=== PATIENT | male | born 1960 | race Caucasian/White ===

== ENCOUNTER 2019-05-02 19:42 | Emergency (ER) | payer OTHER ==
[2019-05-02] MEDS ORDERED: Sodium Chloride 0.9% 10 ML Syringe FLUSH PRN (20:01)
[2019-05-02] MEDS ORDERED: Sodium Chloride 0.9% 2.5 ML Syringe FLUSH PRN (20:01)
[2019-05-02] MEDS ORDERED: Ondansetron 4 MG/2 ML SDV IVPUSH ONE (20:02)
[2019-05-02] MEDS ORDERED: Sodium Chloride 0.9% 1,000 ML IV ONE (20:02)
[2019-05-02] MEDS ORDERED: HYDROmorphone 1 MG/ML Syringe IVPUSH ONE (20:02)
--- NOTE | 2019-05-02 20:06 | EDM.PDOC ---
ED HPI GENERAL MEDICAL PROBLEM - General Chief Complaint: Abdominal Pain Stated Complaint: GALLBLADDER ISSUES Time Seen by Provider: 05/02/19 19:45 - History of Present Illness INITIAL COMMENTS - FREE TEXT/NARRATIVE: HISTORY AND PHYSICAL: History of present illness: The patient is a 58-year-old male with a history of hypertension and diabetes who follows in our clinic and presents with complaints of a 24-hour history of intractable vomiting and mid abdominal pain. He says that he had a similar episode back in August of this year and had a workup at another hospital including a HIDA scan and ultrasound as he had gallstones. He says that the scan that was done seemed equivocal and they were unsure as initially the gallbladder was not functioning and then it did seem to function and they opted not to take his gallbladder out. The patient says he's been doing very well until today. He's had no fever chills cough or shortness of breath no urinary issues and he says that the pain is deep and aching in his mid abdomen and then radiates to the right side completely. He has no flank pain. He has not been able to keep anything down by mouth and is vomiting bile. He has promethazine suppositories at home and he tried when it did not work. The patient has no groin plane and no testicular pain or swelling Review of systems: As per history of present illness and below otherwise all systems reviewed and negative. Past medical history: As per history of present illness and as reviewed below otherwise noncontributory. Surgical history: As per history of present illness and as reviewed below otherwise noncontributory. Social history: No reported history of drug or alcohol abuse. Family history: As per history of present illness and as reviewed below otherwise noncontributory. Physical exam: General: Well-developed well-nourished man who is nontoxic and vital signs are negative by me. He looks uncomfortable in the room HEENT: Atraumatic, normocephalic, pupils reactive, negative for conjunctival pallor or scleral icterus, mucous membranes tacky throat clear, neck supple, nontender, trachea midline. Lungs: Clear to auscultation, breath sounds equal bilaterally, chest nontender. Heart: S1S2, regular rhythm and slightly tachycardic rate on my evaluation no overt murmurs Abdomen: Soft, nondistended, bowel sounds are hypoactive and there is no tympany on percussion and there is tenderness in the mid abdomen as well as on the right mid abdomen but no specific right upper or right lower quadrant tenderness. There is no rebound or guarding. Negative for masses or hepatosplenomegaly. Negative for costovertebral tenderness. Pelvis: Stable nontender. Genitourinary: Deferred. Rectal: Deferred. Extremities: Atraumatic, negative for cords or calf pain. Neurovascular unremarkable. Neuro: Awake, alert, oriented. Cranial nerves II through XII unremarkable. Cerebellum unremarkable. Motor and sensory unremarkable throughout. Exam nonfocal. Diagnostics: CBC CMP amylase lipase UA with reflex CT scan of the abdomen and pelvis chest x- ray (as was ordered due to the patient's O2 sat although he is not complaining of shortness of breath or upper respiratory symptoms) Therapeutics: IV fluids Zofran Dilaudid He is aware of all testing results and is currently not having any nausea or pain and is feeling much better. I've advised him to connect with gastroenterology as this will be as next step to have upper and lower endoscopies and further testing to see if this is IBS or cyclic vomiting syndrome. I will also advise him to follow-up in our clinic in the interim. Patient is taking a by mouth challenge here in the ED Impression: Vomiting profound, improved diffuse abdominal pain improved Definitive disposition and diagnosis as appropriate pending reevaluation and review of above. Abdomen Pain Score (Numeric/FACES): 8 - Related Data Allergies Allergy/AdvReac Type Severity Reaction Status Date / Time No Known Allergies Allergy Verified 05/02/19 19:49 Home Meds: Home Meds Carvedilol 1 tab PO BID 05/02/19 [History] Furosemide [Lasix] 20 mg PO DAILY 05/02/19 [History] Promethazine HCl [Promethegan] 12.5 mg RC ASDIRECTED PRN 05/02/19 [History] Spironolactone [Aldactone] 25 mg PO DAILY 05/02/19 [History] glipiZIDE [Glipizide ER] 5 mg PO DAILY 05/02/19 [History] metFORMIN [Glucophage] 1,000 mg PO BIDMEALS 05/02/19 [History] Past Medical History HEENT History: Reports: None Cardiovascular History: Reports: Hypertension Respiratory History: Reports: None Gastrointestinal History: Reports: Other (See Below) Other Gastrointestinal History: Gallbladder Issues Genitourinary History: Reports: None Musculoskeletal History: Reports: None Neurological History: Reports: None Psychiatric History: Reports: None Endocrine/Metabolic History: Reports: Diabetes, Type II Insulin Pump Model 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 Hematologic History: Reports: None Immunologic History: Reports: None Oncologic (Cancer) History: Reports: None Dermatologic History: Reports: None - Infectious Disease History Infectious Disease History: Reports: None - Past Surgical History Head Surgeries/Procedures: Reports: None HEENT Surgical History: Reports: Other (See Below) Other HEENT Surgeries/Procedures: Thyroidectomy GI Surgical History: Reports: None Musculoskeletal Surgical History: Reports: None Social & Family History - Family History Family Medical History: Noncontributory - Tobacco Use Smoking Status *Q: Never Smoker - Caffeine Use Caffeine Use: Reports: Coffee - Recreational Drug Use Recreational Drug Use: No ED ROS GENERAL - Review of Systems Review Of Systems: ROS reveals no pertinent complaints other than HPI. ED EXAM, GENERAL - Physical Exam Exam: See Below (see Dictation) Course - Vital Signs Last Recorded V/S: Last Vital Signs Temp 36.1 C 05/02/19 19:45 Pulse 91 05/02/19 20:39 Resp 18 05/02/19 20:39 BP 119/73 05/02/19 20:39 Pulse Ox 96 05/02/19 20:39 - Orders/Labs/Meds Orders: Active Orders 24 hr Category Date Time Status Blood Glucose Check, Bedside [RC] ONETIME Care 05/02/19 20:01 Active UA RFX MADELYN AND CULT IF INDIC [URIN] Stat Lab 05/02/19 20:01 Ordered Sodium Chloride 0.9% [Saline Flush] Med 05/02/19 20:01 Active 10 ml FLUSH ASDIRECTED PRN Sodium Chloride 0.9% [Saline Flush] Med 05/02/19 20:01 Active 2.5 ml FLUSH ASDIRECTED PRN Saline Lock Insert [OM.PC] Stat Oth 05/02/19 20:01 Ordered Medication Orders Sodium Chloride (Saline Flush) 10 ml FLUSH ASDIRECTED PRN PRN Reason: Keep Vein Open Sodium Chloride (Saline Flush) 2.5 ml FLUSH ASDIRECTED PRN PRN Reason: Keep Vein Open Labs: Laboratory Tests 09/15/19 09/15/19 09/15/19 Range/Units 19:56 19:56 19:59 WBC 7.30 (4.0-11.0) K/uL RBC 4.98 (4.50-5.90) M/uL Hgb 15.7 (13.0-17.0) g/dL Hct 44.6 (38.0-50.0) % MCV 89.6 (80.0-98.0) fL MCH 31.5 (27.0-32.0) pg MCHC 35.2 (31.0-37.0) g/dL RDW Std Deviation 44.3 (28.0-62.0) fl RDW Coeff of Mukesh 14 (11.0-15.0) % Plt Count 129 L (150-400) K/uL MPV 12.50 H (7.40-12.00) fL Neut % (Auto) 67.1 (48.0-80.0) % Lymph % (Auto) 24.4 (16.0-40.0) % Cocke % (Auto) 7.7 (0.0-15.0) % Eos % (Auto) 0.5 (0.0-7.0) % Baso % (Auto) 0.3 (0.0-1.5) % Neut # (Auto) 4.9 (1.4-5.7) K/uL Lymph # (Auto) 1.8 (0.6-2.4) K/uL Cocke # (Auto) 0.6 (0.0-0.8) K/uL Eos # (Auto) 0.0 (0.0-0.7) K/uL Baso # (Auto) 0.0 (0.0-0.1) K/uL Nucleated RBC % 0.0 /100WBC Nucleated RBCs # 0 K/uL Sodium 138 (136-148) mmol/L Potassium 3.9 (3.5-5.1) mmol/L Chloride 101 (98-107) mmol/L Carbon Dioxide 24.1 (21.0-32.0) mmol/L BUN 14 (7.0-18.0) mg/dL Creatinine 1.1 (0.8-1.3) mg/dL Est Cr Clr Drug Dosing 89.62 mL/min Estimated GFR (MDRD) > 60.0 ml/min Glucose 284 H (74-106) mg/dL POC Glucose 237 H (60-110) mg/dL Calcium 10.1 (8.5-10.1) mg/dL Total Bilirubin 1.3 H (0.2-1.0) mg/dL AST 38 H (15-37) IU/L ALT 34 (14-63) IU/L Alkaline Phosphatase 106 (46-116) U/L Total Protein 7.9 (6.4-8.2) g/dL Albumin 3.9 (3.4-5.0) g/dL Globulin 4.0 (2.6-4.0) g/dL Albumin/Globulin Ratio 1.0 (0.9-1.6) Amylase 53 (25-115) U/L Lipase 93 (73-393) U/L Meds: Medications Generic Name Dose Route Start Last Admin Trade Name Freq PRN Reason Stop Dose Admin Sodium Chloride 10 ml 05/02/19 20:01 Saline Flush FLUSH ASDIRECTED PRN Keep Vein Open Sodium Chloride 2.5 ml 05/02/19 20:01 Saline Flush FLUSH ASDIRECTED PRN Keep Vein Open Discontinued Medications Generic Name Dose Route Start Last Admin Trade Name Freq PRN Reason Stop Dose Admin Hydromorphone HCl 1 mg 05/02/19 20:02 05/02/19 20:08 Dilaudid IVPUSH 05/02/19 20:03 1 mg ONETIME ONE Administration Sodium Chloride 1,000 mls @ 999 mls/hr 05/02/19 20:02 05/02/19 20:06 Normal Saline IV 05/02/19 21:02 999 mls/hr STAT ONE Administration Iopamidol 100 ml 05/02/19 21:01 05/02/19 21:01 Isovue Multipack-370 (76%) IVPUSH 05/02/19 21:02 100 ml ONETIME ONE Administration Ondansetron HCl 4 mg 05/02/19 20:02 05/02/19 20:07 Zofran IVPUSH 05/02/19 20:03 4 mg ONETIME ONE Administration Departure - Departure Time of Disposition: 21:47 Disposition: Home, Self-Care 01 Condition: Good Clinical Impression: Abdominal pain Qualifiers: Abdominal location: generalized Qualified Code(s): R10.84 - Generalized abdominal pain Vomiting Qualifiers: Vomiting type: unspecified Vomiting Intractability: non-intractable Nausea presence: with nausea Qualified Code(s): R11.2 - Nausea with vomiting, unspecified - Discharge Information Referrals: PCP,None [Primary Care Provider] - Forms: ED Department Discharge Additional Instructions: The following information is given to patients seen in the emergency department who are being discharged to home. This information is to outline your options for follow-up care. We provide all patients seen in our emergency department with a follow-up referral. The need for follow-up, as well as the timing and circumstances, are variable depending upon the specifics of your emergency department visit. If you don't have a primary care physician on staff, we will provide you with a referral. We always advise you to contact your personal physician following an emergency department visit to inform them of the circumstance of the visit and for follow-up with them and/or the need for any referrals to a consulting specialist. The emergency department will also refer you to a specialist when appropriate. This referral assures that you have the opportunity for followup care with a specialist. All of these measure are taken in an effort to provide you with optimal care, which includes your followup. Under all circumstances we always encourage you to contact your private physician who remains a resource for coordinating your care. When calling for followup care, please make the office aware that this follow-up is from your recent emergency room visit. If for any reason you are refused follow-up, please contact the [facility] emergency department at and ask to speak to the emergency department charge nurse. [facility] Primary care- [place] [address] Please connect with your provider or one of ours for follow-up care and also explore seeing a cupola tender helper as we discussed. Our primary care can help assist with that process. Use medications you have been given from [facility], Zofran and dicyclomine/Bentyl. Please eat a bland diet for the next 2 days and push hydration. Return to ER as needed and as discussed - My Orders Last 24 Hours: My Active Orders 05/02/19 20:01 Blood Glucose Check, Bedside [RC] ONETIME UA RFX MADELYN AND CULT IF INDIC [URIN] Stat Sodium Chloride 0.9% [Saline Flush] 10 ml FLUSH ASDIRECTED PRN Sodium Chloride 0.9% [Saline Flush] 2.5 ml FLUSH ASDIRECTED PRN Saline Lock Insert [OM.PC] Stat - Assessment/Plan Last 24 Hours: My Active Orders 05/02/19 20:01 Blood Glucose Check, Bedside [RC] ONETIME UA RFX MADELYN AND CULT IF INDIC [URIN] Stat Sodium Chloride 0.9% [Saline Flush] 10 ml FLUSH ASDIRECTED PRN Sodium Chloride 0.9% [Saline Flush] 2.5 ml FLUSH ASDIRECTED PRN Saline Lock Insert [OM.PC] Stat
[2019-05-02 20:27] LABS: BLOOD UREA NITROGEN,BUN 14 mg/dL (7.0-18.0); CARBON DIOXIDE,CO2 24.1 mmol/L (21.0-32.0); CHLORIDE,CL 101 mmol/L (98-107); GLUCOSE RANDOM 284 mg/dL (74-106); LIPASE 93 U/L (73-393); POTASSIUM,K 3.9 mmol/L (3.5-5.1); SODIUM,NA 138 mmol/L (136-148)
[2019-05-02] MEDS ORDERED: Iopamidol 755 MG/ML 500 ML Multipack Bottle IVPUSH ONE (21:01)
--- NOTE | 2019-05-02 21:24 | CR ---
HISTORY: Shortness of breath. COMPARISON: None. FINDINGS: The lungs are clear. Costophrenic angles sharp. Heart size and pulmonary vascularity within normal limits. Bony thorax intact. Dictated by Ophelia Kearney MD @ May 02 2019 9:23PM Signed by Dr. Ophelia Kearney @ May 02 2019 9:23PM
--- NOTE | 2019-05-02 21:30 | CT ---
HISTORY: Abdominal pain. COMPARISON: None. TECHNIQUE: Axial images were obtained through the abdomen and pelvis following 100 cc of Isovue-370 intravenous contrast. FINDINGS: The lung bases are clear. The liver, spleen, pancreas, gallbladder, and adrenal glands are normal. Punctate stones within the renal collecting systems. No hydronephrosis. Small right renal cyst. Bowel is normal in caliber. The appendix is normal. [id number] nonspecific fat stranding in the right lower quadrant. The bones are within normal. Impression : Mild nonspecific inflammatory fat stranding in the right lower quadrant. Appendix is normal in caliber. No evidence for bowel obstruction. Tiny renal stones. No hydronephrosis. Please note that all CT scans at this facility use dose modulation, iterative reconstruction, and/or weight-based dosing when appropriate to reduce radiation dose to as low as reasonably achievable. Dictated by Ophelia Kearney MD @ May 02 2019 9:23PM Signed by Dr. Ophelia Kearney @ May 02 2019 9:29PM
== END 2019-05-02 22:01 | disposition home or self-care (01) ==
LOC: MW.ED 19:42
DX: R10.84 Generalized abdominal pain (principal); I10 Essential (primary) hypertension; E11.9 Type 2 diabetes mellitus without complications; Z79.84 Long term (current) use of oral hypoglycemic drugs; Z79.899 Other long term (current) drug therapy
CPT/HCPCS: 36415; 71046; 74177; 80053; 81001; 82150; 82962; 83690; 85025; 96361; 96374; 96375; 99284; J1170; J2405; J7040; Q9967

== ENCOUNTER 2019-05-04 10:44 | Emergency (ER) | payer OTHER ==
[2019-05-04] MEDS ORDERED: Sodium Chloride 0.9% 2.5 ML Syringe FLUSH PRN (10:53)
[2019-05-04] MEDS ORDERED: Sodium Chloride 0.9% 10 ML Syringe FLUSH PRN (10:53)
--- NOTE | 2019-05-04 10:53 | EDM.PDOC ---
ED HPI GENERAL MEDICAL PROBLEM - General Chief Complaint: Abdominal Pain Stated Complaint: ABD PAIN Time Seen by Provider: 05/04/19 10:53 Source of Information: Reports: Patient History Limitations: Reports: No Limitations - History of Present Illness INITIAL COMMENTS - FREE TEXT/NARRATIVE: History of present illness: []Patient had 2 cups of coffee this morning and started having profuse vomiting with pain in his epigastrium rating down the middle of his abdomen. He's had this before is been worked up for gallbladder issues negative ultrasound, HIDA scan and CT scans. He is a diabetic and has hypertension and has been unable to take his meds due to intermittent vomiting from abdominal pain. Patient has a positive Tory pain meds and antiemetics at home that he has not taken. Review of systems: As per history of present illness and below otherwise all systems reviewed and negative. Past medical history: As per history of present illness and as reviewed below otherwise noncontributory. Surgical history: As per history of present illness and as reviewed below otherwise noncontributory. Social history: No reported history of drug or alcohol abuse. Family history: As per history of present illness and as reviewed below otherwise noncontributory. Physical exam: General: Well developed, well nourished in NAD HEENT: Atraumatic, normocephalic, pupils reactive, negative for conjunctival pallor or scleral icterus, mucous membranes moist, throat clear, neck supple, nontender, trachea midline. Lungs: Clear to auscultation, breath sounds equal bilaterally, chest nontender. Heart: S1S2, regular, negative for clicks, rubs, or JVD. Abdomen: NABS, Soft, nondistended, diffuse tenderness no rebound or guarding. Negative for masses or hepatosplenomegaly. Negative for costovertebral tenderness. Pelvis: Stable nontender. Genitourinary: Deferred. Rectal: Deferred. Extremities: Atraumatic, negative for cords or calf pain. Neurovascular unremarkable. Neuro: Awake, alert, oriented. Cranial nerves II through XII unremarkable. Cerebellum unremarkable. Motor and sensory unremarkable throughout. Exam nonfocal. Skin:warm and dry Diagnostics: CBC, chemistry, ketones, way Therapeutics: IV hydration, morphine, Dilaudid, Zofran, Reglan ED Course: Stable Impression: Gastroparesis, uncontrolled high blood pressure, uncontrolled diabetes Prescriptions: Reglan Plan: Take meds as directed, follow up with your primary care physician, return to ER if symptoms worsen or change. Definitive disposition and diagnosis as appropriate pending reevaluation and review of above. abdominal Pain Score (Numeric/FACES): 8 - Related Data Allergies Allergy/AdvReac Type Severity Reaction Status Date / Time No Known Allergies Allergy Verified 05/04/19 10:55 Home Meds: Home Meds Carvedilol 1 tab PO BID 05/02/19 [History] Furosemide [Lasix] 20 mg PO DAILY 05/02/19 [History] Promethazine HCl [Promethegan] 12.5 mg RC ASDIRECTED PRN 05/02/19 [History] Spironolactone [Aldactone] 25 mg PO DAILY 05/02/19 [History] glipiZIDE [Glipizide ER] 5 mg PO DAILY 05/02/19 [History] metFORMIN [Glucophage] 1,000 mg PO BIDMEALS 05/02/19 [History] Metoclopramide HCl [Reglan] 10 mg PO TID #20 tablet 05/04/19 [Rx] Past Medical History HEENT History: Reports: None Cardiovascular History: Reports: Hypertension Respiratory History: Reports: None Gastrointestinal History: Reports: Other (See Below) Other Gastrointestinal History: Gallbladder Issues Genitourinary History: Reports: None Musculoskeletal History: Reports: None Neurological History: Reports: None Psychiatric History: Reports: None Endocrine/Metabolic History: Reports: Diabetes, Type II 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 Hematologic History: Reports: None Immunologic History: Reports: None Oncologic (Cancer) History: Reports: None Dermatologic History: Reports: None - Infectious Disease History Infectious Disease History: Reports: None - Past Surgical History Head Surgeries/Procedures: Reports: None HEENT Surgical History: Reports: Other (See Below) Other HEENT Surgeries/Procedures: Thyroidectomy GI Surgical History: Reports: None Musculoskeletal Surgical History: Reports: None Social & Family History - Family History Family Medical History: Noncontributory - Caffeine Use Caffeine Use: Reports: Coffee ED ROS GENERAL - Review of Systems Review Of Systems: See Below ED EXAM, GI/ABD - Physical Exam Exam: See Below Course - Vital Signs Last Recorded V/S: Last Vital Signs Temp 98.0 F 05/04/19 10:53 Pulse 77 05/04/19 13:09 Resp 18 05/04/19 13:07 BP 168/108 H 05/04/19 13:09 Pulse Ox 96 05/04/19 13:07 - Orders/Labs/Meds Orders: Active Orders 24 hr Category Date Time Status Oxygen Therapy Adult [Oxygen Therapy, ED] [RC] Care 05/04/19 13:04 Active ASDIRECTED Sodium Chloride 0.9% [Saline Flush] Med 05/04/19 10:53 Active 10 ml FLUSH ASDIRECTED PRN Sodium Chloride 0.9% [Saline Flush] Med 05/04/19 10:53 Active 2.5 ml FLUSH ASDIRECTED PRN Saline Lock Insert [OM.PC] Stat Oth 05/04/19 10:53 Ordered Medication Orders Sodium Chloride (Saline Flush) 10 ml FLUSH ASDIRECTED PRN PRN Reason: Keep Vein Open Sodium Chloride (Saline Flush) 2.5 ml FLUSH ASDIRECTED PRN PRN Reason: Keep Vein Open Labs: Laboratory Tests 05/04/19 05/04/19 05/04/19 Range/Units 11:10 11:10 11:10 WBC 7.14 (4.0-11.0) K/uL RBC 4.90 (4.50-5.90) M/uL Hgb 15.5 (13.0-17.0) g/dL Hct 44.1 (38.0-50.0) % MCV 90.0 (80.0-98.0) fL MCH 31.6 (27.0-32.0) pg MCHC 35.1 (31.0-37.0) g/dL RDW Std Deviation 44.8 (28.0-62.0) fl RDW Coeff of Mukesh 14 (11.0-15.0) % Plt Count 112 L (150-400) K/uL MPV 12.60 H (7.40-12.00) fL Neut % (Auto) 62.4 (48.0-80.0) % Lymph % (Auto) 26.3 (16.0-40.0) % [place] % (Auto) 9.2 (0.0-15.0) % Eos % (Auto) 1.7 (0.0-7.0) % Baso % (Auto) 0.4 (0.0-1.5) % Neut # (Auto) 4.5 (1.4-5.7) K/uL Lymph # (Auto) 1.9 (0.6-2.4) K/uL [place] # (Auto) 0.7 (0.0-0.8) K/uL Eos # (Auto) 0.1 (0.0-0.7) K/uL Baso # (Auto) 0.0 (0.0-0.1) K/uL Nucleated RBC % 0.0 /100WBC Nucleated RBCs # 0 K/uL Sodium 136 (136-148) mmol/L Potassium 4.2 (3.5-5.1) mmol/L Chloride 101 (98-107) mmol/L Carbon Dioxide 23.2 (21.0-32.0) mmol/L BUN 14 (7.0-18.0) mg/dL Creatinine 1.0 (0.8-1.3) mg/dL Est Cr Clr Drug Dosing 98.58 mL/min Estimated GFR (MDRD) > 60.0 ml/min Glucose 288 H (74-106) mg/dL POC Glucose (60-110) mg/dL Calcium 9.8 (8.5-10.1) mg/dL Total Bilirubin 1.2 H (0.2-1.0) mg/dL AST 33 (15-37) IU/L ALT 33 (14-63) IU/L Alkaline Phosphatase 94 (46-116) U/L Total Protein 7.5 (6.4-8.2) g/dL Albumin 3.7 (3.4-5.0) g/dL Globulin 3.8 (2.6-4.0) g/dL Albumin/Globulin Ratio 1.0 (0.9-1.6) Lipase 348 (73-393) U/L Urine Color Urine Appearance Urine pH (5.0-8.0) Ur Specific [place] (1.001-1.035) Urine Protein (NEGATIVE) mg/dL Urine Glucose (UA) (NEGATIVE) mg/dL Urine Ketones (NEGATIVE) mg/dL Urine Occult Blood (NEGATIVE) Urine Nitrite (NEGATIVE) Urine Bilirubin (NEGATIVE) Urine Urobilinogen (<2.0) EU/dL Ur Leukocyte Esterase (NEGATIVE) Urine RBC (0-2/HPF) Urine WBC (0-5/HPF) Ur Epithelial Cells (NONE-FEW) Urine Bacteria (NEGATIVE) Ketones NEGATIVE (NEG) 09/17/19 09/17/19 09/17/19 Range/Units 11:30 12:28 13:14 WBC (4.0-11.0) K/uL RBC (4.50-5.90) M/uL Hgb (13.0-17.0) g/dL Hct (38.0-50.0) % MCV (80.0-98.0) fL MCH (27.0-32.0) pg MCHC (31.0-37.0) g/dL RDW Std Deviation (28.0-62.0) fl RDW Coeff of [place]esh (11.0-15.0) % Plt Count (150-400) K/uL MPV (7.40-12.00) fL Neut % (Auto) (48.0-80.0) % Lymph % (Auto) (16.0-40.0) % [place] % (Auto) (0.0-15.0) % Eos % (Auto) (0.0-7.0) % Baso % (Auto) (0.0-1.5) % Neut # (Auto) (1.4-5.7) K/uL Lymph # (Auto) (0.6-2.4) K/uL [place] # (Auto) (0.0-0.8) K/uL Eos # (Auto) (0.0-0.7) K/uL Baso # (Auto) (0.0-0.1) K/uL Nucleated RBC % /100WBC Nucleated RBCs # K/uL Sodium (136-148) mmol/L Potassium (3.5-5.1) mmol/L Chloride (98-107) mmol/L Carbon Dioxide (21.0-32.0) mmol/L BUN (7.0-18.0) mg/dL Creatinine (0.8-1.3) mg/dL Est Cr Clr Drug Dosing mL/min Estimated GFR (MDRD) ml/min Glucose (74-106) mg/dL POC Glucose 269 H 249 H (60-110) mg/dL Calcium (8.5-10.1) mg/dL Total Bilirubin (0.2-1.0) mg/dL AST (15-37) IU/L ALT (14-63) IU/L Alkaline Phosphatase (46-116) U/L Total Protein (6.4-8.2) g/dL Albumin (3.4-5.0) g/dL Globulin (2.6-4.0) g/dL Albumin/Globulin Ratio (0.9-1.6) Lipase (73-393) U/L Urine Color YELLOW Urine Appearance CLEAR Urine pH 6.5 (5.0-8.0) Ur Specific [place] 1.025 (1.001-1.035) Urine Protein 30 H (NEGATIVE) mg/dL Urine Glucose (UA) 500 H (NEGATIVE) mg/dL Urine Ketones TRACE H (NEGATIVE) mg/dL Urine Occult Blood TRACE-INTACT H (NEGATIVE) Urine Nitrite NEGATIVE (NEGATIVE) Urine Bilirubin NEGATIVE (NEGATIVE) Urine Urobilinogen 1.0 (<2.0) EU/dL Ur Leukocyte Esterase TRACE H (NEGATIVE) Urine RBC 3-5 (0-2/HPF) Urine WBC 5-10 (0-5/HPF) Ur Epithelial Cells FEW (NONE-FEW) Urine Bacteria FEW (NEGATIVE) Ketones (NEG) Meds: Medications Generic Name Dose Route Start Last Admin Trade Name Deon PRN Reason Stop Dose Admin Sodium Chloride 10 ml 05/04/19 10:53 Saline Flush FLUSH ASDIRECTED PRN Keep Vein Open Sodium Chloride 2.5 ml 05/04/19 10:53 Saline Flush FLUSH ASDIRECTED PRN Keep Vein Open Discontinued Medications Generic Name Dose Route Start Last Admin Trade Name Deon PRN Reason Stop Dose Admin Hydromorphone HCl 0.5 mg 05/04/19 12:21 05/04/19 12:29 Dilaudid IVPUSH 05/04/19 12:22 0.5 mg ONETIME ONE Administration Sodium Chloride 1,000 mls @ 999 mls/hr 05/04/19 11:07 05/04/19 11:21 Normal Saline IV 05/04/19 12:07 999 mls/hr .Bolus ONE Administration Sodium Chloride 1,000 mls @ 999 mls/hr 05/04/19 12:05 05/04/19 12:19 Normal Saline IV 05/04/19 13:05 999 mls/hr .Bolus ONE Administration Insulin Human Regular 6 unit 05/04/19 11:46 05/04/19 11:55 Novolin R SUBCUT 05/04/19 11:47 6 unit ONETIME ONE Administration Protocol Metoclopramide HCl 10 mg 05/04/19 11:45 05/04/19 11:55 Reglan IV 05/04/19 11:46 10 mg ONETIME ONE Administration Metoprolol Tartrate 5 mg 05/04/19 12:45 05/04/19 13:09 Lopressor IVPUSH 05/04/19 12:56 5 mg Q5M MIRZA Administration Morphine Sulfate 4 mg 05/04/19 11:07 05/04/19 11:20 Morphine IVPUSH 05/04/19 11:08 4 mg ONETIME ONE Administration Ondansetron HCl 4 mg 05/04/19 11:07 05/04/19 11:20 Zofran IVPUSH 05/04/19 11:08 4 mg ONETIME ONE Administration Departure - Departure Time of Disposition: 13:37 Disposition: Home, Self-Care 01 Condition: Good Clinical Impression: Gastroparesis - Discharge Information *PRESCRIPTION DRUG MONITORING PROGRAM REVIEWED*: Not Applicable *COPY OF PRESCRIPTION DRUG MONITORING REPORT IN PATIENT JEN: Not Applicable Prescriptions: Metoclopramide HCl [Reglan] 10 mg PO TID #20 tablet Instructions: Gastroparesis Referrals: PCP,Unknown [Primary Care Provider] - Forms: ED Department Discharge Additional Instructions: The following information is given to patients seen in the emergency department who are being discharged to home. This information is to outline your options for follow-up care. We provide all patients seen in our emergency department with a follow-up referral. The need for follow-up, as well as the timing and circumstances, are variable depending upon the specifics of your emergency department visit. If you don't have a primary care physician on staff, we will provide you with a referral. We always advise you to contact your personal physician following an emergency department visit to inform them of the circumstance of the visit and for follow-up with them and/or the need for any referrals to a consulting specialist. The emergency department will also refer you to a specialist when appropriate. This referral assures that you have the opportunity for follow-up care with a specialist. All of these measure are taken in an effort to provide you with optimal care, which includes your follow-up. Under all circumstances we always encourage you to contact your private physician who remains a resource for coordinating your care. When calling for follow-up care, please make the office aware that this follow-up is from your recent emergency room visit. If for any reason you are refused follow-up, please contact the [facility] Emergency Department at and asked to speak to the emergency department charge nurse. Take meds as directed, follow up with your primary care physician, return to ER if symptoms worsen or change. [facility] [address] [place] [id number] - My Orders Last 24 Hours: My Active Orders 05/04/19 10:53 Sodium Chloride 0.9% [Saline Flush] 10 ml FLUSH ASDIRECTED PRN Sodium Chloride 0.9% [Saline Flush] 2.5 ml FLUSH ASDIRECTED PRN Saline Lock Insert [OM.PC] Stat 05/04/19 13:04 Oxygen Therapy Adult [Oxygen Therapy, ED] [RC] ASDIRECTED - Assessment/Plan Last 24 Hours: My Active Orders 05/04/19 10:53 Sodium Chloride 0.9% [Saline Flush] 10 ml FLUSH ASDIRECTED PRN Sodium Chloride 0.9% [Saline Flush] 2.5 ml FLUSH ASDIRECTED PRN Saline Lock Insert [OM.PC] Stat 05/04/19 13:04 Oxygen Therapy Adult [Oxygen Therapy, ED] [RC] ASDIRECTED
[2019-05-04] MEDS ORDERED: Morphine 4 MG/ML Syringe IVPUSH ONE (11:07)
[2019-05-04] MEDS ORDERED: Sodium Chloride 0.9% 1,000 ML IV ONE ×2 (11:07→12:05)
[2019-05-04] MEDS ORDERED: Ondansetron 4 MG/2 ML SDV IVPUSH ONE (11:07)
[2019-05-04] MEDS ORDERED: Metoclopramide 10 MG/2 ML SDV IV ONE (11:45)
[2019-05-04] MEDS ORDERED: Insulin Regular, Human 100 Units/ML 10 ML Vial SUBCUT ONE (11:46)
[2019-05-04 11:48] LABS: BLOOD UREA NITROGEN,BUN 14 mg/dL (7.0-18.0); CARBON DIOXIDE,CO2 23.2 mmol/L (21.0-32.0); CHLORIDE,CL 101 mmol/L (98-107); GLUCOSE RANDOM 288 mg/dL (74-106); LIPASE 348 U/L (73-393); POTASSIUM,K 4.2 mmol/L (3.5-5.1); SODIUM,NA 136 mmol/L (136-148)
[2019-05-04] MEDS ORDERED: HYDROmorphone 2 MG/ML Syringe IVPUSH ONE (12:21)
[2019-05-04] MEDS: Metoprolol Tartrate 5 MG/5 ML SDV IVPUSH SCH ×3 (12:55→13:09)
== END 2019-05-04 13:36 | disposition home or self-care (01) ==
LOC: MW.ED 10:44
DX: E11.43 Type 2 diabetes mellitus with diabetic autonomic (poly)neuropathy (principal); K31.84 Gastroparesis; E11.65 Type 2 diabetes mellitus with hyperglycemia; I10 Essential (primary) hypertension; Z79.899 Other long term (current) drug therapy; Z79.84 Long term (current) use of oral hypoglycemic drugs
CPT/HCPCS: 36415; 80053; 81001; 82009; 82962; 83690; 85025; 96361; 96374; 96375; 99284; J1170; J2270; J2405; J2765; J3490; J7040; 99283; J1815-GY

== ENCOUNTER 2019-05-06 00:19 | Observation (INO) | payer OTHER ==
[2019-05-06] MEDS ORDERED: diphenhydrAMINE 50 MG/ML SDV IVPUSH ONE (00:36)
[2019-05-06] MEDS ORDERED: Sodium Chloride 0.9% 2.5 ML Syringe FLUSH PRN (00:36)
[2019-05-06] MEDS ORDERED: Sodium Chloride 0.9% 10 ML Syringe FLUSH PRN (00:36)
[2019-05-06] MEDS ORDERED: Ondansetron 4 MG/2 ML SDV IVPUSH ONE ×2 (00:36→00:57)
[2019-05-06] MEDS ORDERED: Sodium Chloride 0.9% 1,000 ML IV ONE ×2 (00:36→01:44)
--- NOTE | 2019-05-06 00:40 | EDM.PDOC ---
ED HPI GENERAL MEDICAL PROBLEM - General Chief Complaint: Chest Pain Stated Complaint: RACING HEART BEAT Time Seen by Provider: 05/06/19 00:30 - History of Present Illness INITIAL COMMENTS - FREE TEXT/NARRATIVE: HISTORY AND PHYSICAL: History of present illness: The patient is a 58-year-old male with a history of hypertension and diabetes who has been seen here multiple times this month for epigastric pain and vomiting who presents tonight with palpitations and feeling anxious after taking Reglan at 6 PM. The patient has had an outpatient workup at another hospital back in August of this year with a HIDA and abdominal ultrasound and the patient here had a CAT scan on May 02 on his visit with me. The patient has not scheduled outpatient follow-up but according to his report to me he was told that his nuclear medicine scan showed that his gallbladder had low function and he was supposed to get his gallbladder out and there were some complications and it did not get performed at the other hospital. The patient was seen here after my visit on Friday and had profound vomiting and was prescribed Reglan. He says he took a dose at 6 PM and at approximate 7 PM he started having palpitations and feeling twitchy and anxious. He says he has not had much to eat or drink since that time because of the symptoms. He says that his chest doesn't hurt him but he feels like he is having palpitations and it is pounding. He has no shortness of breath no new abdominal pain.: Well- developed well-nourished man who is nontoxic and vital signs are noted by me Please see below for some more information regarding the patient's history and medications Review of systems: As per history of present illness and below otherwise all systems reviewed and negative. Past medical history: As per history of present illness and as reviewed below otherwise noncontributory. Surgical history: As per history of present illness and as reviewed below otherwise noncontributory. Social history: No reported history of drug or alcohol abuse. Family history: As per history of present illness and as reviewed below otherwise noncontributory. Physical exam: HEENT: Atraumatic, normocephalic, pupils reactive, negative for conjunctival pallor or scleral icterus, mucous membranes , throat clear, neck supple, nontender, trachea midline. Lungs: Clear to auscultation, breath sounds equal bilaterally, chest nontender. Heart: S1S2, regular rhythm and sightly tachycardic on my evaluation up to 110 but drops down to 103 no overt murmurs , negative for clicks, rubs, or JVD. Abdomen: Soft, nondistended, nontender except for some minimal mid abdominal tenderness. Negative for masses or hepatosplenomegaly. Negative for costovertebral tenderness. Pelvis: Stable nontender. Genitourinary: Deferred. Rectal: Deferred. Extremities: Atraumatic, negative for cords or calf pain. Neurovascular unremarkable.No pedal edema Neuro: Awake, alert, oriented. Cranial nerves II through XII unremarkable. Cerebellum unremarkable. Motor and sensory unremarkable throughout. Exam nonfocal. Diagnostics: EKG x 2 CBC CMP troponin x 2 TSH chest x-ray CTA scan of the chest abdomen and pelvis UA, urine culture lactic acid Therapeutics: IV O2 monitor IV fluids Benadryl Zofran Compazine Dilaudid Aspirin Nitropaste Lasix While here in the ED the patient started having intractable vomiting again which is what he presented with on his last visit. I will try Compazine as we have already given him 2 doses of Zofran and he took Reglan earlier today and started having a reaction. I will also proceed to do repeat CT scan of the abdomen and pelvis and also add on right chest. After these several episodes of vomiting the patient is complaining of upper abdominal pain and I will give him a dose of medications. He says that the pain is similar to when I saw him on Friday and it is mid abdomen and just to the right of the umbilicus. On my examination he has tenderness with palpation in the mid abdomen and just underneath the umbilicus but there is no rebound or guarding and no tympany. His exam has not changed from earlier. After obtaining the CT scan results I reviewed the patient's med list and saw that he has Lasix on it. When asked why he takes Lasix he tells nursing that he has an enlarged heart and he has fluid retention and in fact he has not taken his Lasix in the last few days as he tapered himself and took himself off of it. Patient is now sleeping in the ED after Compazine and Dilaudid. We are currently awaiting the results of his CT scan. 0210: Discussed this case with Dr. Ragsdale who was in the ER for another patient and informed him that if the patient was admitted here I will consult him formally and he said that would be fine. I've also told Dr. Howard about this conversation. The concern from a surgical standpoint is just that he has had a history of gallbladder issues and has had 3 ER visits for abdominal pain and vomiting. 0502: Case was discussed with Dr. Howard after testing results were obtained and he requested that I do a lactic acid. He is aware of the slight bump in the troponin and the fluid overload seen on CAT scan this evening. He is also aware of the BNP and the abdominal complaints at the patient has had on the 2 prior ED visits as well as his abdominal complaints as evening after vomiting. He requested that I perform a lactic acid and if that is within normal limits he will admit the patient here and get a cardiology consult in the morning. He would also like me to give a dose of Lasix if the patient is admitted here. The understanding was that if the lactate is elevated he would want the patient to be transferred as with a history of abdominal pain and atherosclerotic disease on the CAT scan this may be ischemic bowel masquerading. The patient was made aware of these conversations and the plan. 0520: Lactate was within normal limits so a dose of Lasix has been ordered an observation admission to Dr. Howard. I placed a formal consult for Dr. Ragsdale and will not recontact him as he was made aware of this case and has the patient's name earlier in our conversations. Dr. Howard had said that he plans on getting cardiology involved this morning for further care and the patient has been made aware that we will use the resources that we have here to work him up and if the care plan changes and there are any changes in his clinical statement that he will need to be transferred. He States understanding. He is currently not having any chest pain nor has he ever had any chest pain on his prior visits or even today on this ED visit. His abdominal pain nausea and vomiting has improved significantly with the Compazine Critical care time excluding procedures: 35min Impression: Fluid overload, nonspecific abdominal pain with vomiting, positive troponin Definitive disposition and diagnosis as appropriate pending reevaluation and review of above. chest Pain Score (Numeric/FACES): 4 - Related Data Allergies Allergy/AdvReac Type Severity Reaction Status Date / Time No Known Allergies Allergy Verified 05/06/19 00:32 Home Meds: Home Meds Carvedilol 1 tab PO BID 05/02/19 [History] Furosemide [Lasix] 20 mg PO DAILY 05/02/19 [History] Promethazine HCl [Promethegan] 12.5 mg RC ASDIRECTED PRN 05/02/19 [History] Spironolactone [Aldactone] 25 mg PO DAILY 05/02/19 [History] glipiZIDE [Glipizide ER] 5 mg PO DAILY 05/02/19 [History] metFORMIN [Glucophage] 1,000 mg PO BIDMEALS 05/02/19 [History] Metoclopramide HCl [Reglan] 10 mg PO TID #20 tablet 05/04/19 [Rx] Past Medical History HEENT History: Reports: None Cardiovascular History: Reports: Hypertension Respiratory History: Reports: None Gastrointestinal History: Reports: Other (See Below) Other Gastrointestinal History: Gallbladder Issues Genitourinary History: Reports: None Musculoskeletal History: Reports: None Neurological History: Reports: None Psychiatric History: Reports: None Endocrine/Metabolic History: Reports: Diabetes, Type II Insulin Pump Model and Tapping Machine Operator: None Hematologic History: Reports: None Immunologic History: Reports: None Oncologic (Cancer) History: Reports: None Dermatologic History: Reports: None - Infectious Disease History Infectious Disease History: Reports: None - Past Surgical History Head Surgeries/Procedures: Reports: None HEENT Surgical History: Reports: Other (See Below) Other HEENT Surgeries/Procedures: Thyroidectomy GI Surgical History: Reports: None Musculoskeletal Surgical History: Reports: None Social & Family History - Family History Family Medical History: Noncontributory - Tobacco Use Smoking Status *Q: Never Smoker - Caffeine Use Caffeine Use: Reports: Coffee - Recreational Drug Use Recreational Drug Use: Yes Drug Use in Last 12 Months: Yes Recreational Drug Type: Reports: Marijuana/Hashish Recreational Drug Use Frequency: Rarely ED ROS GENERAL - Review of Systems Review Of Systems: ROS reveals no pertinent complaints other than HPI. ED EXAM, GENERAL - Physical Exam Exam: See Below (See dictation) Course - Vital Signs Last Recorded V/S: Last Vital Signs Temp 36.7 C 05/06/19 03:32 Pulse 89 05/06/19 04:34 Resp 14 05/06/19 04:19 BP 124/82 05/06/19 04:34 Pulse Ox 93 L 05/06/19 04:19 - Orders/Labs/Meds Orders: Active Orders 24 hr Category Date Time Status Patient Status [ADT] Stat ADT 05/06/19 05:25 Ordered Cardiac Monitoring [RC] . DIRECTED Care 05/06/19 00:35 Active EKG Documentation Completion [RC] STAT Care 05/06/19 00:35 Active EKG Documentation Completion [RC] STAT Care 05/06/19 01:50 Active EKG Documentation Completion [RC] STAT Care 05/06/19 03:59 Active Notify Provider Consults [RC] ASDIRECTED Care 05/06/19 05:24 Ordered Oxygen Therapy, ED [RC] ASDIRECTED Care 05/06/19 00:35 Active Pulse Oximetry [RC] ASDIRECTED Care 05/06/19 00:35 Active Consult to Physician [CONS] Stat Cons 05/06/19 05:24 Ordered CULTURE URINE [RM] Stat Lab 05/06/19 00:37 Received Sodium Chloride 0.9% [Saline Flush] Med 05/06/19 00:36 Active 10 ml FLUSH ASDIRECTED PRN Sodium Chloride 0.9% [Saline Flush] Med 05/06/19 00:36 Active 2.5 ml FLUSH ASDIRECTED PRN Saline Lock Insert [OM.PC] Stat Oth 05/06/19 00:35 Ordered Medication Orders Sodium Chloride (Saline Flush) 10 ml FLUSH ASDIRECTED PRN PRN Reason: Keep Vein Open Sodium Chloride (Saline Flush) 2.5 ml FLUSH ASDIRECTED PRN PRN Reason: Keep Vein Open Labs: Laboratory Tests 05/06/19 05/06/19 05/06/19 Range/Units 00:20 00:20 00:37 WBC 7.17 (4.0-11.0) K/uL RBC 4.92 (4.50-5.90) M/uL Hgb 15.6 (13.0-17.0) g/dL Hct 43.6 (38.0-50.0) % MCV 88.6 (80.0-98.0) fL MCH 31.7 (27.0-32.0) pg MCHC 35.8 (31.0-37.0) g/dL RDW Std Deviation 42.5 (28.0-62.0) fl RDW Coeff of Mukesh 13 (11.0-15.0) % Plt Count 118 L (150-400) K/uL MPV 12.30 H (7.40-12.00) fL Neut % (Auto) 56.7 (48.0-80.0) % Lymph % (Auto) 31.5 (16.0-40.0) % [place] % (Auto) 10.7 (0.0-15.0) % Eos % (Auto) 1.0 (0.0-7.0) % Baso % (Auto) 0.1 (0.0-1.5) % Neut # (Auto) 4.1 (1.4-5.7) K/uL Lymph # (Auto) 2.3 (0.6-2.4) K/uL [place] # (Auto) 0.8 (0.0-0.8) K/uL Eos # (Auto) 0.1 (0.0-0.7) K/uL Baso # (Auto) 0.0 (0.0-0.1) K/uL Lactate (0.20-2.00) mmol/L Sodium 138 (136-148) mmol/L Potassium 3.9 (3.5-5.1) mmol/L Chloride 100 (98-107) mmol/L Carbon Dioxide 25.5 (21.0-32.0) mmol/L BUN 16 (7.0-18.0) mg/dL Creatinine 1.2 (0.8-1.3) mg/dL Est Cr Clr Drug Dosing 82.15 mL/min Estimated GFR (MDRD) > 60.0 ml/min Glucose 251 H (74-106) mg/dL Calcium 9.2 (8.5-10.1) mg/dL Total Bilirubin 1.3 H (0.2-1.0) mg/dL AST 33 (15-37) IU/L ALT 33 (14-63) IU/L Alkaline Phosphatase 91 (46-116) U/L Troponin I 0.054 (0.000-0.056) ng/mL B-Natriuretic Peptide (<100) PG/ML Total Protein 7.8 (6.4-8.2) g/dL Albumin 3.9 (3.4-5.0) g/dL Globulin 3.9 (2.6-4.0) g/dL Albumin/Globulin Ratio 1.0 (0.9-1.6) [facility] 3rd Generation 3.27 (0.36-3.74) uIU/mL Urine Color YELLOW Urine Appearance CLEAR Urine pH 6.5 (5.0-8.0) Ur Specific [place] 1.025 (1.001-1.035) Urine Protein 30 H (NEGATIVE) mg/dL Urine Glucose (UA) 500 H (NEGATIVE) mg/dL Urine Ketones TRACE H (NEGATIVE) mg/dL Urine Occult Blood TRACE-INTACT H (NEGATIVE) Urine Nitrite NEGATIVE (NEGATIVE) Urine Bilirubin NEGATIVE (NEGATIVE) Urine Urobilinogen 1.0 (<2.0) EU/dL Ur Leukocyte Esterase TRACE H (NEGATIVE) Urine RBC 1-2 (0-2/HPF) Urine WBC 1-2 (0-5/HPF) Ur Epithelial Cells RARE (NONE-FEW) Urine Bacteria RARE (NEGATIVE) 05/06/19 05/06/19 05/06/19 Range/Units 03:54 03:54 05:12 WBC (4.0-11.0) K/uL RBC (4.50-5.90) M/uL Hgb (13.0-17.0) g/dL Hct (38.0-50.0) % MCV (80.0-98.0) fL MCH (27.0-32.0) pg MCHC (31.0-37.0) g/dL RDW Std Deviation (28.0-62.0) fl RDW Coeff of Mukesh (11.0-15.0) % Plt Count (150-400) K/uL MPV (7.40-12.00) fL Neut % (Auto) (48.0-80.0) % Lymph % (Auto) (16.0-40.0) % [place] % (Auto) (0.0-15.0) % Eos % (Auto) (0.0-7.0) % Baso % (Auto) (0.0-1.5) % Neut # (Auto) (1.4-5.7) K/uL Lymph # (Auto) (0.6-2.4) K/uL [place] # (Auto) (0.0-0.8) K/uL Eos # (Auto) (0.0-0.7) K/uL Baso # (Auto) (0.0-0.1) K/uL Lactate 1.1 (0.20-2.00) mmol/L Sodium (136-148) mmol/L Potassium (3.5-5.1) mmol/L Chloride (98-107) mmol/L Carbon Dioxide (21.0-32.0) mmol/L BUN (7.0-18.0) mg/dL Creatinine (0.8-1.3) mg/dL Est Cr Clr Drug Dosing mL/min Estimated GFR (MDRD) ml/min Glucose (74-106) mg/dL Calcium (8.5-10.1) mg/dL Total Bilirubin (0.2-1.0) mg/dL AST (15-37) IU/L ALT (14-63) IU/L Alkaline Phosphatase (46-116) U/L Troponin I 0.131 H* (0.000-0.056) ng/mL B-Natriuretic Peptide 429 H (<100) PG/ML Total Protein (6.4-8.2) g/dL Albumin (3.4-5.0) g/dL Globulin (2.6-4.0) g/dL Albumin/Globulin Ratio (0.9-1.6) TSH 3rd Generation (0.36-3.74) uIU/mL Urine Color Urine Appearance Urine pH (5.0-8.0) Ur Specific [place] (1.001-1.035) Urine Protein (NEGATIVE) mg/dL Urine Glucose (UA) (NEGATIVE) mg/dL Urine Ketones (NEGATIVE) mg/dL Urine Occult Blood (NEGATIVE) Urine Nitrite (NEGATIVE) Urine Bilirubin (NEGATIVE) Urine Urobilinogen (<2.0) EU/dL Ur Leukocyte Esterase (NEGATIVE) Urine RBC (0-2/HPF) Urine WBC (0-5/HPF) Ur Epithelial Cells (NONE-FEW) Urine Bacteria (NEGATIVE) Meds: Medications Generic Name Dose Route Start Last Admin Trade Name Freq PRN Reason Stop Dose Admin Sodium Chloride 10 ml 05/06/19 00:36 Saline Flush FLUSH ASDIRECTED PRN Keep Vein Open Sodium Chloride 2.5 ml 05/06/19 00:36 Saline Flush FLUSH ASDIRECTED PRN Keep Vein Open Discontinued Medications Generic Name Dose Route Start Last Admin Trade Name Freq PRN Reason Stop Dose Admin Aspirin 324 mg 05/06/19 04:34 05/06/19 05:09 Aspirin PO 05/06/19 04:35 324 mg ONETIME ONE Administration Diphenhydramine HCl 50 mg 05/06/19 00:36 05/06/19 00:46 Benadryl IVPUSH 05/06/19 00:37 50 mg ONETIME ONE Administration Furosemide 20 mg 05/06/19 05:24 Lasix IVPUSH 05/06/19 05:25 NOW ONE Hydromorphone HCl 1 mg 05/06/19 01:50 05/06/19 01:57 Dilaudid IVPUSH 05/06/19 01:51 1 mg ONETIME ONE Administration Sodium Chloride 1,000 mls @ 999 mls/hr 05/06/19 00:36 05/06/19 00:46 Normal Saline IV 05/06/19 01:36 999 mls/hr STAT ONE Administration Sodium Chloride 1,000 mls @ 999 mls/hr 05/06/19 01:44 05/06/19 01:56 Normal Saline IV 05/06/19 02:44 999 mls/hr .Bolus ONE Administration Iopamidol 100 ml 05/06/19 02:41 05/06/19 02:41 Isovue Multipack-370 (76%) IVPUSH 05/06/19 02:42 100 ml ONETIME STA Administration Nitroglycerin 0.5 gm 05/06/19 04:34 05/06/19 05:08 Nitro-Bid 2% TOP 05/06/19 04:35 0.5 gm ONETIME ONE Administration Ondansetron HCl 4 mg 05/06/19 00:36 05/06/19 00:46 Zofran IVPUSH 05/06/19 00:37 4 mg ONETIME ONE Administration Ondansetron HCl 4 mg 05/06/19 00:57 05/06/19 00:58 Zofran IVPUSH 05/06/19 00:58 4 mg ONETIME ONE Administration Ondansetron HCl Confirm 05/06/19 00:56 05/06/19 01:00 Zofran Administered 05/06/19 00:57 Not Given Dose 4 mg .ROUTE .STK-MED ONE Prochlorperazine Edisylate 10 mg 05/06/19 01:35 05/06/19 01:44 Compazine IVPUSH 05/06/19 01:36 10 mg ONETIME ONE Administration Departure - Departure Time of Disposition: 05:30 Disposition: Refer to Observation Condition: Good Clinical Impression: Abdominal pain with vomiting, Elevated troponin Fluid overload Qualifiers: Hypervolemia type: unspecified Qualified Code(s): E87.70 - Fluid overload, unspecified - Discharge Information Referrals: PCP,None [Primary Care Provider] - Forms: ED Department Discharge - My Orders Last 24 Hours: My Active Orders 05/06/19 00:35 Cardiac Monitoring [RC] . DIRECTED EKG Documentation Completion [RC] STAT Oxygen Therapy, ED [RC] ASDIRECTED Pulse Oximetry [RC] ASDIRECTED Saline Lock Insert [OM.PC] Stat 05/06/19 00:36 Sodium Chloride 0.9% [Saline Flush] 10 ml FLUSH ASDIRECTED PRN Sodium Chloride 0.9% [Saline Flush] 2.5 ml FLUSH ASDIRECTED PRN 05/06/19 00:37 CULTURE URINE [RM] Stat 05/06/19 01:50 EKG Documentation Completion [RC] STAT 05/06/19 03:59 EKG Documentation Completion [RC] STAT 05/06/19 05:24 Notify Provider Consults [RC] ASDIRECTED Consult to Physician [CONS] Stat 05/06/19 05:25 Patient Status [ADT] Stat - Assessment/Plan Last 24 Hours: My Active Orders 05/06/19 00:35 Cardiac Monitoring [RC] . DIRECTED EKG Documentation Completion [RC] STAT Oxygen Therapy, ED [RC] ASDIRECTED Pulse Oximetry [RC] ASDIRECTED Saline Lock Insert [OM.PC] Stat 05/06/19 00:36 Sodium Chloride 0.9% [Saline Flush] 10 ml FLUSH ASDIRECTED PRN Sodium Chloride 0.9% [Saline Flush] 2.5 ml FLUSH ASDIRECTED PRN 05/06/19 00:37 CULTURE URINE [RM] Stat 05/06/19 01:50 EKG Documentation Completion [RC] STAT 05/06/19 03:59 EKG Documentation Completion [RC] STAT 05/06/19 05:24 Notify Provider Consults [RC] ASDIRECTED Consult to Physician [CONS] Stat 05/06/19 05:25 Patient Status [ADT] Stat
[2019-05-06] MEDS ORDERED: Ondansetron 4 MG/2 ML SDV ONE (00:56)
[2019-05-06 01:06] LABS: BLOOD UREA NITROGEN,BUN 16 mg/dL (7.0-18.0); CARBON DIOXIDE,CO2 25.5 mmol/L (21.0-32.0); CHLORIDE,CL 100 mmol/L (98-107); GLUCOSE RANDOM 251 mg/dL (74-106); POTASSIUM,K 3.9 mmol/L (3.5-5.1); SODIUM,NA 138 mmol/L (136-148)
--- NOTE | 2019-05-06 01:23 | CR ---
Indication: Pain, shortness of breath Technique: Chest 1 view Comparison: May 02, 2019 Findings/Impression: Stable cardiac size. Mild pulmonary cephalization. No focal infiltrate, effusion, or pneumothorax. No acute osseous abnormality. Dictated by Eneida Mai MD @ May 06 2019 1:19AM Signed by Dr. Eneida Mai @ May 06 2019 1:21AM
[2019-05-06] MEDS ORDERED: Prochlorperazine 10 MG/2 ML SDV IVPUSH ONE (01:35)
[2019-05-06] MEDS ORDERED: HYDROmorphone 1 MG/ML Syringe IVPUSH ONE (01:50)
[2019-05-06] MEDS ORDERED: Iopamidol 755 MG/ML 500 ML Multipack Bottle IVPUSH STA (02:41)
--- NOTE | 2019-05-06 03:40 | CT ---
INDICATION: Chest pain and abdominal pain. Vomiting. CT CHEST, ABDOMEN, AND PELVIS WITH CONTRAST TECHNIQUE: Multidetector CT imaging was performed through the chest, abdomen, and pelvis following intravenous contrast administration using 100 mL Isovue 370. Coronal and sagittal reconstructions were generated. COMPARISON: 05/02/2019 CT abdomen and pelvis. FINDINGS: Lungs and airways: Diffuse thickening of the interstitial septa consistent with interstitial edema. Scattered small patchy foci of ground-glass density in both lungs, most likely representing mild pulmonary edema. Pleura and pleural spaces: No pleural effusions or pneumothorax. Heart and mediastinum: Mild cardiomegaly. No significant pericardial effusion. There are multiple borderline enlarged scattered mediastinal lymph nodes. Vascular structures: Evaluation for pulmonary emboli is mildly limited by motion and by mildly suboptimal contrast opacification of the pulmonary arteries. No definite filling defects are seen in the pulmonary arterial tree to suggest pulmonary emboli. The ascending aorta is dilated to a diameter of 4.5 centimeters and shows no dissection. There is moderate to marked coronary artery calcification. Mild to moderate aortoiliac atherosclerotic calcifications are also present. The abdominal aorta is of normal caliber. Chest wall and axillae: No mass or axillary lymphadenopathy. Liver and spleen: Unremarkable liver. Unchanged mild splenomegaly measuring 16 centimeters in length. Gallbladder and bile ducts: Question of mild gallbladder wall thickening. No calcified gallstones identified. No biliary dilation is seen. Pancreas, adrenals, and retroperitoneum: No pancreatic or adrenal mass. No pathologically enlarged lymph nodes identified in the abdomen or pelvis. Kidneys, ureters, and urinary bladder: Unchanged small right renal cyst. No solid renal masses or hydronephrosis. Previously seen small intrarenal stones are likely currently obscured by excreted contrast. No bladder mass or definite wall thickening. Gastrointestinal tract and peritoneum: Normal caliber bowel without wall thickening or obstruction. Normal appendix. Unchanged nonspecific mild fat stranding in the posterior right lower quadrant. No free air, abscess, or significant free fluid. Reproductive organs: Mild prostatomegaly. Bones: Mild spine degenerative changes. IMPRESSION: 1. Mild cardiomegaly, mild interstitial edema, and nonspecific mild patchy bilateral ground-glass infiltrates which most likely represent mild pulmonary edema. These findings could reflect mild congestive heart failure. 2. Dilated ascending aorta measuring 4.5 centimeters in diameter, without evidence of dissection. 3. No pulmonary emboli identified. 4. Question of gallbladder wall thickening. Consider gallbladder ultrasound. 5. Unchanged nonspecific fat stranding in the posterior right lower quadrant. 6. Nonacute additional findings as detailed above. SANJAY LEWIS MD [employer] Dictated by Oscar Lewis MD @ 05/06/2019 3:38:21 AM Dictated by: Oscar Lewis MD @ 05/06/2019 03:39:08 (Electronically Signed)
[2019-05-06] MEDS ORDERED: Nitroglycerin 2% Oint 1 GM UD Packet TOP ONE (04:34)
[2019-05-06] MEDS ORDERED: Aspirin 81 MG Tab.Chew PO ONE (04:34)
[2019-05-06] MEDS ORDERED: Furosemide 40 MG/4 ML VIAL IVPUSH ONE (05:24)
[2019-05-06] MEDS ORDERED: HYDROmorphone 2 MG/ML Syringe IVPUSH PRN (07:59)
[2019-05-06] MEDS ORDERED: Pantoprazole 40 MG in Sodium Chloride 0.9% 10 ML IV SCH (09:45)
[2019-05-06] MEDS ORDERED: Carvedilol 3.125 MG Tab PO SCH (10:30)
[2019-05-06] MEDS ORDERED: glipiZIDE 5 MG Tab.ER PO SCH (10:30)
[2019-05-06] MEDS ORDERED: Spironolactone 25 MG Tab PO SCH (10:30)
--- NOTE | 2019-05-06 11:09 | PCM.HP.2 ---
H&P History of Present Illness - General Date of Service: 05/06/19 Admit Problem/Dx: Admission Diagnosis/Problem Admission Diagnosis/Problem Fluid volume disorder Source of Information: Patient - History of Present Illness Initial Comments - Free Text/Narative: 58-year-old male with past medical history of hypertension, type 2 diabetes, lower extremity swelling, presenting last night w/ epigastric pain and palpitations. States in the past he's been told that his gallbladder is inflamed and might need to be removed however has not had surgery. Patient otherwise states that he does not have an official diagnosis of heart failure despite being on furosemide and spironolactone. Admits he has been tapering off his water pills secondary to noticing a decrease in lower extremity swelling. patient had at no point in time experienced chest pain and or diaphoresis; however was complaining of palpitations, abdominal pain, and what he describes as something similar to a "panic attack". Last night patient developed the abdominal pain; tried Reglan; however noticed one hour afterwards the palpitation sensation. Patient denies any history of VT. Patient lived in [place], [place]: in August pt. had developed intractable N/V and went in for gallbladder evaluation ; there he had a stress test and ECHO performed (cannot recall results) (no angiogram performed); initiated on carvedilol. patient is a poor historian however. HIDA scan was also performed but cannot recall results. Bedside: pt. at this time does not have any new complaints of chest pain or shortness of breath, diaphoresis or dizziness. chest Pain Score (Numeric/FACES): 4 - Related Data Allergies/Adverse Reactions: Allergies Allergy/AdvReac Type Severity Reaction Status Date / Time No Known Allergies Allergy Verified 05/06/19 07:52 Home Medications: Home Meds Carvedilol 1 tab PO BID 05/02/19 [History] Furosemide [Lasix] 20 mg PO DAILY 05/02/19 [History] Promethazine HCl [Promethegan] 12.5 mg RC ASDIRECTED PRN 05/02/19 [History] Spironolactone [Aldactone] 25 mg PO DAILY 05/02/19 [History] glipiZIDE [Glipizide ER] 5 mg PO DAILY 05/02/19 [History] metFORMIN [Glucophage] 1,000 mg PO BIDMEALS 05/02/19 [History] Metoclopramide HCl [Reglan] 10 mg PO TID #20 tablet 05/04/19 [Rx] Past Medical History HEENT History: Reports: Impaired Vision Cardiovascular History: Reports: Hypertension Respiratory History: Reports: Pneumonia, Recurrent Gastrointestinal History: Reports: Other (See Below) Other Gastrointestinal History: Gallbladder Issues Genitourinary History: Reports: None Musculoskeletal History: Reports: Fracture Neurological History: Reports: None Psychiatric History: Reports: None Endocrine/Metabolic History: Reports: Diabetes, Type II Insulin Pump Model and Steam Trap Worker: None Hematologic History: Reports: None Immunologic History: Reports: None Oncologic (Cancer) History: Reports: None Dermatologic History: Reports: None - Infectious Disease History Infectious Disease History: Reports: Chicken Pox, Rubella - Past Surgical History Head Surgeries/Procedures: Reports: None HEENT Surgical History: Reports: Other (See Below) Other HEENT Surgeries/Procedures: Thyroidectomy Cardiovascular Surgical History: Reports: None Respiratory Surgical History: Reports: None GI Surgical History: Reports: Colonoscopy Endocrine Surgical History: Reports: Thyroidectomy, Other (See Below) Other Endocrine Surgeries/Procedures: patrial thyroidectomy Social & Family History - Family History Family Medical History: Noncontributory - Tobacco Use Smoking Status *Q: Former Smoker Years of Tobacco use: 20 Packs/Tins Daily: 2 Used Tobacco, but Quit: Yes Month/Year Tobacco Last Used: 1998 Second Hand Smoke Exposure: No - Caffeine Use Caffeine Use: Reports: Coffee - Alcohol Use Date of Last Drink: 03/06/19 - Recreational Drug Use Recreational Drug Use: Yes Drug Use in Last 12 Months: Yes Recreational Drug Type: Reports: Marijuana/Hashish Recreational Drug Use Frequency: Weekly H&P Review of Systems - Review of Systems: Review Of Systems: See Below General: Denies: Fever, Chills, Weakness, Fatigue HEENT: Reports: No Symptoms Pulmonary: Reports: No Symptoms. Denies: Shortness of Breath, Wheezing, Pleuritic Chest Pain, Cough Cardiovascular: Reports: Chest Pain (improved. ). Denies: Palpitations, Dyspnea on Exertion, Orthopnea Gastrointestinal: Denies: Abdominal Pain, Constipation, Diarrhea Genitourinary: Denies: Frequency, Burning Musculoskeletal: Denies: Neck Pain, Shoulder Pain, Back Pain Psychiatric: Reports: No Symptoms. Denies: Confusion, Depression Neurological: Denies: Confusion, Headache Exam - Exam Exam: See Below - Vital Signs Vital Signs: Last Vital Signs Temp 98.1 F 05/06/19 07:49 Pulse 75 05/06/19 07:49 Resp 18 05/06/19 07:49 BP 146/85 H 05/06/19 07:49 Pulse Ox 95 05/06/19 07:49 Weight: 252 lb - Exam General: Alert, Oriented, Cooperative HEENT: Conjunctiva Clear, EOMI, Mucosa Moist & [place] Neck: Supple, Trachea Midline Lungs: Clear to Auscultation, Normal Respiratory Effort Cardiovascular: Regular Rate, Regular Rhythm, Other (Systolic blowing murmur in aortic and pulmonic areas ) GI/Abdominal Exam: Soft, Non-Tender, Other (no hepato-jugular reflex appreciated ) Skin: Warm, Dry, Intact Neurological: Cranial Nerves Intact Neuro Extensive - Mental Status: Alert, Oriented x3, Normal Mood/Affect Neuro Extensive - Motor, Sensory, Reflexes: CN II-XII Intact Psychiatric: Alert, Normal Affect, Normal Mood - Patient Data Lab Results Last 24 hrs: Laboratory Results - last 24 hr 05/06/19 05/06/19 05/06/19 Range/Units 00:20 00:20 00:37 WBC 7.17 (4.0-11.0) K/uL RBC 4.92 (4.50-5.90) M/uL Hgb 15.6 (13.0-17.0) g/dL Hct 43.6 (38.0-50.0) % MCV 88.6 (80.0-98.0) fL MCH 31.7 (27.0-32.0) pg MCHC 35.8 (31.0-37.0) g/dL RDW Std Deviation 42.5 (28.0-62.0) fl RDW Coeff of Mukesh 13 (11.0-15.0) % Plt Count 118 L (150-400) K/uL MPV 12.30 H (7.40-12.00) fL Neut % (Auto) 56.7 (48.0-80.0) % Lymph % (Auto) 31.5 (16.0-40.0) % [place] % (Auto) 10.7 (0.0-15.0) % Eos % (Auto) 1.0 (0.0-7.0) % Baso % (Auto) 0.1 (0.0-1.5) % Neut # (Auto) 4.1 (1.4-5.7) K/uL Lymph # (Auto) 2.3 (0.6-2.4) K/uL [place] # (Auto) 0.8 (0.0-0.8) K/uL Eos # (Auto) 0.1 (0.0-0.7) K/uL Baso # (Auto) 0.0 (0.0-0.1) K/uL Lactate (0.20-2.00) mmol/L Sodium 138 (136-148) mmol/L Potassium 3.9 (3.5-5.1) mmol/L Chloride 100 (98-107) mmol/L Carbon Dioxide 25.5 (21.0-32.0) mmol/L BUN 16 (7.0-18.0) mg/dL Creatinine 1.2 (0.8-1.3) mg/dL Est Cr Clr Drug Dosing 82.15 mL/min Estimated GFR (MDRD) > 60.0 ml/min Glucose 251 H (74-106) mg/dL Calcium 9.2 (8.5-10.1) mg/dL Total Bilirubin 1.3 H (0.2-1.0) mg/dL AST 33 (15-37) IU/L ALT 33 (14-63) IU/L Alkaline Phosphatase 91 (46-116) U/L Troponin I 0.054 (0.000-0.056) ng/mL B-Natriuretic Peptide (<100) PG/ML Total Protein 7.8 (6.4-8.2) g/dL Albumin 3.9 (3.4-5.0) g/dL Globulin 3.9 (2.6-4.0) g/dL Albumin/Globulin Ratio 1.0 (0.9-1.6) TSH 3rd Generation 3.27 (0.36-3.74) uIU/mL Urine Color YELLOW Urine Appearance CLEAR Urine pH 6.5 (5.0-8.0) Ur Specific [place] 1.025 (1.001-1.035) Urine Protein 30 H (NEGATIVE) mg/dL Urine Glucose (UA) 500 H (NEGATIVE) mg/dL Urine Ketones TRACE H (NEGATIVE) mg/dL Urine Occult Blood TRACE-INTACT H (NEGATIVE) Urine Nitrite NEGATIVE (NEGATIVE) Urine Bilirubin NEGATIVE (NEGATIVE) Urine Urobilinogen 1.0 (<2.0) EU/dL Ur Leukocyte Esterase TRACE H (NEGATIVE) Urine RBC 1-2 (0-2/HPF) Urine WBC 1-2 (0-5/HPF) Ur Epithelial Cells RARE (NONE-FEW) Urine Bacteria RARE (NEGATIVE) 05/06/19 05/06/19 05/06/19 Range/Units 03:54 03:54 05:12 WBC (4.0-11.0) K/uL RBC (4.50-5.90) M/uL Hgb (13.0-17.0) g/dL Hct (38.0-50.0) % MCV (80.0-98.0) fL MCH (27.0-32.0) pg MCHC (31.0-37.0) g/dL RDW Std Deviation (28.0-62.0) fl RDW Coeff of [place]esh (11.0-15.0) % Plt Count (150-400) K/uL MPV (7.40-12.00) fL Neut % (Auto) (48.0-80.0) % Lymph % (Auto) (16.0-40.0) % [place] % (Auto) (0.0-15.0) % Eos % (Auto) (0.0-7.0) % Baso % (Auto) (0.0-1.5) % Neut # (Auto) (1.4-5.7) K/uL Lymph # (Auto) (0.6-2.4) K/uL [place] # (Auto) (0.0-0.8) K/uL Eos # (Auto) (0.0-0.7) K/uL Baso # (Auto) (0.0-0.1) K/uL Lactate 1.1 (0.20-2.00) mmol/L Sodium (136-148) mmol/L Potassium (3.5-5.1) mmol/L Chloride (98-107) mmol/L Carbon Dioxide (21.0-32.0) mmol/L BUN (7.0-18.0) mg/dL Creatinine (0.8-1.3) mg/dL Est Cr Clr Drug Dosing mL/min Estimated GFR (MDRD) ml/min Glucose (74-106) mg/dL Calcium (8.5-10.1) mg/dL Total Bilirubin (0.2-1.0) mg/dL AST (15-37) IU/L ALT (14-63) IU/L Alkaline Phosphatase (46-116) U/L Troponin I 0.131 H* (0.000-0.056) ng/mL B-Natriuretic Peptide 429 H (<100) PG/ML Total Protein (6.4-8.2) g/dL Albumin (3.4-5.0) g/dL Globulin (2.6-4.0) g/dL Albumin/Globulin Ratio (0.9-1.6) TSH 3rd Generation (0.36-3.74) uIU/mL Urine Color Urine Appearance Urine pH (5.0-8.0) Ur Specific [place] (1.001-1.035) Urine Protein (NEGATIVE) mg/dL Urine Glucose (UA) (NEGATIVE) mg/dL Urine Ketones (NEGATIVE) mg/dL Urine Occult Blood (NEGATIVE) Urine Nitrite (NEGATIVE) Urine Bilirubin (NEGATIVE) Urine Urobilinogen (<2.0) EU/dL Ur Leukocyte Esterase (NEGATIVE) Urine RBC (0-2/HPF) Urine WBC (0-5/HPF) Ur Epithelial Cells (NONE-FEW) Urine Bacteria (NEGATIVE) Result Diagrams: 05/06/19 00:20 05/06/19 00:20 Problem List Initiated/Reviewed/Updated: Yes Orders Last 24hrs: Active Orders 24 hr Category Date Time Status Patient Status [ADT] Stat ADT 05/06/19 05:25 Active Cardiac Monitoring [RC] . DIRECTED Care 05/06/19 00:35 Active EKG Documentation Completion [RC] STAT Care 05/06/19 00:35 Active EKG Documentation Completion [RC] STAT Care 05/06/19 01:50 Active EKG Documentation Completion [RC] STAT Care 05/06/19 03:59 Active Height and Weight [RC] DAILY Care 05/06/19 09:43 Active Intake and Output Strict [RC] ASDIRECTED Care 05/06/19 09:43 Active Notify Provider Consults [RC] ASDIRECTED Care 05/06/19 05:24 Active Oxygen Therapy, ED [RC] ASDIRECTED Care 05/06/19 00:35 Active Pulse Oximetry [RC] ASDIRECTED Care 05/06/19 00:35 Active Telemetry Monitoring [Cardiac Monitoring] [RC] . Care 05/06/19 07:42 Active DIRECTED Consult to Physician [CONS] Stat Cons 05/06/19 05:24 Active Low Sodium [Sodium Restricted Diet] [DIET] Diet 05/06/19 Lunch Active Echo Comp wo Cont [US] Routine Exams 05/06/19 09:46 Ordered AMYLASE [CHEM] Routine Lab 05/06/19 09:50 Received CULTURE URINE [RM] Stat Lab 05/06/19 00:37 Received LIPASE [CHEM] Routine Lab 05/06/19 09:50 Received TROPONIN I [CHEM] Stat Lab 05/06/19 09:50 Received Carvedilol [Coreg] Med 05/06/19 10:30 Active 3.125 mg PO BID HYDROmorphone [Dilaudid] Med 05/06/19 07:59 Active 1 mg IVPUSH Q3H PRN Pantoprazole [ProTONIX IV] 40 mg Med 05/06/19 09:45 Active Sodium Chloride 0.9% [Normal Saline] 10 ml IV Q24H Sodium Chloride 0.9% [Saline Flush] Med 05/06/19 00:36 Active 10 ml FLUSH ASDIRECTED PRN Sodium Chloride 0.9% [Saline Flush] Med 05/06/19 00:36 Active 2.5 ml FLUSH ASDIRECTED PRN Spironolactone [Aldactone] Med 05/06/19 10:30 Active 25 mg PO DAILY glipiZIDE [Glucotrol XL] Med 05/06/19 10:30 Active 5 mg PO DAILY metFORMIN [Glucophage] Med 05/06/19 17:00 Active 1,000 mg PO BIDMEALS Saline Lock Insert [OM.PC] Stat Oth 05/06/19 00:35 Ordered Medication Orders Carvedilol (Coreg) 3.125 mg PO BID MIRZA Glipizide (Glucotrol Xl) 5 mg PO DAILY MIRZA Hydromorphone HCl (Dilaudid) 1 mg IVPUSH Q3H PRN PRN Reason: Pain Pantoprazole Sodium 40 mg/ (Sodium Chloride) 10 mls @ 300 mls/hr IV Q24H MIRZA Last Admin: 05/06/19 10:26 Dose: 300 mls/hr Metformin HCl (Glucophage) 1,000 mg PO BIDMEALS [facility] Sodium Chloride (Saline Flush) 10 ml FLUSH ASDIRECTED PRN PRN Reason: Keep Vein Open Sodium Chloride (Saline Flush) 2.5 ml FLUSH ASDIRECTED PRN PRN Reason: Keep Vein Open Spironolactone (Aldactone) 25 mg PO DAILY [facility] Assessment/Plan Comment:: Assessment 1. Elevated troponins with palpitations with history of heart failure and hypertension. 2. intractable nausea and vomiting and abdominal pain improving 3. Elevated BNP 4. Elevated bilirubin. 5. Past medical history: hypertension, hypercholesterolemia Plan Admitted to observation. Full code. Intake output per routine. Vitals per routine. Telemetry. DVT prophylaxis: Lovenox full dose. GI prophylaxis: pantoprazole 40. Activity up ad rosendo. 1. Troponin trending every 6 hours. Aspirin given. Lovenox full dose. Continue home medication except for Reglan. IV 20 Lasix given with another 20 by mouth. Cardiac history: in August patient had intractable nausea and vomiting was concerned about biliary dyskinesia secondary to HIDA scan results; however a stress test and echo performed; patient cannot recall results or have access to records at this time. Patient was initiated on carvedilol thereafter. Patient has been on Lasix for a couple of years secondary to lower extremity swelling; cannot recall ever being officially diagnosed with heart failure. Denies ever having a angiogram or Lexiscan performed. Was seeing Dr. Harrison Primary care physician in [facility]. Patient has no recollection of other medical history of this time. Patient's initial troponin was marginally elevated; contacted Dr. Cooper of [facility], on-call cardiology. 2nd and 3rd troponin also elevated. states patient may be a good candidate for transfer to [facility]. Concerns for possible need for heart catheterization. Patient stable; not endorsing any pain or symptoms at this time, vital stable. ALS crew required; ultimately transferred to [facility]. Patient given full dose of lovenox. Patient understood plan regarding need for transfer.
--- NOTE | 2019-05-06 11:53 | PCM.SN ---
- Free Text/Narrative Note: pt seen, chart reviewed; gb does not seem to be his immediate concern at this moment; siri w me outpatient once card work up/resolve; tks for the consult and care of this pleasant pt; [id number]
[2019-05-06] MEDS ORDERED: Enoxaparin 100 MG/1 ML Syringe SUBCUT ONE (13:00)
--- NOTE | 2019-05-06 16:19 | CONS ---
DATE OF CONSULTATION: 05/06/2019 DATE OF : 1960 PRIMARY CARE PHYSICIAN: None PCP REASON FOR CONSULTATION: This is a consult from Dr. Howard for gallbladder symptoms. HISTORY OF PRESENT ILLNESS: The patient is a 58-year-old gentleman, obese, BMI of 31.5, admitted to the hospital for chest pain. The patient has been complaining about some abdominal pain, chest pain, and now racing of the heart for a while. Regarding the abdominal pain, the patient had some workup and had some look like ultrasound and HIDA scan. I have not been able to find the report. Per the patient, suggested the gallbladder is not working, not functioning correctly and is below functioning, so he was concerned about it. Talking to the patient, he denied jaundice, denied dark urine, denied white stool. Regarding the abdominal pain, he said it always wakes him up at 2 o'clock every night. Denied black tarry stool. Denied bright red blood per rectum. Denied hematemesis or hemoptysis. The patient had EGD, and according the patient, it shows varicosity. Currently, he is concerned about his heart racing. ALLERGIES: Please refer to nursing for details. MEDICATION: Please refer to nursing for details. PAST MEDICAL HISTORY: Significant for no GA and no CVA. PAST SURGICAL HISTORY: No abdominal surgery. REVIEW OF SYSTEMS: Same as history of present illness. FAMILY HISTORY: Noncontributory. PHYSICAL EXAMINATION: GENERAL: A very pleasant gentleman, smiled to the doctor and in no acute distress. HEENT: Normocephalic and atraumatic. Sclerae are anicteric. LUNGS: Clear to auscultation. HEART: Regular rate and rhythm. ABDOMEN: Soft, nondistended. No pulsating tender midline abdominal structure. Upon inspiration, there is no right upper quadrant tenderness. LABORATORY DATA: Upon consultation, white count is 7 and H and H are 16 and 44, and platelet is 118. Glucose is 251. Total bilirubin is 1.3, slightly mildly elevated. AST and ALT are normal at 33 and 33. Alkaline phosphatase 91. Troponin is 0.45. BNP is 429. Potassium is 3.9, BUN is 16, creatinine is 1.2. The patient has a lot of glucose in the urine sample. No signs or symptoms of urinary tract infection. The patient also had a CAT scan done. The CAT scan today shows amongst other things mild cardiomegaly. Dilated ascending aorta of 4.5 cm, no dissection. No pulmonary emboli. Question of gallbladder wall thickening. Consider an ultrasound. Nonspecific fat stranding in the posterior right lower quadrant, nonacute, additional findings dictated above. IMPRESSION: On examination clinically, the patient does not have any right upper quadrant pain that radiated to the back, jaundice, dark urine, or white stool, none of those, and clinically, patient is concerned about the pain that wakes him up every morning 2 o'clock sharp, suggest a classic symptom of peptic ulcer disease or gastritis and regarding the "the patient himself" report below functioning average of gallbladder or biliary dyskinesia, usually has pain after he eats and is not a continuous pain and does not wake the patient up in the midnight. Everything suggest that the gallbladder as the source of his problem is highly unlikely, and with his troponins shooting up and heart racing, he probably need more urgent concern regarding his heart workup, and for the time being, once his heart workup all resolved, he would follow up with me as outpatient followup regarding his gallbladder discussing about management, and for the time being, avoid greasy and fatty diet. As always, thank you for the kind referral. HALLEY / RITU /[id number]
[2019-05-06] MEDS ORDERED: metFORMIN 500 MG Tab PO SCH (17:00)
== END 2019-05-06 14:35 ==
LOC: MW.ED 00:19 → MW.MS 05:25
PROVIDERS: ADMIT Internal Medicine; ATTEND Internal Medicine
DX: R79.89 Other specified abnormal findings of blood chemistry (principal); I11.0 Hypertensive heart disease with heart failure; I50.9 Heart failure, unspecified; R10.13 Epigastric pain; R11.2 Nausea with vomiting, unspecified; E11.9 Type 2 diabetes mellitus without complications; E80.6 Other disorders of bilirubin metabolism; E78.00 Pure hypercholesterolemia, unspecified; Z87.891 Personal history of nicotine dependence; Z79.84 Long term (current) use of oral hypoglycemic drugs; Z79.899 Other long term (current) drug therapy
CPT/HCPCS: 36415; 71045; 71275; 74177; 80053; 81001; 82150; 83605; 83690; 83880; 84443; 84484; 85025; 87086; 93005; 96361; 96374; 96375; 99285; A9270; C9113; J0780; J1170; J1200; J1650; J1940; J2405; J7040; J7050; Q9967; 96372; G0378

== ENCOUNTER 2019-05-09 10:22 | Emergency (ER) | payer OTHER ==
[2019-05-09] MEDS ORDERED: Sodium Chloride 0.9% 1,000 ML IV ONE (10:34)
[2019-05-09] MEDS ORDERED: Ondansetron 4 MG/2 ML SDV IVPUSH ONE ×4 (10:34→11:09)
[2019-05-09] MEDS ORDERED: Ondansetron 4 MG/2 ML SDV ONE ×2 (10:35→11:09)
--- NOTE | 2019-05-09 10:47 | EDM.PDOC ---
ED HPI GENERAL MEDICAL PROBLEM - General Chief Complaint: Gastrointestinal Problem Stated Complaint: VOMITING Time Seen by Provider: 05/09/19 10:35 Source of Information: Reports: Patient History Limitations: Reports: No Limitations - History of Present Illness INITIAL COMMENTS - FREE TEXT/NARRATIVE: HISTORY AND PHYSICAL: History of present illness: Patient is a 58-year-old male who presents to the ED today for concern of vomiting 2 hours. Patient has been seen in the ED on 3 separate occasions for vomiting, abdominal pain, and palpitations which he has received extensive workup for; including 2 abdominal/pelvic CT scans during the past week. On patient's last visit on 05/06/19 he was admitted to a hospital and then flown to [place] due to an elevated troponin and he states he was having palpitations at that time. Patient states that in [place] he had "lots of tests" and specifically for his gallbladder. Patient states he was told that his gallbladder is slightly inflamed and that he will need to have it taken out. Patient states he is told to follow up with general surgeon, Dr. Ragsdale, for his gallbladder but he has not yet made an appointment.Patient states his vomiting and abdominal pain today is the same as the past workups and there is no change or no new symptoms from prior evaluations. He denies palpitations or chest pain. Patient to take his blood pressure meds this morning but states he did vomit immediately following taking them. Patient has a history of CHF, hypertension, T2DM. Patient denies fever, chills, chest pain, shortness of breath, or cough. Denies headache, neck stiff ness, change in vision, syncope, or near syncope. Denies diarrhea, constipation, or dysuria. Has not noted any blood in urine or stool. Patient has been eating and drinking appropriately. Review of systems: As per history of present illness and below otherwise all systems reviewed and negative. Past medical history: As per history of present illness and as reviewed below otherwise noncontributory. Surgical history: As per history of present illness and as reviewed below otherwise noncontributory. Social history: See social history for further information Family history: As per history of present illness and as reviewed below otherwise noncontributory. Physical exam: General: Patient is alert, oriented, and in no acute distress. Patient sitting comfortably on exam table but does have episodes of emesis throughout exam. HEENT: Atraumatic, normocephalic, pupils equal and reactive bilaterally, negative for conjunctival pallor or scleral icterus, mucous membranes moist, TMs normal bilaterally, throat clear, neck supple, nontender, trachea midline. No drooling or trismus noted. No meningeal signs. No hot potato voice noted. Lungs: Clear to auscultation, breath sounds equal bilaterally, chest nontender. Heart: S1S2, regular rate and rhythm without overt murmur Abdomen: Soft, nondistended, nontender. Negative for masses or hepatosplenomegaly. Negative for costovertebral tenderness. Pelvis: Stable nontender. Genitourinary: Deferred. Rectal: Deferred. Skin: Intact, warm, dry. No lesions or rashes noted. Extremities: Atraumatic, negative for cords or calf pain. Neurovascular unremarkable. Neuro: Awake, alert, oriented. Cranial nerves II through XII unremarkable. Cerebellum unremarkable. Motor and sensory unremarkable throughout. Exam nonfocal. Notes: Dr. Alexander verbally involved in patient care. Patient continues vomiting after Zofran. Patient has not tolerated side effects of Reglan in the past. Compazine given with resolution of vomiting and monitored for an additional hour. Patient states he is having difficulties with the bowel movement and feels it's related to the pain medication he's been receiving recently. Enema given with 2 bowel movements and resolution of patients discomfort. Discussed the importance for follow-up with Dr. Ragsdale. He has been placed on the expedited follow-up list. Voices understanding and is agreeable to plan of care. Denies any further questions or concerns at this time. Diagnostics: EKG, CBC, CMP, Flat and Upright Therapeutics: Saline, Zofran 8mg, Compazine, Protonix, Toradol, Lasix, Lopressor, Enema Prescription: None (Patient states he has some Zofran at home) Impression: Vomiting H/O gallbladder inflammation Constipation Hypertension Plan: 1. Eat a clear liquid diet for 24 hours then low fat/grease diet/bland diet until you see Dr. Ragsdale, General Surgery 2. You can alternate ibuprofen and Tylenol as directed for pain and discomfort. 3. Follow up with Dr. Ragsdale, general surgery as scheduled and as discussed. You have been placed on the expedited follow-up list so call his clinic in the morning for appointment time. 4. Return to the ED as needed and as discussed. Definitive disposition and diagnosis as appropriate pending reevaluation and review of above. abd Pain Score (Numeric/FACES): 8 - Related Data Allergies Allergy/AdvReac Type Severity Reaction Status Date / Time No Known Allergies Allergy Verified 05/09/19 10:29 Home Meds: Home Meds Carvedilol 1 tab PO BID 05/02/19 [History] Furosemide [Lasix] 20 mg PO DAILY 05/02/19 [History] Promethazine HCl [Promethegan] 12.5 mg RC ASDIRECTED PRN 05/02/19 [History] Spironolactone [Aldactone] 25 mg PO DAILY 05/02/19 [History] glipiZIDE [Glipizide ER] 5 mg PO DAILY 05/02/19 [History] metFORMIN [Glucophage] 1,000 mg PO BIDMEALS 05/02/19 [History] Pantoprazole [ProTONIX IV] 40 mg IV Q24H vial 05/06/19 [Rx] Past Medical History HEENT History: Reports: Impaired Vision Cardiovascular History: Reports: Hypertension Respiratory History: Reports: Pneumonia, Recurrent Gastrointestinal History: Reports: Other (See Below) Other Gastrointestinal History: Gallbladder Issues Genitourinary History: Reports: None Musculoskeletal History: Reports: Fracture Neurological History: Reports: None Psychiatric History: Reports: None Endocrine/Metabolic History: Reports: Diabetes, Type II Insulin Pump Model and Risk Professional: None Hematologic History: Reports: None Immunologic History: Reports: None Oncologic (Cancer) History: Reports: None Dermatologic History: Reports: None - Infectious Disease History Infectious Disease History: Reports: None - Past Surgical History Head Surgeries/Procedures: Reports: None HEENT Surgical History: Reports: Other (See Below) Other HEENT Surgeries/Procedures: Thyroidectomy Cardiovascular Surgical History: Reports: None Respiratory Surgical History: Reports: None GI Surgical History: Reports: Colonoscopy Endocrine Surgical History: Reports: Thyroidectomy, Other (See Below) Other Endocrine Surgeries/Procedures: patrial thyroidectomy Social & Family History - Family History Family Medical History: Noncontributory - Tobacco Use Smoking Status *Q: Never Smoker - Caffeine Use Caffeine Use: Reports: Coffee - Recreational Drug Use Recreational Drug Use: Yes Drug Use in Last 12 Months: Yes Recreational Drug Type: Reports: Marijuana/Hashish Recreational Drug Use Frequency: Weekly ED ROS GENERAL - Review of Systems Review Of Systems: ROS reveals no pertinent complaints other than HPI. ED EXAM, GENERAL - Physical Exam Exam: See Below (See dictation) Course - Vital Signs Last Recorded V/S: Last Vital Signs Temp 96.7 F 05/09/19 10:29 Pulse 83 05/09/19 13:35 Resp 22 H 05/09/19 13:35 BP 167/95 H 05/09/19 13:35 Pulse Ox 98 05/09/19 13:35 - Orders/Labs/Meds Orders: Active Orders 24 hr Category Date Time Status Communication Order [RC] STAT Care 05/09/19 12:07 Active EKG 12 Lead [EKG Documentation Completion] [RC] STAT Care 05/09/19 10:34 Active Labs: Laboratory Tests 05/09/19 05/09/19 Range/Units 10:35 10:35 WBC 6.85 (4.0-11.0) K/uL RBC 4.95 (4.50-5.90) M/uL Hgb 15.7 (13.0-17.0) g/dL Hct 44.6 (38.0-50.0) % MCV 90.1 (80.0-98.0) fL MCH 31.7 (27.0-32.0) pg MCHC 35.2 (31.0-37.0) g/dL RDW Std Deviation 44.3 (28.0-62.0) fl RDW Coeff of Mukesh 14 (11.0-15.0) % Plt Count 113 L (150-400) K/uL MPV 12.70 H (7.40-12.00) fL Neut % (Auto) 54.0 (48.0-80.0) % Lymph % (Auto) 31.4 (16.0-40.0) % [place] % (Auto) 12.7 (0.0-15.0) % Eos % (Auto) 1.5 (0.0-7.0) % Baso % (Auto) 0.4 (0.0-1.5) % Neut # (Auto) 3.7 (1.4-5.7) K/uL Lymph # (Auto) 2.2 (0.6-2.4) K/uL [place] # (Auto) 0.9 H (0.0-0.8) K/uL Eos # (Auto) 0.1 (0.0-0.7) K/uL Baso # (Auto) 0.0 (0.0-0.1) K/uL Nucleated RBC % 0.0 /100WBC Nucleated RBCs # 0 K/uL Sodium 137 (136-148) mmol/L Potassium 4.2 (3.5-5.1) mmol/L Chloride 101 (98-107) mmol/L Carbon Dioxide 27.4 (21.0-32.0) mmol/L BUN 17 (7.0-18.0) mg/dL Creatinine 1.3 (0.8-1.3) mg/dL Est Cr Clr Drug Dosing 75.83 mL/min Estimated GFR (MDRD) 57.1 ml/min Glucose 272 H (74-106) mg/dL Calcium 9.4 (8.5-10.1) mg/dL Total Bilirubin 0.9 (0.2-1.0) mg/dL AST 35 (15-37) IU/L ALT 36 (14-63) IU/L Alkaline Phosphatase 94 (46-116) U/L Total Protein 7.8 (6.4-8.2) g/dL Albumin 3.8 (3.4-5.0) g/dL Globulin 4.0 (2.6-4.0) g/dL Albumin/Globulin Ratio 0.9 (0.9-1.6) Meds: Medications Discontinued Medications Generic Name Dose Route Start Last Admin Trade Name Freq PRN Reason Stop Dose Admin Furosemide 10 mg 05/09/19 12:09 05/09/19 12:14 Lasix IVPUSH 05/09/19 12:10 10 mg NOW ONE Administration Sodium Chloride 1,000 mls @ 999 mls/hr 05/09/19 10:34 05/09/19 10:39 Normal Saline IV 05/09/19 11:34 999 mls/hr STAT ONE Administration Sodium Chloride Confirm 05/09/19 11:21 05/09/19 11:24 Normal Saline Administered 05/09/19 11:22 20 mls/hr Dose Administration 20 mls @ as directed .ROUTE .STK-MED ONE Ketorolac Tromethamine 30 mg 05/09/19 11:20 05/09/19 11:32 Toradol IVPUSH 05/09/19 11:21 30 mg ONETIME ONE Administration Metoprolol Tartrate 5 mg 05/09/19 12:09 05/09/19 12:15 Lopressor IVPUSH 05/09/19 12:10 5 mg NOW STA Administration Ondansetron HCl 4 mg 05/09/19 10:34 05/09/19 10:39 Zofran IVPUSH 05/09/19 10:35 4 mg ONETIME ONE Administration Ondansetron HCl 4 mg 05/09/19 10:34 05/09/19 10:38 Zofran IVPUSH 05/09/19 10:35 Not Given ONETIME ONE Ondansetron HCl Confirm 05/09/19 10:35 05/09/19 10:39 Zofran Administered 05/09/19 10:36 Not Given Dose 4 mg .ROUTE .STK-MED ONE Ondansetron HCl 4 mg 05/09/19 11:06 05/09/19 11:08 Zofran IVPUSH 05/09/19 11:07 4 mg ONETIME ONE Administration Ondansetron HCl 4 mg 05/09/19 11:09 05/09/19 11:13 Zofran IVPUSH 05/09/19 11:10 Not Given ONETIME ONE Ondansetron HCl Confirm 05/09/19 11:09 05/09/19 11:13 Zofran Administered 05/09/19 11:10 Not Given Dose 4 mg .ROUTE .STK-MED ONE Pantoprazole Sodium 80 mg 05/09/19 11:17 05/09/19 11:24 Protonix Iv IVPUSH 05/09/19 11:18 80 mg .BOLUS ONE Administration Prochlorperazine Edisylate 5 mg 05/09/19 11:30 Compazine IV 05/09/19 11:31 ONETIME ONE Prochlorperazine Edisylate 10 mg 05/09/19 11:30 05/09/19 11:32 Compazine IV 05/09/19 11:31 10 mg ONETIME ONE Administration Departure - Departure Time of Disposition: 13:46 Disposition: Home, Self-Care 01 Clinical Impression: History of gallbladder disease Vomiting Qualifiers: Vomiting type: unspecified Vomiting Intractability: non-intractable Nausea presence: with nausea Qualified Code(s): R11.2 - Nausea with vomiting, unspecified Constipation Qualifiers: Constipation type: unspecified constipation type Qualified Code(s): K59.00 - Constipation, unspecified - Discharge Information Instructions: Cholelithiasis, [id number], Nausea and Vomiting, Adult, Easy-to -Read Referrals: PCP,Unknown [Primary Care Provider] - Forms: ED Department Discharge Additional Instructions: The following information is given to patients seen in the emergency department who are being discharged to home. This information is to outline your options for follow-up care. We provide all patients seen in our emergency department with a follow-up referral. The need for follow-up, as well as the timing and circumstances, are variable depending upon the specifics of your emergency department visit. If you don't have a primary care physician on staff, we will provide you with a referral. We always advise you to contact your personal physician following an emergency department visit to inform them of the circumstance of the visit and for follow-up with them and/or the need for any referrals to a consulting specialist. The emergency department will also refer you to a specialist when appropriate. This referral assures that you have the opportunity for follow-up care with a specialist. All of these measure are taken in an effort to provide you with optimal care, which includes your follow-up. Under all circumstances we always encourage you to contact your private physician who remains a resource for coordinating your care. When calling for follow-up care, please make the office aware that this follow-up is from your recent emergency room visit. If for any reason you are refused follow-up, please contact the [facility] Emergency Department at and asked to speak to the emergency department charge nurse. [facility] [address] [place] [id number] [address] [facility] Specialty [facility] - General Surgery, Dr. Ragsdale [facility] [address] [place] [address], [address] [place] [address] 1. Eat a clear liquid diet for 24 hours then low fat/grease diet/bland diet until you see Dr. Ragsdale, General Surgery 2. You can alternate ibuprofen and Tylenol as directed for pain and discomfort. 3. Follow up with Dr. Ragsdale, general surgery as scheduled and as discussed. You have been placed on the expedited follow-up list so call his clinic in the morning for appointment time. 4. Return to the ED as needed and as discussed. - My Orders Last 24 Hours: My Active Orders 05/09/19 10:34 EKG 12 Lead [EKG Documentation Completion] [RC] STAT 05/09/19 12:07 Communication Order [RC] STAT - Assessment/Plan Last 24 Hours: My Active Orders 05/09/19 10:34 EKG 12 Lead [EKG Documentation Completion] [RC] STAT 05/09/19 12:07 Communication Order [RC] STAT
[2019-05-09 11:06] LABS: CARBON DIOXIDE,CO2 27.4 mmol/L (21.0-32.0); POTASSIUM,K 4.2 mmol/L (3.5-5.1)
[2019-05-09] MEDS ORDERED: Prochlorperazine 10 MG in Sodium Chloride 0.9% 50 ML IV ONE (11:16)
[2019-05-09] MEDS ORDERED: Pantoprazole 40 MG Vial IVPUSH ONE (11:17)
[2019-05-09] MEDS ORDERED: Ketorolac 30 MG/ML SDV IVPUSH ONE (11:20)
[2019-05-09] MEDS ORDERED: Sodium Chloride 0.9% 20 ML ONE (11:21)
--- NOTE | 2019-05-09 11:27 | CR ---
Indication: Nausea and abdominal pain. Technique: AP supine and upright views of the abdomen and pelvis were obtained. Comparison: None Findings: The bowel gas pattern is nonobstructive. A moderate amount of stool is identified within the colon. Degenerative changes of the lumbar spine and both hips are identified. Phleboliths are identified within the pelvis. No free air is identified. Impression: Nonobstructive bowel gas pattern. No free air. Dictated by Eboni Ellison MD @ May 09 2019 11:25AM Signed by Dr. Eboni Ellison @ May 09 2019 11:26AM
[2019-05-09] MEDS ORDERED: Prochlorperazine 10 MG/2 ML SDV IV ONE ×2 (11:30)
[2019-05-09] MEDS ORDERED: Furosemide 40 MG/4 ML VIAL IVPUSH ONE (12:09)
[2019-05-09] MEDS ORDERED: Metoprolol Tartrate 5 MG/5 ML SDV IVPUSH STA (12:09)
== END 2019-05-09 13:41 | disposition home or self-care (01) ==
LOC: MW.ED 10:22
DX: K59.00 Constipation, unspecified (principal); R11.2 Nausea with vomiting, unspecified; E11.9 Type 2 diabetes mellitus without complications; I10 Essential (primary) hypertension; Z98.890 Other specified postprocedural states; Z79.899 Other long term (current) drug therapy; Z79.84 Long term (current) use of oral hypoglycemic drugs; Z87.19 Personal history of other diseases of the digestive system
CPT/HCPCS: 36415; 74021; 80053; 85025; 93005; 96361; 96374; 96375; 96376; 99284; C9113; J0780; J1885; J1940; J2405; J3490; J7040

== ENCOUNTER 2019-05-12 00:18 | Emergency (ER) | payer OTHER ==
[2019-05-12] MEDS ORDERED: Nitroglycerin 2% Oint 1 GM UD Packet TOP ONE (00:28)
[2019-05-12] MEDS ORDERED: Aspirin 81 MG Tab.Chew PO ONE (00:28)
[2019-05-12] MEDS ORDERED: LORazepam 2 MG/ML SDV IVPUSH ONE (00:32)
[2019-05-12] MEDS ORDERED: Ondansetron 4 MG/2 ML SDV IVPUSH ONE (00:40)
[2019-05-12 00:58] LABS: CARBON DIOXIDE,CO2 27.1 mmol/L (21.0-32.0); POTASSIUM,K 4.2 mmol/L (3.5-5.1)
--- NOTE | 2019-05-12 01:07 | EDM.PDOC ---
ED HPI GENERAL MEDICAL PROBLEM - General Chief Complaint: Cardiovascular Problem Stated Complaint: HEART PALPITATIONS, VOMITING Time Seen by Provider: 05/12/19 01:33 - History of Present Illness INITIAL COMMENTS - FREE TEXT/NARRATIVE: HISTORY AND PHYSICAL: History of present illness: Patient 58-year-old white male chronic intermittent abdominal pain gastroparesis CHF hypertension and type 2 diabetes was seen in the ER on the has had multiple visits an extensive workup including multiple abdominal pelvic CT scans transfer to [facility] where he had evaluation for his gallbladder. He presents today with same as prior episodes with epigastric discomfort and nausea and vomiting there's been no fever chills shortness of breath or other concern. Review of systems: As per history of present illness and below otherwise all systems reviewed and negative. Past medical history: As per history of present illness and as reviewed below otherwise noncontributory. Surgical history: As per history of present illness and as reviewed below otherwise noncontributory. Social history: No reported history of drug or alcohol abuse. Family history: As per history of present illness and as reviewed below otherwise noncontributory. Physical exam: HEENT: Atraumatic, normocephalic, pupils reactive, negative for conjunctival pallor or scleral icterus, mucous membranes moist, throat clear, neck supple, nontender, trachea midline. Lungs: Clear to auscultation, breath sounds equal bilaterally, chest nontender. Heart: S1S2, regular, negative for clicks, rubs, or JVD. Abdomen: Soft, nondistended, nontender. Negative for masses or hepatosplenomegaly. Negative for costovertebral tenderness. Pelvis: Stable nontender. Genitourinary: Deferred. Rectal: Deferred. Extremities: Atraumatic, negative for cords or calf pain. Neurovascular unremarkable. Neuro: Awake, alert, oriented. Cranial nerves II through XII unremarkable. Cerebellum unremarkable. Motor and sensory unremarkable throughout. Exam nonfocal. Diagnostics: CBC CMP troponin PT/INR chest x-ray EKG lipase Therapeutics: IV O2 monitor Nitropaste 1 inch chest wall aspirin 324 mg Ativan 1 mg IV Impression: #1 vomiting #2 history gastroparesis #3 history of hypertension #4 history of CHF #5 history of type 2 diabetes Definitive disposition and diagnosis as appropriate pending reevaluation and review of above. abdomen Pain Score (Numeric/FACES): 8 - Related Data Allergies Allergy/AdvReac Type Severity Reaction Status Date / Time No Known Allergies Allergy Verified 05/12/19 00:22 Home Meds: Home Meds Carvedilol 1 tab PO BID 05/02/19 [History] Furosemide [Lasix] 20 mg PO DAILY 05/02/19 [History] Promethazine HCl [Promethegan] 12.5 mg RC ASDIRECTED PRN 05/02/19 [History] Spironolactone [Aldactone] 25 mg PO DAILY 05/02/19 [History] glipiZIDE [Glipizide ER] 5 mg PO DAILY 05/02/19 [History] metFORMIN [Glucophage] 1,000 mg PO BIDMEALS 05/02/19 [History] Pantoprazole [ProTONIX IV] 40 mg IV Q24H vial 05/06/19 [Rx] Past Medical History HEENT History: Reports: Impaired Vision Cardiovascular History: Reports: Hypertension, [place] Other Cardiovascular History: pt reports mild heat attack 2018 Respiratory History: Reports: COPD, Pneumonia, Recurrent Gastrointestinal History: Reports: Other (See Below) Other Gastrointestinal History: Gallbladder Issues Genitourinary History: Reports: None Musculoskeletal History: Reports: Fracture Neurological History: Reports: None Psychiatric History: Reports: None Endocrine/Metabolic History: Reports: Diabetes, Type II 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 Hematologic History: Reports: None Immunologic History: Reports: None Oncologic (Cancer) History: Reports: None Dermatologic History: Reports: None - Infectious Disease History Infectious Disease History: Reports: Chicken Pox - Past Surgical History Head Surgeries/Procedures: Reports: None HEENT Surgical History: Reports: Other (See Below) Other HEENT Surgeries/Procedures: Thyroidectomy Cardiovascular Surgical History: Reports: None Respiratory Surgical History: Reports: None GI Surgical History: Reports: Colonoscopy Endocrine Surgical History: Reports: Thyroidectomy, Other (See Below) Other Endocrine Surgeries/Procedures: patrial thyroidectomy Social & Family History - Family History Family Medical History: Noncontributory - Caffeine Use Caffeine Use: Reports: Coffee - Recreational Drug Use Recreational Drug Use: Yes Recreational Drug Type: Reports: Marijuana/Hashish ED ROS GENERAL - Review of Systems Review Of Systems: ROS reveals no pertinent complaints other than HPI. ED EXAM, GENERAL - Physical Exam Exam: See Below (See dictation) Course - Vital Signs Last Recorded V/S: Last Vital Signs Temp 35.8 C 05/12/19 00:22 Pulse 99 05/12/19 01:31 Resp 16 05/12/19 01:31 BP 129/81 05/12/19 01:31 Pulse Ox 99 05/12/19 01:31 - Orders/Labs/Meds Orders: Active Orders 24 hr Category Date Time Status Cardiac Monitoring [RC] . DIRECTED Care 05/12/19 00:29 Active EKG Documentation Completion [RC] STAT Care 05/12/19 00:29 Active Labs: Laboratory Tests 05/12/19 05/12/19 05/12/19 Range/Units 00:30 00:30 00:30 WBC 8.04 (4.0-11.0) K/uL RBC 5.02 (4.50-5.90) M/uL Hgb 15.8 (13.0-17.0) g/dL Hct 44.3 (38.0-50.0) % MCV 88.2 (80.0-98.0) fL MCH 31.5 (27.0-32.0) pg MCHC 35.7 (31.0-37.0) g/dL RDW Std Deviation 42.4 (28.0-62.0) fl RDW Coeff of Mukesh 13 (11.0-15.0) % Plt Count 112 L (150-400) K/uL MPV 12.40 H (7.40-12.00) fL Neut % (Auto) 63.7 (48.0-80.0) % Lymph % (Auto) 23.8 (16.0-40.0) % [place] % (Auto) 11.3 (0.0-15.0) % Eos % (Auto) 1.0 (0.0-7.0) % Baso % (Auto) 0.2 (0.0-1.5) % Neut # (Auto) 5.1 (1.4-5.7) K/uL Lymph # (Auto) 1.9 (0.6-2.4) K/uL [place] # (Auto) 0.9 H (0.0-0.8) K/uL Eos # (Auto) 0.1 (0.0-0.7) K/uL Baso # (Auto) 0.0 (0.0-0.1) K/uL INR 1.07 Sodium 141 (136-148) mmol/L Potassium 4.2 (3.5-5.1) mmol/L Chloride 102 (98-107) mmol/L Carbon Dioxide 27.1 (21.0-32.0) mmol/L BUN 16 (7.0-18.0) mg/dL Creatinine 1.3 (0.8-1.3) mg/dL Est Cr Clr Drug Dosing 75.83 mL/min Estimated GFR (MDRD) 57.1 ml/min Glucose 248 H (74-106) mg/dL Calcium 9.7 (8.5-10.1) mg/dL Total Bilirubin 1.1 H (0.2-1.0) mg/dL AST 32 (15-37) IU/L ALT 28 (14-63) IU/L Alkaline Phosphatase 100 (46-116) U/L Troponin I 0.054 (0.000-0.056) ng/mL Total Protein 8.2 (6.4-8.2) g/dL Albumin 4.0 (3.4-5.0) g/dL Globulin 4.2 H (2.6-4.0) g/dL Albumin/Globulin Ratio 1.0 (0.9-1.6) Lipase (73-393) U/L 05/12/19 Range/Units 00:30 WBC (4.0-11.0) K/uL RBC (4.50-5.90) M/uL Hgb (13.0-17.0) g/dL Hct (38.0-50.0) % MCV (80.0-98.0) fL MCH (27.0-32.0) pg MCHC (31.0-37.0) g/dL RDW Std Deviation (28.0-62.0) fl RDW Coeff of Mueksh (11.0-15.0) % Plt Count (150-400) K/uL MPV (7.40-12.00) fL Neut % (Auto) (48.0-80.0) % Lymph % (Auto) (16.0-40.0) % [place] % (Auto) (0.0-15.0) % Eos % (Auto) (0.0-7.0) % Baso % (Auto) (0.0-1.5) % Neut # (Auto) (1.4-5.7) K/uL Lymph # (Auto) (0.6-2.4) K/uL [place] # (Auto) (0.0-0.8) K/uL Eos # (Auto) (0.0-0.7) K/uL Baso # (Auto) (0.0-0.1) K/uL INR Sodium (136-148) mmol/L Potassium (3.5-5.1) mmol/L Chloride (98-107) mmol/L Carbon Dioxide (21.0-32.0) mmol/L BUN (7.0-18.0) mg/dL Creatinine (0.8-1.3) mg/dL Est Cr Clr Drug Dosing mL/min Estimated GFR (MDRD) ml/min Glucose (74-106) mg/dL Calcium (8.5-10.1) mg/dL Total Bilirubin (0.2-1.0) mg/dL AST (15-37) IU/L ALT (14-63) IU/L Alkaline Phosphatase (46-116) U/L Troponin I (0.000-0.056) ng/mL Total Protein (6.4-8.2) g/dL Albumin (3.4-5.0) g/dL Globulin (2.6-4.0) g/dL Albumin/Globulin Ratio (0.9-1.6) Lipase 97 (73-393) U/L Meds: Medications Discontinued Medications Generic Name Dose Route Start Last Admin Trade Name Freq PRN Reason Stop Dose Admin Aspirin 324 mg 05/12/19 00:28 05/12/19 00:36 Aspirin PO 05/12/19 00:29 324 mg ONETIME ONE Administration Lorazepam 1 mg 05/12/19 00:32 05/12/19 00:42 Ativan IVPUSH 05/12/19 00:33 1 mg ONETIME ONE Administration Nitroglycerin 1 gm 05/12/19 00:28 05/12/19 00:36 Nitro-Bid 2% TOP 05/12/19 00:29 1 gm ONETIME ONE Administration Ondansetron HCl 4 mg 05/12/19 00:40 05/12/19 00:43 Zofran IVPUSH 05/12/19 00:41 4 mg ONETIME ONE Administration Departure - Departure Time of Disposition: 01:33 Disposition: Home, Self-Care 01 Condition: Good Clinical Impression: Gastroparesis, Encounter for medical screening examination, Hypertension, Diabetes Vomiting Qualifiers: Vomiting type: unspecified Vomiting Intractability: non-intractable Nausea presence: with nausea Qualified Code(s): R11.2 - Nausea with vomiting, unspecified - Discharge Information Referrals: PCP,None [Primary Care Provider] - Forms: ED Department Discharge Additional Instructions: The following information is given to patients seen in the emergency department who are being discharged to home. This information is to outline your options for follow-up care. We provide all patients seen in our emergency department with a follow-up referral. The need for follow-up, as well as the timing and circumstances, are variable depending upon the specifics of your emergency department visit. If you don't have a primary care physician on staff, we will provide you with a referral. We always advise you to contact your personal physician following an emergency department visit to inform them of the circumstance of the visit and for follow-up with them and/or the need for any referrals to a consulting specialist. The emergency department will also refer you to a specialist when appropriate. This referral assures that you have the opportunity for followup care with a specialist. All of these measure are taken in an effort to provide you with optimal care, which includes your followup. Under all circumstances we always encourage you to contact your private physician who remains a resource for coordinating your care. When calling for followup care, please make the office aware that this follow-up is from your recent emergency room visit. If for any reason you are refused follow-up, please contact the [facility] emergency department at and asked to speak to the emergency department charge nurse. Continue current medications follow-up primary medical doctor as needed as discussed return as needed as discussed - My Orders Last 24 Hours: My Active Orders 05/12/19 00:29 Cardiac Monitoring [RC] . DIRECTED EKG Documentation Completion [RC] STAT - Assessment/Plan Last 24 Hours: My Active Orders 05/12/19 00:29 Cardiac Monitoring [RC] . DIRECTED EKG Documentation Completion [RC] STAT
--- NOTE | 2019-05-12 01:27 | CR ---
INDICATION: Chest pain TECHNIQUE: Chest 1 views COMPARISON: Chest x-ray 05/06/2019 FINDINGS: Cardiovascular and mediastinum: Normal heart size with slight prominence in the region of the right traci. Lungs and pleural spaces: No pleural effusion or pneumothorax. Slight patchy opacities right lung base. Bones and soft tissues: No significant findings. IMPRESSION: 1. Mild fullness of the right traci compared to the prior exam. There is some rotation on the examination suggests that this may be positional artifact. Repeat PA film may be useful to confirm. 2. Slight patchy opacities in the right lung consistent with atelectasis or pneumonia. Dictated by Naveen Rowell MD @ May 12 2019 1:24AM Signed by Dr. Naveen Rowell @ May 12 2019 1:26AM
== END 2019-05-12 01:40 | disposition home or self-care (01) ==
LOC: MW.ED 00:18
DX: E11.43 Type 2 diabetes mellitus with diabetic autonomic (poly)neuropathy (principal); K31.84 Gastroparesis; R11.2 Nausea with vomiting, unspecified; I11.0 Hypertensive heart disease with heart failure; I50.9 Heart failure, unspecified; I25.2 Old myocardial infarction; Z79.84 Long term (current) use of oral hypoglycemic drugs; Z79.899 Other long term (current) drug therapy
CPT/HCPCS: 36415; 71045; 80053; 83690; 84484; 85025; 85610; 93005; 96374; 96375; 99285; A9270; J2060; J2405; 99284

== ENCOUNTER 2019-05-25 08:57 | Observation (INO) | payer OTHER ==
[2019-05-25] MEDS ORDERED: Sodium Chloride 0.9% 2.5 ML Syringe FLUSH PRN (08:59)
[2019-05-25] MEDS ORDERED: Sodium Chloride 0.9% 10 ML Syringe FLUSH PRN (08:59)
[2019-05-25] MEDS ORDERED: Aspirin 81 MG Tab.Chew PO ONE (09:05)
[2019-05-25] MEDS: Nitroglycerin 0.4 MG Tab.SL SL PRN ×3 (09:09→09:18)
--- NOTE | 2019-05-25 09:10 | EDM.PDOC ---
ED HPI GENERAL MEDICAL PROBLEM - General Chief Complaint: Chest Pain Stated Complaint: CHEST PAIN SHORTNESS OF BREATH Time Seen by Provider: 05/25/19 08:58 Source of Information: Reports: Patient History Limitations: Reports: No Limitations - History of Present Illness INITIAL COMMENTS - FREE TEXT/NARRATIVE: History of present illness: []Patient started having left-sided 7/10 non-radiating pressure-like chest pain last night at 3 AM. He did not take any medications for it and went to a follow- up appointment in clinic complaining of chest pain and shortness of breath and was to the ED for reevaluation. Review of systems: As per history of present illness and below otherwise all systems reviewed and negative. Past medical history: As per history of present illness and as reviewed below otherwise noncontributory. Surgical history: As per history of present illness and as reviewed below otherwise noncontributory. Social history: No reported history of drug or alcohol abuse. Family history: As per history of present illness and as reviewed below otherwise noncontributory. Physical exam: General: Well developed, well nourished in NAD HEENT: Atraumatic, normocephalic, pupils reactive, negative for conjunctival pallor or scleral icterus, mucous membranes moist, throat clear, neck supple, nontender, trachea midline. Lungs: Clear to auscultation, breath sounds equal bilaterally, chest nontender. Heart: S1S2, regular, negative for clicks, rubs, or JVD. Abdomen: NABS, Soft, nondistended, nontender. Negative for masses or hepatosplenomegaly. Negative for costovertebral tenderness. Pelvis: Stable nontender. Genitourinary: Deferred. Rectal: Deferred. Extremities: Atraumatic, negative for cords or calf pain. Neurovascular unremarkable. Neuro: Awake, alert, oriented. Cranial nerves II through XII unremarkable. Cerebellum unremarkable. Motor and sensory unremarkable throughout. Exam nonfocal. Skin:warm and dry Diagnostics: EKG, chest x-ray, CBC, chemistry, troponin, BNP, bedside glucose 192 Therapeutics: Nitroglycerin glycerin, aspirin ED Course: Stable, Dr. Moreno will admit for rule out ID and further treatment as needed. Impression: chest pain Prescriptions: none Plan: admit Definitive disposition and diagnosis as appropriate pending reevaluation and review of above. Left Chest Pain Score (Numeric/FACES): 4 - Related Data Allergies Allergy/AdvReac Type Severity Reaction Status Date / Time metoclopramide Allergy Cannot Verified 05/25/19 11:15 Remember Home Meds: Home Meds Carvedilol 1 tab PO DAILY 05/02/19 [History] Furosemide [Lasix] 20 mg PO DAILY 05/02/19 [History] Spironolactone [Aldactone] 25 mg PO DAILY 05/02/19 [History] glipiZIDE [Glipizide ER] 5 mg PO DAILY 05/02/19 [History] metFORMIN [Glucophage] 1,000 mg PO BIDMEALS 05/02/19 [History] Aspirin 81 mg PO DAILY 05/25/19 [History] Omeprazole Magnesium [Prilosec Otc] 40 mg PO DAILY PRN 05/25/19 [History] amLODIPine [Norvasc] 5 mg PO DAILY 05/25/19 [History] atorvaSTATin Calcium [Atorvastatin Calcium] 10 mg PO BEDTIME 05/25/19 [History] Past Medical History HEENT History: Reports: Impaired Vision Cardiovascular History: Reports: Hypertension, [place] Other Cardiovascular History: pt reports mild heat attack 2018 Respiratory History: Reports: COPD, Pneumonia, Recurrent Gastrointestinal History: Reports: Other (See Below) Other Gastrointestinal History: Gallbladder Issues Genitourinary History: Reports: None Musculoskeletal History: Reports: Fracture Neurological History: Reports: None Psychiatric History: Reports: None Endocrine/Metabolic History: Reports: Diabetes, Type II 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 Hematologic History: Reports: None Immunologic History: Reports: None Oncologic (Cancer) History: Reports: None Dermatologic History: Reports: None - Infectious Disease History Infectious Disease History: Reports: Chicken Pox - Past Surgical History Head Surgeries/Procedures: Reports: None HEENT Surgical History: Reports: Other (See Below) Other HEENT Surgeries/Procedures: Thyroidectomy Cardiovascular Surgical History: Reports: None Respiratory Surgical History: Reports: None GI Surgical History: Reports: Colonoscopy Endocrine Surgical History: Reports: Thyroidectomy, Other (See Below) Other Endocrine Surgeries/Procedures: patrial thyroidectomy Social & Family History - Family History Family Medical History: Noncontributory - Caffeine Use Caffeine Use: Reports: Coffee ED ROS GENERAL - Review of Systems Review Of Systems: See Below ED EXAM, GENERAL - Physical Exam Exam: See Below Course - Vital Signs Last Recorded V/S: Last Vital Signs Temp 97.3 F 05/25/19 11:15 Pulse 92 05/25/19 11:15 Resp 17 05/25/19 11:15 BP 156/96 H 05/25/19 11:15 Pulse Ox 98 05/25/19 11:15 - Orders/Labs/Meds Orders: Active Orders 24 hr Category Date Time Status Patient Status [ADT] Stat ADT 05/25/19 10:05 Active Blood Glucose Check, Bedside [] ONETIME Care 05/25/19 09:28 Active Cardiac Monitoring [RC] . DIRECTED Care 05/25/19 08:59 Active Oxygen Therapy, ED [RC] ASDIRECTED Care 05/25/19 08:59 Active Sodium Chloride 0.9% [Saline Flush] Med 05/25/19 08:59 Active 10 ml FLUSH ASDIRECTED PRN Sodium Chloride 0.9% [Saline Flush] Med 05/25/19 08:59 Active 2.5 ml FLUSH ASDIRECTED PRN Saline Lock Insert [OM.PC] Stat Oth 05/25/19 08:59 Ordered Medication Orders Acetaminophen (Tylenol) 650 mg PO Q4H PRN PRN Reason: Pain (Mild 1-3)/fever Amlodipine Besylate (Norvasc) 5 mg PO DAILY [facility] Aspirin (Aspirin) 81 mg PO DAILY [facility] Atorvastatin Calcium (Lipitor) 10 mg PO BEDTIME [facility] Carvedilol (Coreg) 3.125 mg PO DAILY [facility] Furosemide (Lasix) 20 mg PO DAILY [facility] Glipizide (Glucotrol Xl) 5 mg PO DAILY [facility] Influenza Virus Vaccine (Fluzone Quad [id number] Syringe) 60 mcg IM .ONCE ONE Stop: 05/25/19 15:01 Insulin Aspart (Novolog) 0 unit SUBCUT TIDAC [facility]; Protocol Metformin HCl (Glucophage) 1,000 mg PO BIDMEALS [facility] Omeprazole (Omeprazole) 40 mg PO ACBREAKFAST PRN PRN Reason: Indigestion Oxycodone HCl (Oxycodone) 5 mg PO Q4H PRN PRN Reason: Pain (moderate 4-6) Promethazine HCl (Phenadoz) 12.5 mg RECTAL ASDIRECTED PRN PRN Reason: Vomiting Sodium Chloride (Saline Flush) 10 ml FLUSH ASDIRECTED PRN PRN Reason: Keep Vein Open Last Admin: 05/25/19 09:11 Dose: 10 ml Sodium Chloride (Saline Flush) 2.5 ml FLUSH ASDIRECTED PRN PRN Reason: Keep Vein Open Last Admin: 05/25/19 09:11 Dose: 2.5 ml Spironolactone (Aldactone) 25 mg PO DAILY [facility] Temazepam (Restoril) 15 mg PO BEDTIME PRN PRN Reason: Sleep Labs: Laboratory Tests 05/25/19 05/25/19 05/25/19 Range/Units 09:00 09:00 09:00 WBC 7.11 (4.0-11.0) K/uL RBC 4.74 (4.50-5.90) M/uL Hgb 14.9 (13.0-17.0) g/dL Hct 42.0 (38.0-50.0) % MCV 88.6 (80.0-98.0) fL MCH 31.4 (27.0-32.0) pg MCHC 35.5 (31.0-37.0) g/dL RDW Std Deviation 42.9 (28.0-62.0) fl RDW Coeff of Mukesh 13 (11.0-15.0) % Plt Count 98 L (150-400) K/uL MPV 12.00 (7.40-12.00) fL Neut % (Auto) 55.8 (48.0-80.0) % Lymph % (Auto) 29.3 (16.0-40.0) % [place] % (Auto) 11.5 (0.0-15.0) % Eos % (Auto) 3.0 (0.0-7.0) % Baso % (Auto) 0.4 (0.0-1.5) % Neut # (Auto) 4.0 (1.4-5.7) K/uL Lymph # (Auto) 2.1 (0.6-2.4) K/uL [place] # (Auto) 0.8 (0.0-0.8) K/uL Eos # (Auto) 0.2 (0.0-0.7) K/uL Baso # (Auto) 0.0 (0.0-0.1) K/uL Nucleated RBC % 0.0 /100WBC Nucleated RBCs # 0 K/uL Sodium 139 (136-148) mmol/L Potassium 3.9 (3.5-5.1) mmol/L Chloride 103 (98-107) mmol/L Carbon Dioxide 22.4 (21.0-32.0) mmol/L BUN 16 (7.0-18.0) mg/dL Creatinine 1.1 (0.8-1.3) mg/dL Est Cr Clr Drug Dosing 89.62 mL/min Estimated GFR (MDRD) > 60.0 ml/min Glucose 201 H (74-106) mg/dL POC Glucose (60-110) mg/dL Calcium 8.8 (8.5-10.1) mg/dL Total Bilirubin 1.1 H (0.2-1.0) mg/dL AST 37 (15-37) IU/L ALT 40 (14-63) IU/L Alkaline Phosphatase 99 (46-116) U/L Troponin I < 0.050 (0.000-0.056) ng/mL B-Natriuretic Peptide 153 H (<100) PG/ML Total Protein 7.5 (6.4-8.2) g/dL Albumin 3.6 (3.4-5.0) g/dL Globulin 3.9 (2.6-4.0) g/dL Albumin/Globulin Ratio 0.9 (0.9-1.6) 05/25/19 Range/Units 09:31 WBC (4.0-11.0) K/uL RBC (4.50-5.90) M/uL Hgb (13.0-17.0) g/dL Hct (38.0-50.0) % MCV (80.0-98.0) fL MCH (27.0-32.0) pg MCHC (31.0-37.0) g/dL RDW Std Deviation (28.0-62.0) fl RDW Coeff of Mukesh (11.0-15.0) % Plt Count (150-400) K/uL MPV (7.40-12.00) fL Neut % (Auto) (48.0-80.0) % Lymph % (Auto) (16.0-40.0) % [place] % (Auto) (0.0-15.0) % Eos % (Auto) (0.0-7.0) % Baso % (Auto) (0.0-1.5) % Neut # (Auto) (1.4-5.7) K/uL Lymph # (Auto) (0.6-2.4) K/uL [place] # (Auto) (0.0-0.8) K/uL Eos # (Auto) (0.0-0.7) K/uL Baso # (Auto) (0.0-0.1) K/uL Nucleated RBC % /100WBC Nucleated RBCs # K/uL Sodium (136-148) mmol/L Potassium (3.5-5.1) mmol/L Chloride (98-107) mmol/L Carbon Dioxide (21.0-32.0) mmol/L BUN (7.0-18.0) mg/dL Creatinine (0.8-1.3) mg/dL Est Cr Clr Drug Dosing mL/min Estimated GFR (MDRD) ml/min Glucose (74-106) mg/dL POC Glucose 192 H (60-110) mg/dL Calcium (8.5-10.1) mg/dL Total Bilirubin (0.2-1.0) mg/dL AST (15-37) IU/L ALT (14-63) IU/L Alkaline Phosphatase (46-116) U/L Troponin I (0.000-0.056) ng/mL B-Natriuretic Peptide (<100) PG/ML Total Protein (6.4-8.2) g/dL Albumin (3.4-5.0) g/dL Globulin (2.6-4.0) g/dL Albumin/Globulin Ratio (0.9-1.6) Meds: Medications Generic Name Dose Route Start Last Admin Trade Name Freq PRN Reason Stop Dose Admin Acetaminophen 650 mg 05/25/19 10:55 Tylenol PO Q4H PRN Pain (Mild 1-3)/fever Amlodipine Besylate 5 mg 05/26/19 09:00 Norvasc PO DAILY [facility] Aspirin 81 mg 05/26/19 09:00 Aspirin PO DAILY [facility] Atorvastatin Calcium 10 mg 05/25/19 21:00 Lipitor PO BEDTIME [facility] Carvedilol 3.125 mg 05/26/19 09:00 Coreg PO DAILY [facility] Furosemide 20 mg 05/26/19 09:00 Lasix PO DAILY [facility] Glipizide 5 mg 05/26/19 09:00 Glucotrol Xl PO DAILY [facility] Influenza Virus Vaccine 60 mcg 05/25/19 15:00 Fluzone Quad [id number] Syringe IM 05/25/19 15:01 .ONCE ONE Insulin Aspart 0 unit 05/25/19 17:30 Novolog SUBCUT TIDAC [facility] Protocol Metformin HCl 1,000 mg 05/25/19 17:00 Glucophage PO BIDMEALS [facility] Omeprazole 40 mg 05/25/19 13:34 Omeprazole PO ACBREAKFAST PRN Indigestion Oxycodone HCl 5 mg 05/25/19 10:55 Oxycodone PO Q4H PRN Pain (moderate 4-6) Promethazine HCl 12.5 mg 05/25/19 10:53 Phenadoz RECTAL ASDIRECTED PRN Vomiting Sodium Chloride 10 ml 05/25/19 08:59 05/25/19 09:11 Saline Flush FLUSH 10 ml ASDIRECTED PRN Administration Keep Vein Open Sodium Chloride 2.5 ml 05/25/19 08:59 05/25/19 09:11 Saline Flush FLUSH 2.5 ml ASDIRECTED PRN Administration Keep Vein Open Spironolactone 25 mg 05/26/19 09:00 Aldactone PO DAILY [facility] Temazepam 15 mg 05/25/19 10:55 Restoril PO BEDTIME PRN Sleep Discontinued Medications Generic Name Dose Route Start Last Admin Trade Name Freq PRN Reason Stop Dose Admin Aspirin 324 mg 05/25/19 09:05 05/25/19 09:10 Aspirin PO 05/25/19 09:06 324 mg ONETIME ONE Administration Atorvastatin Calcium 10 mg 05/25/19 21:00 Lipitor PO BEDTIME [facility] Influenza Virus Vaccine 1 each 05/25/19 11:44 Pharmacy To Dose - Influenza Vaccine IM 05/25/19 11:45 ONETIME ONE Nitroglycerin 0.4 mg 05/25/19 09:05 05/25/19 09:18 Nitrostat SL 0.4 mg Q5M PRN Administration Chest Pain Nitroglycerin 1 gm 05/25/19 09:26 05/25/19 09:31 Nitro-Bid 2% TOP 05/25/19 09:27 1 gm ONETIME ONE Administration Departure - Departure Time of Disposition: 11:00 Disposition: Refer to Observation Condition: Good Clinical Impression: Chest pain Qualifiers: Chest pain type: unspecified Qualified Code(s): R07.9 - Chest pain, unspecified - My Orders Last 24 Hours: My Active Orders 05/25/19 08:59 Cardiac Monitoring [RC] . DIRECTED Oxygen Therapy, ED [RC] ASDIRECTED Sodium Chloride 0.9% [Saline Flush] 10 ml FLUSH ASDIRECTED PRN Sodium Chloride 0.9% [Saline Flush] 2.5 ml FLUSH ASDIRECTED PRN Saline Lock Insert [OM.PC] Stat 05/25/19 09:28 Blood Glucose Check, Bedside [RC] ONETIME 05/25/19 10:05 Patient Status [ADT] Stat - Assessment/Plan Last 24 Hours: My Active Orders 05/25/19 08:59 Cardiac Monitoring [RC] . DIRECTED Oxygen Therapy, ED [RC] ASDIRECTED Sodium Chloride 0.9% [Saline Flush] 10 ml FLUSH ASDIRECTED PRN Sodium Chloride 0.9% [Saline Flush] 2.5 ml FLUSH ASDIRECTED PRN Saline Lock Insert [OM.PC] Stat 05/25/19 09:28 Blood Glucose Check, Bedside [RC] ONETIME 05/25/19 10:05 Patient Status [ADT] Stat
[2019-05-25] MEDS ORDERED: Nitroglycerin 2% Oint 1 GM UD Packet TOP ONE (09:26)
[2019-05-25 09:42] LABS: BLOOD UREA NITROGEN,BUN 16 mg/dL (7.0-18.0); CARBON DIOXIDE,CO2 22.4 mmol/L (21.0-32.0); CHLORIDE,CL 103 mmol/L (98-107); GLUCOSE RANDOM 201 mg/dL (74-106); POTASSIUM,K 3.9 mmol/L (3.5-5.1); SODIUM,NA 139 mmol/L (136-148)
--- NOTE | 2019-05-25 09:51 | CR ---
HISTORY: Shortness of breath. TECHNIQUE: One view of the chest. COMPARISON: 05/12/2019. FINDINGS: Cardiac size and pulmonary vasculature are within normal limits. There is no acute lung infiltrate or pulmonary edema. No pneumothorax or pleural effusion. No acute bony abnormality. IMPRESSION: No acute disease. Dictated by Sina Zazueta MD @ 05/25/2019 9:49:27 AM Dictated by: Sina Zazueta MD @ 05/25/2019 09:49:33 (Electronically Signed)
--- NOTE | 2019-05-25 10:52 | PCM.HP.2 ---
H&P History of Present Illness - General Date of Service: 05/25/19 Admit Problem/Dx: Admission Diagnosis/Problem Admission Diagnosis/Problem Chest pain Source of Information: Patient History Limitations: Reports: No Limitations - History of Present Illness Initial Comments - Free Text/Narative: The patient is a 58-year-old gentleman who is presented to the emergency department primarily with a complaint of chest pain. The patient reports that he has had left-sided chest pain without radiation this started approximately 10 PM last night and got worse at 3 AM this morning. The patient was previously admitted to hospitalization on May 06, 2019 where he had been noted to have an elevation in history pone intensive was transferred out to tertiary care center. The patient says that he has had some dizziness and lightheadedness along with diaphoresis. Patient also has a history of chronic nausea and vomiting secondary to gastroparesis due to diabetes. Patient also had been treated with Nitropaste in the emergency room and this had relieved some of his pain. Initial troponin was undetectable. The patient does have a history of chronic left bundle-branch block on EKG. Onset of Symptoms: Reports: Sudden Duration of Symptoms: Reports: Day(s):, Improving Location: Reports: Chest Quality: Reports: Stabbing, Throbbing Severity: Moderate Improves with: Reports: Medication Worsens with: Reports: Movement Associated Symptoms: Reports: Diaphoresis, Shortness of Breath Left Chest Pain Score (Numeric/FACES): 4 - Related Data Allergies/Adverse Reactions: Allergies Allergy/AdvReac Type Severity Reaction Status Date / Time metoclopramide Allergy Cannot Verified 05/25/19 11:15 Remember Home Medications: Home Meds Carvedilol 1 tab PO BID 05/02/19 [History] Furosemide [Lasix] 20 mg PO DAILY 05/02/19 [History] Spironolactone [Aldactone] 25 mg PO DAILY 05/02/19 [History] glipiZIDE [Glipizide ER] 5 mg PO DAILY 05/02/19 [History] metFORMIN [Glucophage] 1,000 mg PO BIDMEALS 05/02/19 [History] Aspirin 81 mg PO DAILY 05/25/19 [History] Omeprazole Magnesium [Prilosec Otc] 40 mg PO DAILY PRN 05/25/19 [History] amLODIPine [Norvasc] 5 mg PO DAILY 05/25/19 [History] Past Medical History HEENT History: Reports: Impaired Vision Cardiovascular History: Reports: Hypertension, [place] Other Cardiovascular History: pt reports mild heat attack 2018 Respiratory History: Reports: COPD, Pneumonia, Recurrent Gastrointestinal History: Reports: Other (See Below) Other Gastrointestinal History: Gallbladder Issues Genitourinary History: Reports: None Musculoskeletal History: Reports: Fracture Neurological History: Reports: None Psychiatric History: Reports: None Endocrine/Metabolic History: Reports: Diabetes, Type II Insulin Pump Model 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 Clay 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: None Hematologic History: Reports: None Immunologic History: Reports: None Oncologic (Cancer) History: Reports: None Dermatologic History: Reports: None - Infectious Disease History Infectious Disease History: Reports: Chicken Pox - Past Surgical History Head Surgeries/Procedures: Reports: None HEENT Surgical History: Reports: Other (See Below) Other HEENT Surgeries/Procedures: Thyroidectomy Cardiovascular Surgical History: Reports: None Respiratory Surgical History: Reports: None GI Surgical History: Reports: Colonoscopy Endocrine Surgical History: Reports: Thyroidectomy, Other (See Below) Other Endocrine Surgeries/Procedures: patrial thyroidectomy Social & Family History - Family History Family Medical History: Noncontributory - Tobacco Use Smoking Status *Q: Never Smoker - Caffeine Use Caffeine Use: Reports: Coffee - Recreational Drug Use Recreational Drug Use: Yes Recreational Drug Type: Reports: Marijuana/Hashish H&P Review of Systems - Review of Systems: Review Of Systems: See Below General: Reports: No Symptoms HEENT: Reports: No Symptoms Pulmonary: Reports: Shortness of Breath Cardiovascular: Reports: Chest Pain, Palpitations Gastrointestinal: Reports: No Symptoms Genitourinary: Reports: No Symptoms Musculoskeletal: Reports: No Symptoms Skin: Reports: No Symptoms Psychiatric: Reports: No Symptoms Neurological: Reports: No Symptoms Hematologic/Lymphatic: Reports: No Symptoms Immunologic: Reports: No Symptoms Exam - Exam Exam: See Below - Vital Signs Vital Signs: Last Vital Signs Temp 36.3 C 05/25/19 09:08 Pulse 91 05/25/19 09:08 Resp 16 05/25/19 09:08 BP 117/98 H 05/25/19 09:18 Pulse Ox 95 05/25/19 09:08 Weight: 111.584 kg - Exam Quality Assessment: No: Supplemental Oxygen General: Alert, Oriented, Cooperative, Mild Distress HEENT: Conjunctiva Clear, EACs Clear, EOMI, Hearing Intact, Mucosa Moist & [place] , Pupils Equal, PERRLA Neck: Supple, Trachea Midline Lungs: Clear to Auscultation, Normal Respiratory Effort Cardiovascular: Regular Rate, Regular Rhythm, Systolic Murmur (Best heard right upper sternal border, grade 2/6) GI/Abdominal Exam: Normal Bowel Sounds, Soft, No Distention. No: Guarding, Rigid, Rebound Back Exam: Normal Inspection, Full Range of Motion Extremities: Normal Inspection, Normal Range of Motion, No Pedal Edema Skin: Warm, Dry, Intact Neuro Extensive - Mental Status: Alert, Oriented x3 Psychiatric: Alert, Normal Affect, Normal Mood - Patient Data Lab Results Last 24 hrs: Laboratory Results - last 24 hr 05/25/19 05/25/19 05/25/19 Range/Units 09:00 09:00 09:00 WBC 7.11 (4.0-11.0) K/uL RBC 4.74 (4.50-5.90) M/uL Hgb 14.9 (13.0-17.0) g/dL Hct 42.0 (38.0-50.0) % MCV 88.6 (80.0-98.0) fL MCH 31.4 (27.0-32.0) pg MCHC 35.5 (31.0-37.0) g/dL RDW Std Deviation 42.9 (28.0-62.0) fl RDW Coeff of Mukesh 13 (11.0-15.0) % Plt Count 98 L (150-400) K/uL MPV 12.00 (7.40-12.00) fL Neut % (Auto) 55.8 (48.0-80.0) % Lymph % (Auto) 29.3 (16.0-40.0) % [place] % (Auto) 11.5 (0.0-15.0) % Eos % (Auto) 3.0 (0.0-7.0) % Baso % (Auto) 0.4 (0.0-1.5) % Neut # (Auto) 4.0 (1.4-5.7) K/uL Lymph # (Auto) 2.1 (0.6-2.4) K/uL [place] # (Auto) 0.8 (0.0-0.8) K/uL Eos # (Auto) 0.2 (0.0-0.7) K/uL Baso # (Auto) 0.0 (0.0-0.1) K/uL Nucleated RBC % 0.0 /100WBC Nucleated RBCs # 0 K/uL Sodium 139 (136-148) mmol/L Potassium 3.9 (3.5-5.1) mmol/L Chloride 103 (98-107) mmol/L Carbon Dioxide 22.4 (21.0-32.0) mmol/L BUN 16 (7.0-18.0) mg/dL Creatinine 1.1 (0.8-1.3) mg/dL Est Cr Clr Drug Dosing 89.62 mL/min Estimated GFR (MDRD) > 60.0 ml/min Glucose 201 H (74-106) mg/dL POC Glucose (60-110) mg/dL Calcium 8.8 (8.5-10.1) mg/dL Total Bilirubin 1.1 H (0.2-1.0) mg/dL AST 37 (15-37) IU/L ALT 40 (14-63) IU/L Alkaline Phosphatase 99 (46-116) U/L Troponin I < 0.050 (0.000-0.056) ng/mL B-Natriuretic Peptide 153 H (<100) PG/ML Total Protein 7.5 (6.4-8.2) g/dL Albumin 3.6 (3.4-5.0) g/dL Globulin 3.9 (2.6-4.0) g/dL Albumin/Globulin Ratio 0.9 (0.9-1.6) 05/25/19 Range/Units 09:31 WBC (4.0-11.0) K/uL RBC (4.50-5.90) M/uL Hgb (13.0-17.0) g/dL Hct (38.0-50.0) % MCV (80.0-98.0) fL MCH (27.0-32.0) pg MCHC (31.0-37.0) g/dL RDW Std Deviation (28.0-62.0) fl RDW Coeff of Mukesh (11.0-15.0) % Plt Count (150-400) K/uL MPV (7.40-12.00) fL Neut % (Auto) (48.0-80.0) % Lymph % (Auto) (16.0-40.0) % [place] % (Auto) (0.0-15.0) % Eos % (Auto) (0.0-7.0) % Baso % (Auto) (0.0-1.5) % Neut # (Auto) (1.4-5.7) K/uL Lymph # (Auto) (0.6-2.4) K/uL [place] # (Auto) (0.0-0.8) K/uL Eos # (Auto) (0.0-0.7) K/uL Baso # (Auto) (0.0-0.1) K/uL Nucleated RBC % /100WBC Nucleated RBCs # K/uL Sodium (136-148) mmol/L Potassium (3.5-5.1) mmol/L Chloride (98-107) mmol/L Carbon Dioxide (21.0-32.0) mmol/L BUN (7.0-18.0) mg/dL Creatinine (0.8-1.3) mg/dL Est Cr Clr Drug Dosing mL/min Estimated GFR (MDRD) ml/min Glucose (74-106) mg/dL POC Glucose 192 H (60-110) mg/dL Calcium (8.5-10.1) mg/dL Total Bilirubin (0.2-1.0) mg/dL AST (15-37) IU/L ALT (14-63) IU/L Alkaline Phosphatase (46-116) U/L Troponin I (0.000-0.056) ng/mL B-Natriuretic Peptide (<100) PG/ML Total Protein (6.4-8.2) g/dL Albumin (3.4-5.0) g/dL Globulin (2.6-4.0) g/dL Albumin/Globulin Ratio (0.9-1.6) Result Diagrams: 05/25/19 09:00 05/25/19 09:00 - Problem List (1) Atypical chest pain SNOMED Code(s): 892784768 ICD Code: R07.89 - OTHER CHEST PAIN Status: Acute Priority: High Current Visit: Yes (2) Diabetes mellitus type 2 with complications SNOMED Code(s): 49401870, 006632842 ICD Code: E11.8 - TYPE 2 DIABETES MELLITUS WITH UNSPECIFIED COMPLICATIONS Status: Chronic Priority: High Current Visit: Yes (3) Gastroparesis SNOMED Code(s): 884036352 ICD Code: K31.84 - GASTROPARESIS Status: Chronic Priority: High Current Visit: Yes Problem List Initiated/Reviewed/Updated: Yes Orders Last 24hrs: Active Orders 24 hr Category Date Time Status Patient Status [ADT] Stat ADT 05/25/19 10:05 Active Blood Glucose Check, Bedside [RC] ONETIME Care 05/25/19 09:28 Active Cardiac Monitoring [RC] . DIRECTED Care 05/25/19 08:59 Active Oxygen Therapy, ED [RC] ASDIRECTED Care 05/25/19 08:59 Active Sodium Chloride 0.9% [Saline Flush] Med 05/25/19 08:59 Active 10 ml FLUSH ASDIRECTED PRN Sodium Chloride 0.9% [Saline Flush] Med 05/25/19 08:59 Active 2.5 ml FLUSH ASDIRECTED PRN Saline Lock Insert [OM.PC] Stat Oth 05/25/19 08:59 Ordered Medication Orders Sodium Chloride (Saline Flush) 10 ml FLUSH ASDIRECTED PRN PRN Reason: Keep Vein Open Last Admin: 05/25/19 09:11 Dose: 10 ml Sodium Chloride (Saline Flush) 2.5 ml FLUSH ASDIRECTED PRN PRN Reason: Keep Vein Open Last Admin: 05/25/19 09:11 Dose: 2.5 ml Assessment/Plan Comment:: The patient is a 58-year-old gentleman who has been admitted to observation secondary to atypical chest pain. The patient has significant risk factors to include hypertension, diabetes and history of gastroparesis. The patient had an initial troponin I which was undetectable. 2 more troponins have been ordered every 6 hours. He'll be admitted to observation/telemetry. The patient will also have continuous monitoring of his cardiac rhythm. Repeat EKG is been ordered for the morning. Repeat laboratory studies of also been ordered for the morning. The patient should have heart healthy, diabetic diet as tolerated. He' ll have Accu-Cheks before meals and at bedtime. The patient should be appropriate for discharge tomorrow when testing is negative. - Mortality Measure Prognosis:: Good
[2019-05-25] MEDS ORDERED: Promethazine 12.5 MG Supp RECTAL PRN (10:53)
[2019-05-25] MEDS ORDERED: Temazepam 15 MG Cap PO PRN (10:55)
[2019-05-25] MEDS ORDERED: Omeprazole 20 MG Cap.CR PO PRN (13:34)
[2019-05-25] MEDS ORDERED: FLU Vacc QS2019-20(6MOS+)/PF 60 MCG/0.5 ML SYRINGE IM ONE (15:00)
[2019-05-25] MEDS: metFORMIN 500 MG Tab PO SCH (16:30)
[2019-05-25] MEDS: Acetaminophen 325 MG Tab PO PRN ×2 (16:30→20:56)
[2019-05-25] MEDS: Insulin Aspart 100 Units/ML 3 ML Pen SUBCUT SCH (16:35)
[2019-05-25] MEDS ORDERED: atorvaSTATin 10 MG Tab PO SCH ×2 (21:00)
[2019-05-26] MEDS: oxyCODONE 5 MG Tab PO PRN ×2 (00:58→05:03)
[2019-05-26] MEDS: Insulin Aspart 100 Units/ML 3 ML Pen SUBCUT SCH (06:59)
[2019-05-26 07:36] LABS: BLOOD UREA NITROGEN,BUN 16 mg/dL (7.0-18.0); CARBON DIOXIDE,CO2 24.3 mmol/L (21.0-32.0); CHLORIDE,CL 103 mmol/L (98-107); GLUCOSE RANDOM 200 mg/dL (74-106); POTASSIUM,K 4.1 mmol/L (3.5-5.1); SODIUM,NA 139 mmol/L (136-148)
[2019-05-26] MEDS ORDERED: amLODIPine 5 MG Tab PO SCH (09:00)
[2019-05-26] MEDS ORDERED: Aspirin 81 MG Tab.Chew PO SCH (09:00)
[2019-05-26] MEDS ORDERED: Spironolactone 25 MG Tab PO SCH (09:00)
[2019-05-26] MEDS ORDERED: Furosemide 20 MG Tab PO SCH (09:00)
[2019-05-26] MEDS ORDERED: Carvedilol 3.125 MG Tab PO SCH (09:00)
[2019-05-26] MEDS ORDERED: glipiZIDE 5 MG Tab.ER PO SCH (09:00)
[2019-05-26] MEDS: metFORMIN 500 MG Tab PO SCH (09:03)
--- NOTE | 2019-05-26 09:38 | PCM.DCSUM1 ---
Discharge Summary - Hospital Course Brief History: The patient is a 58-year-old gentleman who is presented to the emergency department primarily with a complaint of chest pain. The patient reports that he has had left-sided chest pain without radiation this started approximately 10 PM last night and got worse at 3 AM this morning. The patient was previously admitted to hospitalization on May 06, 2019 where he had been noted to have an elevation in troponin and was transferred out to tertiary care center. The patient says that he has had some dizziness and lightheadedness along with diaphoresis. Patient also has a history of chronic nausea and vomiting secondary to gastroparesis due to diabetes. Patient also had been treated with Nitropaste in the emergency room and this had relieved some of his pain. Initial troponin was undetectable. The patient does have a history of chronic left bundle-branch block on EKG. - Discharge Data Discharge Date: 05/26/19 Discharge Disposition: Home, Self-Care 01 Condition: Stable - Referral to Home Health Primary Care Physician: PCP None - Patient Instructions Diet: Heart Healthy Diet, Diabetic Diet Activity: No Strenuous Activities Showering/Bathing: May Shower Notify Provider of: Fever, Increased Pain, Swelling and Redness, Drainage, Nausea and/or Vomiting - Discharge Plan *PRESCRIPTION DRUG MONITORING PROGRAM REVIEWED*: Not Applicable *COPY OF PRESCRIPTION DRUG MONITORING REPORT IN PATIENT JEN: Not Applicable Home Medications: Home Meds Carvedilol 1 tab PO DAILY 05/02/19 [History] Furosemide [Lasix] 20 mg PO DAILY 05/02/19 [History] Spironolactone [Aldactone] 25 mg PO DAILY 05/02/19 [History] glipiZIDE [Glipizide ER] 5 mg PO DAILY 05/02/19 [History] metFORMIN [Glucophage] 1,000 mg PO BIDMEALS 05/02/19 [History] Aspirin 81 mg PO DAILY 05/25/19 [History] Omeprazole Magnesium [Prilosec Otc] 40 mg PO DAILY PRN 05/25/19 [History] amLODIPine [Norvasc] 5 mg PO DAILY 05/25/19 [History] atorvaSTATin Calcium [Atorvastatin Calcium] 10 mg PO BEDTIME 05/25/19 [History] Oxygen Therapy Mode: Room Air Patient Handouts: Nonspecific Chest Pain, [id number] Referrals: Pauline Velez MD [Ordering Only Provider] - 05/31/19 9:00 am - Discharge Summary/Plan Comment DC Time >30 min.: No Discharge Summary/Plan Comment: Admitting Diagonses: Chest pain Discharge Diagnoses: Chest pain- resolved Other PMH Systolic and diastolic CHF Severe ischemic cardiomyopathy DM gastroparesis Joe was admitted with chest pain, monitored overnight and noted to have negative troponins. This morning chest pain has improved and he is eager for discharge home. He reports when he was in [place], he did not have cath or stress test. He reports he has outpatient follow up with Dr Velez on Friday for cardiology consult. He reports he is feeling much better. He would like to go home today. He has plans to get to [place] for follow up. No EKG changes overnight , LBBB is chronic. ECHO obtained, which is similar findings as one obtained 3 weeks ago in [place]. Again very important to follow with cardiology on Friday. He denies SOB. He has no other concerns. He is to continue home medications, no strenuous activity or work. He is to return to the ED or clinic if concerns should arise. - General Info Date of Service: 05/26/19 Admission Dx/Problem (Free Text: Admission Diagnosis/Problem Admission Diagnosis/Problem Chest pain Subjective Update: Feeling improved today, no chest pain. No dyspnea. Requesting discharge home. Functional Status: Reports: Pain Controlled, Tolerating Diet, Ambulating, Urinating - Review of Systems General: Reports: No Symptoms HEENT: Reports: No Symptoms Pulmonary: Reports: No Symptoms. Denies: Shortness of Breath Cardiovascular: Reports: No Symptoms. Denies: Chest Pain Gastrointestinal: Reports: No Symptoms. Denies: Abdominal Pain, Nausea, Vomiting Genitourinary: Reports: No Symptoms. Denies: Dysuria, Frequency Musculoskeletal: Reports: No Symptoms Skin: Reports: No Symptoms Neurological: Reports: No Symptoms Psychiatric: Reports: No Symptoms - Patient Data Vitals - Most Recent: Last Vital Signs Temp 97.0 F 05/26/19 08:00 Pulse 83 05/26/19 09:03 Resp 17 05/26/19 08:00 BP 150/95 H 05/26/19 09:04 Pulse Ox 98 05/26/19 08:00 Weight - Most Recent: 111.584 kg I&O - Last 24 hours: Intake & Output 05/25/19 05/26/19 05/26/19 22:59 06:59 14:59 Intake Total 200 500 Output Total 475 Balance -275 500 Lab Results - Last 24 hrs: Laboratory Results - last 24 hr 05/25/19 05/25/19 05/25/19 Range/Units 09:00 09:00 14:05 WBC (4.0-11.0) K/uL RBC (4.50-5.90) M/uL Hgb (13.0-17.0) g/dL Hct (38.0-50.0) % MCV (80.0-98.0) fL MCH (27.0-32.0) pg MCHC (31.0-37.0) g/dL RDW Std Deviation (28.0-62.0) fl RDW Coeff of Mukesh (11.0-15.0) % Plt Count (150-400) K/uL MPV (7.40-12.00) fL Neut % (Auto) (48.0-80.0) % Lymph % (Auto) (16.0-40.0) % [place] % (Auto) (0.0-15.0) % Eos % (Auto) (0.0-7.0) % Baso % (Auto) (0.0-1.5) % Neut # (Auto) (1.4-5.7) K/uL Lymph # (Auto) (0.6-2.4) K/uL [place] # (Auto) (0.0-0.8) K/uL Eos # (Auto) (0.0-0.7) K/uL Baso # (Auto) (0.0-0.1) K/uL Nucleated RBC % /100WBC Nucleated RBCs # K/uL Sodium 139 (136-148) mmol/L Potassium 3.9 (3.5-5.1) mmol/L Chloride 103 (98-107) mmol/L Carbon Dioxide 22.4 (21.0-32.0) mmol/L BUN 16 (7.0-18.0) mg/dL Creatinine 1.1 (0.8-1.3) mg/dL Est Cr Clr Drug Dosing 89.62 mL/min Estimated GFR (MDRD) > 60.0 ml/min Glucose 201 H (74-106) mg/dL POC Glucose (60-110) mg/dL Calcium 8.8 (8.5-10.1) mg/dL Total Bilirubin 1.1 H (0.2-1.0) mg/dL AST 37 (15-37) IU/L ALT 40 (14-63) IU/L Alkaline Phosphatase 99 (46-116) U/L Troponin I < 0.050 < 0.050 (0.000-0.056) ng/mL B-Natriuretic Peptide 153 H (<100) PG/ML Total Protein 7.5 (6.4-8.2) g/dL Albumin 3.6 (3.4-5.0) g/dL Globulin 3.9 (2.6-4.0) g/dL Albumin/Globulin Ratio 0.9 (0.9-1.6) 05/25/19 05/25/19 05/26/19 Range/Units 16:29 19:41 05:04 WBC (4.0-11.0) K/uL RBC (4.50-5.90) M/uL Hgb (13.0-17.0) g/dL Hct (38.0-50.0) % MCV (80.0-98.0) fL MCH (27.0-32.0) pg MCHC (31.0-37.0) g/dL RDW Std Deviation (28.0-62.0) fl RDW Coeff of Mukesh (11.0-15.0) % Plt Count (150-400) K/uL MPV (7.40-12.00) fL Neut % (Auto) (48.0-80.0) % Lymph % (Auto) (16.0-40.0) % [place] % (Auto) (0.0-15.0) % Eos % (Auto) (0.0-7.0) % Baso % (Auto) (0.0-1.5) % Neut # (Auto) (1.4-5.7) K/uL Lymph # (Auto) (0.6-2.4) K/uL [place] # (Auto) (0.0-0.8) K/uL Eos # (Auto) (0.0-0.7) K/uL Baso # (Auto) (0.0-0.1) K/uL Nucleated RBC % /100WBC Nucleated RBCs # K/uL Sodium (136-148) mmol/L Potassium (3.5-5.1) mmol/L Chloride (98-107) mmol/L Carbon Dioxide (21.0-32.0) mmol/L BUN (7.0-18.0) mg/dL Creatinine (0.8-1.3) mg/dL Est Cr Clr Drug Dosing mL/min Estimated GFR (MDRD) ml/min Glucose (74-106) mg/dL POC Glucose 138 H 169 H (60-110) mg/dL Calcium (8.5-10.1) mg/dL Total Bilirubin (0.2-1.0) mg/dL AST (15-37) IU/L ALT (14-63) IU/L Alkaline Phosphatase (46-116) U/L Troponin I < 0.050 (0.000-0.056) ng/mL B-Natriuretic Peptide (<100) PG/ML Total Protein (6.4-8.2) g/dL Albumin (3.4-5.0) g/dL Globulin (2.6-4.0) g/dL Albumin/Globulin Ratio (0.9-1.6) 05/26/19 05/26/19 05/26/19 Range/Units 06:12 06:12 06:37 WBC 5.43 (4.0-11.0) K/uL RBC 4.54 (4.50-5.90) M/uL Hgb 14.2 (13.0-17.0) g/dL Hct 40.4 (38.0-50.0) % MCV 89.0 (80.0-98.0) fL MCH 31.3 (27.0-32.0) pg MCHC 35.1 (31.0-37.0) g/dL RDW Std Deviation 43.8 (28.0-62.0) fl RDW Coeff of Mukesh 13 (11.0-15.0) % Plt Count 99 L (150-400) K/uL MPV 12.00 (7.40-12.00) fL Neut % (Auto) 44.4 L (48.0-80.0) % Lymph % (Auto) 40.0 (16.0-40.0) % [place] % (Auto) 11.0 (0.0-15.0) % Eos % (Auto) 3.9 (0.0-7.0) % Baso % (Auto) 0.7 (0.0-1.5) % Neut # (Auto) 2.4 (1.4-5.7) K/uL Lymph # (Auto) 2.2 (0.6-2.4) K/uL [place] # (Auto) 0.6 (0.0-0.8) K/uL Eos # (Auto) 0.2 (0.0-0.7) K/uL Baso # (Auto) 0.0 (0.0-0.1) K/uL Nucleated RBC % 0.0 /100WBC Nucleated RBCs # 0 K/uL Sodium 139 (136-148) mmol/L Potassium 4.1 (3.5-5.1) mmol/L Chloride 103 (98-107) mmol/L Carbon Dioxide 24.3 (21.0-32.0) mmol/L BUN 16 (7.0-18.0) mg/dL Creatinine 0.9 (0.8-1.3) mg/dL Est Cr Clr Drug Dosing 109.54 mL/min Estimated GFR (MDRD) > 60.0 ml/min Glucose 200 H (74-106) mg/dL POC Glucose 190 H (60-110) mg/dL Calcium 8.7 (8.5-10.1) mg/dL Total Bilirubin 1.1 H (0.2-1.0) mg/dL AST 32 (15-37) IU/L ALT 38 (14-63) IU/L Alkaline Phosphatase 85 (46-116) U/L Troponin I (0.000-0.056) ng/mL B-Natriuretic Peptide (<100) PG/ML Total Protein 7.6 (6.4-8.2) g/dL Albumin 3.6 (3.4-5.0) g/dL Globulin 4.0 (2.6-4.0) g/dL Albumin/Globulin Ratio 0.9 (0.9-1.6) Med Orders - Current: Current Medications Acetaminophen (Tylenol) 650 mg PO Q4H PRN PRN Reason: Pain (Mild 1-3)/fever Last Admin: 05/25/19 20:56 Dose: 650 mg Amlodipine Besylate (Norvasc) 5 mg PO DAILY [facility] Last Admin: 05/26/19 09:04 Dose: 5 mg Aspirin (Aspirin) 81 mg PO DAILY [facility] Last Admin: 05/26/19 09:04 Dose: 81 mg Atorvastatin Calcium (Lipitor) 10 mg PO BEDTIME [facility] Last Admin: 05/25/19 20:55 Dose: 10 mg Carvedilol (Coreg) 3.125 mg PO DAILY [facility] Last Admin: 05/26/19 09:03 Dose: 3.125 mg Furosemide (Lasix) 20 mg PO DAILY [facility] Last Admin: 05/26/19 09:04 Dose: 20 mg Glipizide (Glucotrol Xl) 5 mg PO DAILY [facility] Last Admin: 05/26/19 09:03 Dose: 5 mg Insulin Aspart (Novolog) [facility]; Protocol Last Admin: 05/26/19 06:59 Dose: 1 units Metformin HCl (Glucophage) 1,000 mg PO BIDMEALS [facility] Last Admin: 05/26/19 09:03 Dose: 1,000 mg Omeprazole (Omeprazole) 40 mg PO ACBREAKFAST PRN PRN Reason: Indigestion Oxycodone HCl (Oxycodone) 5 mg PO Q4H PRN PRN Reason: Pain (moderate 4-6) Last Admin: 05/26/19 05:03 Dose: 5 mg Promethazine HCl (Phenadoz) 12.5 mg RECTAL ASDIRECTED PRN PRN Reason: Vomiting Sodium Chloride (Saline Flush) 10 ml FLUSH ASDIRECTED PRN PRN Reason: Keep Vein Open Last Admin: 05/25/19 09:11 Dose: 10 ml Sodium Chloride (Saline Flush) 2.5 ml FLUSH ASDIRECTED PRN PRN Reason: Keep Vein Open Last Admin: 05/25/19 09:11 Dose: 2.5 ml Spironolactone (Aldactone) 25 mg PO DAILY [facility] Last Admin: 05/26/19 09:03 Dose: 25 mg Temazepam (Restoril) 15 mg PO BEDTIME PRN PRN Reason: Sleep Discontinued Medications Aspirin (Aspirin) 324 mg PO ONETIME ONE Stop: 05/25/19 09:06 Last Admin: 05/25/19 09:10 Dose: 324 mg Atorvastatin Calcium (Lipitor) 10 mg PO BEDTIME [facility] Influenza Virus Vaccine (Pharmacy To Dose - Influenza Vaccine) 1 each IM ONETIME ONE Stop: 05/25/19 11:45 Last Admin: 05/25/19 21:50 Dose: Not Given Influenza Virus Vaccine (Fluzone Quad [id number] Syringe) 60 mcg IM .ONCE ONE Stop: 05/25/19 15:01 Nitroglycerin (Nitrostat) 0.4 mg SL Q5M PRN PRN Reason: Chest Pain Last Admin: 05/25/19 09:18 Dose: 0.4 mg Nitroglycerin (Nitro-Bid 2%) 1 gm TOP ONETIME ONE Stop: 05/25/19 09:27 Last Admin: 05/25/19 09:31 Dose: 1 gm - Exam General: Reports: Alert, Oriented, Cooperative, No Acute Distress Lungs: Reports: Clear to Auscultation, Normal Respiratory Effort Cardiovascular: Reports: Regular Rate, Regular Rhythm, Murmurs Neurological: Reports: No New Focal Deficit Psy/Mental Status: Reports: Alert, Normal Affect, Normal Mood *Q Meaningful Use (DIS) - VTE *Q VTE Pharmacological Contraindications *Q: Thrombocytopenia
--- NOTE | 2019-05-27 18:03 | ECHO ---
The echocardiogram report can be seen in this patient's EMR (Electronic Medical Record) in the REPORTS section. The echocardiogram report has also been scanned into PACS and can be seen there as well. JENNY
== END 2019-05-26 10:05 | disposition home or self-care (01) ==
LOC: MW.ED 08:57 → MW.MS 10:40
PROVIDERS: ADMIT Internal Medicine; ATTEND Internal Medicine
DX: R07.89 Other chest pain (principal); E11.43 Type 2 diabetes mellitus with diabetic autonomic (poly)neuropathy; K31.84 Gastroparesis; J44.9 Chronic obstructive pulmonary disease, unspecified; I11.0 Hypertensive heart disease with heart failure; I50.40 Unspecified combined systolic (congestive) and diastolic (congestive) heart failure; I25.5 Ischemic cardiomyopathy; Z88.8 Allergy status to other drugs, medicaments and biological substances; Z79.899 Other long term (current) drug therapy; Z79.84 Long term (current) use of oral hypoglycemic drugs; Z79.82 Long term (current) use of aspirin
CPT/HCPCS: 36415; 71045; 80053; 82962; 83880; 84484; 85025; 90471; 90686; 93005; 93306; 99285; A9270; G0378; J1815; G0008

== ENCOUNTER 2019-06-06 13:56 | Emergency (ER) | payer OTHER ==
[2019-06-06] MEDS ORDERED: Sodium Chloride 0.9% 2.5 ML Syringe FLUSH PRN (13:59)
[2019-06-06] MEDS ORDERED: Sodium Chloride 0.9% 10 ML Syringe FLUSH PRN (13:59)
[2019-06-06] MEDS ORDERED: Aspirin 81 MG Tab.Chew PO ONE (14:05)
[2019-06-06] MEDS ORDERED: Nitroglycerin 2% Oint 1 GM UD Packet TOP ONE (14:05)
[2019-06-06] MEDS ORDERED: Ondansetron 4 MG/2 ML SDV IVPUSH ONE (14:05)
[2019-06-06] MEDS ORDERED: Morphine 2 MG/ML Syringe IVPUSH ONE (14:05)
--- NOTE | 2019-06-06 14:12 | EDM.PDOC ---
ED HPI GENERAL MEDICAL PROBLEM - General Chief Complaint: Chest Pain Stated Complaint: CHEST PAIIN Time Seen by Provider: 06/06/19 14:01 - History of Present Illness INITIAL COMMENTS - FREE TEXT/NARRATIVE: HISTORY AND PHYSICAL: History of present illness: Patient's 58-year-old white male history hypertension diabetes was scheduled for cardiac stent tomorrow who presents with chest pain started last night and somewhat off-and-on he equivocates regarding shortness of breath there's been no diaphoresis nausea fever chills or other complaints. Review of systems: As per history of present illness and below otherwise all systems reviewed and negative. Past medical history: As per history of present illness and as reviewed below otherwise noncontributory. Surgical history: As per history of present illness and as reviewed below otherwise noncontributory. Social history: No reported history of drug or alcohol abuse. Family history: As per history of present illness and as reviewed below otherwise noncontributory. Physical exam: HEENT: Atraumatic, normocephalic, pupils reactive, negative for conjunctival pallor or scleral icterus, mucous membranes moist, throat clear, neck supple, nontender, trachea midline. Lungs: Clear to auscultation, breath sounds equal bilaterally, chest nontender. Heart: S1S2, regular, negative for clicks, rubs, or JVD. Abdomen: Soft, nondistended, nontender. Negative for masses or hepatosplenomegaly. Negative for costovertebral tenderness. Pelvis: Stable nontender. Genitourinary: Deferred. Rectal: Deferred. Extremities: Atraumatic, negative for cords or calf pain. Neurovascular unremarkable. Neuro: Awake, alert, oriented. Cranial nerves II through XII unremarkable. Cerebellum unremarkable. Motor and sensory unremarkable throughout. Exam nonfocal. Diagnostics: CBC CMP troponin PT/INR chest x-ray EKG Therapeutics: IV O2 monitor aspirin 324 mg by mouth Nitropaste 1 inch to chest wall Zofran 4 mg IV morphine sulfate 2 mg IV Impression: #1 acute coronary syndrome Definitive disposition and diagnosis as appropriate pending reevaluation and review of above. - Related Data Allergies Allergy/AdvReac Type Severity Reaction Status Date / Time metoclopramide Allergy Cannot Verified 06/06/19 14:08 Remember Home Meds: Home Meds Carvedilol 1 tab PO DAILY 05/02/19 [History] Furosemide [Lasix] 20 mg PO DAILY 05/02/19 [History] Spironolactone [Aldactone] 25 mg PO DAILY 05/02/19 [History] glipiZIDE [Glipizide ER] 5 mg PO DAILY 05/02/19 [History] metFORMIN [Glucophage] 1,000 mg PO BIDMEALS 05/02/19 [History] Aspirin 81 mg PO DAILY 05/25/19 [History] Omeprazole Magnesium [Prilosec Otc] 40 mg PO DAILY PRN 05/25/19 [History] amLODIPine [Norvasc] 5 mg PO DAILY 05/25/19 [History] atorvaSTATin Calcium [Atorvastatin Calcium] 10 mg PO BEDTIME 05/25/19 [History] Past Medical History HEENT History: Reports: Impaired Vision Cardiovascular History: Reports: Hypertension, [place] Other Cardiovascular History: pt reports mild heat attack 2018 Respiratory History: Reports: COPD, Pneumonia, Recurrent Gastrointestinal History: Reports: Other (See Below) Other Gastrointestinal History: Gallbladder Issues Genitourinary History: Reports: None Musculoskeletal History: Reports: Fracture Neurological History: Reports: None Psychiatric History: Reports: None Endocrine/Metabolic History: Reports: Diabetes, Type II Insulin Pump Model and Security Threat Analyst: None Hematologic History: Reports: None Immunologic History: Reports: None Oncologic (Cancer) History: Reports: None Dermatologic History: Reports: None - Infectious Disease History Infectious Disease History: Reports: Chicken Pox - Past Surgical History Head Surgeries/Procedures: Reports: None HEENT Surgical History: Reports: Other (See Below) Other HEENT Surgeries/Procedures: Thyroidectomy Cardiovascular Surgical History: Reports: None Respiratory Surgical History: Reports: None GI Surgical History: Reports: Colonoscopy Endocrine Surgical History: Reports: Thyroidectomy, Other (See Below) Other Endocrine Surgeries/Procedures: patrial thyroidectomy Social & Family History - Family History Family Medical History: Noncontributory HEENT: Reports: None Cardiac: Reports: None Respiratory: Reports: None GI: Reports: None : Reports: None Musculoskeletal: Reports: Arthritis Neurological: Reports: Alzheimers Disease Endocrine/Metabolic: Reports: Diabetes, type II Oncologic: Reports: Lung - Caffeine Use Caffeine Use: Reports: Coffee Caffeine Use Comment: 1 pot a day ED ROS GENERAL - Review of Systems Review Of Systems: ROS reveals no pertinent complaints other than HPI. ED EXAM, GENERAL - Physical Exam Exam: See Below (See dictation) Course - Orders/Labs/Meds Orders: Active Orders 24 hr Category Date Time Status Cardiac Monitoring [RC] . DIRECTED Care 06/06/19 13:59 Active EKG Documentation Completion [RC] STAT Care 06/06/19 13:59 Active Chest 1V Frontal [CR] Stat Exams 06/06/19 13:59 Ordered CBC WITH AUTO DIFF [HEME] Stat Lab 06/06/19 13:59 Ordered COMPREHENSIVE METABOLIC PN,CMP [CHEM] Stat Lab 06/06/19 13:59 Ordered INR,PT,PROTHROMBIN TIME [COAG] Stat Lab 06/06/19 13:59 Ordered TROPONIN I [CHEM] Stat Lab 06/06/19 13:59 Ordered Sodium Chloride 0.9% [Normal Saline] 1,000 ml Med 06/06/19 14:15 Active IV STAT Sodium Chloride 0.9% [Saline Flush] Med 06/06/19 13:59 Active 10 ml FLUSH ASDIRECTED PRN Sodium Chloride 0.9% [Saline Flush] Med 06/06/19 13:59 Active 2.5 ml FLUSH ASDIRECTED PRN Saline Lock Insert [OM.PC] Stat Oth 06/06/19 13:59 Ordered Medication Orders Sodium Chloride (Normal Saline) 1,000 mls @ 125 mls/hr IV STAT MIRZA Sodium Chloride (Saline Flush) 10 ml FLUSH ASDIRECTED PRN PRN Reason: Keep Vein Open Sodium Chloride (Saline Flush) 2.5 ml FLUSH ASDIRECTED PRN PRN Reason: Keep Vein Open Meds: Medications Generic Name Dose Route Start Last Admin Trade Name Freq PRN Reason Stop Dose Admin Sodium Chloride 1,000 mls @ 125 mls/hr 06/06/19 14:15 Normal Saline IV STAT MIRZA Sodium Chloride 10 ml 06/06/19 13:59 Saline Flush FLUSH ASDIRECTED PRN Keep Vein Open Sodium Chloride 2.5 ml 06/06/19 13:59 Saline Flush FLUSH ASDIRECTED PRN Keep Vein Open Discontinued Medications Generic Name Dose Route Start Last Admin Trade Name Freq PRN Reason Stop Dose Admin Aspirin 324 mg 06/06/19 14:05 Aspirin PO 06/06/19 14:06 ONETIME ONE Morphine Sulfate 2 mg 06/06/19 14:05 Morphine IVPUSH 06/06/19 14:06 ONETIME ONE Nitroglycerin 1 gm 06/06/19 14:05 Nitro-Bid 2% TOP 06/06/19 14:06 ONETIME ONE Ondansetron HCl 4 mg 06/06/19 14:05 Zofran IVPUSH 06/06/19 14:06 ONETIME ONE Departure - Departure Time of Disposition: 14:12 Disposition: DC/Tfer to Acute Hospital 02 Condition: Good Clinical Impression: Acute coronary syndrome - Discharge Information - My Orders Last 24 Hours: My Active Orders 06/06/19 14:15 Sodium Chloride 0.9% [Normal Saline] 1,000 ml IV STAT - Assessment/Plan Last 24 Hours: My Active Orders 06/06/19 14:15 Sodium Chloride 0.9% [Normal Saline] 1,000 ml IV STAT
[2019-06-06] MEDS ORDERED: Sodium Chloride 0.9% 1,000 ML IV SCH (14:15)
[2019-06-06 14:36] LABS: BLOOD UREA NITROGEN,BUN 16 mg/dL (7.0-18.0); CARBON DIOXIDE,CO2 26.2 mmol/L (21.0-32.0); CHLORIDE,CL 102 mmol/L (98-107); GLUCOSE RANDOM 259 mg/dL (74-106); POTASSIUM,K 3.9 mmol/L (3.5-5.1); SODIUM,NA 138 mmol/L (136-148)
--- NOTE | 2019-06-06 14:42 | CR ---
INDICATIONS: Chest pain. History of stent. TECHNIQUE: Chest 1 AP upright view. COMPARISON: Chest radiograph 05/25/2019. FINDINGS: No pneumothorax, pleural effusion or airspace consolidation. No pulmonary edema. Cardiac and mediastinal contours are within normal limits. Upper abdomen and osseous structures as imaged show no acute abnormality. IMPRESSION: No evidence of acute cardiopulmonary disease. Dictated by Alex Matthews MD @ 06/06/2019 2:40:37 PM Dictated by: Alex Matthews MD @ 06/06/2019 14:40:40 (Electronically Signed)
== END 2019-06-06 15:25 ==
LOC: MW.ED 13:56
DX: I24.9 Acute ischemic heart disease, unspecified (principal); I25.2 Old myocardial infarction; I10 Essential (primary) hypertension; E11.9 Type 2 diabetes mellitus without complications; J44.9 Chronic obstructive pulmonary disease, unspecified; Z79.82 Long term (current) use of aspirin; Z79.84 Long term (current) use of oral hypoglycemic drugs; Z79.899 Other long term (current) drug therapy; Z88.8 Allergy status to other drugs, medicaments and biological substances
CPT/HCPCS: 36415; 71045; 80053; 84484; 85025; 85610; 93005; 96361; 96374; 96375; 99285; A9270; J2270; J2405; J7040

== ENCOUNTER 2019-06-12 00:47 | Emergency (ER) | payer OTHER ==
--- NOTE | 2019-06-12 01:20 | EDM.PDOC ---
ED HPI GENERAL MEDICAL PROBLEM - General Chief Complaint: Lower Extremity Injury/Pain Stated Complaint: PAIN Time Seen by Provider: 06/12/19 01:09 - History of Present Illness INITIAL COMMENTS - FREE TEXT/NARRATIVE: HISTORY AND PHYSICAL: History of present illness: Patient 58-year-old white male who was 3 days status post cardiac catheter with stent placement presents with concern of right thigh and groin pain he states is worse today than the prior 2 days. He is otherwise without complaints. He is scheduled for a repeat catheter for another stent placement. Denies chest pain shortness breath nausea vomiting or other concern is been no fever chills Review of systems: As per history of present illness and below otherwise all systems reviewed and negative. Past medical history: As per history of present illness and as reviewed below otherwise noncontributory. Surgical history: As per history of present illness and as reviewed below otherwise noncontributory. Social history: No reported history of drug or alcohol abuse. Family history: As per history of present illness and as reviewed below otherwise noncontributory. Physical exam: HEENT: Atraumatic, normocephalic, pupils reactive, negative for conjunctival pallor or scleral icterus, mucous membranes moist, throat clear, neck supple, nontender, trachea midline. Lungs: Clear to auscultation, breath sounds equal bilaterally, chest nontender. Heart: S1S2, regular, negative for clicks, rubs, or JVD. Abdomen: Soft, nondistended, nontender. Negative for masses or hepatosplenomegaly. Negative for costovertebral tenderness. Pelvis: Stable nontender. Genitourinary: Deferred. Rectal: Deferred. Extremities: Atraumatic, negative for cords or calf pain. Neurovascular unremarkable. Right groin has small area of ecchymosis this is minimal there is no thrill no pulsatile mass no cord no induration erythema or other significant finding Neuro: Awake, alert, oriented. Cranial nerves II through XII unremarkable. Cerebellum unremarkable. Motor and sensory unremarkable throughout. Exam nonfocal. Diagnostics: CBC CMP ultrasound right lower extremity and groin Impression: #1 right groin/thigh pain 3 days status post cardiac catheter #2 medical screening exam Definitive disposition and diagnosis as appropriate pending reevaluation and review of above. Right Groin Pain Score (Numeric/FACES): 7 - Related Data Allergies Allergy/AdvReac Type Severity Reaction Status Date / Time metoclopramide Allergy Cannot Verified 06/06/19 14:08 Remember Home Meds: Home Meds Carvedilol 3.125 mg PO DAILY 05/02/19 [History] Furosemide [Lasix] 20 mg PO DAILY 05/02/19 [History] Spironolactone [Aldactone] 25 mg PO DAILY 05/02/19 [History] metFORMIN [Glucophage] 1,000 mg PO BIDMEALS 05/02/19 [History] Aspirin 325 mg PO DAILY 05/25/19 [History] Omeprazole Magnesium [Prilosec Otc] 40 mg PO DAILY PRN 05/25/19 [History] amLODIPine [Norvasc] 5 mg PO DAILY 05/25/19 [History] atorvaSTATin Calcium [Atorvastatin Calcium] 40 mg PO BEDTIME 05/25/19 [History] Nitroglycerin [Nitroglycerin Patch 0.1 MG/Hr] 2.5 mg TRDERM DAILY 06/12/19 [ History] Past Medical History HEENT History: Reports: Impaired Vision Cardiovascular History: Reports: Hypertension, [place], Stents Other Cardiovascular History: pt reports mild heat attack 2018 Respiratory History: Reports: Pneumonia, Recurrent Gastrointestinal History: Reports: Other (See Below) Other Gastrointestinal History: Gallbladder Issues Genitourinary History: Reports: None Musculoskeletal History: Reports: Fracture Neurological History: Reports: None Psychiatric History: Reports: None Endocrine/Metabolic History: Reports: Diabetes, Type II Insulin Pump Model and Food Assembler: None Hematologic History: Reports: None Immunologic History: Reports: None Oncologic (Cancer) History: Reports: None Dermatologic History: Reports: None - Infectious Disease History Infectious Disease History: Reports: Chicken Pox - Past Surgical History Head Surgeries/Procedures: Reports: None HEENT Surgical History: Reports: Tonsillectomy, Other (See Below) Other HEENT Surgeries/Procedures: Thyroidectomy Respiratory Surgical History: Reports: None GI Surgical History: Reports: Colonoscopy Endocrine Surgical History: Reports: Thyroidectomy, Other (See Below) Other Endocrine Surgeries/Procedures: patrial thyroidectomy Social & Family History - Family History Family Medical History: Noncontributory HEENT: Reports: None Cardiac: Reports: None Respiratory: Reports: None GI: Reports: None : Reports: None Musculoskeletal: Reports: Arthritis Neurological: Reports: Alzheimers Disease Endocrine/Metabolic: Reports: Diabetes, type II Oncologic: Reports: Lung - Tobacco Use Smoking Status *Q: Former Smoker Used Tobacco, but Quit: Yes Month/Year Tobacco Last Used: 1999 - Caffeine Use Caffeine Use: Reports: Coffee Caffeine Use Comment: 1 pot a day - Recreational Drug Use Recreational Drug Use: Yes Drug Use in Last 12 Months: Yes Recreational Drug Type: Reports: Marijuana/Hashish Recreational Drug Use Frequency: Weekly Review of Systems - Review of Systems Review Of Systems: ROS reveals no pertinent complaints other than HPI. ED EXAM, GENERAL - Physical Exam Exam: See Below (See dictation) Course - Vital Signs Last Recorded V/S: Last Vital Signs Temp 36.7 C 06/12/19 00:58 Pulse 85 06/12/19 00:58 Resp 18 06/12/19 00:58 BP 150/101 H 06/12/19 00:58 Pulse Ox 96 06/12/19 00:58 - Orders/Labs/Meds Labs: Laboratory Tests 06/12/19 06/12/19 Range/Units 01:10 01:10 WBC 6.60 (4.0-11.0) K/uL RBC 4.28 L (4.50-5.90) M/uL Hgb 13.5 (13.0-17.0) g/dL Hct 38.0 (38.0-50.0) % MCV 88.8 (80.0-98.0) fL MCH 31.5 (27.0-32.0) pg MCHC 35.5 (31.0-37.0) g/dL RDW Std Deviation 42.2 (28.0-62.0) fl RDW Coeff of Mukesh 14 (11.0-15.0) % Plt Count 102 L (150-400) K/uL MPV 12.00 (7.40-12.00) fL Neut % (Auto) 53.5 (48.0-80.0) % Lymph % (Auto) 30.3 (16.0-40.0) % Kemper % (Auto) 12.7 (0.0-15.0) % Eos % (Auto) 3.2 (0.0-7.0) % Baso % (Auto) 0.3 (0.0-1.5) % Neut # (Auto) 3.5 (1.4-5.7) K/uL Lymph # (Auto) 2.0 (0.6-2.4) K/uL Kemper # (Auto) 0.8 (0.0-0.8) K/uL Eos # (Auto) 0.2 (0.0-0.7) K/uL Baso # (Auto) 0.0 (0.0-0.1) K/uL Sodium 138 (136-148) mmol/L Potassium 4.2 (3.5-5.1) mmol/L Chloride 103 (98-107) mmol/L Carbon Dioxide 27.1 (21.0-32.0) mmol/L BUN 18 (7.0-18.0) mg/dL Creatinine 1.1 (0.8-1.3) mg/dL Est Cr Clr Drug Dosing 89.62 mL/min Estimated GFR (MDRD) > 60.0 ml/min Glucose 318 H (74-106) mg/dL Calcium 9.1 (8.5-10.1) mg/dL Total Bilirubin 0.7 (0.2-1.0) mg/dL AST 23 (15-37) IU/L ALT 31 (14-63) IU/L Alkaline Phosphatase 114 (46-116) U/L Total Protein 7.3 (6.4-8.2) g/dL Albumin 3.5 (3.4-5.0) g/dL Globulin 3.8 (2.6-4.0) g/dL Albumin/Globulin Ratio 0.9 (0.9-1.6) Departure - Departure Time of Disposition: 06:46 Disposition: Home, Self-Care 01 Condition: Good Clinical Impression: Encounter for medical screening examination, Groin pain - Discharge Information Instructions: Pain Relief Before and After Surgery Referrals: PCP,None [Primary Care Provider] - Forms: ED Department Discharge Additional Instructions: The following information is given to patients seen in the emergency department who are being discharged to home. This information is to outline your options for follow-up care. We provide all patients seen in our emergency department with a follow-up referral. The need for follow-up, as well as the timing and circumstances, are variable depending upon the specifics of your emergency department visit. If you don't have a primary care physician on staff, we will provide you with a referral. We always advise you to contact your personal physician following an emergency department visit to inform them of the circumstance of the visit and for follow-up with them and/or the need for any referrals to a consulting specialist. The emergency department will also refer you to a specialist when appropriate. This referral assures that you have the opportunity for followup care with a specialist. All of these measure are taken in an effort to provide you with optimal care, which includes your followup. Under all circumstances we always encourage you to contact your private physician who remains a resource for coordinating your care. When calling for followup care, please make the office aware that this follow-up is from your recent emergency room visit. If for any reason you are refused follow-up, please contact the [facility] emergency department at and asked to speak to the emergency department charge nurse. Follow-up primary medical doctor and cardiology as discussed return as needed as discussed
[2019-06-12 01:37] LABS: BLOOD UREA NITROGEN,BUN 18 mg/dL (7.0-18.0); CARBON DIOXIDE,CO2 27.1 mmol/L (21.0-32.0); CHLORIDE,CL 103 mmol/L (98-107); GLUCOSE RANDOM 318 mg/dL (74-106); POTASSIUM,K 4.2 mmol/L (3.5-5.1); SODIUM,NA 138 mmol/L (136-148)
--- NOTE | 2019-06-12 01:56 | US ---
INDICATION: Leg pain TECHNIQUE: Ultrasound venous duplex lower right extremity. Compression venous exam was performed using chen-scale, color Doppler, and spectral Doppler imaging. COMPARISON: None. FINDINGS: Sonographic imaging demonstrates the right common femoral, deep femoral, superficial femoral, popliteal, posterior tibial and greater saphenous veins to be fully compressible with normal color Doppler blood flow. IMPRESSION: Normal right lower extremity venous ultrasound, no sign of deep venous thrombosis. Dictated by Naveen Rowell MD @ Jun 12 2019 1:54AM Signed by Dr. Naveen Rowell @ Jun 12 2019 1:55AM
== END 2019-06-12 02:10 | disposition home or self-care (01) ==
LOC: MW.ED 00:47
DX: R10.31 Right lower quadrant pain (principal); M79.651 Pain in right thigh; I10 Essential (primary) hypertension; I25.2 Old myocardial infarction; Z95.5 Presence of coronary angioplasty implant and graft; E11.9 Type 2 diabetes mellitus without complications; Z88.8 Allergy status to other drugs, medicaments and biological substances; Z79.82 Long term (current) use of aspirin; Z87.891 Personal history of nicotine dependence; Z79.899 Other long term (current) drug therapy; Z79.84 Long term (current) use of oral hypoglycemic drugs
CPT/HCPCS: 36415; 80053; 85025; 93005; 93971-26-RT; 93971-RT; 99282; 99284-25

== ENCOUNTER 2019-06-12 18:26 | Emergency (ER) | payer OTHER ==
[2019-06-12] MEDS ORDERED: Aspirin 81 MG Tab.Chew PO ONE (18:31)
[2019-06-12] MEDS ORDERED: Sodium Chloride 0.9% 1,000 ML IV ONE (18:31)
[2019-06-12] MEDS ORDERED: Nitroglycerin 0.4 MG Tab.SL ONE (18:41)
[2019-06-12] MEDS ORDERED: Ondansetron 4 MG/2 ML SDV IVPUSH ONE ×2 (18:43→18:50)
[2019-06-12] MEDS: Nitroglycerin 0.4 MG Tab.SL SL PRN ×3 (18:43→18:53)
[2019-06-12] MEDS ORDERED: Morphine 2 MG/ML Syringe IVPUSH ONE (18:50)
[2019-06-12] MEDS ORDERED: LORazepam 2 MG/ML SDV IVPUSH ONE (18:50)
[2019-06-12] MEDS ORDERED: Nitroglycerin 2% Oint 1 GM UD Packet TOP ONE (18:50)
--- NOTE | 2019-06-12 18:56 | EDM.PDOC ---
ED HPI GENERAL MEDICAL PROBLEM - General Chief Complaint: Chest Pain Stated Complaint: CHEST PAIN, SHORT OF BREATH Time Seen by Provider: 06/12/19 18:29 Source of Information: Reports: Patient History Limitations: Reports: No Limitations - History of Present Illness INITIAL COMMENTS - FREE TEXT/NARRATIVE: HISTORY AND PHYSICAL: History of present illness: Patient is a 58-year-old male presents to the ED today with concern of chest pain over the last 2-3 hours. Patient states he had 3 stents placed in on Friday, 3 days ago, and was told that he needs an fourth stent. Patient states he has scheduled for 4th stent at the beginning of June. Patient states that he began having chest pain which is worse than his pain was on Friday when he had the stents placed. Patient states this is the worst his chest pain has been and he rates it a 10 out of 10. Patient is wearing a nitroglycerin patch and states that he has taken 3 nitroglycerin 1 hour before coming to the ED without resolution of chest pain. Patient states he has also been vomiting and is nauseous. Patient denies any other symptoms or concerns. Patient denies fever, chills, shortness of breath, or cough. Denies headache, neck stiff ness, change in vision, syncope, or near syncope. Denies abdominal pain, diarrhea, constipation, or dysuria. Has not noted any blood in urine or stool. Patient has been eating and drinking appropriately. Review of systems: As per history of present illness and below otherwise all systems reviewed and negative. Past medical history: As per history of present illness and as reviewed below otherwise noncontributory. Surgical history: As per history of present illness and as reviewed below otherwise noncontributory. Social history: See social history for further information Family history: As per history of present illness and as reviewed below otherwise noncontributory. Physical exam: General: Patient is alert, oriented, and in no acute distress. Patient laying on exam table and vomiting occasionally throughout exam and anxious appearing. HEENT: Atraumatic, normocephalic, pupils equal and reactive bilaterally, negative for conjunctival pallor or scleral icterus, mucous membranes moist, TMs normal bilaterally, throat clear, neck supple, nontender, trachea midline. No drooling or trismus noted. No meningeal signs. No hot potato voice noted. Lungs: Clear to auscultation, breath sounds equal bilaterally, chest nontender. Heart: S1S2, regular rate and rhythm without overt murmur Abdomen: Soft, nondistended, nontender. Negative for masses or hepatosplenomegaly. Negative for costovertebral tenderness. Pelvis: Stable nontender. Genitourinary: Deferred. Rectal: Deferred. Skin: Intact, warm, dry. No lesions or rashes noted. Extremities: Atraumatic, negative for cords or calf pain. Neurovascular unremarkable. Neuro: Awake, alert, oriented. Cranial nerves II through XII unremarkable. Cerebellum unremarkable. Motor and sensory unremarkable throughout. Exam nonfocal. Notes: Dr. Martinez verbally involved in patient care. Dr. Bird, [facility], consulted on patient and accepting of transfer. Ground EMS is not available for several hours. Flight transfer arranged Voices understanding and is agreeable to plan of care. Denies any further questions or concerns at this time. Diagnostics: CC, CMP, UA, EKG, chest x-ray, troponin, PT/INR Therapeutics: Morphine, Ativan, Zofran, 1 inch Nitropaste Impression: Acute coronary syndrome Plan: 1. Transfer to Dr. Bird, [facility] in [place], via flight. Definitive disposition and diagnosis as appropriate pending reevaluation and review of above. - Related Data Allergies Allergy/AdvReac Type Severity Reaction Status Date / Time metoclopramide Allergy Cannot Verified 06/06/19 14:08 Remember Home Meds: Home Meds Carvedilol 3.125 mg PO DAILY 05/02/19 [History] Furosemide [Lasix] 20 mg PO DAILY 05/02/19 [History] Spironolactone [Aldactone] 25 mg PO DAILY 05/02/19 [History] metFORMIN [Glucophage] 1,000 mg PO BIDMEALS 05/02/19 [History] Aspirin 325 mg PO DAILY 05/25/19 [History] Omeprazole Magnesium [Prilosec Otc] 40 mg PO DAILY PRN 05/25/19 [History] amLODIPine [Norvasc] 5 mg PO DAILY 05/25/19 [History] atorvaSTATin Calcium [Atorvastatin Calcium] 40 mg PO BEDTIME 05/25/19 [History] Nitroglycerin [Nitroglycerin Patch 0.1 MG/Hr] 2.5 mg TRDERM DAILY 06/12/19 [ History] Past Medical History HEENT History: Reports: Impaired Vision Cardiovascular History: Reports: Hypertension, [place], Stents Other Cardiovascular History: pt reports mild heat attack 2018 Respiratory History: Reports: Pneumonia, Recurrent Gastrointestinal History: Reports: Other (See Below) Other Gastrointestinal History: Gallbladder Issues Genitourinary History: Reports: None Musculoskeletal History: Reports: Fracture Neurological History: Reports: None Psychiatric History: Reports: None Endocrine/Metabolic History: Reports: Diabetes, Type II Insulin Pump Model and Sole Rougher: None Hematologic History: Reports: None Immunologic History: Reports: None Oncologic (Cancer) History: Reports: None Dermatologic History: Reports: None - Infectious Disease History Infectious Disease History: Reports: Chicken Pox - Past Surgical History Head Surgeries/Procedures: Reports: None HEENT Surgical History: Reports: Tonsillectomy, Other (See Below) Other HEENT Surgeries/Procedures: Thyroidectomy Respiratory Surgical History: Reports: None GI Surgical History: Reports: Colonoscopy Endocrine Surgical History: Reports: Thyroidectomy, Other (See Below) Other Endocrine Surgeries/Procedures: patrial thyroidectomy Social & Family History - Family History Family Medical History: Noncontributory HEENT: Reports: None Cardiac: Reports: None Respiratory: Reports: None GI: Reports: None : Reports: None Musculoskeletal: Reports: Arthritis Neurological: Reports: Alzheimers Disease Endocrine/Metabolic: Reports: Diabetes, type II Oncologic: Reports: Lung - Caffeine Use Caffeine Use: Reports: Coffee Caffeine Use Comment: 1 pot a day ED ROS GENERAL - Review of Systems Review Of Systems: ROS reveals no pertinent complaints other than HPI. ED EXAM, GENERAL - Physical Exam Exam: See Below (See dictation) Course - Vital Signs Last Recorded V/S: Last Vital Signs Temp Pulse Resp BP 193/120 H 06/12/19 18:48 Pulse Ox - Orders/Labs/Meds Orders: Active Orders 24 hr Category Date Time Status Cardiac Monitoring [RC] . DIRECTED Care 06/12/19 18:31 Ordered EKG Documentation Completion [RC] STAT Care 06/12/19 18:31 Ordered Chest 1V Frontal [CR] Stat Exams 06/12/19 18:31 Ordered COMPREHENSIVE METABOLIC PN,CMP [CHEM] Stat Lab 06/12/19 18:31 Ordered INR,PT,PROTHROMBIN TIME [COAG] Stat Lab 06/12/19 18:32 Ordered TROPONIN I [CHEM] Stat Lab 06/12/19 18:31 Ordered Nitroglycerin [Nitrostat] Med 06/12/19 18:40 Ordered 0.4 mg SL Q5M PRN Sodium Chloride 0.9% [Normal Saline] 1,000 ml Med 06/12/19 18:31 Ordered IV BOLUS Medication Orders Sodium Chloride (Normal Saline) 1,000 mls @ 999 mls/hr IV BOLUS ONE Stop: 06/12/19 19:31 Last Admin: 06/12/19 18:36 Dose: 999 mls/hr Nitroglycerin (Nitrostat) 0.4 mg SL Q5M PRN PRN Reason: Chest Pain Last Admin: 06/12/19 18:48 Dose: 0.4 mg Admin: 06/12/19 18:43 Dose: 0.4 mg Labs: Laboratory Tests 06/12/19 Range/Units 18:30 WBC 10.03 (4.0-11.0) K/uL RBC 4.74 (4.50-5.90) M/uL Hgb 14.8 (13.0-17.0) g/dL Hct 42.3 (38.0-50.0) % MCV 89.2 (80.0-98.0) fL MCH 31.2 (27.0-32.0) pg MCHC 35.0 (31.0-37.0) g/dL RDW Std Deviation 45.1 (28.0-62.0) fl RDW Coeff of Mukesh 14 (11.0-15.0) % Plt Count 118 L (150-400) K/uL MPV 11.90 (7.40-12.00) fL Neut % (Auto) 56.9 (48.0-80.0) % Lymph % (Auto) 27.5 (16.0-40.0) % [place] % (Auto) 13.6 (0.0-15.0) % Eos % (Auto) 1.8 (0.0-7.0) % Baso % (Auto) 0.2 (0.0-1.5) % Neut # (Auto) 5.7 (1.4-5.7) K/uL Lymph # (Auto) 2.8 H (0.6-2.4) K/uL [place] # (Auto) 1.4 H (0.0-0.8) K/uL Eos # (Auto) 0.2 (0.0-0.7) K/uL Baso # (Auto) 0.0 (0.0-0.1) K/uL Nucleated RBC % 0.0 /100WBC Nucleated RBCs # 0 K/uL Meds: Medications Generic Name Dose Route Start Last Admin Trade Name Freq PRN Reason Stop Dose Admin Sodium Chloride 1,000 mls @ 999 mls/hr 06/12/19 18:31 06/12/19 18:36 Normal Saline IV 06/12/19 19:31 999 mls/hr BOLUS ONE Administration Nitroglycerin 0.4 mg 06/12/19 18:40 06/12/19 18:48 Nitrostat SL 0.4 mg Q5M PRN Administration Chest Pain Discontinued Medications Generic Name Dose Route Start Last Admin Trade Name Freq PRN Reason Stop Dose Admin Aspirin 324 mg 06/12/19 18:31 06/12/19 18:35 Aspirin PO 06/12/19 18:32 324 mg ONETIME ONE Administration Lorazepam 1 mg 06/12/19 18:50 Ativan IVPUSH 06/12/19 18:51 ONETIME ONE Morphine Sulfate 2 mg 06/12/19 18:50 Morphine IVPUSH 06/12/19 18:51 ONETIME ONE Nitroglycerin Confirm 06/12/19 18:41 06/12/19 18:46 Nitrostat Administered 06/12/19 18:42 Not Given Dose 0.4 mg .ROUTE .STK-MED ONE Nitroglycerin 1 gm 06/12/19 18:50 Nitro-Bid 2% TOP 06/12/19 18:51 ONETIME ONE Ondansetron HCl 4 mg 06/12/19 18:43 06/12/19 18:44 Zofran IVPUSH 06/12/19 18:44 4 mg ONETIME ONE Administration Ondansetron HCl 4 mg 06/12/19 18:50 Zofran IVPUSH 06/12/19 18:51 ONETIME ONE Departure - Departure Time of Disposition: 18:55 Disposition: DC/Tfer to Acute Hospital 02 Clinical Impression: Acute coronary syndrome - Discharge Information Referrals: PCP,None [Primary Care Provider] - - My Orders Last 24 Hours: My Active Orders 06/12/19 18:31 Cardiac Monitoring [RC] . DIRECTED EKG Documentation Completion [RC] STAT Chest 1V Frontal [CR] Stat COMPREHENSIVE METABOLIC PN,CMP [CHEM] Stat TROPONIN I [CHEM] Stat Sodium Chloride 0.9% [Normal Saline] 1,000 ml IV BOLUS 06/12/19 18:32 INR,PT,PROTHROMBIN TIME [COAG] Stat 06/12/19 18:40 Nitroglycerin [Nitrostat] 0.4 mg SL Q5M PRN - Assessment/Plan Last 24 Hours: My Active Orders 06/12/19 18:31 Cardiac Monitoring [RC] . DIRECTED EKG Documentation Completion [RC] STAT Chest 1V Frontal [CR] Stat COMPREHENSIVE METABOLIC PN,CMP [CHEM] Stat TROPONIN I [CHEM] Stat Sodium Chloride 0.9% [Normal Saline] 1,000 ml IV BOLUS 06/12/19 18:32 INR,PT,PROTHROMBIN TIME [COAG] Stat 06/12/19 18:40 Nitroglycerin [Nitrostat] 0.4 mg SL Q5M PRN
[2019-06-12 19:07] LABS: BLOOD UREA NITROGEN,BUN 13 mg/dL (7.0-18.0); CARBON DIOXIDE,CO2 28.6 mmol/L (21.0-32.0); CHLORIDE,CL 99 mmol/L (98-107); GLUCOSE RANDOM 262 mg/dL (74-106); POTASSIUM,K 3.8 mmol/L (3.5-5.1); SODIUM,NA 138 mmol/L (136-148)
[2019-06-12] MEDS ORDERED: Prochlorperazine 10 MG/2 ML SDV IVPUSH ONE (19:22)
[2019-06-12] MEDS ORDERED: Prochlorperazine 10 MG/2 ML SDV ONE (19:24)
--- NOTE | 2019-06-12 19:30 | CR ---
INDICATION: Chest pain TECHNIQUE: Frontal view of the chest. COMPARISON: Single view chest 06/06/2019 FINDINGS/IMPRESSION: The lungs are clear. There is no sizable pleural effusion or pneumothorax. The cardiomediastinal silhouette is normal. The visualized osseous structures are unremarkable. Dictated by Lizabeth Nelson MD @ Jun 12 2019 7:27PM Signed by Dr. Lizabeth Nelson @ Jun 12 2019 7:27PM
== END 2019-06-12 20:55 ==
LOC: MW.ED 18:26
DX: I24.9 Acute ischemic heart disease, unspecified (principal); I25.2 Old myocardial infarction; I10 Essential (primary) hypertension; E11.9 Type 2 diabetes mellitus without complications; Z79.82 Long term (current) use of aspirin; Z79.84 Long term (current) use of oral hypoglycemic drugs; Z86.73 Personal history of transient ischemic attack (TIA), and cerebral infarction without residual deficits; Z88.8 Allergy status to other drugs, medicaments and biological substances; Z95.5 Presence of coronary angioplasty implant and graft
CPT/HCPCS: 36415; 71045; 80053; 84484; 85025; 85610; 96361; 96374; 96375; 99285; A9270; J0780; J2060; J2270; J2405; J7040; 99284

== ENCOUNTER 2019-06-17 22:03 | Emergency (ER) | payer OTHER ==
[2019-06-17] MEDS ORDERED: Sodium Chloride 0.9% 1,000 ML IV ONE (22:10)
[2019-06-17] MEDS ORDERED: Ondansetron 4 MG/2 ML SDV IVPUSH ONE (22:10)
--- NOTE | 2019-06-17 22:19 | EDM.PDOC ---
ED HPI GENERAL MEDICAL PROBLEM - General Chief Complaint: Gastrointestinal Problem Stated Complaint: THROWING UP Time Seen by Provider: 06/17/19 22:16 - History of Present Illness INITIAL COMMENTS - FREE TEXT/NARRATIVE: HISTORY AND PHYSICAL: History of present illness: Patient is a 58-year-old white male with extensive past medical history including diabetes, hypertension, history gastroparesis history coronary artery disease with recent stent placed as well as angioplasty who presents with a concern of nausea and vomiting this is a chronic intermittent problem he is on omeprazole currently as well as Phenergan suppositories states tonight's episode was intractable. No fever chills chest pain shortness of breath or other concern Review of systems: As per history of present illness and below otherwise all systems reviewed and negative. Past medical history: As per history of present illness and as reviewed below otherwise noncontributory. Surgical history: As per history of present illness and as reviewed below otherwise noncontributory. Social history: No reported history of drug or alcohol abuse. Family history: As per history of present illness and as reviewed below otherwise noncontributory. Physical exam: HEENT: Atraumatic, normocephalic, pupils reactive, negative for conjunctival pallor or scleral icterus, mucous membranes moist, throat clear, neck supple, nontender, trachea midline. Lungs: Clear to auscultation, breath sounds equal bilaterally, chest nontender. Heart: S1S2, regular, negative for clicks, rubs, or JVD. Abdomen: Soft, nondistended, nontender. Negative for masses or hepatosplenomegaly. Negative for costovertebral tenderness. Pelvis: Stable nontender. Genitourinary: Deferred. Rectal: Deferred. Extremities: Atraumatic, negative for cords or calf pain. Neurovascular unremarkable. Neuro: Awake, alert, oriented. Cranial nerves II through XII unremarkable. Cerebellum unremarkable. Motor and sensory unremarkable throughout. Exam nonfocal. Diagnostics: CBC CMP acute abdominal series with chest x-ray EKG lipase Therapeutics: Saline 1 L bolus Zofran 4 mg IV Impression: #1 vomiting #2 history gastroparesis #3 history of coronary disease #4 history of diabetes #5 history of hypertension Definitive disposition and diagnosis as appropriate pending reevaluation and review of above. - Related Data Allergies Allergy/AdvReac Type Severity Reaction Status Date / Time metoclopramide Allergy Cannot Verified 06/17/19 22:15 Remember Home Meds: Home Meds Carvedilol 6.25 mg PO DAILY 05/02/19 [History] Furosemide [Lasix] 20 mg PO DAILY 05/02/19 [History] metFORMIN [Glucophage] 1,000 mg PO BIDMEALS 05/02/19 [History] Aspirin 81 mg PO DAILY 05/25/19 [History] atorvaSTATin Calcium [Atorvastatin Calcium] 40 mg PO BEDTIME 05/25/19 [History] Clopidogrel [Plavix] 75 mg PO DAILY 06/12/19 [History] Lisinopril 10 mg PO DAILY 06/12/19 [History] Multivitamin [Multi-Day Vitamins] 1 tab DAILY 06/12/19 [History] Nitroglycerin [Nitroglycerin Patch 0.1 MG/Hr] 2.5 mg TRDERM DAILY 06/12/19 [ History] SitaGLIPtin [Januvia] 50 mg PO DAILY 06/12/19 [History] Spironolactone [Aldactone] 25 mg PO DAILY 06/12/19 [History] Promethazine HCl [Promethegan] 2 supp RECTAL Q4H PRN 06/17/19 [History] Past Medical History HEENT History: Reports: Impaired Vision Cardiovascular History: Reports: Hypertension, [place], Stents Other Cardiovascular History: pt reports mild heat attack 2018 Respiratory History: Reports: Pneumonia, Recurrent Gastrointestinal History: Reports: Other (See Below) Other Gastrointestinal History: Gallbladder Issues Genitourinary History: Reports: None Musculoskeletal History: Reports: Fracture Neurological History: Reports: None Psychiatric History: Reports: None Endocrine/Metabolic History: Reports: Diabetes, Type II Insulin Pump Model and District Representative: None Hematologic History: Reports: None Immunologic History: Reports: None Oncologic (Cancer) History: Reports: None Dermatologic History: Reports: None - Infectious Disease History Infectious Disease History: Reports: Chicken Pox - Past Surgical History Head Surgeries/Procedures: Reports: None HEENT Surgical History: Reports: Tonsillectomy, Other (See Below) Other HEENT Surgeries/Procedures: Thyroidectomy Respiratory Surgical History: Reports: None GI Surgical History: Reports: Colonoscopy Endocrine Surgical History: Reports: Thyroidectomy, Other (See Below) Other Endocrine Surgeries/Procedures: patrial thyroidectomy Social & Family History - Family History Family Medical History: Noncontributory HEENT: Reports: None Cardiac: Reports: None Respiratory: Reports: None GI: Reports: None : Reports: None Musculoskeletal: Reports: Arthritis Neurological: Reports: Alzheimers Disease Endocrine/Metabolic: Reports: Diabetes, type II Oncologic: Reports: Lung - Caffeine Use Caffeine Use: Reports: Coffee Caffeine Use Comment: 1 pot a day ED ROS GENERAL - Review of Systems Review Of Systems: ROS reveals no pertinent complaints other than HPI. ED EXAM, GENERAL - Physical Exam Exam: See Below (Dictation) Course - Vital Signs Last Recorded V/S: Last Vital Signs Temp 36.7 C 06/18/19 00:57 Pulse 104 H 06/18/19 02:15 Resp 18 06/18/19 02:15 BP 173/97 H 06/18/19 02:15 Pulse Ox 97 06/18/19 02:15 - Orders/Labs/Meds Orders: Active Orders 24 hr Category Date Time Status EKG Documentation Completion [RC] STAT Care 06/17/19 22:10 Active Labs: Laboratory Tests 06/17/19 06/17/19 06/17/19 Range/Units 22:25 22:25 22:25 WBC 7.38 (4.0-11.0) K/uL RBC 4.62 (4.50-5.90) M/uL Hgb 14.4 (13.0-17.0) g/dL Hct 40.6 (38.0-50.0) % MCV 87.9 (80.0-98.0) fL MCH 31.2 (27.0-32.0) pg MCHC 35.5 (31.0-37.0) g/dL RDW Std Deviation 44.3 (28.0-62.0) fl RDW Coeff of Mukesh 14 (11.0-15.0) % Plt Count 145 L (150-400) K/uL MPV 11.70 (7.40-12.00) fL Neut % (Auto) 70.2 (48.0-80.0) % Lymph % (Auto) 18.6 (16.0-40.0) % [place] % (Auto) 8.9 (0.0-15.0) % Eos % (Auto) 2.0 (0.0-7.0) % Baso % (Auto) 0.3 (0.0-1.5) % Neut # (Auto) 5.2 (1.4-5.7) K/uL Lymph # (Auto) 1.4 (0.6-2.4) K/uL [place] # (Auto) 0.7 (0.0-0.8) K/uL Eos # (Auto) 0.2 (0.0-0.7) K/uL Baso # (Auto) 0.0 (0.0-0.1) K/uL Nucleated RBC % 0.0 /100WBC Nucleated RBCs # 0 K/uL INR 1.05 Sodium 138 (136-148) mmol/L Potassium 4.0 (3.5-5.1) mmol/L Chloride 102 (98-107) mmol/L Carbon Dioxide 23.8 (21.0-32.0) mmol/L BUN 14 (7.0-18.0) mg/dL Creatinine 1.1 (0.8-1.3) mg/dL Est Cr Clr Drug Dosing TNP Estimated GFR (MDRD) > 60.0 ml/min Glucose 247 H (74-106) mg/dL Calcium 9.7 (8.5-10.1) mg/dL Total Bilirubin 1.2 H (0.2-1.0) mg/dL AST 26 (15-37) IU/L ALT 31 (14-63) IU/L Alkaline Phosphatase 110 (46-116) U/L Total Protein 8.2 (6.4-8.2) g/dL Albumin 4.2 (3.4-5.0) g/dL Globulin 4.0 (2.6-4.0) g/dL Albumin/Globulin Ratio 1.0 (0.9-1.6) Lipase 116 (73-393) U/L Meds: Medications Discontinued Medications Generic Name Dose Route Start Last Admin Trade Name Freq PRN Reason Stop Dose Admin Diphenhydramine HCl 25 mg 06/18/19 00:27 06/18/19 00:45 Benadryl IVPUSH 06/18/19 00:28 25 mg ONETIME ONE Administration Hydralazine HCl 10 mg 06/18/19 00:27 06/18/19 00:45 Apresoline IVPUSH 06/18/19 00:28 10 mg ONETIME ONE Administration Sodium Chloride 1,000 mls @ 999 mls/hr 06/17/19 22:10 06/17/19 22:35 Normal Saline IV 10/31/19 23:10 999 mls/hr STAT ONE Administration Prochlorperazine Edisylate 10 52 mls @ 150 mls/hr 06/17/19 22:21 06/17/19 22: 39 mg/ Sodium Chloride IV 06/17/19 22:41 150 mls/hr ONETIME ONE Administration Ondansetron HCl 4 mg 06/17/19 22:10 06/17/19 22:35 Zofran IVPUSH 06/17/19 22:11 4 mg ONETIME ONE Administration Prochlorperazine Edisylate Confirm 06/17/19 22:28 06/17/19 22:40 Compazine Administered 06/17/19 22:29 Not Given Dose 10 mg .ROUTE .STK-MED ONE Departure - Departure Time of Disposition: 02:51 Disposition: Home, Self-Care 01 Condition: Good Clinical Impression: Vomiting, Gastroparesis, Hypertension - Discharge Information Referrals: PCP,None [Primary Care Provider] - Forms: ED Department Discharge Additional Instructions: The following information is given to patients seen in the emergency department who are being discharged to home. This information is to outline your options for follow-up care. We provide all patients seen in our emergency department with a follow-up referral. The need for follow-up, as well as the timing and circumstances, are variable depending upon the specifics of your emergency department visit. If you don't have a primary care physician on staff, we will provide you with a referral. We always advise you to contact your personal physician following an emergency department visit to inform them of the circumstance of the visit and for follow-up with them and/or the need for any referrals to a consulting specialist. The emergency department will also refer you to a specialist when appropriate. This referral assures that you have the opportunity for followup care with a specialist. All of these measure are taken in an effort to provide you with optimal care, which includes your followup. Under all circumstances we always encourage you to contact your private physician who remains a resource for coordinating your care. When calling for followup care, please make the office aware that this follow-up is from your recent emergency room visit. If for any reason you are refused follow-up, please contact the [facility] emergency department at and asked to speak to the emergency department charge nurse. Continue home medications follow-up primary medical doctor return as needed as discussed - My Orders Last 24 Hours: My Active Orders 06/17/19 22:10 EKG Documentation Completion [RC] STAT - Assessment/Plan Last 24 Hours: My Active Orders 06/17/19 22:10 EKG Documentation Completion [RC] STAT
[2019-06-17] MEDS ORDERED: Prochlorperazine 10 MG in Sodium Chloride 0.9% 50 ML IV ONE (22:21)
[2019-06-17] MEDS ORDERED: Prochlorperazine 10 MG/2 ML SDV ONE (22:28)
[2019-06-17 23:06] LABS: BLOOD UREA NITROGEN,BUN 14 mg/dL (7.0-18.0); CARBON DIOXIDE,CO2 23.8 mmol/L (21.0-32.0); CHLORIDE,CL 102 mmol/L (98-107); GLUCOSE RANDOM 247 mg/dL (74-106); LIPASE 116 U/L (73-393); SODIUM,NA 138 mmol/L (136-148)
--- NOTE | 2019-06-17 23:20 | CR ---
INDICATION: : Abdominal pain and vomiting. COMPARISON: Chest radiograph from 06/12/2019 and abdomen films from 05/09/2019 FINDINGS: Erect and supine films of the abdomen were combined with an erect film of the chest. In the abdomen, there is no sign of distention of the small bowel or colon to suggest obstruction or ileus. There is no sign of free air or distinct mass. The osseous structures are normal in appearance for the patient`s age. In the chest, the lungs are clear and the heart and mediastinum are normal in appearance. There has been no interval change. IMPRESSION: Normal abdomen two views with chest. Dictated by Cruz Rodriguez MD @ Jun 17 2019 11:16PM Signed by Dr. Cruz Rodriguez @ Jun 17 2019 11:18PM
[2019-06-18] MEDS ORDERED: hydrALAZINE 20 MG/ML SDV IVPUSH ONE (00:27)
[2019-06-18] MEDS ORDERED: diphenhydrAMINE 50 MG/ML SDV IVPUSH ONE (00:27)
== END 2019-06-18 03:04 | disposition home or self-care (01) ==
LOC: MW.ED 22:03
DX: R11.2 Nausea with vomiting, unspecified (principal); E11.43 Type 2 diabetes mellitus with diabetic autonomic (poly)neuropathy; K31.84 Gastroparesis; I10 Essential (primary) hypertension; I25.2 Old myocardial infarction; Z88.8 Allergy status to other drugs, medicaments and biological substances; Z79.82 Long term (current) use of aspirin; Z79.899 Other long term (current) drug therapy; Z79.84 Long term (current) use of oral hypoglycemic drugs; Z95.5 Presence of coronary angioplasty implant and graft
CPT/HCPCS: 36415; 74022; 74022-26; 80053; 83690; 85025; 85610; 93005; 96361; 96365; 96375; 99284; 99284-25; J0360; J0780; J1200; J2405; J7040; J7050

== ENCOUNTER 2019-06-19 15:59 | Observation (INO) | payer OTHER ==
[2019-06-19] MEDS ORDERED: Sodium Chloride 0.9% 1,000 ML IV ONE (16:02)
[2019-06-19] MEDS ORDERED: Sodium Chloride 0.9% 2.5 ML Syringe FLUSH PRN (16:02)
[2019-06-19] MEDS ORDERED: Sodium Chloride 0.9% 10 ML Syringe FLUSH PRN (16:02)
--- NOTE | 2019-06-19 16:04 | EDM.PDOC ---
ED HPI GENERAL MEDICAL PROBLEM - General Chief Complaint: Chest Pain Stated Complaint: CHEST PAIN Time Seen by Provider: 06/19/19 16:04 Source of Information: Reports: Patient History Limitations: Reports: No Limitations - History of Present Illness INITIAL COMMENTS - FREE TEXT/NARRATIVE: HISTORY AND PHYSICAL: History of present illness: Patient is a 58-year-old male presents to the ED via EMS for chest pain. Patient has history of diabetes, hypertension, gastroparesis, and coronary artery disease with recent stent placement as well as angioplasty. He states pain began about 2 hours prior to arrival, he had take 2 nitro without much improvement. He was given 325mg aspirin, zofran, and nitro paste in route. He states the pain is different than his usual cardiac pain as this is intermittent stabbing vs a dull ache. He states he has had a few episodes of nonbloody emesis today. He denies abdominal pain, fevers, chills, cough, shortness of breath or other concern. Review of systems: As per history of present illness and below otherwise all systems reviewed and negative. Past medical history: As per history of present illness and as reviewed below otherwise noncontributory. Surgical history: As per history of present illness and as reviewed below otherwise noncontributory. Social history: No reported history of drug or alcohol abuse. Family history: As per history of present illness and as reviewed below otherwise noncontributory. Physical exam: General: Patient sitting comfortably in no acute distress and nontoxic appearing HEENT: Atraumatic, normocephalic, pupils reactive, negative for conjunctival pallor or scleral icterus, mucous membranes moist, throat clear, neck supple, nontender, trachea midline. No meningeal signs. Lungs: Clear to auscultation, breath sounds equal bilaterally, chest nontender. Heart: S1S2, regular, negative for clicks, rubs, or overt murmur. Abdomen: Epigastric tenderness to palpation. Soft, nondistended. Negative for masses or hepatosplenomegaly. Negative for costovertebral tenderness. No rigidity, rebound, guarding. Pelvis: Stable nontender. Genitourinary: Deferred. Rectal: Deferred. Extremities: Atraumatic, negative for cords or calf pain. Neurovascular unremarkable. Neuro: Awake, alert, oriented. Cranial nerves II through XII unremarkable. Cerebellum unremarkable. Motor and sensory unremarkable throughout. Exam nonfocal. Notes: Diagnostics: CBC, CMP, troponin, PT/INR, EKG, CXR Therapeutics: 1L NS IV Nitro sublingual 4mg Zofran IV 4mg Morphine IV 5mg Lopressor IV GI cocktail Prescriptions: Impression: Chest pain r/o ACS, epigastric abdominal pain Plan: Discussed with Dr. Howard, patient will be admitted to observation with chest pain r/o ACS. Definitive disposition and diagnosis as appropriate pending reevaluation and review of above. Chest Pain Score (Numeric/FACES): 8 - Related Data Allergies Allergy/AdvReac Type Severity Reaction Status Date / Time metoclopramide Allergy Cannot Verified 06/19/19 16:03 Remember Home Meds: Home Meds Carvedilol 6.25 mg PO DAILY 05/02/19 [History] Furosemide [Lasix] 20 mg PO DAILY 05/02/19 [History] metFORMIN [Glucophage] 1,000 mg PO BIDMEALS 05/02/19 [History] Aspirin 81 mg PO DAILY 05/25/19 [History] atorvaSTATin Calcium [Atorvastatin Calcium] 40 mg PO BEDTIME 05/25/19 [History] Clopidogrel [Plavix] 75 mg PO DAILY 06/12/19 [History] Lisinopril 10 mg PO DAILY 06/12/19 [History] Multivitamin [Multi-Day Vitamins] 1 tab DAILY 06/12/19 [History] Nitroglycerin [Nitroglycerin Patch 0.1 MG/Hr] 2.5 mg TRDERM DAILY 06/12/19 [ History] SitaGLIPtin [Januvia] 50 mg PO DAILY 06/12/19 [History] Spironolactone [Aldactone] 25 mg PO DAILY 06/12/19 [History] Promethazine HCl [Promethegan] 2 supp RECTAL Q4H PRN 06/17/19 [History] Past Medical History HEENT History: Reports: Impaired Vision Cardiovascular History: Reports: Hypertension, [place], Stents Other Cardiovascular History: pt reports mild heat attack 2018 Respiratory History: Reports: Pneumonia, Recurrent Gastrointestinal History: Reports: Other (See Below) Other Gastrointestinal History: Gallbladder Issues Genitourinary History: Reports: None Musculoskeletal History: Reports: Fracture Neurological History: Reports: None Psychiatric History: Reports: None Endocrine/Metabolic History: Reports: Diabetes, Type II Insulin Pump Model and Electrocardiograph Operator: None Hematologic History: Reports: None Immunologic History: Reports: None Oncologic (Cancer) History: Reports: None Dermatologic History: Reports: None - Infectious Disease History Infectious Disease History: Reports: Chicken Pox - Past Surgical History Head Surgeries/Procedures: Reports: None HEENT Surgical History: Reports: Tonsillectomy, Other (See Below) Other HEENT Surgeries/Procedures: Thyroidectomy Respiratory Surgical History: Reports: None GI Surgical History: Reports: Colonoscopy Endocrine Surgical History: Reports: Thyroidectomy, Other (See Below) Other Endocrine Surgeries/Procedures: patrial thyroidectomy Social & Family History - Family History Family Medical History: Noncontributory HEENT: Reports: None Cardiac: Reports: None Respiratory: Reports: None GI: Reports: None : Reports: None Musculoskeletal: Reports: Arthritis Neurological: Reports: Alzheimers Disease Endocrine/Metabolic: Reports: Diabetes, type II Oncologic: Reports: Lung - Caffeine Use Caffeine Use: Reports: Coffee Caffeine Use Comment: 1 pot a day ED ROS GENERAL - Review of Systems Review Of Systems: ROS reveals no pertinent complaints other than HPI. ED EXAM, GENERAL - Physical Exam Exam: See Below (see dictation) Course - Vital Signs Last Recorded V/S: Last Vital Signs Temp 98.2 F 06/19/19 16:00 Pulse 97 06/19/19 16:32 Resp 22 H 06/19/19 16:00 BP 167/96 H 06/19/19 16:32 Pulse Ox 100 06/19/19 16:00 - Orders/Labs/Meds Orders: Active Orders 24 hr Category Date Time Status Admission Status [Patient Status] [ADT] Stat ADT 06/19/19 17:20 Ordered Cardiac Monitoring [RC] . DIRECTED Care 06/19/19 16:02 Active Cardiac Monitoring [RC] . DIRECTED Care 06/19/19 17:20 Ordered EKG Documentation Completion [RC] STAT Care 06/19/19 16:03 Active Oxygen Therapy [RC] ASDIRECTED Care 06/19/19 16:02 Active Pulse Oximetry [RC] ASDIRECTED Care 06/19/19 16:02 Active LIPASE [CHEM] Stat Lab 06/19/19 17:23 Ordered Nitroglycerin [Nitrostat] Med 06/19/19 16:07 Active 0.4 mg SL Q5M PRN Sodium Chloride 0.9% [Saline Flush] Med 06/19/19 16:02 Active 10 ml FLUSH ASDIRECTED PRN Sodium Chloride 0.9% [Saline Flush] Med 06/19/19 16:02 Active 2.5 ml FLUSH ASDIRECTED PRN Saline Lock Insert [OM.PC] Stat Oth 06/19/19 16:02 Ordered Medication Orders Nitroglycerin (Nitrostat) 0.4 mg SL Q5M PRN PRN Reason: Chest Pain Last Admin: 06/19/19 16:23 Dose: 0.4 mg Sodium Chloride (Saline Flush) 10 ml FLUSH ASDIRECTED PRN PRN Reason: Keep Vein Open Last Admin: 06/19/19 16:17 Dose: 10 ml Sodium Chloride (Saline Flush) 2.5 ml FLUSH ASDIRECTED PRN PRN Reason: Keep Vein Open Last Admin: 06/19/19 16:17 Dose: 2.5 ml Labs: Laboratory Tests 06/19/19 06/19/19 06/19/19 Range/Units 16:00 16:00 16:00 WBC 7.98 (4.0-11.0) K/uL RBC 4.74 (4.50-5.90) M/uL Hgb 14.7 (13.0-17.0) g/dL Hct 41.3 (38.0-50.0) % MCV 87.1 (80.0-98.0) fL MCH 31.0 (27.0-32.0) pg MCHC 35.6 (31.0-37.0) g/dL RDW Std Deviation 43.7 (28.0-62.0) fl RDW Coeff of Mukesh 14 (11.0-15.0) % Plt Count 150 (150-400) K/uL MPV 11.60 (7.40-12.00) fL Neut % (Auto) 72.0 (48.0-80.0) % Lymph % (Auto) 19.3 (16.0-40.0) % [place] % (Auto) 7.4 (0.0-15.0) % Eos % (Auto) 0.9 (0.0-7.0) % Baso % (Auto) 0.4 (0.0-1.5) % Neut # (Auto) 5.8 H (1.4-5.7) K/uL Lymph # (Auto) 1.5 (0.6-2.4) K/uL [place] # (Auto) 0.6 (0.0-0.8) K/uL Eos # (Auto) 0.1 (0.0-0.7) K/uL Baso # (Auto) 0.0 (0.0-0.1) K/uL Nucleated RBC % 0.0 /100WBC Nucleated RBCs # 0 K/uL INR 1.09 Sodium 138 (136-148) mmol/L Potassium 3.9 (3.5-5.1) mmol/L Chloride 100 (98-107) mmol/L Carbon Dioxide 23.6 (21.0-32.0) mmol/L BUN 24 H (7.0-18.0) mg/dL Creatinine 1.4 H (0.8-1.3) mg/dL Est Cr Clr Drug Dosing 70.42 mL/min Estimated GFR (MDRD) 52.4 ml/min Glucose 233 H (74-106) mg/dL Calcium 9.6 (8.5-10.1) mg/dL Total Bilirubin 1.3 H (0.2-1.0) mg/dL AST 32 (15-37) IU/L ALT 26 (14-63) IU/L Alkaline Phosphatase 80 (46-116) U/L Troponin I < 0.050 (0.000-0.056) ng/mL Total Protein 8.2 (6.4-8.2) g/dL Albumin 4.2 (3.4-5.0) g/dL Globulin 4.0 (2.6-4.0) g/dL Albumin/Globulin Ratio 1.0 (0.9-1.6) Meds: Medications Generic Name Dose Route Start Last Admin Trade Name Freq PRN Reason Stop Dose Admin Nitroglycerin 0.4 mg 06/19/19 16:07 06/19/19 16:23 Nitrostat SL 0.4 mg Q5M PRN Administration Chest Pain Sodium Chloride 10 ml 06/19/19 16:02 06/19/19 16:17 Saline Flush FLUSH 10 ml ASDIRECTED PRN Administration Keep Vein Open Sodium Chloride 2.5 ml 06/19/19 16:02 06/19/19 16:17 Saline Flush FLUSH 2.5 ml ASDIRECTED PRN Administration Keep Vein Open Discontinued Medications Generic Name Dose Route Start Last Admin Trade Name Freq PRN Reason Stop Dose Admin Al Hydroxide/Mg Hydroxide 15 0 ml 06/19/19 16:42 06/19/19 16:47 ml/ Lidocaine HCl 5 ml PO 06/19/19 16:43 20 each ONETIME ONE Administration Hydromorphone HCl 0.5 mg 06/19/19 16:58 06/19/19 17:04 Dilaudid IVPUSH 06/19/19 16:59 0.5 mg ONETIME ONE Administration Sodium Chloride 1,000 mls @ 999 mls/hr 06/19/19 16:02 06/19/19 16:17 Normal Saline IV 06/19/19 17:02 999 mls/hr BOLUS ONE Administration Metoprolol Tartrate 5 mg 06/19/19 16:15 06/19/19 17:08 Lopressor IVPUSH 06/19/19 16:26 Not Given Q5M MIRZA Morphine Sulfate 4 mg 06/19/19 16:07 06/19/19 16:13 Morphine IVPUSH 06/19/19 16:08 4 mg ONETIME ONE Administration Ondansetron HCl 4 mg 06/19/19 16:07 06/19/19 16:13 Zofran IVPUSH 06/19/19 16:08 4 mg ONETIME ONE Administration Departure - Departure Time of Disposition: 17:24 Disposition: Refer to Observation Condition: Good Clinical Impression: Chest pain Qualifiers: Chest pain type: unspecified Qualified Code(s): R07.9 - Chest pain, unspecified Referrals: PCP,Unobtain [Primary Care Provider] - Forms: ED Department Discharge - My Orders Last 24 Hours: My Active Orders 06/19/19 16:02 Cardiac Monitoring [RC] . DIRECTED Oxygen Therapy [RC] ASDIRECTED Pulse Oximetry [RC] ASDIRECTED Sodium Chloride 0.9% [Saline Flush] 10 ml FLUSH ASDIRECTED PRN Sodium Chloride 0.9% [Saline Flush] 2.5 ml FLUSH ASDIRECTED PRN Saline Lock Insert [OM.PC] Stat 06/19/19 16:03 EKG Documentation Completion [RC] STAT 06/19/19 16:07 Nitroglycerin [Nitrostat] 0.4 mg SL Q5M PRN 06/19/19 17:20 Admission Status [Patient Status] [ADT] Stat Cardiac Monitoring [RC] . DIRECTED 06/19/19 17:23 LIPASE [CHEM] Stat - Assessment/Plan Last 24 Hours: My Active Orders 06/19/19 16:02 Cardiac Monitoring [RC] . DIRECTED Oxygen Therapy [RC] ASDIRECTED Pulse Oximetry [RC] ASDIRECTED Sodium Chloride 0.9% [Saline Flush] 10 ml FLUSH ASDIRECTED PRN Sodium Chloride 0.9% [Saline Flush] 2.5 ml FLUSH ASDIRECTED PRN Saline Lock Insert [OM.PC] Stat 06/19/19 16:03 EKG Documentation Completion [RC] STAT 06/19/19 16:07 Nitroglycerin [Nitrostat] 0.4 mg SL Q5M PRN 06/19/19 17:20 Admission Status [Patient Status] [ADT] Stat Cardiac Monitoring [RC] . DIRECTED 06/19/19 17:23 LIPASE [CHEM] Stat
[2019-06-19] MEDS ORDERED: Morphine 4 MG/ML Syringe IVPUSH ONE (16:07)
[2019-06-19] MEDS ORDERED: Ondansetron 4 MG/2 ML SDV IVPUSH ONE (16:07)
[2019-06-19] MEDS ORDERED: Nitroglycerin 0.4 MG Tab.SL SL PRN (16:07)
--- NOTE | 2019-06-19 16:24 | CR ---
INDICATIONS: Chest pain. TECHNIQUE: Chest 1 view. COMPARISON: 06/06/2019. FINDINGS: No pneumothorax, pleural effusion or airspace consolidation. No pulmonary edema. Cardiac and mediastinal contours are within normal limits. Upper abdomen and osseous structures as imaged show no acute abnormality. IMPRESSION: No evidence of acute cardiopulmonary disease. Dictated by Alex Matthews MD @ 06/19/2019 4:23:32 PM Dictated by: Alex Matthews MD @ 06/19/2019 16:23:40 (Electronically Signed)
[2019-06-19] MEDS: Metoprolol Tartrate 5 MG/5 ML SDV IVPUSH SCH ×2 (16:32→17:08)
[2019-06-19 16:35] LABS: BLOOD UREA NITROGEN,BUN 24 mg/dL (7.0-18.0); CARBON DIOXIDE,CO2 23.6 mmol/L (21.0-32.0); CHLORIDE,CL 100 mmol/L (98-107); GLUCOSE RANDOM 233 mg/dL (74-106); POTASSIUM,K 3.9 mmol/L (3.5-5.1); SODIUM,NA 138 mmol/L (136-148)
[2019-06-19] MEDS ORDERED: Alum Hydrox/Mag Hydrox/Simeth 15 ML, Lidocaine 2% 5 ML PO ONE ×2 (16:42)
[2019-06-19] MEDS ORDERED: HYDROmorphone 1 MG/ML Syringe IVPUSH ONE (16:58)
[2019-06-19] MEDS ORDERED: cloNIDine 0.1 MG Tab PO ONE (18:05)
--- NOTE | 2019-06-19 18:20 | PCM.HP.2 ---
H&P History of Present Illness - General Date of Service: 06/19/19 Admit Problem/Dx: Admission Diagnosis/Problem Admission Diagnosis/Problem Chest pain - History of Present Illness Initial Comments - Free Text/Narative: 58 yo male with pmh of CAD who had PCI three weeks ago in [place] with three stents. He reports nausea and vomiting starting today. He has some left sided chest pain that started after the vomiting but now his pain is more located in his abdomen. He reports he has had his HIDA scan in the past and was told he may have gallbladder issues and offered a cholecystectomy but preferred to keep his gallbladder as it was working well at the time. Chest Pain Score (Numeric/FACES): 8 - Related Data Allergies/Adverse Reactions: Allergies Allergy/AdvReac Type Severity Reaction Status Date / Time metoclopramide Allergy Cannot Verified 06/19/19 16:03 Remember Home Medications: Home Meds Carvedilol 6.25 mg PO DAILY 05/02/19 [History] Furosemide [Lasix] 20 mg PO DAILY 05/02/19 [History] metFORMIN [Glucophage] 1,000 mg PO BIDMEALS 05/02/19 [History] Aspirin 81 mg PO DAILY 05/25/19 [History] atorvaSTATin Calcium [Atorvastatin Calcium] 40 mg PO BEDTIME 05/25/19 [History] Clopidogrel [Plavix] 75 mg PO DAILY 06/12/19 [History] Lisinopril 10 mg PO DAILY 06/12/19 [History] Multivitamin [Multi-Day Vitamins] 1 tab DAILY 06/12/19 [History] Nitroglycerin [Nitroglycerin Patch 0.1 MG/Hr] 2.5 mg TRDERM DAILY 06/12/19 [ History] SitaGLIPtin [Januvia] 50 mg PO DAILY 06/12/19 [History] Spironolactone [Aldactone] 25 mg PO DAILY 06/12/19 [History] Promethazine HCl [Promethegan] 2 supp RECTAL Q4H PRN 06/17/19 [History] Past Medical History HEENT History: Reports: Impaired Vision Cardiovascular History: Reports: Hypertension, [place], Stents Other Cardiovascular History: pt reports mild heat attack 2018 Respiratory History: Reports: Pneumonia, Recurrent Gastrointestinal History: Reports: Other (See Below) Other Gastrointestinal History: Gallbladder Issues Genitourinary History: Reports: None Musculoskeletal History: Reports: Fracture Neurological History: Reports: None Psychiatric History: Reports: None Endocrine/Metabolic History: Reports: Diabetes, Type II Insulin Pump Model and Plastic Molder: None Hematologic History: Reports: None Immunologic History: Reports: None Oncologic (Cancer) History: Reports: None Dermatologic History: Reports: None - Infectious Disease History Infectious Disease History: Reports: Chicken Pox - Past Surgical History Head Surgeries/Procedures: Reports: None HEENT Surgical History: Reports: Tonsillectomy, Other (See Below) Other HEENT Surgeries/Procedures: Thyroidectomy Respiratory Surgical History: Reports: None GI Surgical History: Reports: Colonoscopy Endocrine Surgical History: Reports: Thyroidectomy, Other (See Below) Other Endocrine Surgeries/Procedures: patrial thyroidectomy Social & Family History - Family History Family Medical History: Noncontributory HEENT: Reports: None Cardiac: Reports: None Respiratory: Reports: None GI: Reports: None : Reports: None Musculoskeletal: Reports: Arthritis Neurological: Reports: Alzheimers Disease Endocrine/Metabolic: Reports: Diabetes, type II Oncologic: Reports: Lung - Tobacco Use Smoking Status *Q: Never Smoker - Caffeine Use Caffeine Use: Reports: Coffee Caffeine Use Comment: 1 pot a day - Recreational Drug Use Recreational Drug Use: Yes Drug Use in Last 12 Months: Yes Recreational Drug Type: Reports: Marijuana/Hashish Recreational Drug Use Frequency: Not Used In Over 1 Month H&P Review of Systems - Review of Systems: Review Of Systems: ROS reveals no pertinent complaints other than HPI. Exam - Vital Signs Vital Signs: Last Vital Signs Temp 36.8 C 06/19/19 16:00 Pulse 87 06/19/19 17:53 Resp 18 06/19/19 17:53 BP 185/113 H 06/19/19 17:53 Pulse Ox 100 06/19/19 17:53 Weight: 99.4 kg - Exam General: Alert, Oriented HEENT: Mucosa Moist & [place] Lungs: Clear to Auscultation, Normal Respiratory Effort Cardiovascular: Regular Rate, Regular Rhythm GI/Abdominal Exam: Soft, Non-Tender Extremities: Non-Tender, No Pedal Edema Skin: Warm, Dry, Intact Neurological: Cranial Nerves Intact - Patient Data Lab Results Last 24 hrs: Laboratory Results - last 24 hr 06/19/19 06/19/19 06/19/19 Range/Units 16:00 16:00 16:00 WBC 7.98 (4.0-11.0) K/uL RBC 4.74 (4.50-5.90) M/uL Hgb 14.7 (13.0-17.0) g/dL Hct 41.3 (38.0-50.0) % MCV 87.1 (80.0-98.0) fL MCH 31.0 (27.0-32.0) pg MCHC 35.6 (31.0-37.0) g/dL RDW Std Deviation 43.7 (28.0-62.0) fl RDW Coeff of Mukesh 14 (11.0-15.0) % Plt Count 150 (150-400) K/uL MPV 11.60 (7.40-12.00) fL Neut % (Auto) 72.0 (48.0-80.0) % Lymph % (Auto) 19.3 (16.0-40.0) % [place] % (Auto) 7.4 (0.0-15.0) % Eos % (Auto) 0.9 (0.0-7.0) % Baso % (Auto) 0.4 (0.0-1.5) % Neut # (Auto) 5.8 H (1.4-5.7) K/uL Lymph # (Auto) 1.5 (0.6-2.4) K/uL [place] # (Auto) 0.6 (0.0-0.8) K/uL Eos # (Auto) 0.1 (0.0-0.7) K/uL Baso # (Auto) 0.0 (0.0-0.1) K/uL Nucleated RBC % 0.0 /100WBC Nucleated RBCs # 0 K/uL INR 1.09 Sodium 138 (136-148) mmol/L Potassium 3.9 (3.5-5.1) mmol/L Chloride 100 (98-107) mmol/L Carbon Dioxide 23.6 (21.0-32.0) mmol/L BUN 24 H (7.0-18.0) mg/dL Creatinine 1.4 H (0.8-1.3) mg/dL Est Cr Clr Drug Dosing 70.42 mL/min Estimated GFR (MDRD) 52.4 ml/min Glucose 233 H (74-106) mg/dL Calcium 9.6 (8.5-10.1) mg/dL Total Bilirubin 1.3 H (0.2-1.0) mg/dL AST 32 (15-37) IU/L ALT 26 (14-63) IU/L Alkaline Phosphatase 80 (46-116) U/L Troponin I < 0.050 (0.000-0.056) ng/mL Total Protein 8.2 (6.4-8.2) g/dL Albumin 4.2 (3.4-5.0) g/dL Globulin 4.0 (2.6-4.0) g/dL Albumin/Globulin Ratio 1.0 (0.9-1.6) Lipase (73-393) U/L 06/19/19 Range/Units 16:00 WBC (4.0-11.0) K/uL RBC (4.50-5.90) M/uL Hgb (13.0-17.0) g/dL Hct (38.0-50.0) % MCV (80.0-98.0) fL MCH (27.0-32.0) pg MCHC (31.0-37.0) g/dL RDW Std Deviation (28.0-62.0) fl RDW Coeff of Mukesh (11.0-15.0) % Plt Count (150-400) K/uL MPV (7.40-12.00) fL Neut % (Auto) (48.0-80.0) % Lymph % (Auto) (16.0-40.0) % [place] % (Auto) (0.0-15.0) % Eos % (Auto) (0.0-7.0) % Baso % (Auto) (0.0-1.5) % Neut # (Auto) (1.4-5.7) K/uL Lymph # (Auto) (0.6-2.4) K/uL [place] # (Auto) (0.0-0.8) K/uL Eos # (Auto) (0.0-0.7) K/uL Baso # (Auto) (0.0-0.1) K/uL Nucleated RBC % /100WBC Nucleated RBCs # K/uL INR Sodium (136-148) mmol/L Potassium (3.5-5.1) mmol/L Chloride (98-107) mmol/L Carbon Dioxide (21.0-32.0) mmol/L BUN (7.0-18.0) mg/dL Creatinine (0.8-1.3) mg/dL Est Cr Clr Drug Dosing mL/min Estimated GFR (MDRD) ml/min Glucose (74-106) mg/dL Calcium (8.5-10.1) mg/dL Total Bilirubin (0.2-1.0) mg/dL AST (15-37) IU/L ALT (14-63) IU/L Alkaline Phosphatase (46-116) U/L Troponin I (0.000-0.056) ng/mL Total Protein (6.4-8.2) g/dL Albumin (3.4-5.0) g/dL Globulin (2.6-4.0) g/dL Albumin/Globulin Ratio (0.9-1.6) Lipase 138 (73-393) U/L Result Diagrams: 06/19/19 16:00 06/19/19 16:00 Problem List Initiated/Reviewed/Updated: Yes Orders Last 24hrs: Active Orders 24 hr Category Date Time Status Admission Status [Patient Status] [ADT] Stat ADT 06/19/19 17:20 Active Antiembolic Devices [RC] PER UNIT ROUTINE Care 06/19/19 18:07 Ordered Blood Glucose Check, Bedside [RC] TIDMEALS Care 06/19/19 18:06 Ordered Cardiac Monitoring [RC] . DIRECTED Care 06/19/19 16:02 Active Cardiac Monitoring [RC] . DIRECTED Care 06/19/19 17:20 Active EKG Documentation Completion [RC] STAT Care 06/19/19 16:03 Active Oxygen Therapy [RC] ASDIRECTED Care 06/19/19 16:02 Active Oxygen Therapy [RC] PRN Care 06/19/19 18:06 Ordered Pulse Oximetry [RC] ASDIRECTED Care 06/19/19 16:02 Active Up ad Gemini [RC] ASDIRECTED Care 06/19/19 18:06 Ordered VTE/DVT Education [RC] PER UNIT ROUTINE Care 06/19/19 18:06 Ordered Vital Signs [RC] Q4H Care 06/19/19 18:06 Ordered [place] [employer] Diet [DIET] Diet 06/19/19 Breakfast Ordered BASIC METABOLIC PANEL,BMP [CHEM] AM Lab 06/20/19 05:11 Ordered CBC WITH AUTO DIFF [HEME] AM Lab 06/20/19 05:11 Ordered TROPONIN I [CHEM] Q6H Lab 06/19/19 20:00 Ordered TROPONIN I [CHEM] Q6H Lab 06/20/19 01:00 Ordered Aspirin Med 06/20/19 09:00 Ordered 81 mg PO DAILY Carvedilol [Coreg] Med 06/20/19 09:00 Ordered 6.25 mg PO DAILY Clopidogrel [Plavix] Med 06/20/19 09:00 Ordered 75 mg PO DAILY Insulin Aspart [NovoLOG] Med 06/20/19 07:30 Ordered See Protocol SUBCUT TIDAC Lisinopril [Prinivil] Med 06/20/19 09:00 Ordered 10 mg PO DAILY Nitroglycerin Med 06/19/19 18:15 Ordered 2.5 mg TRDERM DAILY Nitroglycerin [Nitrostat] Med 06/19/19 16:07 Active 0.4 mg SL Q5M PRN Sodium Chloride 0.9% [Saline Flush] Med 06/19/19 16:02 Active 10 ml FLUSH ASDIRECTED PRN Sodium Chloride 0.9% [Saline Flush] Med 06/19/19 16:02 Active 2.5 ml FLUSH ASDIRECTED PRN Spironolactone [Aldactone] Med 06/20/19 09:00 Ordered 25 mg PO DAILY atorvaSTATin [Lipitor] Med 06/19/19 21:00 Ordered 40 mg PO BEDTIME Saline Lock Insert [OM.PC] Stat Oth 06/19/19 16:02 Ordered Sequential Compression Device [OM.PC] Per Unit Routine Oth 06/19/19 18:06 Ordered Resuscitation Status Routine Resus Stat 06/19/19 18:06 Ordered Medication Orders Aspirin (Aspirin) 81 mg PO DAILY [facility] Atorvastatin Calcium (Lipitor) 40 mg PO BEDTIME [facility] Carvedilol (Coreg) 6.25 mg PO DAILY [facility] Clopidogrel Bisulfate (Plavix) 75 mg PO DAILY [facility] Insulin Aspart (Novolog) 0 unit SUBCUT TIDAC [facility]; Protocol Lisinopril (Prinivil) 10 mg PO DAILY [facility] Nitroglycerin (Nitrostat) 0.4 mg SL Q5M PRN PRN Reason: Chest Pain Last Admin: 06/19/19 16:23 Dose: 0.4 mg Non-Formulary Medication (Nitroglycerin) 2.5 mg TRDERM DAILY [facility] Sodium Chloride (Saline Flush) 10 ml FLUSH ASDIRECTED PRN PRN Reason: Keep Vein Open Last Admin: 06/19/19 16:17 Dose: 10 ml Sodium Chloride (Saline Flush) 2.5 ml FLUSH ASDIRECTED PRN PRN Reason: Keep Vein Open Last Admin: 06/19/19 16:17 Dose: 2.5 ml Spironolactone (Aldactone) 25 mg PO DAILY [facility] Assessment/Plan Comment:: 58 yo male admitted with chest pain, nausea and vomiting. WE will rule out acute coronary syndrome with serial cardiac enzymes. We will resume Plavix, Carvedilol and lisinopril. We will check RUQ ultrasound.
[2019-06-19] MEDS ORDERED: Ondansetron 4 MG/2 ML SDV IVPUSH PRN (18:33)
[2019-06-19] MEDS: Morphine 2 MG/ML Syringe IVPUSH PRN ×2 (18:44→20:58)
[2019-06-19] MEDS ORDERED: atorvaSTATin 10 MG Tab PO SCH (21:00)
[2019-06-19] MEDS: NITROGLYCERIN 2.5 MG TRDERM SCH (23:59)
[2019-06-20] MEDS: oxyCODONE 5 MG Tab PO PRN ×2 (00:59→07:59)
[2019-06-20] MEDS: Morphine 2 MG/ML Syringe IVPUSH PRN (03:49)
[2019-06-20 06:12] LABS: BLOOD UREA NITROGEN,BUN 16 mg/dL (7.0-18.0); CARBON DIOXIDE,CO2 26.8 mmol/L (21.0-32.0); CHLORIDE,CL 104 mmol/L (98-107); GLUCOSE RANDOM 146 mg/dL (74-106); POTASSIUM,K 3.5 mmol/L (3.5-5.1); SODIUM,NA 141 mmol/L (136-148)
[2019-06-20] MEDS ORDERED: Insulin Aspart 100 Units/ML 3 ML Pen SUBCUT SCH (07:30)
[2019-06-20] MEDS ORDERED: Aspirin 81 MG Tab.Chew PO SCH (09:00)
[2019-06-20] MEDS ORDERED: Clopidogrel 75 MG Tab PO SCH (09:00)
[2019-06-20] MEDS ORDERED: Carvedilol 3.125 MG Tab PO SCH (09:00)
[2019-06-20] MEDS ORDERED: Lisinopril 10 MG Tab PO SCH (09:00)
[2019-06-20] MEDS ORDERED: Spironolactone 25 MG Tab PO SCH (09:00)
--- NOTE | 2019-06-20 09:25 | US ---
Indication: Abdominal pain. Technique: Grayscale and color Doppler ultrasound of the right upper quadrant was performed. Comparison: None Findings: The visualized portions of the pancreas are normal. The liver is normal in echogenicity. No intrahepatic biliary ductal dilatation is identified. The liver measures 16.5 cm in size. The gallbladder is normal. No gallbladder wall thickening is identified. The gallbladder wall measures 2 mm. The common bile duct measures 6 mm. No free fluid is identified in the right upper quadrant. No pericholecystic free fluid is identified. A sonographic Velazco`s sign is not elicited. The visualized portions of the right kidney are grossly normal. The right kidney measures 12.2 centimeters in bipolar dimension. No hydronephrosis is identified. Impression: Normal right upper quadrant ultrasound Dictated by Eboni Ellison MD @ Jun 20 2019 9:15AM Signed by Dr. Eboni Ellison @ Jun 20 2019 9:24AM
[2019-06-20] MEDS: NITROGLYCERIN 2.5 MG TRDERM SCH (09:29)
== END 2019-06-20 09:55 | disposition home or self-care (01) ==
LOC: MW.ED 15:59 → MW.MS 17:20
PROVIDERS: ADMIT Internal Medicine; ATTEND Internal Medicine
DX: R07.9 Chest pain, unspecified (principal); R11.2 Nausea with vomiting, unspecified; R10.13 Epigastric pain; I25.10 Atherosclerotic heart disease of native coronary artery without angina pectoris; I10 Essential (primary) hypertension; I25.2 Old myocardial infarction; E11.9 Type 2 diabetes mellitus without complications; Z88.8 Allergy status to other drugs, medicaments and biological substances; Z95.5 Presence of coronary angioplasty implant and graft; Z79.84 Long term (current) use of oral hypoglycemic drugs; Z79.82 Long term (current) use of aspirin; Z79.02 Long term (current) use of antithrombotics/antiplatelets; Z79.899 Other long term (current) drug therapy
CPT/HCPCS: 36415; 71045; 76705; 80048; 80053; 82962; 83690; 84484; 85025; 85610; 93005; 96361; 96374; 96375; 99285; A9270; J1170; J2270; J2405; J3490; J7040

== ENCOUNTER 2019-06-21 06:24 | Emergency (ER) | payer OTHER ==
[2019-06-21] MEDS ORDERED: Pantoprazole 40 MG Vial IVPUSH ONE (06:50)
--- NOTE | 2019-06-21 06:50 | EDM.PDOC ---
ED HPI GENERAL MEDICAL PROBLEM - General Chief Complaint: Gastrointestinal Problem Stated Complaint: SHORTNESS OF BREATH, VOMITING, HEART PALPITATIONS Time Seen by Provider: 06/21/19 06:49 Source of Information: Reports: Patient History Limitations: Reports: No Limitations - History of Present Illness INITIAL COMMENTS - FREE TEXT/NARRATIVE: History of present illness: []Patient was admitted to the hospital 3 days ago for abdominal pain and chest pain discharged yesterday at 10 AM and by the evening he was vomiting. He has not been able tolerate his medications and his abdominal pain is worse. He denies any chest pain but states he has palpitations, which is usual for him, and nonbloody emesis. Patient is a diabetic and has been diagnosed with gastroparesis in the past. Review of systems: As per history of present illness and below otherwise all systems reviewed and negative. Past medical history: As per history of present illness and as reviewed below otherwise noncontributory. Surgical history: As per history of present illness and as reviewed below otherwise noncontributory. Social history: No reported history of drug or alcohol abuse. Family history: As per history of present illness and as reviewed below otherwise noncontributory. Physical exam: General: Well developed, well nourished in NAD HEENT: Atraumatic, normocephalic, pupils reactive, negative for conjunctival pallor or scleral icterus, mucous membranes moist, throat clear, neck supple, nontender, trachea midline. Lungs: Clear to auscultation, breath sounds equal bilaterally, chest nontender. Heart: S1S2, regular, negative for clicks, rubs, or JVD. Abdomen: NABS, Soft, nondistended, nontender. Negative for masses or hepatosplenomegaly. Negative for costovertebral tenderness. Pelvis: Stable nontender. Genitourinary: Deferred. Rectal: Deferred. Extremities: Atraumatic, negative for cords or calf pain. Neurovascular unremarkable. Neuro: Awake, alert, oriented. Cranial nerves II through XII unremarkable. Cerebellum unremarkable. Motor and sensory unremarkable throughout. Exam nonfocal. Skin:warm and dry Diagnostics: CBC, chemistry, troponin, lactic acid, lipase Therapeutics: IV hydration, Protonix, Dilaudid, Zofran, Ativan ED Course: Improved Impression: Gastroparesis Prescriptions: Plan: Take meds as directed, follow up with your primary care physician, return to ER if symptoms worsen or change. Definitive disposition and diagnosis as appropriate pending reevaluation and review of above. chest pain Pain Score (Numeric/FACES): 4 abdominal pain Pain Score (Numeric/FACES): 8 - Related Data Allergies Allergy/AdvReac Type Severity Reaction Status Date / Time metoclopramide Allergy Cannot Verified 06/21/19 06:35 Remember Home Meds: Home Meds Carvedilol 6.25 mg PO DAILY 05/02/19 [History] Furosemide [Lasix] 20 mg PO DAILY 05/02/19 [History] metFORMIN [Glucophage] 1,000 mg PO BIDMEALS 05/02/19 [History] Aspirin 81 mg PO DAILY 05/25/19 [History] atorvaSTATin Calcium [Atorvastatin Calcium] 40 mg PO BEDTIME 05/25/19 [History] Clopidogrel [Plavix] 75 mg PO DAILY 06/12/19 [History] Lisinopril 10 mg PO DAILY 06/12/19 [History] Multivitamin [Multi-Day Vitamins] 1 tab DAILY 06/12/19 [History] Nitroglycerin [Nitroglycerin Patch 0.1 MG/Hr] 2.5 mg TRDERM DAILY 06/12/19 [ History] SitaGLIPtin [Januvia] 50 mg PO DAILY 06/12/19 [History] Spironolactone [Aldactone] 25 mg PO DAILY 06/12/19 [History] Promethazine HCl [Promethegan] 2 supp RECTAL Q4H PRN 06/17/19 [History] Promethazine [Phenadoz] 25 mg RECTAL Q6H PRN #12 supp 06/21/19 [Rx] traMADol HCl [Tramadol HCl] 50 mg PO Q6H PRN #16 tablet 06/21/19 [Rx] Past Medical History HEENT History: Reports: Impaired Vision Cardiovascular History: Reports: Hypertension, [place], Stents Other Cardiovascular History: pt reports mild heat attack 2018 Respiratory History: Reports: Pneumonia, Recurrent Gastrointestinal History: Reports: Other (See Below) Other Gastrointestinal History: Gallbladder Issues Genitourinary History: Reports: None Musculoskeletal History: Reports: Fracture Neurological History: Reports: None Psychiatric History: Reports: None Endocrine/Metabolic History: Reports: Diabetes, Type II Insulin Pump Model and Banking 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: None Hematologic History: Reports: None Immunologic History: Reports: None Oncologic (Cancer) History: Reports: None Dermatologic History: Reports: None - Infectious Disease History Infectious Disease History: Reports: Chicken Pox - Past Surgical History Head Surgeries/Procedures: Reports: None HEENT Surgical History: Reports: Tonsillectomy, Other (See Below) Other HEENT Surgeries/Procedures: Thyroidectomy Respiratory Surgical History: Reports: None GI Surgical History: Reports: Colonoscopy Endocrine Surgical History: Reports: Thyroidectomy, Other (See Below) Other Endocrine Surgeries/Procedures: patrial thyroidectomy Social & Family History - Family History Family Medical History: Noncontributory HEENT: Reports: None Cardiac: Reports: None Respiratory: Reports: None GI: Reports: None : Reports: None Musculoskeletal: Reports: Arthritis Neurological: Reports: Alzheimers Disease Endocrine/Metabolic: Reports: Diabetes, type II Oncologic: Reports: Lung - Tobacco Use Smoking Status *Q: Never Smoker - Caffeine Use Caffeine Use: Reports: Coffee Caffeine Use Comment: 1 pot a day - Recreational Drug Use Recreational Drug Use: Yes Recreational Drug Type: Reports: Marijuana/Hashish ED ROS GENERAL - Review of Systems Review Of Systems: See Below ED EXAM, GI/ABD - Physical Exam Exam: See Below Course - Vital Signs Last Recorded V/S: Last Vital Signs Temp 97.1 F 06/21/19 06:30 Pulse 88 06/21/19 08:35 Resp 18 06/21/19 08:35 BP 138/80 06/21/19 08:35 Pulse Ox 97 06/21/19 08:35 - Orders/Labs/Meds Orders: Active Orders 24 hr Category Date Time Status EKG Documentation Completion [RC] STAT Care 06/21/19 06:32 Active H PYLORI STOOL ANTIGEN [MREF] Stat Lab 06/21/19 07:25 Ordered Sodium Chloride 0.9% [Normal Saline] 1,000 ml Med 06/21/19 08:18 Active IV .Bolus Medication Orders Sodium Chloride (Normal Saline) 1,000 mls @ 999 mls/hr IV .Bolus ONE Stop: 06/21/19 09:18 Last Admin: 06/21/19 08:26 Dose: 999 mls/hr Labs: Laboratory Tests 06/21/19 06/21/19 06/21/19 Range/Units 07:19 07:19 07:19 WBC (4.0-11.0) K/uL RBC (4.50-5.90) M/uL Hgb (13.0-17.0) g/dL Hct (38.0-50.0) % MCV (80.0-98.0) fL MCH (27.0-32.0) pg MCHC (31.0-37.0) g/dL RDW Std Deviation (28.0-62.0) fl RDW Coeff of Mukesh (11.0-15.0) % Plt Count (150-400) K/uL MPV (7.40-12.00) fL Neut % (Auto) (48.0-80.0) % Lymph % (Auto) (16.0-40.0) % [place] % (Auto) (0.0-15.0) % Eos % (Auto) (0.0-7.0) % Baso % (Auto) (0.0-1.5) % Neut # (Auto) (1.4-5.7) K/uL Lymph # (Auto) (0.6-2.4) K/uL [place] # (Auto) (0.0-0.8) K/uL Eos # (Auto) (0.0-0.7) K/uL Baso # (Auto) (0.0-0.1) K/uL Nucleated RBC % /100WBC Nucleated RBCs # K/uL ABG Carboxyhemoglobin Cancelled Lactate 2.4 H (0.20-2.00) mmol/L Sodium 138 (136-148) mmol/L Potassium 4.3 (3.5-5.1) mmol/L Chloride 101 (98-107) mmol/L Carbon Dioxide 22.9 (21.0-32.0) mmol/L BUN 21 H (7.0-18.0) mg/dL Creatinine 1.2 (0.8-1.3) mg/dL Est Cr Clr Drug Dosing 82.15 mL/min Estimated GFR (MDRD) > 60.0 ml/min Glucose 193 H (74-106) mg/dL Calcium 9.5 (8.5-10.1) mg/dL Total Bilirubin 1.4 H (0.2-1.0) mg/dL AST 36 (15-37) IU/L ALT 31 (14-63) IU/L Alkaline Phosphatase 84 (46-116) U/L Troponin I < 0.050 (0.000-0.056) ng/mL Total Protein 8.0 (6.4-8.2) g/dL Albumin 4.1 (3.4-5.0) g/dL Globulin 3.9 (2.6-4.0) g/dL Albumin/Globulin Ratio 1.1 (0.9-1.6) Lipase (73-393) U/L 06/21/19 06/21/19 Range/Units 07:19 07:19 WBC 7.93 (4.0-11.0) K/uL RBC 4.63 (4.50-5.90) M/uL Hgb 14.5 (13.0-17.0) g/dL Hct 41.1 (38.0-50.0) % MCV 88.8 (80.0-98.0) fL MCH 31.3 (27.0-32.0) pg MCHC 35.3 (31.0-37.0) g/dL RDW Std Deviation 44.6 (28.0-62.0) fl RDW Coeff of Mukesh 14 (11.0-15.0) % Plt Count 122 L (150-400) K/uL MPV 12.20 H (7.40-12.00) fL Neut % (Auto) 63.3 (48.0-80.0) % Lymph % (Auto) 21.7 (16.0-40.0) % [place] % (Auto) 13.7 (0.0-15.0) % Eos % (Auto) 0.9 (0.0-7.0) % Baso % (Auto) 0.4 (0.0-1.5) % Neut # (Auto) 5.0 (1.4-5.7) K/uL Lymph # (Auto) 1.7 (0.6-2.4) K/uL [place] # (Auto) 1.1 H (0.0-0.8) K/uL Eos # (Auto) 0.1 (0.0-0.7) K/uL Baso # (Auto) 0.0 (0.0-0.1) K/uL Nucleated RBC % 0.0 /100WBC Nucleated RBCs # 0 K/uL ABG Carboxyhemoglobin Lactate (0.20-2.00) mmol/L Sodium (136-148) mmol/L Potassium (3.5-5.1) mmol/L Chloride (98-107) mmol/L Carbon Dioxide (21.0-32.0) mmol/L BUN (7.0-18.0) mg/dL Creatinine (0.8-1.3) mg/dL Est Cr Clr Drug Dosing mL/min Estimated GFR (MDRD) ml/min Glucose (74-106) mg/dL Calcium (8.5-10.1) mg/dL Total Bilirubin (0.2-1.0) mg/dL AST (15-37) IU/L ALT (14-63) IU/L Alkaline Phosphatase (46-116) U/L Troponin I (0.000-0.056) ng/mL Total Protein (6.4-8.2) g/dL Albumin (3.4-5.0) g/dL Globulin (2.6-4.0) g/dL Albumin/Globulin Ratio (0.9-1.6) Lipase 120 (73-393) U/L Meds: Medications Generic Name Dose Route Start Last Admin Trade Name Freq PRN Reason Stop Dose Admin Sodium Chloride 1,000 mls @ 999 mls/hr 06/21/19 08:18 06/21/19 08:26 Normal Saline IV 06/21/19 09:18 999 mls/hr .Bolus ONE Administration Discontinued Medications Generic Name Dose Route Start Last Admin Trade Name Freq PRN Reason Stop Dose Admin Al Hydroxide/Mg Hydroxide 15 0 ml 06/21/19 07:05 06/21/19 07:19 ml/ Lidocaine HCl 5 ml PO 06/21/19 07:06 1 each ONETIME ONE Administration Hydromorphone HCl 1 mg 06/21/19 07:39 06/21/19 07:45 Dilaudid IVPUSH 06/21/19 07:40 1 mg ONETIME ONE Administration Lorazepam 1 mg 06/21/19 08:18 06/21/19 08:26 Ativan IVPUSH 06/21/19 08:19 1 mg ONETIME ONE Administration Metoprolol Tartrate 5 mg 06/21/19 07:00 06/21/19 07:56 Lopressor IVPUSH 06/21/19 07:11 5 mg Q5M MIRZA Administration Pantoprazole Sodium 80 mg 06/21/19 06:50 06/21/19 07:23 Protonix Iv IVPUSH 06/21/19 06:51 80 mg .BOLUS ONE Administration Departure - Departure Time of Disposition: 09:13 Disposition: Home, Self-Care 01 Condition: Good Clinical Impression: Gastroparesis - Discharge Information *PRESCRIPTION DRUG MONITORING PROGRAM REVIEWED*: Not Applicable *COPY OF PRESCRIPTION DRUG MONITORING REPORT IN PATIENT JEN: Not Applicable Prescriptions: Promethazine [Phenadoz] 25 mg RECTAL Q6H PRN #12 supp PRN Reason: Nausea traMADol HCl [Tramadol HCl] 50 mg PO Q6H PRN #16 tablet PRN Reason: Pain Referrals: PCP,None [Primary Care Provider] - Forms: ED Department Discharge Additional Instructions: The following information is given to patients seen in the emergency department who are being discharged to home. This information is to outline your options for follow-up care. We provide all patients seen in our emergency department with a follow-up referral. The need for follow-up, as well as the timing and circumstances, are variable depending upon the specifics of your emergency department visit. If you don't have a primary care physician on staff, we will provide you with a referral. We always advise you to contact your personal physician following an emergency department visit to inform them of the circumstance of the visit and for follow-up with them and/or the need for any referrals to a consulting specialist. The emergency department will also refer you to a specialist when appropriate. This referral assures that you have the opportunity for follow-up care with a specialist. All of these measure are taken in an effort to provide you with optimal care, which includes your follow-up. Under all circumstances we always encourage you to contact your private physician who remains a resource for coordinating your care. When calling for follow-up care, please make the office aware that this follow-up is from your recent emergency room visit. If for any reason you are refused follow-up, please contact the [facility] Emergency Department at and asked to speak to the emergency department charge nurse. Take meds as directed, follow up with your primary care physician, return to ER if symptoms worsen or change. [facility] [address] [place] [address] [id number] [facility] Specialty Care - General Surgery Professional Building [address] [place] [address], [address] [place] [address] - My Orders Last 24 Hours: My Active Orders 06/21/19 07:25 H PYLORI STOOL ANTIGEN [MREF] Stat 06/21/19 08:18 Sodium Chloride 0.9% [Normal Saline] 1,000 ml IV .Bolus - Assessment/Plan Last 24 Hours: My Active Orders 06/21/19 07:25 H PYLORI STOOL ANTIGEN [MREF] Stat 06/21/19 08:18 Sodium Chloride 0.9% [Normal Saline] 1,000 ml IV .Bolus
[2019-06-21] MEDS ORDERED: Alum Hydrox/Mag Hydrox/Simeth 15 ML, Lidocaine 2% 5 ML PO ONE ×2 (07:05)
[2019-06-21] MEDS: Metoprolol Tartrate 5 MG/5 ML SDV IVPUSH SCH ×3 (07:24→07:56)
[2019-06-21] MEDS ORDERED: HYDROmorphone 2 MG/ML Syringe IVPUSH ONE (07:39)
[2019-06-21 07:51] LABS: BLOOD UREA NITROGEN,BUN 21 mg/dL (7.0-18.0); CARBON DIOXIDE,CO2 22.9 mmol/L (21.0-32.0); CHLORIDE,CL 101 mmol/L (98-107); GLUCOSE RANDOM 193 mg/dL (74-106); POTASSIUM,K 4.3 mmol/L (3.5-5.1); SODIUM,NA 138 mmol/L (136-148)
[2019-06-21] MEDS ORDERED: LORazepam 2 MG/ML SDV IVPUSH ONE (08:18)
[2019-06-21] MEDS ORDERED: Sodium Chloride 0.9% 1,000 ML IV ONE (08:18)
== END 2019-06-21 09:38 | disposition home or self-care (01) ==
LOC: MW.ED 06:24
DX: E11.43 Type 2 diabetes mellitus with diabetic autonomic (poly)neuropathy (principal); K31.84 Gastroparesis; I25.2 Old myocardial infarction; I10 Essential (primary) hypertension; Z79.82 Long term (current) use of aspirin; Z79.84 Long term (current) use of oral hypoglycemic drugs; Z79.899 Other long term (current) drug therapy; Z88.8 Allergy status to other drugs, medicaments and biological substances; Z95.5 Presence of coronary angioplasty implant and graft
CPT/HCPCS: 36415; 80053; 83605; 83690; 84484; 85025; 93005; 96361; 96374; 96375; 99284; A9270; C9113; J1170; J2060; J3490; J7040; 99283

== ENCOUNTER 2019-06-22 10:13 | Emergency (ER) | payer OTHER ==
[2019-06-22] MEDS ORDERED: Sodium Chloride 0.9% 1,000 ML IV ONE (10:15)
[2019-06-22] MEDS ORDERED: Sodium Chloride 0.9% 10 ML Syringe FLUSH PRN (10:15)
[2019-06-22] MEDS ORDERED: Sodium Chloride 0.9% 2.5 ML Syringe FLUSH PRN (10:15)
[2019-06-22] MEDS ORDERED: Ondansetron 4 MG/2 ML SDV ONE (10:16)
[2019-06-22] MEDS ORDERED: Ondansetron 4 MG/2 ML SDV IVPUSH ONE (10:16)
[2019-06-22] MEDS ORDERED: Alum Hydrox/Mag Hydrox/Simeth 15 ML, Lidocaine 2% 5 ML PO ONE ×2 (10:16)
--- NOTE | 2019-06-22 10:21 | EDM.PDOC ---
ED HPI GENERAL MEDICAL PROBLEM - General Chief Complaint: Abdominal Pain Stated Complaint: ABDOMINAL Time Seen by Provider: 06/22/19 10:21 Source of Information: Reports: Patient History Limitations: Reports: No Limitations - History of Present Illness INITIAL COMMENTS - FREE TEXT/NARRATIVE: HISTORY AND PHYSICAL: History of present illness: Patient is a 58-year-old male presents to the ED via EMS with complaint of epigastric abdominal pain and vomiting. Patient has history of ACS with recent stent placement and has been seen in the ER multiple times for this epigastric abdominal pain. Patient reports that the last time he had pain and vomiting like this it was due to his gallbladder when he had a HIDA scan done the dye cleared his gallbladder and he felt better after this. He had been admitted earlier this week for abdominal and chest pain, he had a normal right upper quadrant ultrasound. Patient was seen in the ED yesterday for this pain and was given medications and pain resolved and he was discharged home. He states the pain and vomiting began again this morning around 5 AM, he took tramadol without relief of symptoms. He denies chest pain, shortness of breath, fevers, chills, diarrhea, hematemesis. Review of systems: As per history of present illness and below otherwise all systems reviewed and negative. Past medical history: As per history of present illness and as reviewed below otherwise noncontributory. Surgical history: As per history of present illness and as reviewed below otherwise noncontributory. Social history: No reported history of drug or alcohol abuse. Family history: As per history of present illness and as reviewed below otherwise noncontributory. Physical exam: General: Patient sitting comfortably in no acute distress and nontoxic appearing HEENT: Atraumatic, normocephalic, pupils reactive, negative for conjunctival pallor or scleral icterus, mucous membranes moist, throat clear, neck supple, nontender, trachea midline. No meningeal signs. Lungs: Clear to auscultation, breath sounds equal bilaterally, chest nontender. Heart: S1S2, regular, negative for clicks, rubs, or overt murmur. Abdomen: Epigastric abdominal tenderness to palpation. Soft, nondistended. Negative for masses or hepatosplenomegaly. Negative for costovertebral tenderness. No rigidity, rebound, guarding. Pelvis: Stable nontender. Genitourinary: Deferred. Rectal: Deferred. Extremities: Atraumatic, negative for cords or calf pain. Neurovascular unremarkable. Neuro: Awake, alert, oriented. Cranial nerves II through XII unremarkable. Cerebellum unremarkable. Motor and sensory unremarkable throughout. Exam nonfocal. Notes: Discussed CT findings with Dr. Adams, she disagrees with appendicitis findings and advised patient follow up in her clinic next week for the epigastric abdominal pain. Discussed with patient findings of kidney stone and he was advised to follow up with Dr. Landers. Patient is has 0/10 pain at this time. Diagnostics: CBC, CMP, troponin, lipase, EKG, CT abdomen pelvis with contrast Therapeutics: GI cocktail 1L Normal saline IV 4 mg Zofran IV 80 mg Protonix IV 1 mg Dilaudid IV Prescriptions: [place] (#12) Zofran Impression: Abdominal pain, nephrolithiasis Plan: Take medication as instructed. You may take [place] as needed for severe pain, do not take while driving as it may make you drowsy Follow up with general surgery and urology as instructed Return to ED as needed as discussed Definitive disposition and diagnosis as appropriate pending reevaluation and review of above. Epigastric Pain Score (Numeric/FACES): 10 - Related Data Allergies Allergy/AdvReac Type Severity Reaction Status Date / Time metoclopramide Allergy Cannot Verified 06/22/19 10:19 Remember Home Meds: Home Meds Carvedilol 6.25 mg PO DAILY 05/02/19 [History] Furosemide [Lasix] 20 mg PO DAILY 05/02/19 [History] metFORMIN [Glucophage] 1,000 mg PO BIDMEALS 05/02/19 [History] Aspirin 81 mg PO DAILY 05/25/19 [History] atorvaSTATin Calcium [Atorvastatin Calcium] 40 mg PO BEDTIME 05/25/19 [History] Clopidogrel [Plavix] 75 mg PO DAILY 06/12/19 [History] Lisinopril 10 mg PO DAILY 06/12/19 [History] Multivitamin [Multi-Day Vitamins] 1 tab DAILY 06/12/19 [History] Nitroglycerin [Nitroglycerin Patch 0.1 MG/Hr] 2.5 mg TRDERM DAILY 06/12/19 [ History] SitaGLIPtin [Januvia] 50 mg PO DAILY 06/12/19 [History] Spironolactone [Aldactone] 25 mg PO DAILY 06/12/19 [History] Hydrocodone/Acetaminophen [[place] 5-325 Tablet] 1 each PO Q6H #12 tablet [Rx] Ondansetron [Zofran ODT] 4 mg PO Q6H PRN #10 tab.dis 06/22/19 [Rx] Past Medical History HEENT History: Reports: Impaired Vision Cardiovascular History: Reports: Hypertension, [place], Stents Other Cardiovascular History: pt reports mild heat attack 2018 Respiratory History: Reports: Pneumonia, Recurrent Gastrointestinal History: Reports: Other (See Below) Other Gastrointestinal History: Gallbladder Issues Genitourinary History: Reports: None Musculoskeletal History: Reports: Fracture Neurological History: Reports: None Psychiatric History: Reports: None Endocrine/Metabolic History: Reports: Diabetes, Type II Insulin Pump Model and Atmospheric Scientist: None Hematologic History: Reports: None Immunologic History: Reports: None Oncologic (Cancer) History: Reports: None Dermatologic History: Reports: None - Infectious Disease History Infectious Disease History: Reports: Chicken Pox - Past Surgical History Head Surgeries/Procedures: Reports: None HEENT Surgical History: Reports: Tonsillectomy, Other (See Below) Other HEENT Surgeries/Procedures: Thyroidectomy Respiratory Surgical History: Reports: None GI Surgical History: Reports: Colonoscopy Endocrine Surgical History: Reports: Thyroidectomy, Other (See Below) Other Endocrine Surgeries/Procedures: patrial thyroidectomy Social & Family History - Family History Family Medical History: Noncontributory HEENT: Reports: None Cardiac: Reports: None Respiratory: Reports: None GI: Reports: None : Reports: None Musculoskeletal: Reports: Arthritis Neurological: Reports: Alzheimers Disease Endocrine/Metabolic: Reports: Diabetes, type II Oncologic: Reports: Lung - Caffeine Use Caffeine Use: Reports: Coffee Caffeine Use Comment: 1 pot a day ED ROS GENERAL - Review of Systems Review Of Systems: ROS reveals no pertinent complaints other than HPI. ED EXAM, GI/ABD - Physical Exam Exam: See Below (See dictation) Course - Vital Signs Last Recorded V/S: Last Vital Signs Temp 96.8 F 06/22/19 11:38 Pulse 99 06/22/19 10:17 Resp 16 06/22/19 11:38 BP 103/61 06/22/19 11:38 Pulse Ox 95 06/22/19 11:38 - Orders/Labs/Meds Orders: Active Orders 24 hr Category Date Time Status Cardiac Monitoring [RC] . DIRECTED Care 06/22/19 10:15 Active EKG Documentation Completion [RC] STAT Care 06/22/19 10:15 Active CULTURE URINE [RM] Stat Lab 06/22/19 10:55 Received Sodium Chloride 0.9% [Saline Flush] Med 06/22/19 10:15 Active 10 ml FLUSH ASDIRECTED PRN Sodium Chloride 0.9% [Saline Flush] Med 06/22/19 10:15 Active 2.5 ml FLUSH ASDIRECTED PRN Saline Lock Insert [OM.PC] Stat Oth 06/22/19 10:15 Ordered Medication Orders Sodium Chloride (Saline Flush) 10 ml FLUSH ASDIRECTED PRN PRN Reason: Keep Vein Open Sodium Chloride (Saline Flush) 2.5 ml FLUSH ASDIRECTED PRN PRN Reason: Keep Vein Open Labs: Laboratory Tests 06/22/19 06/22/19 06/22/19 Range/Units 10:25 10:25 10:25 WBC 7.79 (4.0-11.0) K/uL RBC 4.99 (4.50-5.90) M/uL Hgb 15.7 (13.0-17.0) g/dL Hct 43.5 (38.0-50.0) % MCV 87.2 (80.0-98.0) fL MCH 31.5 (27.0-32.0) pg MCHC 36.1 (31.0-37.0) g/dL RDW Std Deviation 43.8 (28.0-62.0) fl RDW Coeff of Mukesh 14 (11.0-15.0) % Plt Count 123 L (150-400) K/uL MPV 11.40 (7.40-12.00) fL Neut % (Auto) 73.1 (48.0-80.0) % Lymph % (Auto) 16.8 (16.0-40.0) % [place] % (Auto) 9.2 (0.0-15.0) % Eos % (Auto) 0.6 (0.0-7.0) % Baso % (Auto) 0.3 (0.0-1.5) % Neut # (Auto) 5.7 (1.4-5.7) K/uL Lymph # (Auto) 1.3 (0.6-2.4) K/uL [place] # (Auto) 0.7 (0.0-0.8) K/uL Eos # (Auto) 0.1 (0.0-0.7) K/uL Baso # (Auto) 0.0 (0.0-0.1) K/uL Nucleated RBC % 0.0 /100WBC Nucleated RBCs # 0 K/uL INR 1.10 Sodium 137 (136-148) mmol/L Potassium 3.6 (3.5-5.1) mmol/L Chloride 97 L (98-107) mmol/L Carbon Dioxide 23.9 (21.0-32.0) mmol/L BUN 15 (7.0-18.0) mg/dL Creatinine 1.2 (0.8-1.3) mg/dL Est Cr Clr Drug Dosing 82.15 mL/min Estimated GFR (MDRD) > 60.0 ml/min Glucose 265 H (74-106) mg/dL Calcium 9.5 (8.5-10.1) mg/dL Total Bilirubin 1.7 H (0.2-1.0) mg/dL AST 32 (15-37) IU/L ALT 34 (14-63) IU/L Alkaline Phosphatase 83 (46-116) U/L Troponin I < 0.050 (0.000-0.056) ng/mL Total Protein 8.6 H (6.4-8.2) g/dL Albumin 4.4 (3.4-5.0) g/dL Globulin 4.2 H (2.6-4.0) g/dL Albumin/Globulin Ratio 1.1 (0.9-1.6) Lipase 112 (73-393) U/L Urine Color Urine Appearance Urine pH (5.0-8.0) Ur Specific [place] (1.001-1.035) Urine Protein (NEGATIVE) mg/dL Urine Glucose (UA) (NEGATIVE) mg/dL Urine Ketones (NEGATIVE) mg/dL Urine Occult Blood (NEGATIVE) Urine Nitrite (NEGATIVE) Urine Bilirubin (NEGATIVE) Urine Urobilinogen (<2.0) EU/dL Ur Leukocyte Esterase (NEGATIVE) Urine RBC (0-2/HPF) Urine WBC (0-5/HPF) Ur Epithelial Cells (NONE-FEW) Urine Bacteria (NEGATIVE) 06/22/19 Range/Units 10:55 WBC (4.0-11.0) K/uL RBC (4.50-5.90) M/uL Hgb (13.0-17.0) g/dL Hct (38.0-50.0) % MCV (80.0-98.0) fL MCH (27.0-32.0) pg MCHC (31.0-37.0) g/dL RDW Std Deviation (28.0-62.0) fl RDW Coeff of [place]esh (11.0-15.0) % Plt Count (150-400) K/uL MPV (7.40-12.00) fL Neut % (Auto) (48.0-80.0) % Lymph % (Auto) (16.0-40.0) % [place] % (Auto) (0.0-15.0) % Eos % (Auto) (0.0-7.0) % Baso % (Auto) (0.0-1.5) % Neut # (Auto) (1.4-5.7) K/uL Lymph # (Auto) (0.6-2.4) K/uL [place] # (Auto) (0.0-0.8) K/uL Eos # (Auto) (0.0-0.7) K/uL Baso # (Auto) (0.0-0.1) K/uL Nucleated RBC % /100WBC Nucleated RBCs # K/uL INR Sodium (136-148) mmol/L Potassium (3.5-5.1) mmol/L Chloride (98-107) mmol/L Carbon Dioxide (21.0-32.0) mmol/L BUN (7.0-18.0) mg/dL Creatinine (0.8-1.3) mg/dL Est Cr Clr Drug Dosing mL/min Estimated GFR (MDRD) ml/min Glucose (74-106) mg/dL Calcium (8.5-10.1) mg/dL Total Bilirubin (0.2-1.0) mg/dL AST (15-37) IU/L ALT (14-63) IU/L Alkaline Phosphatase (46-116) U/L Troponin I (0.000-0.056) ng/mL Total Protein (6.4-8.2) g/dL Albumin (3.4-5.0) g/dL Globulin (2.6-4.0) g/dL Albumin/Globulin Ratio (0.9-1.6) Lipase (73-393) U/L Urine Color YELLOW Urine Appearance HAZY Urine pH 5.5 (5.0-8.0) Ur Specific [place] 1.010 (1.001-1.035) Urine Protein NEGATIVE (NEGATIVE) mg/dL Urine Glucose (UA) 250 H (NEGATIVE) mg/dL Urine Ketones NEGATIVE (NEGATIVE) mg/dL Urine Occult Blood TRACE-INTACT H (NEGATIVE) Urine Nitrite NEGATIVE (NEGATIVE) Urine Bilirubin NEGATIVE (NEGATIVE) Urine Urobilinogen 0.2 (<2.0) EU/dL Ur Leukocyte Esterase TRACE H (NEGATIVE) Urine RBC 2-4 (0-2/HPF) Urine WBC 0-3 (0-5/HPF) Ur Epithelial Cells RARE (NONE-FEW) Urine Bacteria RARE (NEGATIVE) Meds: Medications Generic Name Dose Route Start Last Admin Trade Name Freq PRN Reason Stop Dose Admin Sodium Chloride 10 ml 06/22/19 10:15 Saline Flush FLUSH ASDIRECTED PRN Keep Vein Open Sodium Chloride 2.5 ml 06/22/19 10:15 Saline Flush FLUSH ASDIRECTED PRN Keep Vein Open Discontinued Medications Generic Name Dose Route Start Last Admin Trade Name Freq PRN Reason Stop Dose Admin Al Hydroxide/Mg Hydroxide 15 0 ml 06/22/19 10:16 06/22/19 10:41 ml/ Lidocaine HCl 5 ml PO 06/22/19 10:17 1 each ONETIME ONE Administration Hydromorphone HCl 1 mg 06/22/19 10:22 06/22/19 10:41 Dilaudid IVPUSH 06/22/19 10:23 1 mg ONETIME ONE Administration Sodium Chloride 1,000 mls @ 999 mls/hr 06/22/19 10:15 06/22/19 10:26 Normal Saline IV 06/22/19 11:15 999 mls/hr BOLUS ONE Administration Sodium Chloride Confirm 06/22/19 10:34 06/22/19 10:51 Normal Saline Administered 06/22/19 10:35 Not Given Dose 20 mls @ as directed .ROUTE .STK-MED ONE Iopamidol 100 ml 06/22/19 10:48 06/22/19 10:53 Isovue Multipack-370 (76%) IVPUSH 06/22/19 10:49 100 ml ONETIME STA Administration Ondansetron HCl 4 mg 06/22/19 10:16 06/22/19 10:26 Zofran IVPUSH 06/22/19 10:17 4 mg ONETIME ONE Administration Ondansetron HCl Confirm 06/22/19 10:16 06/22/19 10:51 Zofran Administered 06/22/19 10:17 Not Given Dose 4 mg .ROUTE .STK-MED ONE Pantoprazole Sodium 80 mg 06/22/19 10:22 06/22/19 10:41 Protonix Iv IVPUSH 06/22/19 10:23 80 mg .BOLUS ONE Administration Departure - Departure Time of Disposition: 12:23 Disposition: Home, Self-Care 01 Condition: Good Clinical Impression: Nephrolithiasis Abdominal pain Qualifiers: Abdominal location: generalized Qualified Code(s): R10.84 - Generalized abdominal pain - Discharge Information Referrals: PCP,None [Primary Care Provider] - Forms: ED Department Discharge Additional Instructions: The following information is given to patients seen in the emergency department who are being discharged to home. This information is to outline your options for follow-up care. We provide all patients seen in our emergency department with a follow-up referral. The need for follow-up, as well as the timing and circumstances, are variable depending upon the specifics of your emergency department visit. If you don't have a primary care physician on staff, we will provide you with a referral. We always advise you to contact your personal physician following an emergency department visit to inform them of the circumstance of the visit and for follow-up with them and/or the need for any referrals to a consulting specialist. The emergency department will also refer you to a specialist when appropriate. This referral assures that you have the opportunity for follow-up care with a specialist. All of these measure are taken in an effort to provide you with optimal care, which includes your follow-up. Under all circumstances we always encourage you to contact your private physician who remains a resource for coordinating your care. When calling for follow-up care, please make the office aware that this follow-up is from your recent emergency room visit. If for any reason you are refused follow-up, please contact the [facility] Emergency Department at and asked to speak to the emergency department charge nurse. BLAINE [facility] [address] [place] [address] [facility] [address] [place] [id number] [facility] - Urology [address] [place] [address] [facility] - General Surgery Professional Building [address] [place] [address], [address] [place] [address] Take medication as instructed. You may take [place] as needed for severe pain, do not take while driving as it may make you drowsy Follow up with general surgery and urology as instructed Return to ED as needed as discussed - My Orders Last 24 Hours: My Active Orders 06/22/19 10:15 Cardiac Monitoring [RC] . DIRECTED EKG Documentation Completion [RC] STAT Sodium Chloride 0.9% [Saline Flush] 10 ml FLUSH ASDIRECTED PRN Sodium Chloride 0.9% [Saline Flush] 2.5 ml FLUSH ASDIRECTED PRN Saline Lock Insert [OM.PC] Stat 06/22/19 10:55 CULTURE URINE [RM] Stat - Assessment/Plan Last 24 Hours: My Active Orders 06/22/19 10:15 Cardiac Monitoring [RC] . DIRECTED EKG Documentation Completion [RC] STAT Sodium Chloride 0.9% [Saline Flush] 10 ml FLUSH ASDIRECTED PRN Sodium Chloride 0.9% [Saline Flush] 2.5 ml FLUSH ASDIRECTED PRN Saline Lock Insert [OM.PC] Stat 06/22/19 10:55 CULTURE URINE [RM] Stat
[2019-06-22] MEDS ORDERED: Pantoprazole 40 MG Vial IVPUSH ONE (10:22)
[2019-06-22] MEDS ORDERED: HYDROmorphone 1 MG/ML Syringe IVPUSH ONE (10:22)
[2019-06-22] MEDS ORDERED: Sodium Chloride 0.9% 20 ML ONE (10:34)
[2019-06-22] MEDS ORDERED: Iopamidol 755 MG/ML 500 ML Multipack Bottle IVPUSH STA (10:48)
[2019-06-22 11:08] LABS: BLOOD UREA NITROGEN,BUN 15 mg/dL (7.0-18.0); CARBON DIOXIDE,CO2 23.9 mmol/L (21.0-32.0); CHLORIDE,CL 97 mmol/L (98-107); GLUCOSE RANDOM 265 mg/dL (74-106); LIPASE 112 U/L (73-393); POTASSIUM,K 3.6 mmol/L (3.5-5.1); SODIUM,NA 137 mmol/L (136-148)
--- NOTE | 2019-06-22 12:04 | CT ---
EXAM DATE: 06/22/19 PATIENT'S AGE: 58 CT abdomen and pelvis Technique: Multiple axial sections were obtained from above the dome of the diaphragm inferiorly through the pubic symphysis. Intravenous contrast was given. No oral contrast has been given. Findings: Mild inflammatory change is seen off the inferior cecum. Appendix is seen next to this inflammatory change although the appendix does not appear to be significantly dilated throughout most of its length although the proximal appendix is mildly prominent 1.0 cm. Difficult to exclude very early appendicitis. Visualized lung bases show nothing acute. Liver contains no focal parenchymal abnormality. Gallbladder contains no calcified gallstones. Spleen appears slightly prominent in size with maximum measurement of 16.6 cm. Adrenal glands show no nodule. Pancreas is within normal limits. Kidneys show symmetric contrast enhancement. Cyst noted within the right kidney measuring 1.8 cm. Scattered nonobstructing calculi are seen within both kidneys. There is a small calcification within the very proximal ureter measuring 4.5 mm possibly due to an early obstructing stone. No other ureteral calculi are seen. No bladder calculi are noted. Aorta shows no aneurysm with atherosclerotic calcification. No retroperitoneal adenopathy or mesenteric abnormalities are seen. No pelvic mass or adenopathy is seen. Atherosclerotic calcification is seen within the prostate gland. Bone window settings were reviewed which appear within normal limits for the patient's age. Impression: 1. Mild inflammatory change off the inferior cecum. Difficult to exclude very early of appendicitis. Please correlate with white count and patient's symptoms. 2. Small 4.5 mm stone within the very proximal right ureter. This could represent very early obstructing stone. Again, please correlate with the patient's symptoms. 3. Mild nonspecific splenomegaly. 4. Other findings believed to be incidental. Diagnostic code #5 Report Signed by Proxy. [facility]
[2019-06-22] MEDS ORDERED: Tamsulosin 0.4 MG Cap.ER PO ONE (12:35)
== END 2019-06-22 12:55 | disposition home or self-care (01) ==
LOC: MW.ED 10:13
DX: N20.0 Calculus of kidney (principal); R10.84 Generalized abdominal pain; I25.2 Old myocardial infarction; I10 Essential (primary) hypertension; E11.9 Type 2 diabetes mellitus without complications; Z79.02 Long term (current) use of antithrombotics/antiplatelets; Z79.82 Long term (current) use of aspirin; Z79.84 Long term (current) use of oral hypoglycemic drugs; Z79.899 Other long term (current) drug therapy; Z88.8 Allergy status to other drugs, medicaments and biological substances; Z95.5 Presence of coronary angioplasty implant and graft
CPT/HCPCS: 36415; 74177; 80053; 81001; 83690; 84484; 85025; 85610; 87086; 93005; 96361; 96374; 96375; 99284; A9270; C9113; J1170; J2405; J7040; Q9967

== ENCOUNTER 2019-06-24 02:38 | Observation (INO) | payer OTHER ==
[2019-06-24] MEDS ORDERED: Aspirin 81 MG Tab.Chew PO ONE (02:55)
[2019-06-24] MEDS ORDERED: Sodium Chloride 0.9% 1,000 ML IV ONE (02:55)
[2019-06-24] MEDS ORDERED: Ondansetron 4 MG/2 ML SDV IVPUSH ONE (02:55)
[2019-06-24] MEDS ORDERED: Sodium Chloride 0.9% 2.5 ML Syringe FLUSH PRN (02:56)
[2019-06-24] MEDS ORDERED: Sodium Chloride 0.9% 10 ML Syringe FLUSH PRN (02:56)
[2019-06-24] MEDS ORDERED: Pantoprazole 40 MG Vial IVPUSH ONE (02:56)
[2019-06-24] MEDS ORDERED: Alum Hydrox/Mag Hydrox/Simeth 15 ML, Metoclopramide 5 MG, Lidocaine 2% 5 ML PO ONE ×3 (02:57)
[2019-06-24] MEDS ORDERED: diphenhydrAMINE 50 MG/ML SDV IVPUSH ONE ×2 (02:58→03:34)
[2019-06-24] MEDS ORDERED: Sodium Chloride 0.9% 20 ML ONE (02:59)
[2019-06-24] MEDS: Nitroglycerin 0.4 MG Tab.SL SL PRN ×3 (03:02→03:18)
--- NOTE | 2019-06-24 03:05 | EDM.PDOC ---
ED HPI GENERAL MEDICAL PROBLEM - General Chief Complaint: Chest Pain Stated Complaint: HEART RACING, CHEST PAIN Time Seen by Provider: 06/24/19 02:46 - History of Present Illness INITIAL COMMENTS - FREE TEXT/NARRATIVE: HISTORY AND PHYSICAL: History of present illness: The patient is a 58-year-old male with 14 prior ER visits since April and 3 admissions here to our hospital and 1 transfer and who presents with complaints of epigastric abdominal pain with vomiting at least 6 times of clear or bilious fluid but no black or bloody vomitus and chest and one hour prior to admission. The patient says that at approximately 11 PM, 4 hours ago, he started having epigastric pain with the nausea and the vomiting which is typical of his gastroparesis. He says that about one hour prior to ED admission he started having palpitations and having left sided chest pain pressure which he rates as a 4/10. He has nitroglycerin at home which he was given by his telegraph office route aide, Dr. Velez, but he did not use any of that this evening. He has a history of a PCI with 3 stents in May at [facility] in [place] and multiple medical GI workups here in our hospital --- but no endoscopy either here or at [facility]. The patient has a cardiology follow-up this Friday and has not had any GI evaluation such as endoscopy or further evaluation recently for his gastroparesis in the last 6 months. The patient has a history of diabetes, hypertension and hypercholesterolemia for which he takes medications. This month the patient was admitted to our hospital from June 19 to June 20 for abdominal issues and then was also seen in our emergency department on June 21 and June 22. On his last admission he had an abdominal ultrasound which was within normal limits and on June 22, a day and a half ago, he had a CT scan of the abdomen and pelvis which did reveal a 4.5 mm proximal right ureteral stone and some ill-defined areas needed to cecum which Dr. Adams was consulted on and disagreed with the CAT scan report respect to ill-defined inflammation near the cecum. The patient says he has had kidney stones in the past and he is not having any flank pain or urinary symptoms and his discomfort this morning is not consistent with his prior kidney stones. Currently in the ED the patient is having dry heaves. He says that he did have a bowel movement several hours ago which was normal in character and not diarrhea and it was not black or bloody. He has not had black or bloody or coffee-ground emesis. He did not take any [id number] meds for this discomfort. On my evaluation he does not feel short of breath and lightheaded and he has not had a fever or chills. He only complains of the epigastric pain and the nausea as well as the left chest pain which he rates as a 4/10 and he feels like he is having palpitations. The patient did tell me that he did remove his Nitropatch this morning It is noted in the patient's med list that he does have [place] and Zofran at home for home use and the patient admits to me that he does have the nitroglycerin but he never thinks to use it when he gets chest pain. He was advised by his telegraph office route aide that he could utilize the nitroglycerin for chest pain. Review of systems: As per history of present illness and below otherwise all systems reviewed and negative. Past medical history: As per history of present illness and as reviewed below otherwise noncontributory. Surgical history: As per history of present illness and as reviewed below otherwise noncontributory. Social history: No reported history of drug or alcohol abuse. Family history: As per history of present illness and as reviewed below otherwise noncontributory. Physical exam: General: Well-developed well-nourished man who is nontoxic and intermittently is having dry heaves in the ED. Vital signs are noted by me HEENT: Atraumatic, normocephalic, pupils reactive, negative for conjunctival pallor or scleral icterus, mucous membranes tacky, throat clear, neck supple, nontender, trachea midline. Lungs: Clear to auscultation, breath sounds equal bilaterally, chest nontender. Heart: S1S2, regular rhythm and sensory tachycardic rate on my evaluation but no overt murmurs Abdomen: Soft, nondistended, mild epigastric tenderness and minimal diffuse abdominal pain but no rebound or guarding and bowel sounds are hypoactive. There is no tympany on percussion. Negative for masses or hepatosplenomegaly. Negative for costovertebral tenderness. Pelvis: Stable nontender. Genitourinary: Deferred. Rectal: Deferred. Extremities: Atraumatic, negative for cords or calf pain. Neurovascular unremarkable. Neuro: Awake, alert, oriented. Cranial nerves II through XII unremarkable. Cerebellum unremarkable. Motor and sensory unremarkable throughout. Exam nonfocal. Diagnostics: EKG 2 CBC CMP amylase lipase INR troponin lactic acid chest x-ray UA with reflex CT scan of the abdomen and pelvis Therapeutics: IV O2 monitor IV fluids, GI cocktail Benadryl nitroglycerin sublingual aspirin Zofran Protonix Nitropaste Ativan reglan Toradol 0332: Patient is telling nursing and that he no longer has chest pain but he still has severe epigastric pain. He was very vague on giving numbers to the nurse regarding his chest pain during the NTG administration. He was telling her it was 9 and he was telling me it was a 4 and is unclear if he is not demonstrating clarity with respect to the abdominal pain versus the chest pain. He has been intermittently verbally abrupt with nursing staff and very vague with trying to explain his pain scale. I will place an inch of nitro paste and give Reglan more Benadryl and Ativan. He is asking me for something specifically for the pain and I discussed with him that narcotic therapy is not the treatment for intractable vomiting and gastroparesis. In light of his recent CT scan with a kidney stone, although he does not feel this is factor into things, we will have to rescan him to make sure there has not been any new developments or progression of these problems. He states understanding 0340: It should be noted that the patient is mostly having dry heaves and I have not seen any vomitus here; the only thing that we have seen is some clear spit. 0445: Patient is sleeping comfortably and blood pressure has normalized to 157/ 94. We are currently awaiting the CT scan results and I aborted discussed with the patient the need for observation admission for serial EKGs and cardiac enzymes due to his history and complaints of chest pain along with his abdominal pain on presentation. I will discuss this case with the hospitalist once I have the CT scan results available. The patient has not produced a urine sample at this point. 0515: CT scan results were discussed with the patient has all testing results were discussed with him. He was sleeping in the room and I woke him up to give him this information and have planned on observation admission which he is agreeable to. He says he is still having some pain even though I had to awaken him to have a dialogue. I discussed this case with Dr. Howard at the same time and he is agreeable for observation admission and has told me that the patient does not have a formal diagnosis of gastroparesis although that is how he presents each time he comes to the ED and 4 admissions. He tells me that the patient was scheduled to see a surgeon at [facility] the end of this week for further evaluation and possible endoscopy and further testing of these ongoing problems. The patient never offer that information to me. Dr. Howard is also aware that the patient had a CT scan performed on June 22 and as compared to today's CT there are no significant changes. The 5 mm right UPJ stone is still present and is not causing any hydronephrosis or any overt obstruction. The patient could be referred to Dr. Landers as an outpatient for management of this stone. The patient also still denies any flank pain or specific right-sided abdominal pain. Impression: Chest pain rule out ACS Epigastric abdominal pain, vomiting with history of gastroparesis Definitive disposition and diagnosis as appropriate pending reevaluation and review of above. chest Pain Score (Numeric/FACES): 9 - Related Data Allergies Allergy/AdvReac Type Severity Reaction Status Date / Time metoclopramide Allergy Arrhythmias Verified 06/24/19 02:54 Home Meds: Home Meds Carvedilol 6.25 mg PO DAILY 05/02/19 [History] Furosemide [Lasix] 20 mg PO DAILY 05/02/19 [History] metFORMIN [Glucophage] 1,000 mg PO BIDMEALS 05/02/19 [History] Aspirin 81 mg PO DAILY 05/25/19 [History] atorvaSTATin Calcium [Atorvastatin Calcium] 40 mg PO BEDTIME 05/25/19 [History] Clopidogrel [Plavix] 75 mg PO DAILY 06/12/19 [History] Lisinopril 10 mg PO DAILY 06/12/19 [History] Multivitamin [Multi-Day Vitamins] 1 tab DAILY 06/12/19 [History] Nitroglycerin [Nitroglycerin Patch 0.1 MG/Hr] 2.5 mg TRDERM DAILY 06/12/19 [ History] SitaGLIPtin [Januvia] 50 mg PO DAILY 06/12/19 [History] Spironolactone [Aldactone] 25 mg PO DAILY 06/12/19 [History] Hydrocodone/Acetaminophen [[place] 5-325 Tablet] 1 each PO Q6H #12 tablet [Rx] Ondansetron [Zofran ODT] 4 mg PO Q6H PRN #10 tab.dis 06/22/19 [Rx] Tamsulosin HCl [Flomax] 0.4 mg PO DAILY #14 cap.er.24h 06/22/19 [Rx] Past Medical History HEENT History: Reports: Impaired Vision, Other (See Below) Other HEENT History: wears glasses Cardiovascular History: Reports: Hypertension, [place], Stents Other Cardiovascular History: pt reports mild heat attack 2018 Respiratory History: Reports: Pneumonia, Recurrent Gastrointestinal History: Reports: Other (See Below) Other Gastrointestinal History: Gallbladder Issues Genitourinary History: Reports: None Musculoskeletal History: Reports: Fracture Neurological History: Reports: None Psychiatric History: Reports: None Endocrine/Metabolic History: Reports: Diabetes, Type II Insulin Pump Model and Alarm Signal Operator: None Hematologic History: Reports: None Immunologic History: Reports: None Oncologic (Cancer) History: Reports: None Dermatologic History: Reports: None - Infectious Disease History Infectious Disease History: Reports: Chicken Pox - Past Surgical History Head Surgeries/Procedures: Reports: None HEENT Surgical History: Reports: Tonsillectomy, Other (See Below) Other HEENT Surgeries/Procedures: Thyroidectomy Respiratory Surgical History: Reports: None GI Surgical History: Reports: Colonoscopy Endocrine Surgical History: Reports: Thyroidectomy, Other (See Below) Other Endocrine Surgeries/Procedures: patrial thyroidectomy Social & Family History - Family History Family Medical History: Noncontributory HEENT: Reports: None Cardiac: Reports: None Respiratory: Reports: None GI: Reports: None : Reports: None Musculoskeletal: Reports: Arthritis Neurological: Reports: Alzheimers Disease Endocrine/Metabolic: Reports: Diabetes, type II Oncologic: Reports: Lung - Tobacco Use Smoking Status *Q: Never Smoker - Caffeine Use Caffeine Use: Reports: Coffee Caffeine Use Comment: 1 pot a day - Recreational Drug Use Recreational Drug Use: No ED ROS GENERAL - Review of Systems Review Of Systems: ROS reveals no pertinent complaints other than HPI. ED EXAM, GENERAL - Physical Exam Exam: See Below (See dictation) Course - Vital Signs Last Recorded V/S: Last Vital Signs Temp 36.5 C 06/24/19 04:30 Pulse 96 06/24/19 04:30 Resp 18 06/24/19 04:30 BP 157/94 H 06/24/19 04:30 Pulse Ox 96 06/24/19 04:30 - Orders/Labs/Meds Orders: Active Orders 24 hr Category Date Time Status Patient Status [ADT] Stat ADT 06/24/19 05:17 Ordered Cardiac Monitoring [RC] . DIRECTED Care 06/24/19 02:56 Active EKG Documentation Completion [RC] STAT Care 06/24/19 02:56 Active EKG Documentation Completion [RC] STAT Care 06/24/19 03:32 Active Oxygen Therapy, ED [RC] ASDIRECTED Care 06/24/19 02:56 Active Pulse Oximetry [RC] ASDIRECTED Care 06/24/19 02:56 Active UA RFX MADELYN AND CULT IF INDIC [URIN] Stat Lab 06/24/19 02:57 Ordered Sodium Chloride 0.9% [Normal Saline] 1,000 ml Med 06/24/19 03:45 Active IV ASDIRECTED Sodium Chloride 0.9% [Saline Flush] Med 06/24/19 02:56 Active 10 ml FLUSH ASDIRECTED PRN Sodium Chloride 0.9% [Saline Flush] Med 06/24/19 02:56 Active 2.5 ml FLUSH ASDIRECTED PRN Saline Lock Insert [OM.PC] Stat Oth 06/24/19 02:56 Ordered Medication Orders Sodium Chloride (Normal Saline) 1,000 mls @ 150 mls/hr IV ASDIRECTED MIRZA Last Admin: 06/24/19 05:12 Dose: 150 mls/hr Sodium Chloride (Saline Flush) 10 ml FLUSH ASDIRECTED PRN PRN Reason: Keep Vein Open Sodium Chloride (Saline Flush) 2.5 ml FLUSH ASDIRECTED PRN PRN Reason: Keep Vein Open Labs: Laboratory Tests 06/24/19 06/24/19 06/24/19 Range/Units 02:47 02:47 02:47 WBC 8.13 (4.0-11.0) K/uL RBC 4.65 (4.50-5.90) M/uL Hgb 14.6 (13.0-17.0) g/dL Hct 41.4 (38.0-50.0) % MCV 89.0 (80.0-98.0) fL MCH 31.4 (27.0-32.0) pg MCHC 35.3 (31.0-37.0) g/dL RDW Std Deviation 45.0 (28.0-62.0) fl RDW Coeff of Mukesh 14 (11.0-15.0) % Plt Count 136 L (150-400) K/uL MPV 12.50 H (7.40-12.00) fL Neut % (Auto) 70.8 (48.0-80.0) % Lymph % (Auto) 19.2 (16.0-40.0) % [place] % (Auto) 8.7 (0.0-15.0) % Eos % (Auto) 1.1 (0.0-7.0) % Baso % (Auto) 0.2 (0.0-1.5) % Neut # (Auto) 5.8 H (1.4-5.7) K/uL Lymph # (Auto) 1.6 (0.6-2.4) K/uL [place] # (Auto) 0.7 (0.0-0.8) K/uL Eos # (Auto) 0.1 (0.0-0.7) K/uL Baso # (Auto) 0.0 (0.0-0.1) K/uL Nucleated RBC % 0.0 /100WBC Nucleated RBCs # 0 K/uL INR 1.05 Lactate (0.20-2.00) mmol/L Sodium 139 (136-148) mmol/L Potassium 4.1 (3.5-5.1) mmol/L Chloride 102 (98-107) mmol/L Carbon Dioxide 25.2 (21.0-32.0) mmol/L BUN 16 (7.0-18.0) mg/dL Creatinine 1.2 (0.8-1.3) mg/dL Est Cr Clr Drug Dosing TNP Estimated GFR (MDRD) > 60.0 ml/min Glucose 202 H (74-106) mg/dL Calcium 9.6 (8.5-10.1) mg/dL Total Bilirubin 1.1 H (0.2-1.0) mg/dL AST 34 (15-37) IU/L ALT 27 (14-63) IU/L Alkaline Phosphatase 80 (46-116) U/L Troponin I < 0.050 (0.000-0.056) ng/mL Total Protein 7.9 (6.4-8.2) g/dL Albumin 4.1 (3.4-5.0) g/dL Globulin 3.8 (2.6-4.0) g/dL Albumin/Globulin Ratio 1.1 (0.9-1.6) Amylase 45 (25-115) U/L Lipase 114 (73-393) U/L 06/24/19 Range/Units 02:47 WBC (4.0-11.0) K/uL RBC (4.50-5.90) M/uL Hgb (13.0-17.0) g/dL Hct (38.0-50.0) % MCV (80.0-98.0) fL MCH (27.0-32.0) pg MCHC (31.0-37.0) g/dL RDW Std Deviation (28.0-62.0) fl RDW Coeff of Mukesh (11.0-15.0) % Plt Count (150-400) K/uL MPV (7.40-12.00) fL Neut % (Auto) (48.0-80.0) % Lymph % (Auto) (16.0-40.0) % [place] % (Auto) (0.0-15.0) % Eos % (Auto) (0.0-7.0) % Baso % (Auto) (0.0-1.5) % Neut # (Auto) (1.4-5.7) K/uL Lymph # (Auto) (0.6-2.4) K/uL [place] # (Auto) (0.0-0.8) K/uL Eos # (Auto) (0.0-0.7) K/uL Baso # (Auto) (0.0-0.1) K/uL Nucleated RBC % /100WBC Nucleated RBCs # K/uL INR Lactate 2.8 H (0.20-2.00) mmol/L Sodium (136-148) mmol/L Potassium (3.5-5.1) mmol/L Chloride (98-107) mmol/L Carbon Dioxide (21.0-32.0) mmol/L BUN (7.0-18.0) mg/dL Creatinine (0.8-1.3) mg/dL Est Cr Clr Drug Dosing Estimated GFR (MDRD) ml/min Glucose (74-106) mg/dL Calcium (8.5-10.1) mg/dL Total Bilirubin (0.2-1.0) mg/dL AST (15-37) IU/L ALT (14-63) IU/L Alkaline Phosphatase (46-116) U/L Troponin I (0.000-0.056) ng/mL Total Protein (6.4-8.2) g/dL Albumin (3.4-5.0) g/dL Globulin (2.6-4.0) g/dL Albumin/Globulin Ratio (0.9-1.6) Amylase (25-115) U/L Lipase (73-393) U/L Meds: Medications Generic Name Dose Route Start Last Admin Trade Name Freq PRN Reason Stop Dose Admin Sodium Chloride 1,000 mls @ 150 mls/hr 06/24/19 03:45 06/24/19 05:12 Normal Saline IV 150 mls/hr ASDIRECTED MIRZA Administration Sodium Chloride 10 ml 06/24/19 02:56 Saline Flush FLUSH ASDIRECTED PRN Keep Vein Open Sodium Chloride 2.5 ml 06/24/19 02:56 Saline Flush FLUSH ASDIRECTED PRN Keep Vein Open Discontinued Medications Generic Name Dose Route Start Last Admin Trade Name Angelq PRN Reason Stop Dose Admin Aspirin 324 mg 06/24/19 02:55 06/24/19 03:19 Aspirin PO 06/24/19 02:56 324 mg ONETIME ONE Administration Al Hydroxide/Mg Hydroxide 15 0 ml 06/24/19 02:57 06/24/19 03:10 ml/ Metoclopramide HCl 5 mg/ PO 06/24/19 02:58 25 each Lidocaine HCl 5 ml ONETIME ONE Administration Diphenhydramine HCl 25 mg 06/24/19 02:58 06/24/19 03:11 Benadryl IVPUSH 06/24/19 02:59 25 mg ONETIME ONE Administration Diphenhydramine HCl 25 mg 06/24/19 03:34 06/24/19 03:41 Benadryl IVPUSH 06/24/19 03:35 25 mg ONETIME ONE Administration Sodium Chloride 1,000 mls @ 999 mls/hr 06/24/19 02:55 06/24/19 03:04 Normal Saline IV 06/24/19 03:55 999 mls/hr STAT ONE Administration Sodium Chloride Confirm 06/24/19 02:59 06/24/19 03:04 Normal Saline Administered 06/24/19 03:00 20 mls/hr Dose Administration 20 mls @ as directed .ROUTE .STK-MED ONE Iopamidol 100 ml 06/24/19 04:12 06/24/19 04:13 Isovue Multipack-370 (76%) IVPUSH 06/24/19 04:13 100 ml ONETIME STA Administration Ketorolac Tromethamine 30 mg 06/24/19 05:04 06/24/19 05:12 Toradol IVPUSH 06/24/19 05:05 30 mg ONETIME ONE Administration Lorazepam 1 mg 06/24/19 03:34 06/24/19 03:47 Ativan IVPUSH 06/24/19 03:35 1 mg ONETIME ONE Administration Metoclopramide HCl 10 mg 06/24/19 03:34 06/24/19 03:42 Reglan IV 06/24/19 03:35 10 mg ONETIME ONE Administration Nitroglycerin 0.4 mg 06/24/19 02:55 06/24/19 03:18 Nitrostat SL 0.4 mg Q5M PRN Administration Chest Pain Nitroglycerin 1 gm 06/24/19 03:31 06/24/19 03:45 Nitro-Bid 2% TOP 06/24/19 03:32 1 gm ONETIME ONE Administration Ondansetron HCl 4 mg 06/24/19 02:55 06/24/19 03:02 Zofran IVPUSH 06/24/19 02:56 4 mg ONETIME ONE Administration Pantoprazole Sodium 80 mg 06/24/19 02:56 06/24/19 03:04 Protonix Iv IVPUSH 06/24/19 02:57 80 mg .BOLUS ONE Administration Departure - Departure Time of Disposition: 05:20 Disposition: Refer to Observation Condition: Good Clinical Impression: Abdominal pain with vomiting Chest pain Qualifiers: Chest pain type: unspecified Qualified Code(s): R07.9 - Chest pain, unspecified - Discharge Information Referrals: PCP,None [Primary Care Provider] - Forms: ED Department Discharge - My Orders Last 24 Hours: My Active Orders 06/24/19 02:56 Cardiac Monitoring [RC] . DIRECTED EKG Documentation Completion [RC] STAT Oxygen Therapy, ED [RC] ASDIRECTED Pulse Oximetry [RC] ASDIRECTED Sodium Chloride 0.9% [Saline Flush] 10 ml FLUSH ASDIRECTED PRN Sodium Chloride 0.9% [Saline Flush] 2.5 ml FLUSH ASDIRECTED PRN Saline Lock Insert [OM.PC] Stat 06/24/19 02:57 UA RFX MADELYN AND CULT IF INDIC [URIN] Stat 06/24/19 03:32 EKG Documentation Completion [RC] STAT 06/24/19 03:45 Sodium Chloride 0.9% [Normal Saline] 1,000 ml IV ASDIRECTED 06/24/19 05:17 Patient Status [ADT] Stat - Assessment/Plan Last 24 Hours: My Active Orders 06/24/19 02:56 Cardiac Monitoring [RC] . DIRECTED EKG Documentation Completion [RC] STAT Oxygen Therapy, ED [RC] ASDIRECTED Pulse Oximetry [RC] ASDIRECTED Sodium Chloride 0.9% [Saline Flush] 10 ml FLUSH ASDIRECTED PRN Sodium Chloride 0.9% [Saline Flush] 2.5 ml FLUSH ASDIRECTED PRN Saline Lock Insert [OM.PC] Stat 06/24/19 02:57 UA RFX MADELYN AND CULT IF INDIC [URIN] Stat 06/24/19 03:32 EKG Documentation Completion [RC] STAT 06/24/19 03:45 Sodium Chloride 0.9% [Normal Saline] 1,000 ml IV ASDIRECTED 06/24/19 05:17 Patient Status [ADT] Stat
--- NOTE | 2019-06-24 03:22 | CR ---
INDICATION: Chest pain TECHNIQUE: Frontal view of the chest. COMPARISON: Single view chest 06/19/2019 FINDINGS/IMPRESSION: The lungs are clear. There is no sizable pleural effusion or pneumothorax. The cardiomediastinal silhouette is normal. The visualized osseous structures are unremarkable. Dictated by Lizabeth Nelson MD @ Jun 24 2019 3:19AM Signed by Dr. Lizabeth Nelson @ Jun 24 2019 3:20AM
[2019-06-24 03:28] LABS: BLOOD UREA NITROGEN,BUN 16 mg/dL (7.0-18.0); CARBON DIOXIDE,CO2 25.2 mmol/L (21.0-32.0); CHLORIDE,CL 102 mmol/L (98-107); GLUCOSE RANDOM 202 mg/dL (74-106); LIPASE 114 U/L (73-393); POTASSIUM,K 4.1 mmol/L (3.5-5.1); SODIUM,NA 139 mmol/L (136-148)
[2019-06-24] MEDS ORDERED: Nitroglycerin 2% Oint 1 GM UD Packet TOP ONE (03:31)
[2019-06-24] MEDS ORDERED: LORazepam 2 MG/ML SDV IVPUSH ONE (03:34)
[2019-06-24] MEDS ORDERED: Metoclopramide 10 MG/2 ML SDV IV ONE (03:34)
[2019-06-24] MEDS ORDERED: Sodium Chloride 0.9% 1,000 ML IV SCH ×2 (03:45→08:15)
[2019-06-24] MEDS ORDERED: Iopamidol 755 MG/ML 500 ML Multipack Bottle IVPUSH STA (04:12)
--- NOTE | 2019-06-24 05:00 | CT ---
Indication: Abdominal pain Technique: Contrast enhanced axial CT imaging through the abdomen and pelvis. 100 mL Isovue 370 contrast agent was administered intravenously. Sagittal and coronal reconstructions are provided. Comparison: CT abdomen pelvis with contrast 06/22/2019 Findings: There is a 5 mm triangular shaped stone at the right ureteral pelvic junction, similar to recent prior. There is no minimal prominence of the right renal collecting system. Two nonobstructing stones are seen in the right lower renal pole measuring 4 mm and 6 mm. On the left, there is a 2 mm nonobstructing stone in the lower renal pole. There is no significant abnormality of the liver, gallbladder, spleen, pancreas, and adrenal glands. There is normal enhancement of the portal venous system. There is normal caliber of the abdominal aorta. The stomach and duodenum are unremarkable. There are no abnormally dilated small bowel loops. There is no colonic wall thickening. No inflammatory changes are demonstrated in the mesentery. There is no abdominal lymphadenopathy. The visualized osseous structures are unremarkable. The included lung bases are clear. Impression: 1. A 5 mm stone at the right ureteropelvic junction, likely represent source of pain. 2. Nonobstructing right renal stones measuring 4 mm and 6 mm in the lower pole and 2 mm nonobstructing left renal stone. Please note that all CT scans at this facility use dose modulation, iterative reconstruction, and/or weight-based dosing when appropriate to reduce radiation dose to as low as reasonably achievable. Dictated by Lizabeth Nelson MD @ Jun 24 2019 4:48AM Signed by Dr. Lizabeth Nelson @ Jun 24 2019 4:59AM
[2019-06-24] MEDS ORDERED: Ketorolac 30 MG/ML SDV IVPUSH ONE (05:04)
[2019-06-24] MEDS ORDERED: Insulin Aspart 100 Units/ML 3 ML Pen SUBCUT SCH ×2 (07:30)
[2019-06-24] MEDS ORDERED: Morphine 2 MG/ML Syringe IVPUSH PRN (08:18)
[2019-06-24] MEDS ORDERED: Tamsulosin 0.4 MG Cap.ER PO SCH (08:30)
--- NOTE | 2019-06-24 08:39 | PCM.HP.2 ---
H&P History of Present Illness - General Date of Service: 06/24/19 Admit Problem/Dx: Admission Diagnosis/Problem Admission Diagnosis/Problem Chest pain - History of Present Illness Initial Comments - Free Text/Narative: 58 y/o male with history of 3-vessel cardiac disease, EF 30% s/p stent placement in late May 2019 at [facility] who presented to the ER complaining of left sided chest pain. Patient states he has been having daily intermittent chest pain since his last hospitalization on 06/19/19 for ACS rule out. Rates pain 10/10 lasting minutes. No association with exertion. Today's chest pain woke him up from sleep. No radiation to neck or arms. Has been having some nausea and vomiting. Having difficulty keeping fluids, food down. In the ER, he was found to be hypertensive 180/90. He was given full dose aspirin, ativan, GI cocktail, morphine. Initial troponin was negative. EKG showed sinus rhythm with nonspecific ST findings. He was admitted overnight for ACS rule out. In the morning, when I evaluated the patient. He was in no acute distress. Stated that he was having intermittent epigastric pain with radiation to chest. Has been having some nausea. No vomiting. Spoke with Dr. Bergman, Cardiology at [facility], [place] who suggested transferring the patient. Subsequently, spoke with Dr. Cruz, ER who accepted the patient. Abdomen Pain Score (Numeric/FACES): 8 chest Pain Score (Numeric/FACES): 0 - Related Data Allergies/Adverse Reactions: Allergies Allergy/AdvReac Type Severity Reaction Status Date / Time metoclopramide Allergy Arrhythmias Verified 06/24/19 02:54 Home Medications: Home Meds Carvedilol 6.25 mg PO DAILY 05/02/19 [History] Furosemide [Lasix] 20 mg PO DAILY 05/02/19 [History] metFORMIN [Glucophage] 1,000 mg PO BIDMEALS 05/02/19 [History] Aspirin 81 mg PO DAILY 05/25/19 [History] atorvaSTATin Calcium [Atorvastatin Calcium] 40 mg PO BEDTIME 05/25/19 [History] Clopidogrel [Plavix] 75 mg PO DAILY 06/12/19 [History] Lisinopril 10 mg PO DAILY 06/12/19 [History] Multivitamin [Multi-Day Vitamins] 1 tab DAILY 06/12/19 [History] Nitroglycerin [Nitroglycerin Patch 0.1 MG/Hr] 2.5 mg TRDERM DAILY 06/12/19 [ History] SitaGLIPtin [Januvia] 50 mg PO DAILY 06/12/19 [History] Spironolactone [Aldactone] 25 mg PO DAILY 06/12/19 [History] Hydrocodone/Acetaminophen [Bumpass 5-325 Tablet] 1 each PO Q6H #12 tablet [Rx] Ondansetron [Zofran ODT] 4 mg PO Q6H PRN #10 tab.dis 06/22/19 [Rx] Tamsulosin HCl [Flomax] 0.4 mg PO DAILY #14 cap.er.24h 06/22/19 [Rx] Past Medical History HEENT History: Reports: Impaired Vision, Other (See Below) Other HEENT History: wears glasses Cardiovascular History: Reports: Hypertension, DE, Stents Other Cardiovascular History: pt reports mild heat attack 2018 Respiratory History: Reports: Pneumonia, Recurrent Gastrointestinal History: Reports: Other (See Below) Other Gastrointestinal History: Gallbladder Issues Genitourinary History: Reports: None Musculoskeletal History: Reports: Fracture Neurological History: Reports: None Psychiatric History: Reports: None Endocrine/Metabolic History: Reports: Diabetes, Type II Insulin Pump Model and Machine I Cutter: None Hematologic History: Reports: None Immunologic History: Reports: None Oncologic (Cancer) History: Reports: None Dermatologic History: Reports: None - Infectious Disease History Infectious Disease History: Reports: Chicken Pox - Past Surgical History Head Surgeries/Procedures: Reports: None HEENT Surgical History: Reports: Tonsillectomy, Other (See Below) Other HEENT Surgeries/Procedures: Thyroidectomy Respiratory Surgical History: Reports: None GI Surgical History: Reports: Colonoscopy Endocrine Surgical History: Reports: Thyroidectomy, Other (See Below) Other Endocrine Surgeries/Procedures: patrial thyroidectomy Social & Family History - Family History Family Medical History: Noncontributory HEENT: Reports: None Cardiac: Reports: None Respiratory: Reports: None GI: Reports: None : Reports: None Musculoskeletal: Reports: Arthritis Neurological: Reports: Alzheimers Disease Endocrine/Metabolic: Reports: Diabetes, type II Oncologic: Reports: Lung - Tobacco Use Smoking Status *Q: Never Smoker - Caffeine Use Caffeine Use: Reports: None Caffeine Use Comment: 1 pot a day - Recreational Drug Use Recreational Drug Use: No H&P Review of Systems - Review of Systems: Review Of Systems: ROS reveals no pertinent complaints other than HPI. Exam - Exam Exam: See Below - Vital Signs Vital Signs: Last Vital Signs Temp 37.1 C 06/24/19 07:44 Pulse 104 H 06/24/19 07:44 Resp 18 06/24/19 07:44 BP 130/69 06/24/19 07:44 Pulse Ox 95 06/24/19 07:44 Weight: 107.819 kg - Exam General: Alert, Oriented, Cooperative HEENT: Other (dry oral mucosa) Lungs: Clear to Auscultation, Normal Respiratory Effort, Wheezing. No: Crackles Cardiovascular: Regular Rate, Regular Rhythm GI/Abdominal Exam: Normal Bowel Sounds, Soft, Non-Tender, No Distention Rectal (Males) Exam: Heme - Stool Extremities: Normal Inspection, No Pedal Edema Skin: Warm, Moist - Patient Data Lab Results Last 24 hrs: Laboratory Results - last 24 hr 06/24/19 06/24/19 06/24/19 Range/Units 02:47 02:47 02:47 WBC 8.13 (4.0-11.0) K/uL RBC 4.65 (4.50-5.90) M/uL Hgb 14.6 (13.0-17.0) g/dL Hct 41.4 (38.0-50.0) % MCV 89.0 (80.0-98.0) fL MCH 31.4 (27.0-32.0) pg MCHC 35.3 (31.0-37.0) g/dL RDW Std Deviation 45.0 (28.0-62.0) fl RDW Coeff of Mukesh 14 (11.0-15.0) % Plt Count 136 L (150-400) K/uL MPV 12.50 H (7.40-12.00) fL Neut % (Auto) 70.8 (48.0-80.0) % Lymph % (Auto) 19.2 (16.0-40.0) % Morrow % (Auto) 8.7 (0.0-15.0) % Eos % (Auto) 1.1 (0.0-7.0) % Baso % (Auto) 0.2 (0.0-1.5) % Neut # (Auto) 5.8 H (1.4-5.7) K/uL Lymph # (Auto) 1.6 (0.6-2.4) K/uL Morrow # (Auto) 0.7 (0.0-0.8) K/uL Eos # (Auto) 0.1 (0.0-0.7) K/uL Baso # (Auto) 0.0 (0.0-0.1) K/uL Nucleated RBC % 0.0 /100WBC Nucleated RBCs # 0 K/uL INR 1.05 Lactate (0.20-2.00) mmol/L Sodium 139 (136-148) mmol/L Potassium 4.1 (3.5-5.1) mmol/L Chloride 102 (98-107) mmol/L Carbon Dioxide 25.2 (21.0-32.0) mmol/L BUN 16 (7.0-18.0) mg/dL Creatinine 1.2 (0.8-1.3) mg/dL Est Cr Clr Drug Dosing TNP Estimated GFR (MDRD) > 60.0 ml/min Glucose 202 H (74-106) mg/dL POC Glucose (60-110) mg/dL Calcium 9.6 (8.5-10.1) mg/dL Total Bilirubin 1.1 H (0.2-1.0) mg/dL AST 34 (15-37) IU/L ALT 27 (14-63) IU/L Alkaline Phosphatase 80 (46-116) U/L Troponin I < 0.050 (0.000-0.056) ng/mL Total Protein 7.9 (6.4-8.2) g/dL Albumin 4.1 (3.4-5.0) g/dL Globulin 3.8 (2.6-4.0) g/dL Albumin/Globulin Ratio 1.1 (0.9-1.6) Amylase 45 (25-115) U/L Lipase 114 (73-393) U/L TSH 3rd Generation (0.36-3.74) uIU/mL Urine Color Urine Appearance Urine pH (5.0-8.0) Ur Specific [place] (1.001-1.035) Urine Protein (NEGATIVE) mg/dL Urine Glucose (UA) (NEGATIVE) mg/dL Urine Ketones (NEGATIVE) mg/dL Urine Occult Blood (NEGATIVE) Urine Nitrite (NEGATIVE) Urine Bilirubin (NEGATIVE) Urine Urobilinogen (<2.0) EU/dL Ur Leukocyte Esterase (NEGATIVE) Urine RBC (0-2/HPF) Urine WBC (0-5/HPF) Ur Epithelial Cells (NONE-FEW) Urine Bacteria (NEGATIVE) Urine Opiates Screen (NEGATIVE) Ur Oxycodone Screen (NEGATIVE) Urine Methadone Screen (NEGATIVE) Ur Barbiturates Screen (NEGATIVE) Ur Phencyclidine Scrn (NEGATIVE) Ur Amphetamine Screen (NEGATIVE) U Methamphetamines Scrn (NEGATIVE) U Benzodiazepines Scrn (NEGATIVE) U Cocaine Metab Screen (NEGATIVE) U Marijuana (THC) Screen (NEGATIVE) 06/24/19 06/24/19 06/24/19 Range/Units 02:47 05:45 05:45 WBC (4.0-11.0) K/uL RBC (4.50-5.90) M/uL Hgb (13.0-17.0) g/dL Hct (38.0-50.0) % MCV (80.0-98.0) fL MCH (27.0-32.0) pg MCHC (31.0-37.0) g/dL RDW Std Deviation (28.0-62.0) fl RDW Coeff of Mukesh (11.0-15.0) % Plt Count (150-400) K/uL MPV (7.40-12.00) fL Neut % (Auto) (48.0-80.0) % Lymph % (Auto) (16.0-40.0) % Morrow % (Auto) (0.0-15.0) % Eos % (Auto) (0.0-7.0) % Baso % (Auto) (0.0-1.5) % Neut # (Auto) (1.4-5.7) K/uL Lymph # (Auto) (0.6-2.4) K/uL Morrow # (Auto) (0.0-0.8) K/uL Eos # (Auto) (0.0-0.7) K/uL Baso # (Auto) (0.0-0.1) K/uL Nucleated RBC % /100WBC Nucleated RBCs # K/uL INR Lactate 2.8 H (0.20-2.00) mmol/L Sodium (136-148) mmol/L Potassium (3.5-5.1) mmol/L Chloride (98-107) mmol/L Carbon Dioxide (21.0-32.0) mmol/L BUN (7.0-18.0) mg/dL Creatinine (0.8-1.3) mg/dL Est Cr Clr Drug Dosing Estimated GFR (MDRD) ml/min Glucose (74-106) mg/dL POC Glucose (60-110) mg/dL Calcium (8.5-10.1) mg/dL Total Bilirubin (0.2-1.0) mg/dL AST (15-37) IU/L ALT (14-63) IU/L Alkaline Phosphatase (46-116) U/L Troponin I (0.000-0.056) ng/mL Total Protein (6.4-8.2) g/dL Albumin (3.4-5.0) g/dL Globulin (2.6-4.0) g/dL Albumin/Globulin Ratio (0.9-1.6) Amylase (25-115) U/L Lipase (73-393) U/L TSH 3rd Generation (0.36-3.74) uIU/mL Urine Color YELLOW Urine Appearance CLEAR Urine pH 7.0 (5.0-8.0) Ur Specific [place] 1.010 (1.001-1.035) Urine Protein TRACE H (NEGATIVE) mg/dL Urine Glucose (UA) 100 H (NEGATIVE) mg/dL Urine Ketones 15 H (NEGATIVE) mg/dL Urine Occult Blood LARGE H (NEGATIVE) Urine Nitrite NEGATIVE (NEGATIVE) Urine Bilirubin NEGATIVE (NEGATIVE) Urine Urobilinogen 0.2 (<2.0) EU/dL Ur Leukocyte Esterase NEGATIVE (NEGATIVE) Urine RBC 5-7 (0-2/HPF) Urine WBC 0-1 (0-5/HPF) Ur Epithelial Cells RARE (NONE-FEW) Urine Bacteria RARE (NEGATIVE) Urine Opiates Screen POSITIVE (NEGATIVE) Ur Oxycodone Screen NEGATIVE (NEGATIVE) Urine Methadone Screen NEGATIVE (NEGATIVE) Ur Barbiturates Screen NEGATIVE (NEGATIVE) Ur Phencyclidine Scrn NEGATIVE (NEGATIVE) Ur Amphetamine Screen NEGATIVE (NEGATIVE) U Methamphetamines Scrn NEGATIVE (NEGATIVE) U Benzodiazepines Scrn NEGATIVE (NEGATIVE) U Cocaine Metab Screen NEGATIVE (NEGATIVE) U Marijuana (THC) Screen POSITIVE (NEGATIVE) 06/24/19 06/24/19 06/24/19 Range/Units 07:41 07:41 07:58 WBC (4.0-11.0) K/uL RBC (4.50-5.90) M/uL Hgb (13.0-17.0) g/dL Hct (38.0-50.0) % MCV (80.0-98.0) fL MCH (27.0-32.0) pg MCHC (31.0-37.0) g/dL RDW Std Deviation (28.0-62.0) fl RDW Coeff of Mukesh (11.0-15.0) % Plt Count (150-400) K/uL MPV (7.40-12.00) fL Neut % (Auto) (48.0-80.0) % Lymph % (Auto) (16.0-40.0) % Morrow % (Auto) (0.0-15.0) % Eos % (Auto) (0.0-7.0) % Baso % (Auto) (0.0-1.5) % Neut # (Auto) (1.4-5.7) K/uL Lymph # (Auto) (0.6-2.4) K/uL Morrow # (Auto) (0.0-0.8) K/uL Eos # (Auto) (0.0-0.7) K/uL Baso # (Auto) (0.0-0.1) K/uL Nucleated RBC % /100WBC Nucleated RBCs # K/uL INR Lactate 1.5 (0.20-2.00) mmol/L Sodium (136-148) mmol/L Potassium (3.5-5.1) mmol/L Chloride (98-107) mmol/L Carbon Dioxide (21.0-32.0) mmol/L BUN (7.0-18.0) mg/dL Creatinine (0.8-1.3) mg/dL Est Cr Clr Drug Dosing Estimated GFR (MDRD) ml/min Glucose (74-106) mg/dL POC Glucose 227 H (60-110) mg/dL Calcium (8.5-10.1) mg/dL Total Bilirubin (0.2-1.0) mg/dL AST (15-37) IU/L ALT (14-63) IU/L Alkaline Phosphatase (46-116) U/L Troponin I < 0.050 (0.000-0.056) ng/mL Total Protein (6.4-8.2) g/dL Albumin (3.4-5.0) g/dL Globulin (2.6-4.0) g/dL Albumin/Globulin Ratio (0.9-1.6) Amylase (25-115) U/L Lipase (73-393) U/L TSH 3rd Generation 1.27 (0.36-3.74) uIU/mL Urine Color Urine Appearance Urine pH (5.0-8.0) Ur Specific [place] (1.001-1.035) Urine Protein (NEGATIVE) mg/dL Urine Glucose (UA) (NEGATIVE) mg/dL Urine Ketones (NEGATIVE) mg/dL Urine Occult Blood (NEGATIVE) Urine Nitrite (NEGATIVE) Urine Bilirubin (NEGATIVE) Urine Urobilinogen (<2.0) EU/dL Ur Leukocyte Esterase (NEGATIVE) Urine RBC (0-2/HPF) Urine WBC (0-5/HPF) Ur Epithelial Cells (NONE-FEW) Urine Bacteria (NEGATIVE) Urine Opiates Screen (NEGATIVE) Ur Oxycodone Screen (NEGATIVE) Urine Methadone Screen (NEGATIVE) Ur Barbiturates Screen (NEGATIVE) Ur Phencyclidine Scrn (NEGATIVE) Ur Amphetamine Screen (NEGATIVE) U Methamphetamines Scrn (NEGATIVE) U Benzodiazepines Scrn (NEGATIVE) U Cocaine Metab Screen (NEGATIVE) U Marijuana (THC) Screen (NEGATIVE) Result Diagrams: 06/24/19 02:47 06/24/19 02:47 Problem List Initiated/Reviewed/Updated: Yes Orders Last 24hrs: Active Orders 24 hr Category Date Time Status Patient Status [ADT] Stat ADT 06/24/19 05:17 Active EKG 12 Lead [EKG Documentation Completion] [RC] STAT Care 06/24/19 03:34 Active EKG Documentation Completion [RC] STAT Care 06/24/19 02:56 Active EKG Documentation Completion [RC] STAT Care 06/24/19 03:32 Active Oxygen Therapy, ED [RC] ASDIRECTED Care 06/24/19 02:56 Active Pulse Oximetry [RC] ASDIRECTED Care 06/24/19 02:56 Active Telemetry Monitoring [Cardiac Monitoring] [RC] Q8H Care 06/24/19 05:23 Active NPO [Nothing Per Oral Diet] [DIET] Diet 06/24/19 Breakfast Active Hemoccult [OCCULT BLOOD DIAGNOSTIC] [OP] Routine Lab 06/24/19 08:09 Received TROPONIN I [CHEM] Q5H Lab 06/24/19 12:44 Ordered Carvedilol [Coreg] Med 06/24/19 09:00 Active 6.25 mg PO DAILY Insulin Aspart [NovoLOG] Med 06/24/19 07:30 Active See Protocol SUBCUT TIDAC Lisinopril [Prinivil] Med 06/24/19 09:00 Active 10 mg PO DAILY Morphine Med 06/24/19 08:18 Active 2 mg IVPUSH Q2H PRN Pantoprazole [ProTONIX IV] 40 mg Med 06/24/19 14:00 Active Sodium Chloride 0.9% [Normal Saline] 10 ml IV Q24H Sodium Chloride 0.9% [Normal Saline] 1,000 ml Med 06/24/19 08:15 Active IV ASDIRECTED Sodium Chloride 0.9% [Saline Flush] Med 06/24/19 02:56 Active 10 ml FLUSH ASDIRECTED PRN Sodium Chloride 0.9% [Saline Flush] Med 06/24/19 02:56 Active 2.5 ml FLUSH ASDIRECTED PRN Tamsulosin [Flomax] Med 06/24/19 08:30 Active 0.4 mg PO PCBREAKFAST atorvaSTATin [Lipitor] Med 06/24/19 21:00 Active 40 mg PO BEDTIME Saline Lock Insert [OM.PC] Stat Oth 06/24/19 02:56 Ordered Code Status [Resuscitation Status] Routine Resus Stat 06/24/19 07:37 Ordered Medication Orders Atorvastatin Calcium (Lipitor) 40 mg PO BEDTIME MIRZA Carvedilol (Coreg) 6.25 mg PO DAILY MIRZA Sodium Chloride (Normal Saline) 1,000 mls @ 150 mls/hr IV ASDIRECTED MIRZA Pantoprazole Sodium 40 mg/ (Sodium Chloride) 10 mls @ 300 mls/hr IV Q24H MIRZA Insulin Aspart (Novolog) 0 unit SUBCUT TIDAC MIRZA; Protocol Last Admin: 06/24/19 08:12 Dose: 4 units Lisinopril (Prinivil) 10 mg PO DAILY MIRZA Morphine Sulfate (Morphine) 2 mg IVPUSH Q2H PRN PRN Reason: Pain Sodium Chloride (Saline Flush) 10 ml FLUSH ASDIRECTED PRN PRN Reason: Keep Vein Open Sodium Chloride (Saline Flush) 2.5 ml FLUSH ASDIRECTED PRN PRN Reason: Keep Vein Open Tamsulosin HCl (Flomax) 0.4 mg PO PCBREAKFAST [facility] Assessment/Plan Comment:: A: 1. chest pain, ACS rule out 2. non-obstructing right renal stones 2. PMH DM2, hypertension P: 1. Patient was admitted for ACS rule out. Most recent Trop x2 were negative. EKG with nonspecific ST changes. Spoke with Dr. Bergman about the patient and suggested transfer to [place] for possible angiogram. Subsequently, spoke with Dr. Cruz, [facility] who accepted the patient.
[2019-06-24] MEDS ORDERED: Clopidogrel 75 MG Tab PO SCH (09:00)
[2019-06-24] MEDS ORDERED: Carvedilol 6.25 MG Tab PO SCH (09:00)
[2019-06-24] MEDS ORDERED: Lisinopril 10 MG Tab PO SCH (09:00)
[2019-06-24] MEDS ORDERED: Aspirin 81 MG Tab.Chew PO SCH (09:00)
[2019-06-24 10:20] LABS: HEMOGLOBIN A1C 8.5 % (4.5-6.2)
[2019-06-24] MEDS ORDERED: Pantoprazole 40 MG in Sodium Chloride 0.9% 10 ML IV SCH (14:00)
[2019-06-24] MEDS ORDERED: atorvaSTATin 10 MG Tab PO SCH (21:00)
== END 2019-06-24 12:30 ==
LOC: MW.ED 02:38 → MW.MS 05:17
PROVIDERS: ADMIT Internal Medicine; ATTEND Internal Medicine
DX: R07.89 Other chest pain (principal); I10 Essential (primary) hypertension; I25.10 Atherosclerotic heart disease of native coronary artery without angina pectoris; I25.2 Old myocardial infarction; E11.9 Type 2 diabetes mellitus without complications; E78.00 Pure hypercholesterolemia, unspecified; N20.0 Calculus of kidney; Z88.8 Allergy status to other drugs, medicaments and biological substances; Z95.5 Presence of coronary angioplasty implant and graft; Z79.84 Long term (current) use of oral hypoglycemic drugs; Z79.82 Long term (current) use of aspirin; Z79.02 Long term (current) use of antithrombotics/antiplatelets; Z79.899 Other long term (current) drug therapy
CPT/HCPCS: 36415; 71045; 71045-26; 74177; 74177-26; 80053; 80061; 80305-QW; 81001; 82150; 82272; 82962; 83036; 83605; 83690; 84443; 84484; 85025; 85610; 93005; 96361; 96374; 96375; 99285-25; A9270-GY; C9113; G0480; J1200; J1815-GY; J1885; J2060; J2270; J2405; J2765; J7040; Q9967

== ENCOUNTER 2019-07-24 21:48 | Observation (INO) | payer OTHER ==
[~2019-07-24 21:48] MED LIST: Sodium Chloride 0.9% 10 ML Syringe FLUSH PRN; Sodium Chloride 0.9% 2.5 ML Syringe FLUSH PRN
[2019-07-24] MEDS ORDERED: Enalaprilat 1.25 MG/ML SDV IVPUSH ONE (21:59)
[2019-07-24] MEDS ORDERED: Sodium Chloride 0.9% 1,000 ML IV SCH (22:00)
[2019-07-24] MEDS ORDERED: Ondansetron 4 MG/2 ML SDV IVPUSH ONE ×2 (22:07→22:09)
[2019-07-24] MEDS ORDERED: Pantoprazole 80 MG in Sodium Chloride 0.9% 20 ML IVPUSH ONE (22:07)
[2019-07-24] MEDS ORDERED: Ondansetron 4 MG/2 ML SDV ONE (22:08)
--- NOTE | 2019-07-24 22:13 | CR ---
INDICATION: . chest pain, shortness of breath TECHNIQUE: Chest radiograph 1 view COMPARISON: 06/24/19 FINDINGS: Mediastinum: The mediastinum is normal in appearance. The heart silhouette is normal in size and morphology. Lung: Both lungs are unremarkable in appearance. No sign of pleural effusion seen. No pneumothorax is identified. Bone and Soft tissue: Unremarkable for age. IMPRESSION: 1. No acute cardiopulmonary disease is seen. Dictated by: Sonido Esqueda MD @ 07/24/2019 22:11:24 (Electronically Signed)
[2019-07-24] MEDS ORDERED: Alum Hydrox/Mag Hydrox/Simeth 15 ML, Metoclopramide 5 MG, Lidocaine 2% 5 ML PO ONE ×3 (22:20)
[2019-07-24 22:30] LABS: CARBON DIOXIDE,CO2 28.3 mmol/L (21.0-32.0); POTASSIUM,K 3.9 mmol/L (3.5-5.1)
[2019-07-24] MEDS ORDERED: Morphine 2 MG/ML Syringe IVPUSH ONE ×2 (22:38→22:51)
[2019-07-24] MEDS ORDERED: Morphine 2 MG/ML Syringe ONE (22:51)
[2019-07-24] MEDS ORDERED: Aspirin 81 MG Tab.Chew PO ONE (22:58)
[2019-07-24] MEDS: Metoprolol Tartrate 5 MG/5 ML SDV IVPUSH SCH ×3 (23:07→23:18)
--- NOTE | 2019-07-25 00:41 | CT ---
INDICATION: Abdominal pain TECHNIQUE: CT abdomen and pelvis without contrast. COMPARISON: 06/24/2019 FINDINGS: Lower chest: Unremarkable. Liver: Abnormal hepatic morphology and mild nodularity of the inferior right hepatic surface again seen. Spleen: Splenomegaly measuring 16.2 cm craniocaudally. Pancreas: Unremarkable. Gallbladder and bile ducts: A punctate calcification along the posterior gallbladder wall on image 48 which could represent a small gallstone. A punctate calcific density in the region of the pancreatic head on image 54 was probably seen on image 64 of the prior study, located anterior to the CBD. Adrenal glands: Unremarkable. Kidneys: [id number] right hydronephrosis, increased, with right perirenal stranding and edema, and a 5 mm calculus again seen at the right UPJ, not significantly changed in location. Nonobstructive bilateral renal calcifications again seen. A right renal lower pole cyst again noted. GI tract: No bowel obstruction. A normal appendix. No significant pericolonic changes. Mild wall prominence in a segment of the ascending colon is likely related to under distention, and the colonic wall thickening seen on the prior study has resolved. Vascular structures: Atherosclerotic changes. Lymph nodes: Shotty subcentimeter upper abdominal lymph nodes again seen. Miscellaneous: No significant free fluid or free air. A small fat containing umbilical hernia. Pelvic Organs: A mildly enlarged prostate. A distended bladder. A small soft tissue density of the bladder base could be related to the underlying prostate. Bones: Unremarkable for age. IMPRESSION: Mild to moderate right obstructive uropathy, increased, with a persistent 5 mm calculus at the UPJ, not significantly progressed. Nonobstructive bilateral renal calcifications again seen. Abnormal hepatic morphology and mild surface nodularity suggestive of chronic hepatocellular disease and early cirrhosis. Splenomegaly which may represent portal hypertension. A soft tissue density at the bladder base could be related to the underlying prostate. Recommend further urological evaluation to exclude urothelial neoplasm. Dictated by Bobby Newman MD @ 07/25/2019 12:40:27 AM Please note that all CT scans at this facility use dose modulation, iterative reconstruction, and/or weight-based dosing when appropriate to reduce radiation dose to as low as reasonably achievable. Dictated by: Bobby Newman MD @ 07/25/2019 00:40:30 (Electronically Signed)
--- NOTE | 2019-07-25 01:31 | EDM.PDOC ---
ED HPI GENERAL MEDICAL PROBLEM - General Chief Complaint: Chest Pain Stated Complaint: CHEST PAIN Time Seen by Provider: 07/25/19 01:31 Source of Information: Reports: Patient - History of Present Illness INITIAL COMMENTS - FREE TEXT/NARRATIVE: HISTORY AND PHYSICAL: History of present illness: [Presents with a chief complaint of chest pain however. There is no association with radiation arm neck or jaw no shortness of breath or diaphoresis He does have a history stenting within the last 3 months, however stone is not progressing and appears to be more kidney stone pain his pain radiates to the testicles multiple episodes of vomiting Review of systems: As per history of present illness and below otherwise all systems reviewed and negative. Past medical history: As per history of present illness and as reviewed below otherwise noncontributory. Surgical history: As per history of present illness and as reviewed below otherwise noncontributory. Social history: No reported history of drug or alcohol abuse. Family history: As per history of present illness and as reviewed below otherwise noncontributory. Physical exam: HEENT: Atraumatic, normocephalic, pupils reactive, negative for conjunctival pallor or scleral icterus, mucous membranes moist, throat clear, neck supple, nontender, trachea midline. Lungs: Clear to auscultation, breath sounds equal bilaterally, chest nontender. Heart: S1S2, regular, negative for clicks, rubs, or JVD. Abdomen: Soft, nondistended, nontender. Negative for masses or hepatosplenomegaly. Negative for costovertebral tenderness. Pelvis: Stable nontender. Genitourinary: Deferred. Rectal: Deferred. Extremities: Atraumatic, negative for cords or calf pain. Neurovascular unremarkable. Neuro: Awake, alert, oriented. Cranial nerves II through XII unremarkable. Cerebellum unremarkable. Motor and sensory unremarkable throughout. Exam nonfocal. Diagnostics: [[facility] CMP troponin EKG Chest [address] abdomen pelvis no contrast ] Therapeutics: [ normal saline Morphine Zofran Rocephin Recommend urology consult ] Impression: [ elevated troponin 5 mm ureteral stone ] Chronic history of baseline Definitive disposition and diagnosis as appropriate pending reevaluation and review of above. Chest Pain Score (Numeric/FACES): 9 - Related Data Allergies Allergy/AdvReac Type Severity Reaction Status Date / Time metoclopramide Allergy Arrhythmias Verified 07/24/19 21:52 Home Meds: Home Meds Furosemide [Lasix] 40 mg PO DAILY 05/02/19 [History] carvediloL [Carvedilol] 3.125 mg PO DAILY 05/02/19 [History] metFORMIN [Glucophage] 1,000 mg PO BIDMEALS 05/02/19 [History] Aspirin 81 mg PO DAILY 05/25/19 [History] atorvaSTATin Calcium [Atorvastatin Calcium] 10 mg PO BEDTIME 05/25/19 [History] Clopidogrel [Plavix] 75 mg PO DAILY 06/12/19 [History] Lisinopril 10 mg PO DAILY 06/12/19 [History] Multivitamin [Multi-Day Vitamins] 1 tab DAILY 06/12/19 [History] Nitroglycerin [Nitroglycerin Patch 0.1 MG/Hr] 2.5 mg TRDERM DAILY 06/12/19 [ History] SitaGLIPtin [Januvia] 50 mg PO DAILY 06/12/19 [History] Spironolactone [Aldactone] 25 mg PO DAILY 06/12/19 [History] Ondansetron [Zofran ODT] 4 mg PO Q6H PRN #10 tab.dis 06/22/19 [Rx] Tamsulosin HCl [Flomax] 0.4 mg PO DAILY #14 cap.er.24h 06/22/19 [Rx] Omeprazole 40 mg PO DAILY 06/24/19 [History] glipiZIDE [Glucotrol] 5 mg PO DAILY 06/24/19 [History] Past Medical History HEENT History: Reports: Impaired Vision, Other (See Below) Other HEENT History: wears glasses Cardiovascular History: Reports: Hypertension, CO, Stents Other Cardiovascular History: pt reports mild heat attack 2018 Respiratory History: Reports: Pneumonia, Recurrent Gastrointestinal History: Reports: Other (See Below) Other Gastrointestinal History: Gallbladder Issues Genitourinary History: Reports: None Musculoskeletal History: Reports: Fracture Neurological History: Reports: None Psychiatric History: Reports: None Endocrine/Metabolic History: Reports: Diabetes, Type II Insulin Pump Model and Distance Learning Technician: None Hematologic History: Reports: None Immunologic History: Reports: None Oncologic (Cancer) History: Reports: None Dermatologic History: Reports: None - Infectious Disease History Infectious Disease History: Reports: Chicken Pox - Past Surgical History Head Surgeries/Procedures: Reports: None Respiratory Surgical History: Reports: None GI Surgical History: Reports: Colonoscopy Endocrine Surgical History: Reports: Thyroidectomy, Other (See Below) Other Endocrine Surgeries/Procedures: patrial thyroidectomy Social & Family History - Family History Family Medical History: Noncontributory HEENT: Reports: None Cardiac: Reports: None Respiratory: Reports: None GI: Reports: None : Reports: None Musculoskeletal: Reports: Arthritis Neurological: Reports: Alzheimers Disease Endocrine/Metabolic: Reports: Diabetes, type II Oncologic: Reports: Lung - Tobacco Use Smoking Status *Q: Former Smoker Used Tobacco, but Quit: Yes Month/Year Tobacco Last Used: 1998 - Caffeine Use Caffeine Use: Reports: Coffee Caffeine Use Comment: 1 pot a day - Recreational Drug Use Recreational Drug Use: Yes Drug Use in Last 12 Months: Yes Recreational Drug Type: Reports: Marijuana/Hashish Recreational Drug Use Frequency: Weekly ED ROS GENERAL - Review of Systems Review Of Systems: See Below ED EXAM, GENERAL - Physical Exam Exam: See Below Course - Vital Signs Last Recorded V/S: Last Vital Signs Temp 97.7 F 07/24/19 21:50 Pulse 95 07/25/19 00:39 Resp 18 07/25/19 00:39 BP 156/96 H 07/25/19 00:39 Pulse Ox 97 07/25/19 00:39 - Orders/Labs/Meds Orders: Active Orders 24 hr Category Date Time Status EKG 12 Lead [EKG Documentation Completion] [RC] STAT Care 07/25/19 01:18 Active EKG Documentation Completion [RC] STAT Care 07/24/19 21:48 Active CULTURE URINE [RM] Stat Lab 07/25/19 00:00 Received Sodium Chloride 0.9% [Normal Saline] 1,000 ml Med 07/24/19 22:00 Active IV STAT Sodium Chloride 0.9% [Saline Flush] Med 07/24/19 21:48 Active 10 ml FLUSH ASDIRECTED PRN Sodium Chloride 0.9% [Saline Flush] Med 07/24/19 21:48 Active 2.5 ml FLUSH ASDIRECTED PRN cefTRIAXone [Rocephin in Dextrose,Iso-Osm 1 GM/50 ML] 1 Med 07/25/19 01:39 Active gm Premix Bag 1 bag IV ONETIME Saline Lock Insert [OM.PC] Stat Oth 07/24/19 21:48 Ordered Medication Orders Sodium Chloride (Normal Saline) 1,000 mls @ 125 mls/hr IV STAT [facility] Last Admin: 07/24/19 22:16 Dose: 125 mls/hr Ceftriaxone Sodium/Dextrose 1 (gm/ Premix) 50 mls @ 100 mls/hr IV ONETIME ONE Stop: 07/25/19 02:08 Sodium Chloride (Saline Flush) 10 ml FLUSH ASDIRECTED PRN PRN Reason: Keep Vein Open Sodium Chloride (Saline Flush) 2.5 ml FLUSH ASDIRECTED PRN PRN Reason: Keep Vein Open Labs: Laboratory Tests 07/24/19 07/24/19 07/24/19 Range/Units 21:54 21:54 21:54 WBC 8.82 (4.0-11.0) K/uL RBC 4.60 (4.50-5.90) M/uL Hgb 14.4 (13.0-17.0) g/dL Hct 40.7 (38.0-50.0) % MCV 88.5 (80.0-98.0) fL MCH 31.3 (27.0-32.0) pg MCHC 35.4 (31.0-37.0) g/dL RDW Std Deviation 44.7 (28.0-62.0) fl RDW Coeff of Mukesh 14 (11.0-15.0) % Plt Count 105 L (150-400) K/uL MPV 11.40 (7.40-12.00) fL Neut % (Auto) 67.4 (48.0-80.0) % Lymph % (Auto) 17.0 (16.0-40.0) % [place] % (Auto) 13.7 (0.0-15.0) % Eos % (Auto) 1.7 (0.0-7.0) % Baso % (Auto) 0.2 (0.0-1.5) % Neut # (Auto) 5.9 H (1.4-5.7) K/uL Lymph # (Auto) 1.5 (0.6-2.4) K/uL [place] # (Auto) 1.2 H (0.0-0.8) K/uL Eos # (Auto) 0.2 (0.0-0.7) K/uL Baso # (Auto) 0.0 (0.0-0.1) K/uL Nucleated RBC % 0.0 /100WBC Nucleated RBCs # 0 K/uL INR Sodium 142 (136-148) mmol/L Potassium 3.9 (3.5-5.1) mmol/L Chloride 100 (98-107) mmol/L Carbon Dioxide 28.3 (21.0-32.0) mmol/L BUN 22 H (7.0-18.0) mg/dL Creatinine 1.5 H (0.8-1.3) mg/dL Est Cr Clr Drug Dosing 65.72 mL/min Estimated GFR (MDRD) 48.4 ml/min Glucose 192 H (74-106) mg/dL Calcium 10.3 H (8.5-10.1) mg/dL Total Bilirubin 1.3 H (0.2-1.0) mg/dL AST 32 (15-37) IU/L ALT 32 (14-63) IU/L Alkaline Phosphatase 110 (46-116) U/L Troponin I 0.059 H* (0.000-0.056) ng/mL Total Protein 8.5 H (6.4-8.2) g/dL Albumin 4.6 (3.4-5.0) g/dL Globulin 3.9 (2.6-4.0) g/dL Albumin/Globulin Ratio 1.2 (0.9-1.6) Lipase 185 (73-393) U/L Urine Color Urine Appearance Urine pH (5.0-8.0) Ur Specific [place] (1.001-1.035) Urine Protein (NEGATIVE) mg/dL Urine Glucose (UA) (NEGATIVE) mg/dL Urine Ketones (NEGATIVE) mg/dL Urine Occult Blood (NEGATIVE) Urine Nitrite (NEGATIVE) Urine Bilirubin (NEGATIVE) Urine Urobilinogen (<2.0) EU/dL Ur Leukocyte Esterase (NEGATIVE) Urine RBC (0-2/HPF) Urine WBC (0-5/HPF) Ur Epithelial Cells (NONE-FEW) Amorphous Sediment (NEGATIVE) Urine Bacteria (NEGATIVE) 07/24/19 07/25/19 Range/Units 21:54 00:00 WBC (4.0-11.0) K/uL RBC (4.50-5.90) M/uL Hgb (13.0-17.0) g/dL Hct (38.0-50.0) % MCV (80.0-98.0) fL MCH (27.0-32.0) pg MCHC (31.0-37.0) g/dL RDW Std Deviation (28.0-62.0) fl RDW Coeff of Mukesh (11.0-15.0) % Plt Count (150-400) K/uL MPV (7.40-12.00) fL Neut % (Auto) (48.0-80.0) % Lymph % (Auto) (16.0-40.0) % [place] % (Auto) (0.0-15.0) % Eos % (Auto) (0.0-7.0) % Baso % (Auto) (0.0-1.5) % Neut # (Auto) (1.4-5.7) K/uL Lymph # (Auto) (0.6-2.4) K/uL [place] # (Auto) (0.0-0.8) K/uL Eos # (Auto) (0.0-0.7) K/uL Baso # (Auto) (0.0-0.1) K/uL Nucleated RBC % /100WBC Nucleated RBCs # K/uL INR 1.08 Sodium (136-148) mmol/L Potassium (3.5-5.1) mmol/L Chloride (98-107) mmol/L Carbon Dioxide (21.0-32.0) mmol/L BUN (7.0-18.0) mg/dL Creatinine (0.8-1.3) mg/dL Est Cr Clr Drug Dosing mL/min Estimated GFR (MDRD) ml/min Glucose (74-106) mg/dL Calcium (8.5-10.1) mg/dL Total Bilirubin (0.2-1.0) mg/dL AST (15-37) IU/L ALT (14-63) IU/L Alkaline Phosphatase (46-116) U/L Troponin I (0.000-0.056) ng/mL Total Protein (6.4-8.2) g/dL Albumin (3.4-5.0) g/dL Globulin (2.6-4.0) g/dL Albumin/Globulin Ratio (0.9-1.6) Lipase (73-393) U/L Urine Color YELLOW Urine Appearance CLOUDY Urine pH 8.0 (5.0-8.0) Ur Specific [place] 1.015 (1.001-1.035) Urine Protein 30 H (NEGATIVE) mg/dL Urine Glucose (UA) 100 H (NEGATIVE) mg/dL Urine Ketones TRACE H (NEGATIVE) mg/dL Urine Occult Blood LARGE H (NEGATIVE) Urine Nitrite NEGATIVE (NEGATIVE) Urine Bilirubin NEGATIVE (NEGATIVE) Urine Urobilinogen 1.0 (<2.0) EU/dL Ur Leukocyte Esterase TRACE H (NEGATIVE) Urine RBC 120-130 (0-2/HPF) Urine WBC 0-2 (0-5/HPF) Ur Epithelial Cells RARE (NONE-FEW) Amorphous Sediment LIGHT (NEGATIVE) Urine Bacteria RARE (NEGATIVE) Meds: Medications Generic Name Dose Route Start Last Admin Trade Name Deon PRN Reason Stop Dose Admin Sodium Chloride 1,000 mls @ 125 mls/hr 07/24/19 22:00 07/24/19 22:16 Normal Saline IV 125 mls/hr STAT MIRZA Administration Ceftriaxone Sodium/Dextrose 1 50 mls @ 100 mls/hr 07/25/19 01:39 gm/ Premix IV 07/25/19 02:08 ONETIME ONE Sodium Chloride 10 ml 07/24/19 21:48 Saline Flush FLUSH ASDIRECTED PRN Keep Vein Open Sodium Chloride 2.5 ml 07/24/19 21:48 Saline Flush FLUSH ASDIRECTED PRN Keep Vein Open Discontinued Medications Generic Name Dose Route Start Last Admin Trade Name Deon PRN Reason Stop Dose Admin Aspirin 324 mg 07/24/19 22:58 07/24/19 23:06 Aspirin PO 07/24/19 22:59 324 mg ONETIME ONE Administration Al Hydroxide/Mg Hydroxide 15 0 ml 07/24/19 22:20 07/24/19 22:39 ml/ Metoclopramide HCl 5 mg/ PO 07/24/19 22:21 1 each Lidocaine HCl 5 ml ONETIME ONE Administration Enalaprilat 1.25 mg 07/24/19 21:59 07/24/19 22:42 Vasotec Iv IVPUSH 07/24/19 22:00 1.25 mg ONETIME ONE Administration Pantoprazole Sodium 80 mg/ 20 mls @ 420 mls/hr 07/24/19 22:07 07/24/19 22:20 Sodium Chloride IVPUSH 07/24/19 22:09 420 mls/hr ONETIME ONE Administration Metoprolol Tartrate 5 mg 07/24/19 23:00 07/24/19 23:18 Lopressor IVPUSH 07/24/19 23:11 5 mg Q5M MIRZA Administration Morphine Sulfate 2 mg 07/24/19 22:51 07/24/19 22:53 Morphine IVPUSH 07/24/19 22:52 Not Given ONETIME ONE Morphine Sulfate 2 mg 07/24/19 22:38 07/24/19 22:52 Morphine IVPUSH 07/24/19 22:39 2 mg ONETIME ONE Administration Morphine Sulfate Confirm 07/24/19 22:51 07/24/19 23:11 Morphine Administered 07/24/19 22:52 Not Given Dose 2 mg .ROUTE .STK-MED ONE Morphine Sulfate 4 mg 07/25/19 01:37 Morphine IVPUSH 07/25/19 01:38 ONETIME ONE Ondansetron HCl 8 mg 07/24/19 22:07 07/24/19 22:17 Zofran IVPUSH 07/24/19 22:08 8 mg ONETIME ONE Administration Ondansetron HCl 8 mg 07/24/19 22:09 07/24/19 22:46 Zofran IVPUSH 07/24/19 22:10 Not Given ONETIME ONE Ondansetron HCl Confirm 07/24/19 22:08 07/24/19 22:43 Zofran Administered 07/24/19 22:09 Not Given Dose 8 mg .ROUTE .STK-MED ONE Ondansetron HCl 4 mg 07/25/19 01:38 07/25/19 01:43 Zofran IVPUSH 07/25/19 01:39 4 mg ONETIME ONE Administration Departure - Departure Time of Disposition: 01:48 Disposition: Refer to Observation Condition: Fair Clinical Impression: Ureteral stone Vomiting Qualifiers: Vomiting type: unspecified Vomiting Intractability: non-intractable Nausea presence: with nausea Qualified Code(s): R11.2 - Nausea with vomiting, unspecified - Discharge Information Referrals: Maximino Munoz [Primary Care Provider] - Forms: ED Department Discharge - My Orders Last 24 Hours: My Active Orders 07/24/19 22:00 Sodium Chloride 0.9% [Normal Saline] 1,000 ml IV STAT 07/25/19 00:00 CULTURE URINE [RM] Stat 07/25/19 01:18 EKG 12 Lead [EKG Documentation Completion] [RC] STAT 07/25/19 01:39 cefTRIAXone [Rocephin in Dextrose,Iso-Osm 1 GM/50 ML] 1 gm Premix Bag 1 bag IV ONETIME - Assessment/Plan Last 24 Hours: My Active Orders 07/24/19 22:00 Sodium Chloride 0.9% [Normal Saline] 1,000 ml IV STAT 07/25/19 00:00 CULTURE URINE [RM] Stat 07/25/19 01:18 EKG 12 Lead [EKG Documentation Completion] [RC] STAT 07/25/19 01:39 cefTRIAXone [Rocephin in Dextrose,Iso-Osm 1 GM/50 ML] 1 gm Premix Bag 1 bag IV ONETIME
[2019-07-25] MEDS ORDERED: Morphine 2 MG/ML Syringe IVPUSH ONE (01:37)
[2019-07-25] MEDS ORDERED: Ondansetron 4 MG/2 ML SDV IVPUSH ONE (01:38)
[2019-07-25] MEDS ORDERED: cefTRIAXone 1 GM in Premix Bag 1 BAG IV ONE (01:39)
[2019-07-25] MEDS ORDERED: HYDROmorphone 1 MG/ML Syringe IVPUSH PRN (03:31)
[2019-07-25] MEDS: Sodium Chloride 0.9% 1,000 ML IV SCH ×4 (03:47→23:32)
[2019-07-25] MEDS: traMADol 50 MG Tab PO PRN ×4 (04:55→23:32)
[2019-07-25] MEDS: Morphine 4 MG/ML Syringe IVPUSH PRN ×6 (05:31→22:45)
[2019-07-25] MEDS: Insulin Aspart 100 Units/ML 3 ML Pen SUBCUT SCH ×4 (06:06→23:37)
[2019-07-25 08:06] LABS: CARBON DIOXIDE,CO2 22.8 mmol/L (21.0-32.0)
[2019-07-25] MEDS: Carvedilol 3.125 MG Tab PO SCH (09:28)
[2019-07-25] MEDS: Tamsulosin 0.4 MG Cap.ER PO SCH (09:29)
--- NOTE | 2019-07-25 09:41 | PCM.HP.2 ---
H&P History of Present Illness - General Date of Service: 07/25/19 Admit Problem/Dx: Admission Diagnosis/Problem Admission Diagnosis/Problem Pain Source of Information: Patient - History of Present Illness Initial Comments - Free Text/Narative: Patient is a 58 y/o M with PMH of CAD s/p 3 stents, HLD, HTN, Kidney stones who comes in [facility] to chest and groin pain. In the ER patient was tachycardic, troponin 1st set was slightly high, EKG with no acute ST , t wave changes. Patient also underwent CT abdomen which showed 5mm kidney stone in right UPJ with mild to moderate uropathy. Patient was admitted for acs rule out and management of nephrolithiasis. Onset of Symptoms: Reports: Today Duration of Symptoms: Reports: Hour(s): Quality: Reports: Sharp Severity: Severe Chest Pain Score (Numeric/FACES): 9 Lower Abdominal Pain Score (Numeric/FACES): 5 - Related Data Allergies/Adverse Reactions: Allergies Allergy/AdvReac Type Severity Reaction Status Date / Time metoclopramide Allergy Arrhythmias Verified 07/25/19 03:09 Home Medications: Home Meds Furosemide [Lasix] 40 mg PO DAILY 05/02/19 [History] carvediloL [Carvedilol] 3.125 mg PO BID 05/02/19 [History] metFORMIN [Glucophage] 1,000 mg PO BIDMEALS 05/02/19 [History] Aspirin 81 mg PO DAILY 05/25/19 [History] atorvaSTATin Calcium [Atorvastatin Calcium] 10 mg PO BEDTIME 05/25/19 [History] SitaGLIPtin [Januvia] 50 mg PO DAILY 06/12/19 [History] Spironolactone [Aldactone] 25 mg PO DAILY 06/12/19 [History] Tamsulosin HCl [Flomax] 0.4 mg PO DAILY #14 cap.er.24h 06/22/19 [Rx] glipiZIDE [Glucotrol] 5 mg PO DAILY 06/24/19 [History] Nitroglycerin [Nitroglycerin Patch 0.2 MG/Hr] 1 patch TRDERM DAILY 07/25/19 [ History] amLODIPine [Norvasc] 5 mg PO DAILY 07/25/19 [History] traMADol [Ultram] 50 mg PO Q6H PRN 07/25/19 [History] Past Medical History HEENT History: Reports: Impaired Vision, Other (See Below) Other HEENT History: wears glasses Cardiovascular History: Reports: Hypertension, [place], Stents Other Cardiovascular History: pt reports mild heat attack 2018 Respiratory History: Reports: Pneumonia, Recurrent Gastrointestinal History: Reports: Other (See Below) Other Gastrointestinal History: Gallbladder Issues Genitourinary History: Reports: None Musculoskeletal History: Reports: Fracture Neurological History: Reports: None Psychiatric History: Reports: None Endocrine/Metabolic History: Reports: Diabetes, Type II Insulin Pump Model and Barrel Inspector Tight: None Hematologic History: Reports: None Immunologic History: Reports: None Oncologic (Cancer) History: Reports: None Dermatologic History: Reports: None - Infectious Disease History Infectious Disease History: Reports: Chicken Pox - Past Surgical History Head Surgeries/Procedures: Reports: None Respiratory Surgical History: Reports: None GI Surgical History: Reports: Colonoscopy Endocrine Surgical History: Reports: Thyroidectomy, Other (See Below) Other Endocrine Surgeries/Procedures: patrial thyroidectomy Social & Family History - Family History Family Medical History: Noncontributory HEENT: Reports: None Cardiac: Reports: None Respiratory: Reports: None GI: Reports: None : Reports: None Musculoskeletal: Reports: Arthritis Neurological: Reports: Alzheimers Disease Endocrine/Metabolic: Reports: Diabetes, type II Oncologic: Reports: Lung - Tobacco Use Smoking Status *Q: Former Smoker Used Tobacco, but Quit: Yes Month/Year Tobacco Last Used: 1999 - Caffeine Use Caffeine Use: Reports: Coffee Caffeine Use Comment: Pot a day - Recreational Drug Use Recreational Drug Use: Yes Drug Use in Last 12 Months: Yes Recreational Drug Type: Reports: Marijuana/Hashish Recreational Drug Use Frequency: Weekly H&P Review of Systems - Review of Systems: General: Denies: Fever, Chills, Malaise Pulmonary: Denies: Shortness of Breath, Wheezing, Pleuritic Chest Pain Cardiovascular: Denies: Chest Pain, Palpitations, Dyspnea on Exertion Gastrointestinal: Reports: Abdominal Pain. Denies: Anorexia, Black Stool, Bloody Stool, Constipation Genitourinary: Denies: Dysuria, Frequency, Burning Musculoskeletal: Denies: Neck Pain, Shoulder Pain, Arm Pain Skin: Denies: Cyanosis, Jaundice, Mottled, Pallor Psychiatric: Denies: Depression Exam - Vital Signs Vital Signs: Last Vital Signs Temp 36.3 C 07/25/19 07:31 Pulse 73 07/25/19 09:28 Resp 14 07/25/19 07:31 BP 107/68 07/25/19 09:28 Pulse Ox 97 07/25/19 07:31 Weight: 105.2 kg - Exam General: Alert, Oriented Neck: Supple, Trachea Midline Lungs: Clear to Auscultation, Normal Respiratory Effort Cardiovascular: Regular Rate, Regular Rhythm GI/Abdominal Exam: Normal Bowel Sounds, Soft, Tender - Patient Data Lab Results Last 24 hrs: Laboratory Results - last 24 hr 07/24/19 07/24/19 07/24/19 Range/Units 21:54 21:54 21:54 WBC 8.82 (4.0-11.0) K/uL RBC 4.60 (4.50-5.90) M/uL Hgb 14.4 (13.0-17.0) g/dL Hct 40.7 (38.0-50.0) % MCV 88.5 (80.0-98.0) fL MCH 31.3 (27.0-32.0) pg MCHC 35.4 (31.0-37.0) g/dL RDW Std Deviation 44.7 (28.0-62.0) fl RDW Coeff of Mukesh 14 (11.0-15.0) % Plt Count 105 L (150-400) K/uL MPV 11.40 (7.40-12.00) fL Neut % (Auto) 67.4 (48.0-80.0) % Lymph % (Auto) 17.0 (16.0-40.0) % Mingo % (Auto) 13.7 (0.0-15.0) % Eos % (Auto) 1.7 (0.0-7.0) % Baso % (Auto) 0.2 (0.0-1.5) % Neut # (Auto) 5.9 H (1.4-5.7) K/uL Lymph # (Auto) 1.5 (0.6-2.4) K/uL Mingo # (Auto) 1.2 H (0.0-0.8) K/uL Eos # (Auto) 0.2 (0.0-0.7) K/uL Baso # (Auto) 0.0 (0.0-0.1) K/uL Nucleated RBC % 0.0 /100WBC Nucleated RBCs # 0 K/uL INR Sodium 142 (136-148) mmol/L Potassium 3.9 (3.5-5.1) mmol/L Chloride 100 (98-107) mmol/L Carbon Dioxide 28.3 (21.0-32.0) mmol/L BUN 22 H (7.0-18.0) mg/dL Creatinine 1.5 H (0.8-1.3) mg/dL Est Cr Clr Drug Dosing 65.72 mL/min Estimated GFR (MDRD) 48.4 ml/min Glucose 192 H (74-106) mg/dL POC Glucose (60-110) mg/dL Calcium 10.3 H (8.5-10.1) mg/dL Phosphorus (2.6-4.7) mg/dL Magnesium (1.8-2.4) mg/dL Total Bilirubin 1.3 H (0.2-1.0) mg/dL AST 32 (15-37) IU/L ALT 32 (14-63) IU/L Alkaline Phosphatase 110 (46-116) U/L Troponin I 0.059 H* (0.000-0.056) ng/mL Total Protein 8.5 H (6.4-8.2) g/dL Albumin 4.6 (3.4-5.0) g/dL Globulin 3.9 (2.6-4.0) g/dL Albumin/Globulin Ratio 1.2 (0.9-1.6) Lipase 185 (73-393) U/L Urine Color Urine Appearance Urine pH (5.0-8.0) Ur Specific Irwin (1.001-1.035) Urine Protein (NEGATIVE) mg/dL Urine Glucose (UA) (NEGATIVE) mg/dL Urine Ketones (NEGATIVE) mg/dL Urine Occult Blood (NEGATIVE) Urine Nitrite (NEGATIVE) Urine Bilirubin (NEGATIVE) Urine Urobilinogen (<2.0) EU/dL Ur Leukocyte Esterase (NEGATIVE) Urine RBC (0-2/HPF) Urine WBC (0-5/HPF) Ur Epithelial Cells (NONE-FEW) Amorphous Sediment (NEGATIVE) Urine Bacteria (NEGATIVE) 07/24/19 07/25/19 07/25/19 Range/Units 21:54 00:00 03:50 WBC (4.0-11.0) K/uL RBC (4.50-5.90) M/uL Hgb (13.0-17.0) g/dL Hct (38.0-50.0) % MCV (80.0-98.0) fL MCH (27.0-32.0) pg MCHC (31.0-37.0) g/dL RDW Std Deviation (28.0-62.0) fl RDW Coeff of Mukesh (11.0-15.0) % Plt Count (150-400) K/uL MPV (7.40-12.00) fL Neut % (Auto) (48.0-80.0) % Lymph % (Auto) (16.0-40.0) % Mingo % (Auto) (0.0-15.0) % Eos % (Auto) (0.0-7.0) % Baso % (Auto) (0.0-1.5) % Neut # (Auto) (1.4-5.7) K/uL Lymph # (Auto) (0.6-2.4) K/uL Mingo # (Auto) (0.0-0.8) K/uL Eos # (Auto) (0.0-0.7) K/uL Baso # (Auto) (0.0-0.1) K/uL Nucleated RBC % /100WBC Nucleated RBCs # K/uL INR 1.08 Sodium (136-148) mmol/L Potassium (3.5-5.1) mmol/L Chloride (98-107) mmol/L Carbon Dioxide (21.0-32.0) mmol/L BUN (7.0-18.0) mg/dL Creatinine (0.8-1.3) mg/dL Est Cr Clr Drug Dosing mL/min Estimated GFR (MDRD) ml/min Glucose (74-106) mg/dL POC Glucose (60-110) mg/dL Calcium (8.5-10.1) mg/dL Phosphorus (2.6-4.7) mg/dL Magnesium (1.8-2.4) mg/dL Total Bilirubin (0.2-1.0) mg/dL AST (15-37) IU/L ALT (14-63) IU/L Alkaline Phosphatase (46-116) U/L Troponin I 0.069 H* (0.000-0.056) ng/mL Total Protein (6.4-8.2) g/dL Albumin (3.4-5.0) g/dL Globulin (2.6-4.0) g/dL Albumin/Globulin Ratio (0.9-1.6) Lipase (73-393) U/L Urine Color YELLOW Urine Appearance CLOUDY Urine pH 8.0 (5.0-8.0) Ur Specific Irwin 1.015 (1.001-1.035) Urine Protein 30 H (NEGATIVE) mg/dL Urine Glucose (UA) 100 H (NEGATIVE) mg/dL Urine Ketones TRACE H (NEGATIVE) mg/dL Urine Occult Blood LARGE H (NEGATIVE) Urine Nitrite NEGATIVE (NEGATIVE) Urine Bilirubin NEGATIVE (NEGATIVE) Urine Urobilinogen 1.0 (<2.0) EU/dL Ur Leukocyte Esterase TRACE H (NEGATIVE) Urine RBC 120-130 (0-2/HPF) Urine WBC 0-2 (0-5/HPF) Ur Epithelial Cells RARE (NONE-FEW) Amorphous Sediment LIGHT (NEGATIVE) Urine Bacteria RARE (NEGATIVE) 07/25/19 07/25/19 07/25/19 Range/Units 05:47 06:30 06:30 WBC 7.58 (4.0-11.0) K/uL RBC 4.26 L (4.50-5.90) M/uL Hgb 13.5 (13.0-17.0) g/dL Hct 37.8 L (38.0-50.0) % MCV 88.7 (80.0-98.0) fL MCH 31.7 (27.0-32.0) pg MCHC 35.7 (31.0-37.0) g/dL RDW Std Deviation 45.6 (28.0-62.0) fl RDW Coeff of Mukesh 14 (11.0-15.0) % Plt Count 88 L (150-400) K/uL MPV 12.00 (7.40-12.00) fL Neut % (Auto) (48.0-80.0) % Lymph % (Auto) (16.0-40.0) % Mingo % (Auto) (0.0-15.0) % Eos % (Auto) (0.0-7.0) % Baso % (Auto) (0.0-1.5) % Neut # (Auto) (1.4-5.7) K/uL Lymph # (Auto) (0.6-2.4) K/uL Mingo # (Auto) (0.0-0.8) K/uL Eos # (Auto) (0.0-0.7) K/uL Baso # (Auto) (0.0-0.1) K/uL Nucleated RBC % 0.0 /100WBC Nucleated RBCs # 0 K/uL INR Sodium (136-148) mmol/L Potassium (3.5-5.1) mmol/L Chloride (98-107) mmol/L Carbon Dioxide (21.0-32.0) mmol/L BUN (7.0-18.0) mg/dL Creatinine (0.8-1.3) mg/dL Est Cr Clr Drug Dosing mL/min Estimated GFR (MDRD) ml/min Glucose (74-106) mg/dL POC Glucose 241 H (60-110) mg/dL Calcium (8.5-10.1) mg/dL Phosphorus (2.6-4.7) mg/dL Magnesium (1.8-2.4) mg/dL Total Bilirubin (0.2-1.0) mg/dL AST (15-37) IU/L ALT (14-63) IU/L Alkaline Phosphatase (46-116) U/L Troponin I 0.068 H* (0.000-0.056) ng/mL Total Protein (6.4-8.2) g/dL Albumin (3.4-5.0) g/dL Globulin (2.6-4.0) g/dL Albumin/Globulin Ratio (0.9-1.6) Lipase (73-393) U/L Urine Color Urine Appearance Urine pH (5.0-8.0) Ur Specific Irwin (1.001-1.035) Urine Protein (NEGATIVE) mg/dL Urine Glucose (UA) (NEGATIVE) mg/dL Urine Ketones (NEGATIVE) mg/dL Urine Occult Blood (NEGATIVE) Urine Nitrite (NEGATIVE) Urine Bilirubin (NEGATIVE) Urine Urobilinogen (<2.0) EU/dL Ur Leukocyte Esterase (NEGATIVE) Urine RBC (0-2/HPF) Urine WBC (0-5/HPF) Ur Epithelial Cells (NONE-FEW) Amorphous Sediment (NEGATIVE) Urine Bacteria (NEGATIVE) 07/25/19 Range/Units 06:30 WBC (4.0-11.0) K/uL RBC (4.50-5.90) M/uL Hgb (13.0-17.0) g/dL Hct (38.0-50.0) % MCV (80.0-98.0) fL MCH (27.0-32.0) pg MCHC (31.0-37.0) g/dL RDW Std Deviation (28.0-62.0) fl RDW Coeff of Mukesh (11.0-15.0) % Plt Count (150-400) K/uL MPV (7.40-12.00) fL Neut % (Auto) (48.0-80.0) % Lymph % (Auto) (16.0-40.0) % Mingo % (Auto) (0.0-15.0) % Eos % (Auto) (0.0-7.0) % Baso % (Auto) (0.0-1.5) % Neut # (Auto) (1.4-5.7) K/uL Lymph # (Auto) (0.6-2.4) K/uL Mingo # (Auto) (0.0-0.8) K/uL Eos # (Auto) (0.0-0.7) K/uL Baso # (Auto) (0.0-0.1) K/uL Nucleated RBC % /100WBC Nucleated RBCs # K/uL INR Sodium 139 (136-148) mmol/L Potassium 4.0 (3.5-5.1) mmol/L Chloride 103 (98-107) mmol/L Carbon Dioxide 22.8 (21.0-32.0) mmol/L BUN 23 H (7.0-18.0) mg/dL Creatinine 1.7 H (0.8-1.3) mg/dL Est Cr Clr Drug Dosing 57.99 mL/min Estimated GFR (MDRD) 41.9 ml/min Glucose 259 H (74-106) mg/dL POC Glucose (60-110) mg/dL Calcium 8.9 (8.5-10.1) mg/dL Phosphorus 4.2 (2.6-4.7) mg/dL Magnesium 1.7 L (1.8-2.4) mg/dL Total Bilirubin (0.2-1.0) mg/dL AST (15-37) IU/L ALT (14-63) IU/L Alkaline Phosphatase (46-116) U/L Troponin I (0.000-0.056) ng/mL Total Protein (6.4-8.2) g/dL Albumin (3.4-5.0) g/dL Globulin (2.6-4.0) g/dL Albumin/Globulin Ratio (0.9-1.6) Lipase (73-393) U/L Urine Color Urine Appearance Urine pH (5.0-8.0) Ur Specific Irwin (1.001-1.035) Urine Protein (NEGATIVE) mg/dL Urine Glucose (UA) (NEGATIVE) mg/dL Urine Ketones (NEGATIVE) mg/dL Urine Occult Blood (NEGATIVE) Urine Nitrite (NEGATIVE) Urine Bilirubin (NEGATIVE) Urine Urobilinogen (<2.0) EU/dL Ur Leukocyte Esterase (NEGATIVE) Urine RBC (0-2/HPF) Urine WBC (0-5/HPF) Ur Epithelial Cells (NONE-FEW) Amorphous Sediment (NEGATIVE) Urine Bacteria (NEGATIVE) Result Diagrams: 07/25/19 06:30 07/25/19 06:30 *Q Meaningful Use (ADM) - VTE Risk Assess *Q Each Risk Factor Represents 1 Point: Age 41 - 59 years Total Score 1 Point Risk Factors: 1 - Problem List (1) Ureteral stone SNOMED Code(s): 94102449 ICD Code: N20.1 - CALCULUS OF URETER Status: Acute Current Visit: Yes (2) Abdominal pain with vomiting SNOMED Code(s): 05436184 ICD Code: R10.9 - UNSPECIFIED ABDOMINAL PAIN; R11.10 - VOMITING, UNSPECIFIED Status: Acute Current Visit: No (3) Chest pain SNOMED Code(s): 47038895 ICD Code: R07.9 - CHEST PAIN, UNSPECIFIED Status: Acute Current Visit: No Qualifiers: Chest pain type: unspecified Qualified Code(s): R07.9 - Chest pain, unspecified (4) Diabetes SNOMED Code(s): 20247620 ICD Code: E11.9 - TYPE 2 DIABETES MELLITUS WITHOUT COMPLICATIONS Status: Acute Current Visit: No (5) Elevated troponin SNOMED Code(s): 006755043, 418416701, 237046453 ICD Code: R74.8 - ABNORMAL LEVELS OF OTHER SERUM ENZYMES Status: Acute Current Visit: No (6) Hypertension SNOMED Code(s): 76274092 ICD Code: I10 - ESSENTIAL (PRIMARY) HYPERTENSION Status: Acute Current Visit: No (7) Nephrolithiasis SNOMED Code(s): 86798489 ICD Code: N20.0 - CALCULUS OF KIDNEY Status: Acute Current Visit: No Problem List Initiated/Reviewed/Updated: Yes Orders Last 24hrs: Active Orders 24 hr Category Date Time Status Admission Status [Patient Status] [ADT] Stat ADT 07/25/19 01:49 Active Blood Glucose Check, Bedside [RC] Q6HR Care 07/25/19 06:00 Active EKG 12 Lead [EKG Documentation Completion] [RC] STAT Care 07/25/19 01:18 Active Telemetry Monitoring [Cardiac Monitoring] [RC] . Care 07/25/19 02:10 Active DIRECTED Up ad Gemini [RC] ASDIRECTED Care 07/25/19 03:31 Active Vital Signs [RC] Q4H Care 07/25/19 03:31 Active Nothing Per Oral Diet [DIET] Diet 07/25/19 Breakfast Active CULTURE URINE [RM] Stat Lab 07/25/19 00:00 Received Insulin Aspart [NovoLOG] Med 07/25/19 06:00 Active See Protocol SUBCUT Q6H Morphine Med 07/25/19 04:28 Active 4 mg IVPUSH Q4H PRN Sodium Chloride 0.9% [Normal Saline] 1,000 ml Med 07/25/19 03:45 Active IV ASDIRECTED Sodium Chloride 0.9% [Saline Flush] Med 07/24/19 21:48 Active 10 ml FLUSH ASDIRECTED PRN Sodium Chloride 0.9% [Saline Flush] Med 07/24/19 21:48 Active 2.5 ml FLUSH ASDIRECTED PRN Tamsulosin [Flomax] Med 07/25/19 09:00 Active 0.4 mg PO DAILY atorvaSTATin [Lipitor] Med 07/25/19 21:00 Active 10 mg PO BEDTIME carvediloL [Coreg] Med 07/25/19 09:00 Active 3.125 mg PO DAILY traMADol [Ultram] Med 07/25/19 04:28 Active 50 mg PO Q6H PRN Saline Lock Insert [OM.PC] Stat Oth 07/24/19 21:48 Ordered Medication Orders Atorvastatin Calcium (Lipitor) 10 mg PO BEDTIME [facility] Carvedilol (Coreg) 3.125 mg PO DAILY [facility] Last Admin: 07/25/19 09:28 Dose: 3.125 mg Sodium Chloride (Normal Saline) 1,000 mls @ 125 mls/hr IV ASDIRECTED [facility] Last Admin: 07/25/19 06:39 Dose: 125 mls/hr Infusion: 07/25/19 06:39 Dose: 125 mls/hr Admin: 07/25/19 03:47 Dose: 125 mls/hr Insulin Aspart (Novolog) 0 unit SUBCUT Q6H [facility]; Protocol Last Admin: 07/25/19 06:06 Dose: 2 units Morphine Sulfate (Morphine) 4 mg IVPUSH Q4H PRN PRN Reason: Pain Last Admin: 07/25/19 09:31 Dose: 4 mg Admin: 07/25/19 05:31 Dose: 4 mg Sodium Chloride (Saline Flush) 10 ml FLUSH ASDIRECTED PRN PRN Reason: Keep Vein Open Sodium Chloride (Saline Flush) 2.5 ml FLUSH ASDIRECTED PRN PRN Reason: Keep Vein Open Tamsulosin HCl (Flomax) 0.4 mg PO DAILY [facility] Last Admin: 07/25/19 09:29 Dose: 0.4 mg Tramadol HCl (Ultram) 50 mg PO Q6H PRN PRN Reason: Pain Last Admin: 07/25/19 04:55 Dose: 50 mg Assessment/Plan Comment:: 58 y/o M comes in with chest pain and groin pain Troponin were slightly high but trended flat, likely type 2 leak EKG unremarkable No chest pain over night cont ASA cont Morphine for pain control Urology consulted for Uropathy Cont IV fluids cont Flomax monitor creatine closely cont to strain urine
[2019-07-25] MEDS ORDERED: Magnesium Sulfate/Water 2 GM in Premix Bag 1 BAG IV ONE (10:19)
[2019-07-25] MEDS: Aluminum Hydroxide/Magnesium Hydroxide/Simethicone Susp 30 ML Cup PO PRN ×2 (11:18→20:15)
[2019-07-25] MEDS: Pantoprazole 40 MG in Sodium Chloride 0.9% 10 ML IV SCH (11:18)
[2019-07-25] MEDS ORDERED: Magnesium Oxide 400 MG Tab PO ONE (13:36)
[2019-07-25] MEDS ORDERED: Clopidogrel 75 MG Tab PO SCH (13:45)
[2019-07-25] MEDS: Aspirin 81 MG Tab.Chew PO SCH (14:11)
[2019-07-25] MEDS: Furosemide 20 MG Tab PO SCH (14:13)
[2019-07-25] MEDS: atorvaSTATin 10 MG Tab PO SCH (20:06)
[2019-07-25] MEDS ORDERED: amLODIPine 5 MG Tab PO ONE (21:14)
[2019-07-26] MEDS: Morphine 4 MG/ML Syringe IVPUSH PRN ×4 (01:10→08:45)
[2019-07-26] MEDS ORDERED: Labetalol 100 MG/20 ML MDV IVPUSH ONE (04:37)
[2019-07-26] MEDS: Acetaminophen/HYDROcodone 325-5 MG Tab PO SCH ×2 (04:48→13:28)
[2019-07-26] MEDS: amLODIPine 5 MG Tab PO SCH ×2 (04:56→09:04)
[2019-07-26 06:20] LABS: CARBON DIOXIDE,CO2 23.5 mmol/L (21.0-32.0); POTASSIUM,K 4.2 mmol/L (3.5-5.1)
[2019-07-26] MEDS: traMADol 50 MG Tab PO PRN (06:38)
[2019-07-26] MEDS: Insulin Aspart 100 Units/ML 3 ML Pen SUBCUT SCH ×3 (06:39→17:37)
[2019-07-26] MEDS: Sodium Chloride 0.9% 1,000 ML IV SCH ×2 (07:05→14:50)
[2019-07-26] MEDS ORDERED: Naloxone 0.4 MG/ML Syringe IVPUSH PRN ×2 (08:27→08:32)
[2019-07-26] MEDS ORDERED: Omeprazole 20 MG Cap.CR PO SCH (09:00)
[2019-07-26] MEDS ORDERED: amLODIPine 5 MG Tab PO SCH (09:00)
[2019-07-26] MEDS: Pantoprazole 40 MG in Sodium Chloride 0.9% 10 ML IV SCH (09:00)
[2019-07-26] MEDS: Carvedilol 3.125 MG Tab PO SCH ×2 (09:04→22:03)
[2019-07-26] MEDS: Furosemide 20 MG Tab PO SCH (09:05)
[2019-07-26] MEDS: Tamsulosin 0.4 MG Cap.ER PO SCH (09:05)
[2019-07-26] MEDS: Spironolactone 25 MG Tab PO SCH (09:05)
[2019-07-26] MEDS: Aspirin 81 MG Tab.Chew PO SCH (09:05)
--- NOTE | 2019-07-26 09:21 | PCM.PN ---
- General Info Date of Service: 07/26/19 Admission Dx/Problem (Free Text): Admission Diagnosis/Problem Admission Diagnosis/Problem Ureteral stone Subjective Update: Having significant pain this morning, no chest pain or SOB. Reports pain is IN R mid abdominal and shoots to the back. No bloody urine. No stone noted in urine yet. Very frustrated with pain control. Functional Status: Reports: Ambulating, Urinating. Denies: Pain Controlled, Tolerating Diet - Review of Systems General: Reports: No Symptoms. Denies: Fever, Fatigue Pulmonary: Reports: No Symptoms. Denies: Shortness of Breath Cardiovascular: Reports: No Symptoms. Denies: Chest Pain Gastrointestinal: Reports: Abdominal Pain, Decreased Appetite, Nausea Genitourinary: Reports: Flank Pain Musculoskeletal: Reports: No Symptoms Skin: Reports: No Symptoms Neurological: Reports: No Symptoms Psychiatric: Reports: No Symptoms - Patient Data Vitals - Most Recent: Last Vital Signs Temp 98.1 F 07/26/19 09:00 Pulse 86 07/26/19 09:04 Resp 14 07/26/19 09:00 BP 141/84 H 07/26/19 09:04 Pulse Ox 94 L 07/26/19 09:00 Weight - Most Recent: 105.2 kg I&O - Last 24 Hours: Intake & Output 07/25/19 07/26/19 07/26/19 22:59 06:59 14:59 Intake Total 1607 2332 Output Total 500 1590 Balance 1107 742 Lab Results Last 24 Hours: Laboratory Results - last 24 hr 07/25/19 07/25/19 07/25/19 Range/Units 12:15 17:09 23:36 WBC (4.0-11.0) K/uL RBC (4.50-5.90) M/uL Hgb (13.0-17.0) g/dL Hct (38.0-50.0) % MCV (80.0-98.0) fL MCH (27.0-32.0) pg MCHC (31.0-37.0) g/dL RDW Std Deviation (28.0-62.0) fl RDW Coeff of Mukesh (11.0-15.0) % Plt Count (150-400) K/uL MPV (7.40-12.00) fL Neut % (Auto) (48.0-80.0) % Lymph % (Auto) (16.0-40.0) % Grand % (Auto) (0.0-15.0) % Eos % (Auto) (0.0-7.0) % Baso % (Auto) (0.0-1.5) % Neut # (Auto) (1.4-5.7) K/uL Lymph # (Auto) (0.6-2.4) K/uL Grand # (Auto) (0.0-0.8) K/uL Eos # (Auto) (0.0-0.7) K/uL Baso # (Auto) (0.0-0.1) K/uL Nucleated RBC % /100WBC Nucleated RBCs # K/uL Sodium (136-148) mmol/L Potassium (3.5-5.1) mmol/L Chloride (98-107) mmol/L Carbon Dioxide (21.0-32.0) mmol/L BUN (7.0-18.0) mg/dL Creatinine (0.8-1.3) mg/dL Est Cr Clr Drug Dosing mL/min Estimated GFR (MDRD) ml/min Glucose (74-106) mg/dL POC Glucose 177 H 163 H 200 H (60-110) mg/dL Calcium (8.5-10.1) mg/dL Phosphorus (2.6-4.7) mg/dL Magnesium (1.8-2.4) mg/dL 07/26/19 07/26/19 07/26/19 Range/Units 05:40 05:40 06:07 WBC 9.01 (4.0-11.0) K/uL RBC 4.51 (4.50-5.90) M/uL Hgb 14.3 (13.0-17.0) g/dL Hct 39.9 (38.0-50.0) % MCV 88.5 (80.0-98.0) fL MCH 31.7 (27.0-32.0) pg MCHC 35.8 (31.0-37.0) g/dL RDW Std Deviation 45.5 (28.0-62.0) fl RDW Coeff of Mukesh 14 (11.0-15.0) % Plt Count 85 L (150-400) K/uL MPV 11.50 (7.40-12.00) fL Neut % (Auto) 74.2 (48.0-80.0) % Lymph % (Auto) 15.2 L (16.0-40.0) % Grand % (Auto) 9.3 (0.0-15.0) % Eos % (Auto) 1.2 (0.0-7.0) % Baso % (Auto) 0.1 (0.0-1.5) % Neut # (Auto) 6.7 H (1.4-5.7) K/uL Lymph # (Auto) 1.4 (0.6-2.4) K/uL Grand # (Auto) 0.8 (0.0-0.8) K/uL Eos # (Auto) 0.1 (0.0-0.7) K/uL Baso # (Auto) 0.0 (0.0-0.1) K/uL Nucleated RBC % 0.0 /100WBC Nucleated RBCs # 0 K/uL Sodium 136 (136-148) mmol/L Potassium 4.2 (3.5-5.1) mmol/L Chloride 100 (98-107) mmol/L Carbon Dioxide 23.5 (21.0-32.0) mmol/L BUN 20 H (7.0-18.0) mg/dL Creatinine 1.8 H (0.8-1.3) mg/dL Est Cr Clr Drug Dosing 54.77 mL/min Estimated GFR (MDRD) 39.2 ml/min Glucose 249 H (74-106) mg/dL POC Glucose 223 H (60-110) mg/dL Calcium 8.8 (8.5-10.1) mg/dL Phosphorus 3.3 (2.6-4.7) mg/dL Magnesium 2.1 (1.8-2.4) mg/dL Med Orders - Current: Current Medications Hydrocodone Bitart/Acetaminophen ([place] 325-5 Mg) 1 tab PO Q8H [facility] Last Admin: 07/26/19 04:48 Dose: 1 tab Al Hydroxide/Mg Hydroxide (Mag-Al Plus) 30 ml PO Q4H PRN PRN Reason: Heartburn Last Admin: 07/25/19 20:15 Dose: 30 ml Amlodipine Besylate (Norvasc) 10 mg PO DAILY [facility] Last Admin: 07/26/19 09:04 Dose: 10 mg Aspirin (Aspirin) 81 mg PO DAILY [facility] Last Admin: 07/26/19 09:05 Dose: 81 mg Atorvastatin Calcium (Lipitor) 10 mg PO BEDTIME [facility] Last Admin: 07/25/19 20:06 Dose: 10 mg Carvedilol (Coreg) 3.125 mg PO DAILY [facility] Last Admin: 07/26/19 09:04 Dose: 3.125 mg Furosemide (Lasix) 40 mg PO DAILY [facility] Last Admin: 07/26/19 09:05 Dose: 40 mg Sodium Chloride (Normal Saline) 1,000 mls @ 125 mls/hr IV ASDIRECTED [facility] Last Admin: 07/26/19 07:05 Dose: 125 mls/hr Pantoprazole Sodium 40 mg/ (Sodium Chloride) 10 mls @ 300 mls/hr IV DAILY [facility] Last Admin: 07/26/19 09:00 Dose: 300 mls/hr Insulin Aspart (Novolog) 0 unit SUBCUT Q6H [facility]; Protocol Last Admin: 07/26/19 06:39 Dose: 2 units Morphine Sulfate (Morphine) 4 mg IVPUSH Q2H PRN PRN Reason: Pain Last Admin: 07/26/19 08:45 Dose: 4 mg Morphine Sulfate (Morphine Environmental Test Technician 30 Mg In 30 Ml) 0 mg IV ASDIRECTED [facility]; Protocol Naloxone HCl (Narcan) 0.04 mg IVPUSH Q3M PRN PRN Reason: Respiratory Depression Nitroglycerin (Nitro-Dur 0.2 Mg/Hr) 0 mg TRDERM DAILY [facility] Sodium Chloride (Saline Flush) 10 ml FLUSH ASDIRECTED PRN PRN Reason: Keep Vein Open Sodium Chloride (Saline Flush) 2.5 ml FLUSH ASDIRECTED PRN PRN Reason: Keep Vein Open Spironolactone (Aldactone) 25 mg PO DAILY [facility] Last Admin: 07/26/19 09:05 Dose: 25 mg Tamsulosin HCl (Flomax) 0.4 mg PO DAILY [facility] Last Admin: 07/26/19 09:05 Dose: 0.4 mg Tramadol HCl (Ultram) 50 mg PO Q6H PRN PRN Reason: Pain Last Admin: 07/26/19 06:38 Dose: 50 mg Discontinued Medications Amlodipine Besylate (Norvasc) 5 mg PO DAILY [facility] Amlodipine Besylate (Norvasc) 10 mg PO ONETIME ONE Stop: 07/25/19 21:15 Last Admin: 07/25/19 21:46 Dose: 10 mg Aspirin (Aspirin) 324 mg PO ONETIME ONE Stop: 07/24/19 22:59 Last Admin: 07/24/19 23:06 Dose: 324 mg Clopidogrel Bisulfate (Plavix) 75 mg PO DAILY [facility] Last Admin: 07/25/19 15:32 Dose: Not Given Al Hydroxide/Mg Hydroxide 15 ml/ Metoclopramide HCl 5 mg/Lidocaine HCl 5 ml 0 ml PO ONETIME ONE Stop: 07/24/19 22:21 Last Admin: 07/24/19 22:39 Dose: 1 each Enalaprilat (Vasotec Iv) 1.25 mg IVPUSH ONETIME ONE Stop: 07/24/19 22:00 Last Admin: 07/24/19 22:42 Dose: 1.25 mg Hydromorphone HCl (Dilaudid) 1 mg IVPUSH Q6H PRN PRN Reason: Pain Last Admin: 07/25/19 03:42 Dose: 1 mg Sodium Chloride (Normal Saline) 1,000 mls @ 125 mls/hr IV STAT [facility] Last Admin: 07/24/19 22:16 Dose: 125 mls/hr Pantoprazole Sodium 80 mg/ (Sodium Chloride) 20 mls @ 420 mls/hr IVPUSH ONETIME ONE Stop: 07/24/19 22:09 Last Admin: 07/24/19 22:20 Dose: 420 mls/hr Ceftriaxone Sodium/Dextrose 1 (gm/ Premix) 50 mls @ 100 mls/hr IV ONETIME ONE Stop: 07/25/19 02:08 Last Admin: 07/25/19 02:04 Dose: 100 mls/hr Magnesium Sulfate 2 gm/ Premix 50 mls @ 50 mls/hr IV ONETIME ONE Stop: 07/25/19 11:18 Last Admin: 07/25/19 11:19 Dose: 50 mls/hr Labetalol HCl (Normodyne) 10 mg IVPUSH ONETIME ONE; Protocol Stop: 07/26/19 04:38 Last Admin: 07/26/19 04:49 Dose: 10 mg Magnesium Oxide (Magnesium Oxide) 800 mg PO ONETIME ONE Stop: 07/25/19 13:37 Last Admin: 07/25/19 14:14 Dose: 800 mg Metoprolol Tartrate (Lopressor) 5 mg IVPUSH Q5M [facility] Stop: 07/24/19 23:11 Last Admin: 07/24/19 23:18 Dose: 5 mg Morphine Sulfate (Morphine) 2 mg IVPUSH ONETIME ONE Stop: 07/24/19 22:52 Last Admin: 07/24/19 22:53 Dose: Not Given Morphine Sulfate (Morphine) 2 mg IVPUSH ONETIME ONE Stop: 07/24/19 22:39 Last Admin: 07/24/19 22:52 Dose: 2 mg Morphine Sulfate (Morphine) Confirm Administered Dose 2 mg .ROUTE .STK-MED ONE Stop: 07/24/19 22:52 Last Admin: 07/24/19 23:11 Dose: Not Given Morphine Sulfate (Morphine) 4 mg IVPUSH ONETIME ONE Stop: 07/25/19 01:38 Last Admin: 07/25/19 01:46 Dose: 4 mg Morphine Sulfate (Morphine) 4 mg IVPUSH Q4H PRN PRN Reason: Pain Last Admin: 07/25/19 14:03 Dose: 4 mg Morphine Sulfate (Morphine) 4 mg IVPUSH Q3H PRN PRN Reason: Pain Last Admin: 07/25/19 20:11 Dose: 4 mg Naloxone HCl (Narcan) 0.4 mg IVPUSH Q3M PRN PRN Reason: Respiratory Depression Omeprazole (Omeprazole) 40 mg PO ACBREAKFAST [facility] Ondansetron HCl (Zofran) 8 mg IVPUSH ONETIME ONE Stop: 07/24/19 22:08 Last Admin: 07/24/19 22:17 Dose: 8 mg Ondansetron HCl (Zofran) 8 mg IVPUSH ONETIME ONE Stop: 07/24/19 22:10 Last Admin: 07/24/19 22:46 Dose: Not Given Ondansetron HCl (Zofran) Confirm Administered Dose 8 mg .ROUTE .STK-MED ONE Stop: 07/24/19 22:09 Last Admin: 07/24/19 22:43 Dose: Not Given Ondansetron HCl (Zofran) 4 mg IVPUSH ONETIME ONE Stop: 07/25/19 01:39 Last Admin: 07/25/19 01:43 Dose: 4 mg - Exam General: Alert, Oriented, Cooperative, Moderate Distress (abdominal pain) Lungs: Clear to Auscultation, Normal Respiratory Effort Cardiovascular: Regular Rate, Regular Rhythm GI/Abdominal Exam: Normal Bowel Sounds, Soft, Tender (R mid to flank) Extremities: Normal Inspection, Normal Range of Motion, Non-Tender, No Pedal Edema Wound/Incisions: Healing Well Neurological: No New Focal Deficit Psy/Mental Status: Alert, Normal Affect, Normal Mood - Problem List & Annotations (1) Ureteral stone SNOMED Code(s): 87574929 Code(s): N20.1 - CALCULUS OF URETER Status: Acute Current Visit: Yes (2) Vomiting SNOMED Code(s): 618376385 Code(s): R11.10 - VOMITING, UNSPECIFIED Status: Acute Current Visit: Yes Qualifiers: Vomiting type: unspecified Vomiting Intractability: non-intractable Nausea presence: with nausea Qualified Code(s): R11.2 - Nausea with vomiting, unspecified (3) Constipation SNOMED Code(s): 60696716 Code(s): K59.00 - CONSTIPATION, UNSPECIFIED Status: Acute Current Visit: No Qualifiers: Constipation type: unspecified constipation type Qualified Code(s): K59.00 - Constipation, unspecified (4) Diabetes SNOMED Code(s): 20693506 Code(s): E11.9 - TYPE 2 DIABETES MELLITUS WITHOUT COMPLICATIONS Status: Chronic Current Visit: No Qualifiers: Diabetes mellitus type: type 2 Diabetes mellitus intermediate designer insulin use: without retirement use (5) Elevated troponin SNOMED Code(s): 060498138, 096706219, 571647738 Code(s): R74.8 - ABNORMAL LEVELS OF OTHER SERUM ENZYMES Status: Acute Current Visit: No (6) Hypertension SNOMED Code(s): 98912645 Code(s): I10 - ESSENTIAL (PRIMARY) HYPERTENSION Status: Chronic Current Visit: No Qualifiers: Hypertension type: essential hypertension Qualified Code(s): I10 - Essential (primary) hypertension (7) Systolic heart failure SNOMED Code(s): 865499727 Code(s): I50.20 - UNSPECIFIED SYSTOLIC (CONGESTIVE) HEART FAILURE Status: Chronic Current Visit: Yes Qualifiers: Heart failure chronicity: chronic Qualified Code(s): I50.22 - Chronic systolic (congestive) heart failure - Problem List Review Problem List Initiated/Reviewed/Updated: Yes - My Orders Last 24 Hours: My Active Orders 07/26/19 08:28 TRACING LATHE SET UP OPERATOR Record [RC] Q4H 07/26/19 08:30 Morphine PF [Morphine TRACING LATHE SET UP OPERATOR 30 MG in 30 ML] See Protocol IV ASDIRECTED 07/26/19 08:32 Naloxone [Narcan] 0.04 mg IVPUSH Q3M PRN 07/26/19 Breakfast ADA Diabetic [[place] [employer] Diet] [DIET] - Plan Plan:: This 58 year old male admitted with R abdominal pain, found to ureteral stone. 1. Ureteral stone: 5 mm in R UPJ. Pain uncontrolled overnight on oral and IV PRN. Wiill Start Morphine TRACING LATHE SET UP OPERATOR this morning. Dr Landers contacted and will see patient today. Continue Flomax. Strain all urine. BUN Cr stable. 2. Elevated troponin: stable, no increase and no chest pain. likely type 2 leak. CAD stable. EKG normal. 3. CAD: Continue ASA and Plavix. Continue Coreg 4. DM Type 2: Novolog SSI with meals. Monitor BS closely, hold all oral medications. 5. HTN: Elevated with pain, better now that pain is controlled. Continue Lisinopril and Amlodipine. 6. Systolic CHF: Stable, chronic. Conitinue Lasix, Aldactone. Hold off on IVFs for now, up 2 L in 24 hours. Daily weights and strict I.O. Last EF 35% on ECHO 05/25/2019 VTE prophylaxis: SCDs, hold for now as may go to OR in am. Dispo: 1-2 days pending improvement.
[2019-07-26] MEDS: Morphine PF 30 MG/30 ML PCA Vial IV SCH ×2 (09:27→22:04)
[2019-07-26] MEDS: Nitroglycerin 0.2 MG/HR Transdermal Patch TRDERM SCH (09:51)
[2019-07-26] MEDS: Docusate Sodium 100 MG Cap PO PRN (11:13)
[2019-07-26] MEDS ORDERED: Sodium Chloride 0.9% 1,000 ML IV SCH ×2 (12:37→12:45)
[2019-07-26] MEDS: Carvedilol 3.125 MG Tab PO ONE ×2 (13:24→13:47)
[2019-07-26] MEDS: Aluminum Hydroxide/Magnesium Hydroxide/Simethicone Susp 30 ML Cup PO PRN (13:25)
[2019-07-26] MEDS: Lisinopril 10 MG Tab PO SCH ×2 (13:25→13:48)
[2019-07-26] MEDS ORDERED: Acetaminophen/HYDROcodone 325-5 MG Tab PO PRN (13:53)
[2019-07-26] MEDS ORDERED: Polyethylene Glycol 3350 Powder 17 GM Packet PO PRN (16:36)
[2019-07-26] MEDS ORDERED: Bisacodyl 10 MG Supp RECTAL PRN (16:36)
[2019-07-26] MEDS: atorvaSTATin 10 MG Tab PO SCH (22:02)
[2019-07-27] MEDS: Insulin Aspart 100 Units/ML 3 ML Pen SUBCUT SCH ×4 (00:20→17:16)
[2019-07-27 05:47] LABS: BLOOD UREA NITROGEN,BUN 17 mg/dL (7.0-18.0); CARBON DIOXIDE,CO2 28.8 mmol/L (21.0-32.0); CHLORIDE,CL 105 mmol/L (98-107); GLUCOSE RANDOM 200 mg/dL (74-106); POTASSIUM,K 3.9 mmol/L (3.5-5.1); SODIUM,NA 139 mmol/L (136-148)
[2019-07-27] MEDS ORDERED: Lactated Ringers 1,000 ML IV SCH (06:00)
--- NOTE | 2019-07-27 07:54 | PCM.PN ---
- General Info Date of Service: 07/27/19 Admission Dx/Problem (Free Text): Admission Diagnosis/Problem Admission Diagnosis/Problem Ureteral stone Subjective Update: Pain is much better today with BRANCH ASSOCIATE. Eager for procedure this afternoon with Dr Landers. No chest pain. Feeling a little constipated. NO other complaints. Functional Status: Reports: Pain Controlled, Ambulating, Urinating - Review of Systems General: Reports: No Symptoms Pulmonary: Reports: No Symptoms. Denies: Shortness of Breath Cardiovascular: Reports: No Symptoms. Denies: Chest Pain Gastrointestinal: Reports: Abdominal Pain (R lower abdominal pain, improved). Denies: Nausea, Vomiting Genitourinary: Reports: No Symptoms. Denies: Dysuria, Frequency Skin: Reports: No Symptoms Neurological: Reports: No Symptoms Psychiatric: Reports: No Symptoms - Patient Data Vitals - Most Recent: Last Vital Signs Temp 99.0 F 07/27/19 04:00 Pulse 83 07/27/19 04:00 Resp 16 07/27/19 04:00 BP 117/74 07/27/19 04:00 Pulse Ox 93 L 07/27/19 04:00 Weight - Most Recent: 104.2 kg I&O - Last 24 Hours: Intake & Output 07/26/19 07/27/19 07/27/19 22:59 06:59 14:59 Intake Total 1720 946 Output Total 520 250 Balance 1200 696 Lab Results Last 24 Hours: Laboratory Results - last 24 hr 07/26/19 07/26/19 07/27/19 Range/Units 13:22 16:36 00:15 WBC (4.0-11.0) K/uL RBC (4.50-5.90) M/uL Hgb (13.0-17.0) g/dL Hct (38.0-50.0) % MCV (80.0-98.0) fL MCH (27.0-32.0) pg MCHC (31.0-37.0) g/dL RDW Std Deviation (28.0-62.0) fl RDW Coeff of Mukesh (11.0-15.0) % Plt Count (150-400) K/uL MPV (7.40-12.00) fL Neut % (Auto) (48.0-80.0) % Lymph % (Auto) (16.0-40.0) % [place] % (Auto) (0.0-15.0) % Eos % (Auto) (0.0-7.0) % Baso % (Auto) (0.0-1.5) % Neut # (Auto) (1.4-5.7) K/uL Lymph # (Auto) (0.6-2.4) K/uL Gilpin # (Auto) (0.0-0.8) K/uL Eos # (Auto) (0.0-0.7) K/uL Baso # (Auto) (0.0-0.1) K/uL Nucleated RBC % /100WBC Nucleated RBCs # K/uL Sodium (136-148) mmol/L Potassium (3.5-5.1) mmol/L Chloride (98-107) mmol/L Carbon Dioxide (21.0-32.0) mmol/L BUN (7.0-18.0) mg/dL Creatinine (0.8-1.3) mg/dL Est Cr Clr Drug Dosing mL/min Estimated GFR (MDRD) ml/min Glucose (74-106) mg/dL POC Glucose 218 H 227 H 206 H (60-110) mg/dL Calcium (8.5-10.1) mg/dL 07/27/19 07/27/19 07/27/19 Range/Units 05:10 05:10 06:18 WBC 5.20 (4.0-11.0) K/uL RBC 3.71 L (4.50-5.90) M/uL Hgb 11.7 L (13.0-17.0) g/dL Hct 33.3 L (38.0-50.0) % MCV 89.8 (80.0-98.0) fL MCH 31.5 (27.0-32.0) pg MCHC 35.1 (31.0-37.0) g/dL RDW Std Deviation 46.1 (28.0-62.0) fl RDW Coeff of Mukesh 14 (11.0-15.0) % Plt Count 83 L (150-400) K/uL MPV 11.70 (7.40-12.00) fL Neut % (Auto) 49.0 (48.0-80.0) % Lymph % (Auto) 32.9 (16.0-40.0) % [place] % (Auto) 14.4 (0.0-15.0) % Eos % (Auto) 3.3 (0.0-7.0) % Baso % (Auto) 0.4 (0.0-1.5) % Neut # (Auto) 2.6 (1.4-5.7) K/uL Lymph # (Auto) 1.7 (0.6-2.4) K/uL Gilpin # (Auto) 0.8 (0.0-0.8) K/uL Eos # (Auto) 0.2 (0.0-0.7) K/uL Baso # (Auto) 0.0 (0.0-0.1) K/uL Nucleated RBC % 0.0 /100WBC Nucleated RBCs # 0 K/uL Sodium 139 (136-148) mmol/L Potassium 3.9 (3.5-5.1) mmol/L Chloride 105 (98-107) mmol/L Carbon Dioxide 28.8 (21.0-32.0) mmol/L BUN 17 (7.0-18.0) mg/dL Creatinine 1.0 (0.8-1.3) mg/dL Est Cr Clr Drug Dosing 98.58 mL/min Estimated GFR (MDRD) > 60.0 ml/min Glucose 200 H (74-106) mg/dL POC Glucose 266 H (60-110) mg/dL Calcium 8.1 L (8.5-10.1) mg/dL Med Orders - Current: Current Medications Hydrocodone Bitart/Acetaminophen (Adrian 325-5 Mg) 1 tab PO Q6H PRN PRN Reason: Pain Al Hydroxide/Mg Hydroxide (Mag-Al Plus) 30 ml PO Q4H PRN PRN Reason: Heartburn Last Admin: 07/26/19 13:25 Dose: 30 ml Amlodipine Besylate (Norvasc) 10 mg PO DAILY [facility] Last Admin: 07/26/19 09:04 Dose: 10 mg Aspirin (Aspirin) 81 mg PO DAILY [facility] Last Admin: 07/26/19 09:05 Dose: 81 mg Atorvastatin Calcium (Lipitor) 10 mg PO BEDTIME [facility] Last Admin: 07/26/19 22:02 Dose: 10 mg Bisacodyl (Dulcolax) 10 mg RECTAL DAILY PRN PRN Reason: Constipation Carvedilol (Coreg) 6.25 mg PO BID [facility] Last Admin: 07/26/19 22:03 Dose: 6.25 mg Clopidogrel Bisulfate (Plavix) 75 mg PO DAILY [facility] Docusate Sodium (Colace) 100 mg PO BID PRN PRN Reason: Constipation Last Admin: 07/26/19 11:13 Dose: 100 mg Furosemide (Lasix) 40 mg PO DAILY [facility] Last Admin: 07/26/19 09:05 Dose: 40 mg Pantoprazole Sodium 40 mg/ (Sodium Chloride) 10 mls @ 300 mls/hr IV DAILY [facility] Last Admin: 07/26/19 09:00 Dose: 300 mls/hr Sodium Chloride (Normal Saline) 1,000 mls @ 15 mls/hr IV Q24H [facility] Last Admin: 07/26/19 14:50 Dose: 15 mls/hr Lactated Ringer's (Ringers, Lactated) 1,000 mls @ 75 mls/hr IV ASDIRECTED [facility] Last Admin: 07/27/19 06:17 Dose: 75 mls/hr Insulin Aspart (Novolog) 0 unit SUBCUT Q6H [facility]; Protocol Last Admin: 07/27/19 06:28 Dose: 3 units Lisinopril (Prinivil) 10 mg PO DAILY [facility] Last Admin: 07/26/19 13:48 Dose: Not Given Morphine Sulfate (Morphine) 4 mg IVPUSH Q2H PRN PRN Reason: Pain Last Admin: 07/26/19 08:45 Dose: 4 mg Morphine Sulfate (Morphine [employer] 30 Mg In 30 Ml) 0 mg IV ASDIRECTED [facility]; Protocol Last Admin: 07/26/19 22:04 Dose: 30 mg Naloxone HCl (Narcan) 0.04 mg IVPUSH Q3M PRN PRN Reason: Respiratory Depression Nitroglycerin (Nitro-Dur 0.2 Mg/Hr) 0 mg TRDERM DAILY [facility] Last Admin: 07/26/19 09:51 Dose: 0.2 mg Polyethylene Glycol (Miralax) 17 gm PO DAILY PRN PRN Reason: Constipation Last Admin: 07/26/19 17:37 Dose: 17 gm Sodium Chloride (Saline Flush) 10 ml FLUSH ASDIRECTED PRN PRN Reason: Keep Vein Open Sodium Chloride (Saline Flush) 2.5 ml FLUSH ASDIRECTED PRN PRN Reason: Keep Vein Open Spironolactone (Aldactone) 25 mg PO DAILY [facility] Last Admin: 07/26/19 09:05 Dose: 25 mg Tamsulosin HCl (Flomax) 0.4 mg PO DAILY [facility] Last Admin: 07/26/19 09:05 Dose: 0.4 mg Tramadol HCl (Ultram) 50 mg PO Q6H PRN PRN Reason: Pain Last Admin: 07/26/19 06:38 Dose: 50 mg Discontinued Medications Hydrocodone Bitart/Acetaminophen (Adrian 325-5 Mg) 1 tab PO Q8H [facility] Last Admin: 07/26/19 13:28 Dose: Not Given Amlodipine Besylate (Norvasc) 5 mg PO DAILY [facility] Amlodipine Besylate (Norvasc) 10 mg PO ONETIME ONE Stop: 07/25/19 21:15 Last Admin: 07/25/19 21:46 Dose: 10 mg Aspirin (Aspirin) 324 mg PO ONETIME ONE Stop: 07/24/19 22:59 Last Admin: 07/24/19 23:06 Dose: 324 mg Carvedilol (Coreg) 3.125 mg PO DAILY [facility] Last Admin: 07/26/19 09:04 Dose: 3.125 mg Carvedilol (Coreg) 3.125 mg PO ONETIME ONE Stop: 07/26/19 12:33 Last Admin: 07/26/19 13:47 Dose: Not Given Carvedilol (Coreg) 6.25 mg PO DAILY [facility] Clopidogrel Bisulfate (Plavix) 75 mg PO DAILY [facility] Last Admin: 07/25/19 15:32 Dose: Not Given Al Hydroxide/Mg Hydroxide 15 ml/ Metoclopramide HCl 5 mg/Lidocaine HCl 5 ml 0 ml PO ONETIME ONE Stop: 07/24/19 22:21 Last Admin: 07/24/19 22:39 Dose: 1 each Enalaprilat (Vasotec Iv) 1.25 mg IVPUSH ONETIME ONE Stop: 07/24/19 22:00 Last Admin: 07/24/19 22:42 Dose: 1.25 mg Hydromorphone HCl (Dilaudid) 1 mg IVPUSH Q6H PRN PRN Reason: Pain Last Admin: 07/25/19 03:42 Dose: 1 mg Sodium Chloride (Normal Saline) 1,000 mls @ 125 mls/hr IV STAT [facility] Last Admin: 07/24/19 22:16 Dose: 125 mls/hr Pantoprazole Sodium 80 mg/ (Sodium Chloride) 20 mls @ 420 mls/hr IVPUSH ONETIME ONE Stop: 07/24/19 22:09 Last Admin: 07/24/19 22:20 Dose: 420 mls/hr Ceftriaxone Sodium/Dextrose 1 (gm/ Premix) 50 mls @ 100 mls/hr IV ONETIME ONE Stop: 07/25/19 02:08 Last Admin: 07/25/19 02:04 Dose: 100 mls/hr Sodium Chloride (Normal Saline) 1,000 mls @ 125 mls/hr IV ASDIRECTED [facility] Last Admin: 07/26/19 07:05 Dose: 125 mls/hr Magnesium Sulfate 2 gm/ Premix 50 mls @ 50 mls/hr IV ONETIME ONE Stop: 07/25/19 11:18 Last Admin: 07/25/19 11:19 Dose: 50 mls/hr Sodium Chloride (Normal Saline) 1,000 mls @ 75 mls/hr IV ASDIRECTED [facility] Sodium Chloride (Normal Saline) 1,000 mls @ 75 mls/hr IV Q13H [facility] Labetalol HCl (Normodyne) 10 mg IVPUSH ONETIME ONE; Protocol Stop: 07/26/19 04:38 Last Admin: 07/26/19 04:49 Dose: 10 mg Magnesium Oxide (Magnesium Oxide) 800 mg PO ONETIME ONE Stop: 07/25/19 13:37 Last Admin: 07/25/19 14:14 Dose: 800 mg Metoprolol Tartrate (Lopressor) 5 mg IVPUSH Q5M [facility] Stop: 07/24/19 23:11 Last Admin: 07/24/19 23:18 Dose: 5 mg Morphine Sulfate (Morphine) 2 mg IVPUSH ONETIME ONE Stop: 07/24/19 22:52 Last Admin: 07/24/19 22:53 Dose: Not Given Morphine Sulfate (Morphine) 2 mg IVPUSH ONETIME ONE Stop: 07/24/19 22:39 Last Admin: 07/24/19 22:52 Dose: 2 mg Morphine Sulfate (Morphine) Confirm Administered Dose 2 mg .ROUTE .STK-MED ONE Stop: 07/24/19 22:52 Last Admin: 07/24/19 23:11 Dose: Not Given Morphine Sulfate (Morphine) 4 mg IVPUSH ONETIME ONE Stop: 07/25/19 01:38 Last Admin: 07/25/19 01:46 Dose: 4 mg Morphine Sulfate (Morphine) 4 mg IVPUSH Q4H PRN PRN Reason: Pain Last Admin: 07/25/19 14:03 Dose: 4 mg Morphine Sulfate (Morphine) 4 mg IVPUSH Q3H PRN PRN Reason: Pain Last Admin: 07/25/19 20:11 Dose: 4 mg Naloxone HCl (Narcan) 0.4 mg IVPUSH Q3M PRN PRN Reason: Respiratory Depression Omeprazole (Omeprazole) 40 mg PO ACBREAKFAST MIRZA Ondansetron HCl (Zofran) 8 mg IVPUSH ONETIME ONE Stop: 07/24/19 22:08 Last Admin: 07/24/19 22:17 Dose: 8 mg Ondansetron HCl (Zofran) 8 mg IVPUSH ONETIME ONE Stop: 07/24/19 22:10 Last Admin: 07/24/19 22:46 Dose: Not Given Ondansetron HCl (Zofran) Confirm Administered Dose 8 mg .ROUTE .STK-MED ONE Stop: 07/24/19 22:09 Last Admin: 07/24/19 22:43 Dose: Not Given Ondansetron HCl (Zofran) 4 mg IVPUSH ONETIME ONE Stop: 07/25/19 01:39 Last Admin: 07/25/19 01:43 Dose: 4 mg - Exam General: Alert, Oriented, Cooperative, No Acute Distress Lungs: Clear to Auscultation, Normal Respiratory Effort Cardiovascular: Regular Rate, Regular Rhythm GI/Abdominal Exam: Normal Bowel Sounds, Soft, Non-Tender Extremities: Normal Inspection, Normal Range of Motion, Non-Tender, No Pedal Edema Neurological: No New Focal Deficit Psy/Mental Status: Alert, Normal Affect, Normal Mood - Problem List & Annotations (1) Ureteral stone SNOMED Code(s): 94905534 Code(s): N20.1 - CALCULUS OF URETER Status: Acute Current Visit: Yes (2) Vomiting SNOMED Code(s): 405740287 Code(s): R11.10 - VOMITING, UNSPECIFIED Status: Acute Current Visit: Yes Qualifiers: Vomiting type: unspecified Vomiting Intractability: non-intractable Nausea presence: with nausea Qualified Code(s): R11.2 - Nausea with vomiting, unspecified (3) Constipation SNOMED Code(s): 07820737 Code(s): K59.00 - CONSTIPATION, UNSPECIFIED Status: Acute Current Visit: No Qualifiers: Constipation type: unspecified constipation type Qualified Code(s): K59.00 - Constipation, unspecified (4) Diabetes SNOMED Code(s): 18085229 Code(s): E11.9 - TYPE 2 DIABETES MELLITUS WITHOUT COMPLICATIONS Status: Chronic Current Visit: No Qualifiers: Diabetes mellitus type: type 2 Diabetes mellitus jail insulin use: without middle or intermediate school principal use (5) Elevated troponin SNOMED Code(s): 634626946, 178091697, 959296682 Code(s): R74.8 - ABNORMAL LEVELS OF OTHER SERUM ENZYMES Status: Acute Current Visit: No (6) Hypertension SNOMED Code(s): 56557208 Code(s): I10 - ESSENTIAL (PRIMARY) HYPERTENSION Status: Chronic Current Visit: No Qualifiers: Hypertension type: essential hypertension Qualified Code(s): I10 - Essential (primary) hypertension (7) Systolic heart failure SNOMED Code(s): 166181589 Code(s): I50.20 - UNSPECIFIED SYSTOLIC (CONGESTIVE) HEART FAILURE Status: Chronic Current Visit: Yes Qualifiers: Heart failure chronicity: chronic Qualified Code(s): I50.22 - Chronic systolic (congestive) heart failure - Problem List Review Problem List Initiated/Reviewed/Updated: Yes - My Orders Last 24 Hours: My Active Orders 07/26/19 08:28 [employer]CH ASSOCIATE Record [RC] Q4H 07/26/19 08:30 Morphine PF [Morphine [employer] ASSOCIATE 30 MG in 30 ML] See Protocol IV ASDIRECTED 07/26/19 08:32 Naloxone [Narcan] 0.04 mg IVPUSH Q3M PRN 07/26/19 10:29 Docusate Sodium [Colace] 100 mg PO BID PRN 07/26/19 12:32 Lisinopril [Prinivil] 10 mg PO DAILY 07/26/19 12:43 Height and Weight [RC] Q4H Intake and Output Strict [RC] Q12H Resuscitation Status Routine 07/26/19 13:53 Acetaminophen/HYDROcodone [Adrian 325-5 MG] 1 tab PO Q6H PRN 07/26/19 14:00 Sodium Chloride 0.9% [Normal Saline] 1,000 ml IV Q24H 07/26/19 16:36 Bisacodyl [Dulcolax] 10 mg RECTAL DAILY PRN Polyethylene Glycol 3350 [MiraLAX] 17 gm PO DAILY PRN 07/26/19 21:00 carvediloL [Coreg] 6.25 mg PO BID 07/27/19 09:00 Clopidogrel [Plavix] 75 mg PO DAILY - Plan Plan:: This 58 year old male admitted with R abdominal pain, found to ureteral stone. 1. Ureteral stone: 5 mm in R UPJ. 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 Dr Landers to take to OR this afternoon Continue Flomax. Strain all urine. 2. Elevated troponin: stable, no increase and no chest pain. likely type 2 leak. CAD stable. EKG normal. 3. CAD: Continue ASA and Plavix. Continue Coreg 4. DM Type 2: Novolog SSI with meals. Monitor BS closely, hold all oral medications. 5. HTN: Elevated with pain, better now that pain is controlled. Continue Lisinopril and Amlodipine. 6. Systolic CHF: Stable, chronic. Conitinue Lasix, Aldactone. Hold off on IVFs for now, up 2 L in 24 hours. Daily weights and strict I.O. Last EF 35% on ECHO 05/25/2019 VTE prophylaxis: SCDs, hold for now as may go to OR in am. Dispo: 1-2 days pending improvement. Possible DC later this evening after procedure, if OK with Dr Landers. Will assess post-operatively
[2019-07-27] MEDS ORDERED: Clopidogrel 75 MG Tab PO SCH ×2 (09:00→14:55)
[2019-07-27] MEDS ORDERED: Carvedilol 3.125 MG Tab PO SCH (09:00)
[2019-07-27] MEDS: Nitroglycerin 0.2 MG/HR Transdermal Patch TRDERM SCH (09:30)
[2019-07-27] MEDS: Pantoprazole 40 MG in Sodium Chloride 0.9% 10 ML IV SCH (10:39)
[2019-07-27] MEDS: Carvedilol 3.125 MG Tab PO SCH (10:42)
[2019-07-27] MEDS: Docusate Sodium 100 MG Cap PO PRN (10:51)
[2019-07-27] MEDS: Spironolactone 25 MG Tab PO SCH (10:56)
[2019-07-27] MEDS: Aspirin 81 MG Tab.Chew PO SCH (10:57)
[2019-07-27] MEDS: amLODIPine 5 MG Tab PO SCH (10:58)
[2019-07-27] MEDS: Furosemide 20 MG Tab PO SCH (10:58)
[2019-07-27] MEDS: Tamsulosin 0.4 MG Cap.ER PO SCH (10:58)
[2019-07-27] MEDS: Lisinopril 10 MG Tab PO SCH (10:59)
--- NOTE | 2019-07-27 12:00 | PCM.SN ---
- Free Text/Narrative Note: Anesthesia pre op evaluation Pt scheduled for ureteroscopy/ laser lithotripsy PMH: 3 drug eleuding stents placed 6 weeks ago in [place], Severe cardiomyopathy with EF of 33%, + troponin upon admission here 2 days ago Other PMH: htn-poor control-156/96 upon admission, DM2, lungCancer?, altzheimers dementia?, cannabis weekly, thrombocytopenia-83k, CKD3 with eGFR of 39 This patient is not a candidate for either elective or urgent surgery at this critical access hospital without immediate access to a cardiac seed laboratory technician
[2019-07-27] MEDS ORDERED: HYDROmorphone 2 MG Tab PO PRN (14:46)
[2019-07-27] MEDS: Sodium Chloride 0.9% 1,000 ML IV SCH (14:54)
--- NOTE | 2019-07-28 09:21 | PCM.DCSUM1 ---
Discharge Summary - Hospital Course Brief History: Patient is a 58 y/o M with PMH of CAD s/p 3 stents, HLD, HTN, Kidney stones who [facility] to chest and groin pain. In the ER patient was tachycardic, troponin 1st set was slightly high, EKG with no acute ST , t wave changes. Patient also underwent CT abdomen which showed 5mm kidney stone in right UPJ with mild to moderate uropathy. Patient was admitted for acs rule out and management of nephrolithiasis. Diagnosis: Stroke: No - Discharge Data Discharge Date: 07/27/19 Discharge Disposition: Home, Self-Care 01 Condition: Stable - Referral to Home Health Primary Care Physician: Gena Ludwig [facility] - Discharge Diagnosis/Problem(s) (1) Ureteral stone SNOMED Code(s): 78652532 ICD Code: N20.1 - CALCULUS OF URETER Status: Acute (2) Vomiting SNOMED Code(s): 232369639 ICD Code: R11.10 - VOMITING, UNSPECIFIED Status: Acute Qualifiers: Vomiting type: unspecified Vomiting Intractability: non-intractable Nausea presence: with nausea Qualified Code(s): R11.2 - Nausea with vomiting, unspecified (3) Constipation SNOMED Code(s): 39932233 ICD Code: K59.00 - CONSTIPATION, UNSPECIFIED Status: Acute Qualifiers: Constipation type: unspecified constipation type Qualified Code(s): K59.00 - Constipation, unspecified (4) Diabetes SNOMED Code(s): 19416676 ICD Code: E11.9 - TYPE 2 DIABETES MELLITUS WITHOUT COMPLICATIONS Status: Chronic Qualifiers: Diabetes mellitus type: type 2 Diabetes mellitus mcfp insulin use: without terminal gauger supervisor use (5) Elevated troponin SNOMED Code(s): 161257963, 808779479, 641863189 ICD Code: R74.8 - ABNORMAL LEVELS OF OTHER SERUM ENZYMES Status: Acute (6) Hypertension SNOMED Code(s): 31430517 ICD Code: I10 - ESSENTIAL (PRIMARY) HYPERTENSION Status: Chronic Qualifiers: Hypertension type: essential hypertension Qualified Code(s): I10 - Essential (primary) hypertension (7) Systolic heart failure SNOMED Code(s): 351099811 ICD Code: I50.20 - UNSPECIFIED SYSTOLIC (CONGESTIVE) HEART FAILURE Status: Chronic Qualifiers: Heart failure chronicity: chronic Qualified Code(s): I50.22 - Chronic systolic (congestive) heart failure - Patient Summary/Data Consults: Consultations 07/25/19 12:09 Consult to Physician [CONS] Routine - Patient Instructions Diet: Heart Healthy Diet, Diabetic Diet Activity: As Tolerated Driving: Do Not Drive Showering/Bathing: May Shower Notify Provider of: Fever, Increased Pain, Swelling and Redness, Drainage, Nausea and/or Vomiting - Discharge Plan *PRESCRIPTION DRUG MONITORING PROGRAM REVIEWED*: Not Applicable *COPY OF PRESCRIPTION DRUG MONITORING REPORT IN PATIENT JEN: Not Applicable Prescriptions/Med Rec: HYDROmorphone [Dilaudid] 2 mg PO Q6H PRN 5 Days #20 tablet PRN Reason: Pain Home Medications: Home Meds Furosemide [Lasix] 40 mg PO DAILY 05/02/19 [History] carvediloL [Carvedilol] 6.25 mg PO BID 05/02/19 [History] metFORMIN [Glucophage] 1,000 mg PO BIDMEALS 05/02/19 [History] Aspirin 81 mg PO DAILY 05/25/19 [History] atorvaSTATin Calcium [Atorvastatin Calcium] 40 mg PO BEDTIME 05/25/19 [History] SitaGLIPtin [Januvia] 50 mg PO DAILY 06/12/19 [History] Spironolactone [Aldactone] 25 mg PO DAILY 06/12/19 [History] Tamsulosin HCl [Flomax] 0.4 mg PO DAILY #14 cap.er.24h 06/22/19 [Rx] glipiZIDE [Glucotrol] 5 mg PO DAILY 06/24/19 [History] Nitroglycerin [Nitroglycerin Patch 0.2 MG/Hr] 0.2 mg TRDERM DAILY 07/25/19 [ History] amLODIPine [Norvasc] 5 mg PO DAILY 07/25/19 [History] traMADol [Ultram] 50 mg PO Q6H PRN 07/25/19 [History] Clopidogrel [Plavix] 75 mg PO DAILY 07/26/19 [History] Lisinopril 10 mg PO DAILY 07/26/19 [History] HYDROmorphone [Dilaudid] 2 mg PO Q6H PRN 5 Days #20 tablet 07/27/19 [Rx] Oxygen Therapy Mode: Room Air Patient Handouts: Kidney Stones, [id number], Hydromorphone tablets Referrals: [facility] [Primary Care Provider] - Juliette Plascencia PA [Physician Veneer Marker] - 08/02/19 10:00 am - Discharge Summary/Plan Comment DC Time >30 min.: No Discharge Summary/Plan Comment: Admitting Diagnoses: R flank pain Elevated troponin Discharge Diagnoses: 5 mm ureteral stone UPJ Other PMH: [place] with recent PCI Systolic CHF- stable Joe was admitted with flank and groin pain. He was noted to have 5 mm ureteral at the UPJ point. Dr Landers consulted, spoke with patient and arranged for surgical procedure the following day. Pain was controlled with FLASK HANDLER. He was then evaluated by anesthesiology and due to recent cardiac procedures felt he was not a candidate in our facility. Patient was told this. he was transitioned to PO dilaudid, tolerated diet and was discharged to follow up with Urology in [place]. He had chest pain on arrival, ACS was ruled out. NO EKG changes and no continued chest pain. He was continued on all his home medications. This is likely secondary leak from CHF. Troponin did not elevated, it remained stable. He is to return to the ED or clinic if concerns should arise. - Patient Data Vitals - Most Recent: Last Vital Signs Temp 98.7 F 07/27/19 16:00 Pulse 86 07/27/19 16:00 Resp 18 07/27/19 16:00 BP 137/76 07/27/19 16:00 Pulse Ox 97 07/27/19 16:00 Weight - Most Recent: 104.2 kg I&O - Last 24 hours: Intake & Output 07/27/19 07/28/19 07/28/19 22:59 06:59 14:59 Intake Total 932 Output Total 1425 Balance -493 Lab Results - Last 24 hrs: Laboratory Results - last 24 hr 07/27/19 07/27/19 Range/Units 11:42 16:27 POC Glucose 175 H 252 H (60-110) mg/dL MADELYN Results - Last 24 hrs: Microbiology 07/25/19 00:00 Urine Culture - Final Urine, Clean Catch MIXED JOO 1,000-10,000 CFU/ML Med Orders - Current: Current Medications Discontinued Medications Hydrocodone Bitart/Acetaminophen ([place] 325-5 Mg) 1 tab PO Q8H MIRZA Last Admin: 07/26/19 13:28 Dose: Not Given Hydrocodone Bitart/Acetaminophen ([place] 325-5 Mg) 1 tab PO Q6H PRN PRN Reason: Pain Al Hydroxide/Mg Hydroxide (Mag-Al Plus) 30 ml PO Q4H PRN PRN Reason: Heartburn Last Admin: 07/26/19 13:25 Dose: 30 ml Amlodipine Besylate (Norvasc) 5 mg PO DAILY [facility] Amlodipine Besylate (Norvasc) 10 mg PO ONETIME ONE Stop: 07/25/19 21:15 Last Admin: 07/25/19 21:46 Dose: 10 mg Amlodipine Besylate (Norvasc) 10 mg PO DAILY [facility] Last Admin: 07/27/19 10:58 Dose: Not Given Aspirin (Aspirin) 324 mg PO ONETIME ONE Stop: 07/24/19 22:59 Last Admin: 07/24/19 23:06 Dose: 324 mg Aspirin (Aspirin) 81 mg PO DAILY [facility] Last Admin: 07/27/19 10:57 Dose: Not Given Atorvastatin Calcium (Lipitor) 10 mg PO BEDTIME [facility] Last Admin: 07/26/19 22:02 Dose: 10 mg Bisacodyl (Dulcolax) 10 mg RECTAL DAILY PRN PRN Reason: Constipation Carvedilol (Coreg) 3.125 mg PO DAILY [facility] Last Admin: 07/26/19 09:04 Dose: 3.125 mg Carvedilol (Coreg) 3.125 mg PO ONETIME ONE Stop: 07/26/19 12:33 Last Admin: 07/26/19 13:47 Dose: Not Given Carvedilol (Coreg) 6.25 mg PO DAILY [facility] Carvedilol (Coreg) 6.25 mg PO BID [facility] Last Admin: 07/27/19 10:42 Dose: 6.25 mg Clopidogrel Bisulfate (Plavix) 75 mg PO DAILY [facility] Last Admin: 07/25/19 15:32 Dose: Not Given Clopidogrel Bisulfate (Plavix) 75 mg PO DAILY [facility] Last Admin: 07/27/19 10:59 Dose: Not Given Clopidogrel Bisulfate (Plavix) 75 mg PO DAILY [facility] Last Admin: 07/27/19 15:15 Dose: 75 mg Al Hydroxide/Mg Hydroxide 15 ml/ Metoclopramide HCl 5 mg/Lidocaine HCl 5 ml 0 ml PO ONETIME ONE Stop: 07/24/19 22:21 Last Admin: 07/24/19 22:39 Dose: 1 each Docusate Sodium (Colace) 100 mg PO BID PRN PRN Reason: Constipation Last Admin: 07/27/19 10:51 Dose: 100 mg Enalaprilat (Vasotec Iv) 1.25 mg IVPUSH ONETIME ONE Stop: 07/24/19 22:00 Last Admin: 07/24/19 22:42 Dose: 1.25 mg Furosemide (Lasix) 40 mg PO DAILY [facility] Last Admin: 07/27/19 10:58 Dose: Not Given Hydromorphone HCl (Dilaudid) 1 mg IVPUSH Q6H PRN PRN Reason: Pain Last Admin: 07/25/19 03:42 Dose: 1 mg Hydromorphone HCl (Dilaudid) 2 mg PO Q6H PRN PRN Reason: Pain Last Admin: 07/27/19 15:15 Dose: 2 mg Sodium Chloride (Normal Saline) 1,000 mls @ 125 mls/hr IV STAT [facility]IRZA Last Admin: 07/24/19 22:16 Dose: 125 mls/hr Pantoprazole Sodium 80 mg/ (Sodium Chloride) 20 mls @ 420 mls/hr IVPUSH ONETIME ONE Stop: 07/24/19 22:09 Last Admin: 07/24/19 22:20 Dose: 420 mls/hr Ceftriaxone Sodium/Dextrose 1 (gm/ Premix) 50 mls @ 100 mls/hr IV ONETIME ONE Stop: 07/25/19 02:08 Last Admin: 07/25/19 02:04 Dose: 100 mls/hr Sodium Chloride (Normal Saline) 1,000 mls @ 125 mls/hr IV ASDIRECTED [facility] Last Admin: 07/26/19 07:05 Dose: 125 mls/hr Magnesium Sulfate 2 gm/ Premix 50 mls @ 50 mls/hr IV ONETIME ONE Stop: 07/25/19 11:18 Last Admin: 07/25/19 11:19 Dose: 50 mls/hr Pantoprazole Sodium 40 mg/ (Sodium Chloride) 10 mls @ 300 mls/hr IV DAILY [facility] Last Admin: 07/27/19 10:39 Dose: 300 mls/hr Sodium Chloride (Normal Saline) 1,000 mls @ 75 mls/hr IV ASDIRECTED [facility]IR[facility] Sodium Chloride (Normal Saline) 1,000 mls @ 75 mls/hr IV Q13H [facility] Sodium Chloride (Normal Saline) 1,000 mls @ 15 mls/hr IV Q24H [facility] Last Admin: 07/27/19 14:54 Dose: Not Given Lactated Ringer's (Ringers, Lactated) 1,000 mls @ 75 mls/hr IV ASDIRECTED [facility] Last Admin: 07/27/19 06:17 Dose: 75 mls/hr Insulin Aspart (Novolog) 0 unit SUBCUT Q6H [facility]; Protocol Last Admin: 07/27/19 17:16 Dose: 2 units Labetalol HCl (Normodyne) 10 mg IVPUSH ONETIME ONE; Protocol Stop: 07/26/19 04:38 Last Admin: 07/26/19 04:49 Dose: 10 mg Lisinopril (Prinivil) 10 mg PO DAILY [facility] Last Admin: 07/27/19 10:59 Dose: Not Given Magnesium Oxide (Magnesium Oxide) 800 mg PO ONETIME ONE Stop: 07/25/19 13:37 Last Admin: 07/25/19 14:14 Dose: 800 mg Metoprolol Tartrate (Lopressor) 5 mg IVPUSH Q5M [facility] Stop: 07/24/19 23:11 Last Admin: 07/24/19 23:18 Dose: 5 mg Morphine Sulfate (Morphine) 2 mg IVPUSH ONETIME ONE Stop: 07/24/19 22:52 Last Admin: 07/24/19 22:53 Dose: Not Given Morphine Sulfate (Morphine) 2 mg IVPUSH ONETIME ONE Stop: 07/24/19 22:39 Last Admin: 07/24/19 22:52 Dose: 2 mg Morphine Sulfate (Morphine) Confirm Administered Dose 2 mg .ROUTE .STK-MED ONE Stop: 07/24/19 22:52 Last Admin: 07/24/19 23:11 Dose: Not Given Morphine Sulfate (Morphine) 4 mg IVPUSH ONETIME ONE Stop: 07/25/19 01:38 Last Admin: 07/25/19 01:46 Dose: 4 mg Morphine Sulfate (Morphine) 4 mg IVPUSH Q4H PRN PRN Reason: Pain Last Admin: 07/25/19 14:03 Dose: 4 mg Morphine Sulfate (Morphine) 4 mg IVPUSH Q3H PRN PRN Reason: Pain Last Admin: 07/25/19 20:11 Dose: 4 mg Morphine Sulfate (Morphine) 4 mg IVPUSH Q2H PRN PRN Reason: Pain Last Admin: 07/26/19 08:45 Dose: 4 mg Morphine Sulfate (Morphine [employer] Focus Technician 30 Mg In 30 Ml) 0 mg IV ASDIRECTED [facility]; Protocol Last Admin: 07/26/19 22:04 Dose: 30 mg Naloxone HCl (Narcan) 0.4 mg IVPUSH Q3M PRN PRN Reason: Respiratory Depression Naloxone HCl (Narcan) 0.04 mg IVPUSH Q3M PRN PRN Reason: Respiratory Depression Nitroglycerin (Nitro-Dur 0.2 Mg/Hr) 0 mg TRDERM DAILY [facility] Last Admin: 07/27/19 09:30 Dose: 0.2 mg Omeprazole (Omeprazole) 40 mg PO ACBREAKFAST [facility] Ondansetron HCl (Zofran) 8 mg IVPUSH ONETIME ONE Stop: 07/24/19 22:08 Last Admin: 07/24/19 22:17 Dose: 8 mg Ondansetron HCl (Zofran) 8 mg IVPUSH ONETIME ONE Stop: 07/24/19 22:10 Last Admin: 07/24/19 22:46 Dose: Not Given Ondansetron HCl (Zofran) Confirm Administered Dose 8 mg .ROUTE .STK-MED ONE Stop: 07/24/19 22:09 Last Admin: 07/24/19 22:43 Dose: Not Given Ondansetron HCl (Zofran) 4 mg IVPUSH ONETIME ONE Stop: 07/25/19 01:39 Last Admin: 07/25/19 01:43 Dose: 4 mg Polyethylene Glycol (Miralax) 17 gm PO DAILY PRN PRN Reason: Constipation Last Admin: 07/26/19 17:37 Dose: 17 gm Sodium Chloride (Saline Flush) 10 ml FLUSH ASDIRECTED PRN PRN Reason: Keep Vein Open Sodium Chloride (Saline Flush) 2.5 ml FLUSH ASDIRECTED PRN PRN Reason: Keep Vein Open Spironolactone (Aldactone) 25 mg PO DAILY [facility] Last Admin: 07/27/19 10:56 Dose: Not Given Tamsulosin HCl (Flomax) 0.4 mg PO DAILY [facility] Last Admin: 07/27/19 10:58 Dose: Not Given Tramadol HCl (Ultram) 50 mg PO Q6H PRN PRN Reason: Pain Last Admin: 07/26/19 06:38 Dose: 50 mg
== END 2019-07-27 19:35 | disposition home or self-care (01) ==
LOC: MW.ED 21:48 → MW.MS 07-25 01:49
PROVIDERS: ADMIT Student in an Organized Health Care Education/Training Program; ATTEND Student in an Organized Health Care Education/Training Program
DX: N20.1 Calculus of ureter (principal); I25.10 Atherosclerotic heart disease of native coronary artery without angina pectoris; E78.5 Hyperlipidemia, unspecified; K59.00 Constipation, unspecified; I13.0 Hypertensive heart and chronic kidney disease with heart failure and stage 1 through stage 4 chronic kidney disease, or unspecified chronic kidney disease; E11.22 Type 2 diabetes mellitus with diabetic chronic kidney disease; N18.3 Chronic kidney disease, stage 3 (moderate); I50.20 Unspecified systolic (congestive) heart failure; I42.9 Cardiomyopathy, unspecified; D69.6 Thrombocytopenia, unspecified; R79.89 Other specified abnormal findings of blood chemistry; I25.2 Old myocardial infarction; E89.0 Postprocedural hypothyroidism; Z95.5 Presence of coronary angioplasty implant and graft; Z87.891 Personal history of nicotine dependence; Z88.8 Allergy status to other drugs, medicaments and biological substances; Z79.02 Long term (current) use of antithrombotics/antiplatelets; Z79.82 Long term (current) use of aspirin; Z79.84 Long term (current) use of oral hypoglycemic drugs; Z79.899 Other long term (current) drug therapy
CPT/HCPCS: 36415; 71045; 74176; 80048; 80053; 81001; 82962; 83690; 83735; 84100; 84484; 85025; 85027; 85610; 87086; 93005; 96365; 96375; 96376; 99285; A9270; C9113; J0696; J1170; J1815; J2270; J2274; J2405; J3475; J3490; J7030; J7050; J7120; 96361; G0378

== ENCOUNTER 2019-08-24 23:04 | Emergency (ER) | payer OTHER ==
[2019-08-24] MEDS ORDERED: HYDROmorphone 1 MG/ML Syringe IVPUSH ONE (23:11)
[2019-08-24] MEDS ORDERED: Ondansetron 4 MG/2 ML SDV IVPUSH ONE (23:11)
[2019-08-24] MEDS ORDERED: Ondansetron 4 MG/2 ML SDV ONE (23:12)
[2019-08-24] MEDS ORDERED: HYDROmorphone 1 MG/ML Syringe ONE (23:13)
[2019-08-24] MEDS ORDERED: Ketorolac 30 MG/ML SDV IVPUSH ONE (23:35)
[2019-08-24 23:40] LABS: BLOOD UREA NITROGEN,BUN 24 mg/dL (7.0-18.0); CARBON DIOXIDE,CO2 24.2 mmol/L (21.0-32.0); CHLORIDE,CL 99 mmol/L (98-107); GLUCOSE RANDOM 330 mg/dL (74-106); POTASSIUM,K 4.1 mmol/L (3.5-5.1); SODIUM,NA 136 mmol/L (136-148)
--- NOTE | 2019-08-25 00:29 | CR ---
Indication: Chest pain Technique: Chest 1 view Comparison: 06/24/2019 Findings/Impression: Cardiovascular and mediastinum: Stable cardiomediastinal silhouette. Lungs and pleural space: No consolidation. Few apparent small clustered nodular opacities in the lateral right upper lobe, superimposed on the anterior 2nd rib, not clearly seen on the prior study. Correlate for a mild infectious process and follow-up. No pleural effusions. Bones and soft tissues: No significant change. Dictated by Bobby Newman MD @ 08/25/2019 12:27:29 AM Dictated by: Bobby Newman MD @ 08/25/2019 00:27:32 (Electronically Signed)
[2019-08-25] MEDS ORDERED: Prochlorperazine 10 MG in Sodium Chloride 0.9% 50 ML IV ONE (00:44)
--- NOTE | 2019-08-25 00:55 | CT ---
INDICATION: abdominal/groin pain CT ABDOMEN AND PELVIS WITHOUT CONTRAST TECHNIQUE: Multidetector CT imaging was performed through the abdomen and pelvis without intravenous contrast administration. Coronal and sagittal reconstructions were generated. COMPARISON: 07/24/2019 CT abdomen and pelvis. FINDINGS: Lower chest: Lung bases are clear. Liver: Subtle lobulation of the liver contour, possibly reflecting cirrhosis. No focal liver lesion identified. Gallbladder and bile ducts: No gallbladder wall thickening or definite calcified gallstones. No biliary dilation identified. Pancreas: Unremarkable. Spleen: Unchanged mild splenomegaly measuring 16.5 centimeters. Adrenals: No nodules or masses. Kidneys, ureters, and urinary bladder: 6 millimeter stone in the proximal to mid portion of the right ureter, just above which a 2nd 4 millimeter stone is seen. Mild dilation of the proximal right ureter and mild right hydronephrosis. A few tiny nonobstructing bilateral intrarenal stones. Unchanged small right renal cyst. Nonobstructing 4-5 millimeter stone in the dependent posterior bladder lumen. No bladder mass or definite wall thickening. Gastrointestinal tract: Normal caliber bowel without wall thickening. The appendix is normal. There is an unchanged small fat-containing umbilical hernia. Vascular structures: Normal caliber abdominal aorta with moderate aortoiliac atherosclerotic calcifications. Peritoneum: No free air, abscess, or significant free fluid. Lymph nodes: No pathologically enlarged nodes identified. Reproductive organs: Mild to moderate prostatomegaly, indenting the bladder floor. Bones: Minor spinal degenerative changes. IMPRESSION: 1. Pair of obstructing stones in the proximal to mid right ureter, 4 millimeters and 6 millimeters in size, producing mild right hydroureteronephrosis. 2. Nonobstructing small bilateral intrarenal stones. A 4-5 millimeter stone is also noted within the urinary bladder. 3. Probable cirrhosis. Stable mild splenomegaly. 4. Nonacute additional findings as detailed above. SANJAY LEWIS MD [employer] Dictated by Oscar Lewis MD @ 08/25/2019 12:50:22 AM Dictated by: Oscar Lewis MD @ 08/25/2019 00:54:08 (Electronically Signed)
[2019-08-25] MEDS ORDERED: Alum Hydrox/Mag Hydrox/Simeth 15 ML, Lidocaine 2% 5 ML PO ONE ×2 (01:01)
--- NOTE | 2019-08-25 01:48 | EDM.PDOC ---
ED HPI GENERAL MEDICAL PROBLEM - General Chief Complaint: Chest Pain Stated Complaint: CHEST PAINS Time Seen by Provider: 08/24/19 23:32 Source of Information: Reports: Patient History Limitations: Reports: No Limitations - History of Present Illness INITIAL COMMENTS - FREE TEXT/NARRATIVE: This is a 58-year-old male who presents the emergency room with a chief complaint of nausea vomiting. Patient states he has a kidney stone which started hurting him. Onset: Today Duration: Hour(s): Location: Reports: Abdomen Quality: Reports: Same as Previous Episode Severity: Moderate Improves with: Reports: None Worsens with: Reports: None Associated Symptoms: Reports: Nausea/Vomiting chest Pain Score (Numeric/FACES): 8 - Related Data Allergies Allergy/AdvReac Type Severity Reaction Status Date / Time metoclopramide Allergy Arrhythmias Verified 08/24/19 23:11 Home Meds: Home Meds Furosemide [Lasix] 40 mg PO DAILY 05/02/19 [History] carvediloL [Carvedilol] 6.25 mg PO BID 05/02/19 [History] metFORMIN [Glucophage] 1,000 mg PO BIDMEALS 05/02/19 [History] Aspirin 81 mg PO DAILY 05/25/19 [History] atorvaSTATin Calcium [Atorvastatin Calcium] 40 mg PO BEDTIME 05/25/19 [History] SitaGLIPtin [Januvia] 50 mg PO DAILY 06/12/19 [History] Spironolactone [Aldactone] 25 mg PO DAILY 06/12/19 [History] Tamsulosin HCl [Flomax] 0.4 mg PO DAILY #14 cap.er.24h 06/22/19 [Rx] glipiZIDE [Glucotrol] 5 mg PO DAILY 06/24/19 [History] Nitroglycerin [Nitroglycerin Patch 0.2 MG/Hr] 0.2 mg TRDERM DAILY 07/25/19 [ History] amLODIPine [Norvasc] 5 mg PO DAILY 07/25/19 [History] traMADol [Ultram] 50 mg PO Q6H PRN 07/25/19 [History] Clopidogrel [Plavix] 75 mg PO DAILY 07/26/19 [History] lisinopriL [Lisinopril] 10 mg PO DAILY 07/26/19 [History] HYDROmorphone [Dilaudid] 2 mg PO Q6H PRN 5 Days #20 tablet 07/27/19 [Rx] Past Medical History HEENT History: Reports: Impaired Vision, Other (See Below) Other HEENT History: wears glasses Cardiovascular History: Reports: Hypertension, [place], Stents Other Cardiovascular History: pt reports mild heat attack 2018 Respiratory History: Reports: Pneumonia, Recurrent Gastrointestinal History: Reports: Other (See Below) Other Gastrointestinal History: Gallbladder Issues Genitourinary History: Reports: Renal Calculus Musculoskeletal History: Reports: Fracture Neurological History: Reports: None Psychiatric History: Reports: None Endocrine/Metabolic History: Reports: Diabetes, Type II Insulin Pump Model and Transportation Engineer: None Hematologic History: Reports: None Immunologic History: Reports: None Oncologic (Cancer) History: Reports: None Dermatologic History: Reports: None - Infectious Disease History Infectious Disease History: Reports: Chicken Pox - Past Surgical History Head Surgeries/Procedures: Reports: None Respiratory Surgical History: Reports: None GI Surgical History: Reports: Colonoscopy Endocrine Surgical History: Reports: Thyroidectomy, Other (See Below) Other Endocrine Surgeries/Procedures: patrial thyroidectomy Social & Family History - Family History Family Medical History: Noncontributory HEENT: Reports: None Cardiac: Reports: None Respiratory: Reports: None GI: Reports: None : Reports: None Musculoskeletal: Reports: Arthritis Neurological: Reports: Alzheimers Disease Endocrine/Metabolic: Reports: Diabetes, type II Oncologic: Reports: Lung - Tobacco Use Smoking Status *Q: Never Smoker - Caffeine Use Caffeine Use: Reports: Coffee Caffeine Use Comment: Pot a day - Recreational Drug Use Recreational Drug Use: No ED ROS GENERAL - Review of Systems Review Of Systems: Comprehensive ROS is negative, except as noted in HPI. Constitutional: Reports: No Symptoms HEENT: Reports: No Symptoms Respiratory: Reports: No Symptoms Cardiovascular: Reports: No Symptoms Endocrine: Reports: No Symptoms GI/Abdominal: Reports: Abdominal Pain, Nausea, Vomiting : Reports: Flank Pain, Pain Musculoskeletal: Reports: No Symptoms Skin: Reports: No Symptoms Neurological: Reports: No Symptoms Psychiatric: Reports: No Symptoms Hematologic/Lymphatic: Reports: No Symptoms Immunologic: Reports: No Symptoms ED EXAM, GENERAL - Physical Exam Exam: See Below Exam Limited By: No Limitations General Appearance: Alert, WD/WN, No Apparent Distress Eye Exam: Bilateral Eye: Normal Fundi, Normal Inspection, PERRL Ear Exam: Bilateral Ear: Auricle Normal, Canal Normal, TM normal Nose: Normal Inspection, Normal Mucosa, No Blood Throat/Mouth: Normal Inspection, Normal Lips, Normal Teeth, Normal Oropharynx, Normal Voice Head: Atraumatic, Normocephalic Neck: Normal Inspection, Supple, Non-Tender, Full Range of Motion Respiratory/Chest: No Respiratory Distress, Lungs Clear, Normal Breath Sounds, No Accessory Muscle Use, Chest Non-Tender Cardiovascular: Normal Peripheral Pulses, Regular Rate, Rhythm, No Edema, No Gallop, No JVD GI/Abdominal: Normal Bowel Sounds, No Distention, Tender (Male) Exam: No Hernia, Normal Inspection, Normal Prostate Rectal (Males) Exam: Deferred Back Exam: Normal Inspection, Full Range of Motion, CVA Tenderness (R) Extremities: Normal Inspection, Normal Range of Motion, Non-Tender, No Pedal Edema, Normal Capillary Refill Neurological: Alert, Oriented, CN II-XII Intact, Normal Cognition, Normal Reflexes, No Motor/Sensory Deficits Psychiatric: Normal Affect, Normal Mood Skin Exam: Warm, Dry, Intact, Normal Color, No Rash Lymphatic: No Adenopathy Course - Vital Signs Text/Narrative:: 59-year-old male presents the emergency room history of multiple stents and multiple stones. Patient having intractable vomiting and flank pain. Patient found to have a 6 mm stone with a minimal hydro-nephrosis. Patient has had his emesis controlled and sleeping at this time will discharge the patient to urology home with pain meds. Last Recorded V/S: Last Vital Signs Temp 97.5 F 08/24/19 23:04 Pulse 90 08/24/19 23:45 Resp 18 08/24/19 23:45 BP 154/106 H 08/24/19 23:45 Pulse Ox 97 08/24/19 23:45 - Orders/Labs/Meds Orders: Active Orders 24 hr Category Date Time Status Cardiac Monitoring [RC] . DIRECTED Care 08/24/19 23:23 Active EKG Documentation Completion [RC] STAT Care 08/24/19 23:23 Active Labs: Laboratory Tests 08/24/19 08/24/19 08/24/19 Range/Units 23:08 23:08 23:08 WBC 9.38 (4.0-11.0) K/uL RBC 4.32 L (4.50-5.90) M/uL Hgb 13.8 (13.0-17.0) g/dL Hct 38.8 (38.0-50.0) % MCV 89.8 (80.0-98.0) fL MCH 31.9 (27.0-32.0) pg MCHC 35.6 (31.0-37.0) g/dL RDW Std Deviation 45.7 (28.0-62.0) fl RDW Coeff of Mukesh 14 (11.0-15.0) % Plt Count 109 L (150-400) K/uL MPV 11.70 (7.40-12.00) fL Neut % (Auto) 49.7 (48.0-80.0) % Lymph % (Auto) 22.7 (16.0-40.0) % [place] % (Auto) 8.4 (0.0-15.0) % Eos % (Auto) 18.1 H (0.0-7.0) % Baso % (Auto) 1.1 (0.0-1.5) % Neut # (Auto) 4.7 (1.4-5.7) K/uL Lymph # (Auto) 2.1 (0.6-2.4) K/uL [place] # (Auto) 0.8 (0.0-0.8) K/uL Eos # (Auto) 1.7 H (0.0-0.7) K/uL Baso # (Auto) 0.1 (0.0-0.1) K/uL Nucleated RBC % 0.0 /100WBC Nucleated RBCs # 0 K/uL INR 1.07 Sodium 136 (136-148) mmol/L Potassium 4.1 (3.5-5.1) mmol/L Chloride 99 (98-107) mmol/L Carbon Dioxide 24.2 (21.0-32.0) mmol/L BUN 24 H (7.0-18.0) mg/dL Creatinine 1.2 (0.8-1.3) mg/dL Est Cr Clr Drug Dosing 81.17 mL/min Estimated GFR (MDRD) > 60.0 ml/min Glucose 330 H (74-106) mg/dL Calcium 10.0 (8.5-10.1) mg/dL Total Bilirubin 0.7 (0.2-1.0) mg/dL AST 25 (15-37) IU/L ALT 38 (14-63) IU/L Alkaline Phosphatase 122 H (46-116) U/L Troponin I < 0.050 (0.000-0.056) ng/mL Total Protein 8.0 (6.4-8.2) g/dL Albumin 4.2 (3.4-5.0) g/dL Globulin 3.8 (2.6-4.0) g/dL Albumin/Globulin Ratio 1.1 (0.9-1.6) Meds: Medications Discontinued Medications Generic Name Dose Route Start Last Admin Trade Name Angelq PRN Reason Stop Dose Admin Al Hydroxide/Mg Hydroxide 15 0 ml 08/25/19 01:01 08/25/19 01:05 ml/ Lidocaine HCl 5 ml PO 08/25/19 01:02 20 each ONETIME ONE Administration Hydromorphone HCl 1 mg 08/24/19 23:11 08/24/19 23:16 Dilaudid IVPUSH 08/24/19 23:12 1 mg ONETIME ONE Administration Hydromorphone HCl Confirm 08/24/19 23:13 08/24/19 23:18 Dilaudid Administered 08/24/19 23:14 Not Given Dose 1 mg .ROUTE .STK-MED ONE Prochlorperazine Edisylate 10 50 mls @ 150 mls/hr 08/25/19 00:44 08/25/19 01: 00 mg/ Sodium Chloride IV 08/25/19 01:03 150 mls/hr ONETIME ONE Administration Ketorolac Tromethamine 30 mg 08/24/19 23:35 08/24/19 23:49 Toradol IVPUSH 08/24/19 23:36 30 mg ONETIME ONE Administration Ondansetron HCl 4 mg 08/24/19 23:11 08/24/19 23:16 Zofran IVPUSH 08/24/19 23:12 4 mg ONETIME ONE Administration Ondansetron HCl Confirm 08/24/19 23:12 08/24/19 23:18 Zofran Administered 08/24/19 23:13 Not Given Dose 4 mg .ROUTE .STK-MED ONE Departure - Departure Time of Disposition: 01:48 Disposition: Home, Self-Care 01 Condition: Good Clinical Impression: Kidney stone on right side, Ureteral stone Instructions: Renal Colic, [id number] Forms: ED Department Discharge Sepsis Event Note - Evaluation Sepsis Screening Result: No Definite Risk - Focused Exam Vital Signs: Vital Signs Temp Pulse Resp BP Pulse Ox 08/24/19 23:45 90 18 154/106 H 97 08/24/19 23:04 97.5 F 101 H 18 198/131 H 99 Date Exam was Performed: 08/25/19 Time Exam was Performed: 01:42 - My Orders Last 24 Hours: My Active Orders 08/24/19 23:23 Cardiac Monitoring [RC] . DIRECTED EKG Documentation Completion [RC] STAT - Assessment/Plan Last 24 Hours: My Active Orders 08/24/19 23:23 Cardiac Monitoring [RC] . DIRECTED EKG Documentation Completion [RC] STAT
== END 2019-08-25 02:00 | disposition home or self-care (01) ==
LOC: MW.ED 23:04
DX: N13.2 Hydronephrosis with renal and ureteral calculous obstruction (principal); I10 Essential (primary) hypertension; I25.2 Old myocardial infarction; E11.9 Type 2 diabetes mellitus without complications; Z79.02 Long term (current) use of antithrombotics/antiplatelets; Z79.82 Long term (current) use of aspirin; Z79.84 Long term (current) use of oral hypoglycemic drugs; Z79.899 Other long term (current) drug therapy; Z88.8 Allergy status to other drugs, medicaments and biological substances
CPT/HCPCS: 36415; 71045; 74176; 80053; 84484; 85025; 85610; 93005; 96374; 96375; 99285; A9270; J0780; J1170; J1885; J2405; J7050

== ENCOUNTER 2019-08-26 11:18 | Observation (INO) | payer OTHER ==
[2019-08-26] MEDS ORDERED: Aspirin 81 MG Tab.Chew PO ONE (11:40)
[2019-08-26] MEDS ORDERED: Ondansetron 4 MG/2 ML SDV IVPUSH ONE ×2 (11:40→12:24)
[2019-08-26] MEDS ORDERED: Aspirin 81 MG Tab.Chew ONE (11:46)
[2019-08-26] MEDS ORDERED: Famotidine 20 MG/2 ML SDV IVPUSH ONE (12:23)
--- NOTE | 2019-08-26 12:24 | CR ---
Chest: Portable view of the chest was obtained. Comparison: Prior chest x-ray of 08/25/19. Heart size appears within normal limits. Upper mediastinum is within normal limits. Lungs are clear with no acute parenchymal change. Bony structures are grossly intact. Impression: 1. Nothing acute seen on portable chest x-ray. Diagnostic code #1 This report was dictated in [place] Standard Time
--- NOTE | 2019-08-26 12:37 | EDM.PDOC ---
ED [facility] GENERAL MEDICAL PROBLEM - General Chief Complaint: Cardiovascular Problem Stated Complaint: CHEST PAIN Time Seen by Provider: 08/26/19 11:45 Source of Information: Reports: Patient History Limitations: Reports: No Limitations - History of Present Illness INITIAL COMMENTS - FREE TEXT/NARRATIVE: Patient is a 59-year-old male with a past medical history of hypertension, diabetes, coronary artery disease status post 3 stents 2 months ago. Patient presents with acute onset of chest pain this morning associated with shortness of breath, nausea, vomiting. Pain is on the left side of the chest and does not radiate. Pain feels a pressure sensation. Patient took sublingual nitroglycerin without any relief of pain. Patient denies fevers, chills, leg swelling, abdominal pain. Pain continues in the emergency room without any change. In addition to that documented in the HPI above, the additional ROS was obtained : Constitutional: Denies fevers or chills Eyes: Denies vision changes ENMT: Denies sore throat CV: Per HPI Resp: Denies SOB GI: Per HPI : Denies painful urination MSK: Denies recent trauma Skin: Denies new rashes Neuro: Denies new numbness or tingling or weakness Endocrine: Denies unexpected weight loss Heme: Denies bleeding disorders I have reviewed the triage vital signs Const: Well nourished, well developed, appears stated age Eyes: PERRL, no conjunctival injection HENT: NCAT, Neck supple without meningismus CV: RRR, Warm, well-perfused extremities RESP: CTAB, Unlabored respiratory effort GI: Several episodes of vomiting. Soft, non-tender, non-distended, no masses MSK: No gross deformities appreciated Skin: Warm, dry. No rashes Neuro: Alert, industrial diamond polisher II-XII grossly intact. Sensation and motor function of extremities grossly intact. Psych: Appropriate mood and affect Assessment and plan Patient is a 59-year-old male presenting with chest pain and vomiting. Patient observed in the emergency department and had serial troponin EKG without any acute changes. Patient has a heart score of 4. In addition, patient has continuous vomiting after administration of multiple rounds of analgesia as well as antiemetics. Based on exam, no positions patient has a bowel obstruction. However there is a past history of marijuana abuse and this could be related to cannabinoid hyperemesis. Patient will require observation in the hospital due to heart score and continued vomiting. Chest Pain Score (Numeric/FACES): 7 - Related Data Allergies Allergy/AdvReac Type Severity Reaction Status Date / Time metoclopramide Allergy Arrhythmias Verified 08/26/19 11:28 Home Meds: Home Meds Furosemide [Lasix] 40 mg PO DAILY 05/02/19 [History] carvediloL [Carvedilol] 6.25 mg PO BID 05/02/19 [History] metFORMIN [Glucophage] 1,000 mg PO BIDMEALS 05/02/19 [History] atorvaSTATin Calcium [Atorvastatin Calcium] 40 mg PO BEDTIME 05/25/19 [History] Spironolactone [Aldactone] 25 mg PO DAILY 06/12/19 [History] Tamsulosin HCl [Flomax] 0.4 mg PO DAILY #14 cap.er.24h 06/22/19 [Rx] Nitroglycerin [Nitroglycerin Patch 0.2 MG/Hr] 0.2 mg TRDERM DAILY 07/25/19 [ History] Clopidogrel [Plavix] 75 mg PO DAILY 07/26/19 [History] lisinopriL [Lisinopril] 10 mg PO DAILY 07/26/19 [History] Ondansetron [Zofran ODT] 4 mg PO Q6H PRN #20 tab.dis 08/25/19 [Rx] Nitroglycerin [Nitrostat] 0.4 mg PO ASDIRECTED PRN 08/26/19 [History] Past Medical History HEENT History: Reports: Impaired Vision, Other (See Below) Other HEENT History: wears glasses Cardiovascular History: Reports: Hypertension, [place], Stents Other Cardiovascular History: pt reports mild heat attack 2018 Respiratory History: Reports: Pneumonia, Recurrent Gastrointestinal History: Reports: Other (See Below) Other Gastrointestinal History: Gallbladder Issues Genitourinary History: Reports: Renal Calculus Musculoskeletal History: Reports: Fracture Neurological History: Reports: None Psychiatric History: Reports: None Endocrine/Metabolic History: Reports: Diabetes, Type II Insulin Pump Model and First Helper: None Hematologic History: Reports: None Immunologic History: Reports: None Oncologic (Cancer) History: Reports: None Dermatologic History: Reports: None - Infectious Disease History Infectious Disease History: Reports: None - Past Surgical History Head Surgeries/Procedures: Reports: None Respiratory Surgical History: Reports: None GI Surgical History: Reports: Colonoscopy Endocrine Surgical History: Reports: Thyroidectomy, Other (See Below) Other Endocrine Surgeries/Procedures: patrial thyroidectomy Social & Family History - Family History Family Medical History: Noncontributory HEENT: Reports: None Cardiac: Reports: None Respiratory: Reports: None GI: Reports: None : Reports: None Musculoskeletal: Reports: Arthritis Neurological: Reports: Alzheimers Disease Endocrine/Metabolic: Reports: Diabetes, type II Oncologic: Reports: Lung - Tobacco Use Smoking Status *Q: Never Smoker - Caffeine Use Caffeine Use: Reports: None Caffeine Use Comment: Pot a day - Recreational Drug Use Recreational Drug Use: No ED ROS GENERAL - Review of Systems Review Of Systems: See Below ED EXAM, GENERAL - Physical Exam Exam: See Below Course - Vital Signs Last Recorded V/S: Last Vital Signs Temp 36.8 C 08/26/19 15:43 Pulse 105 H 08/26/19 15:43 Resp 22 H 08/26/19 15:43 BP 181/108 H 08/26/19 15:43 Pulse Ox 94 L 08/26/19 15:43 - Orders/Labs/Meds Orders: Active Orders 24 hr Category Date Time Status Admission Status [Patient Status] [ADT] Stat ADT 08/26/19 15:00 Active EKG 12 Lead [EKG Documentation Completion] [RC] STAT Care 08/26/19 11:35 Active EKG 12 Lead [EKG Documentation Completion] [RC] STAT Care 08/26/19 13:43 Active Medication Orders Acetaminophen (Tylenol) 650 mg PO Q4H PRN PRN Reason: Pain (Mild 1-3)/fever Atorvastatin Calcium (Lipitor) 40 mg PO BEDTIME [facility] Carvedilol (Coreg) 6.25 mg PO BID [facility] Clopidogrel Bisulfate (Plavix) 75 mg PO DAILY [facility] Furosemide (Lasix) 40 mg PO DAILY [facility] Lisinopril (Prinivil) 10 mg PO DAILY [facility] Morphine Sulfate (Morphine) 2 mg IVPUSH Q2H PRN PRN Reason: Pain (severe 7-10) Stop: 08/27/19 15:44 Last Admin: 08/26/19 16:26 Dose: 2 mg Nitroglycerin (Nitro-Dur 0.2 Mg/Hr) 0.2 mg TRDERM DAILY [facility] Ondansetron HCl (Zofran) 4 mg IVPUSH Q4H PRN PRN Reason: Nausea Sodium Chloride (Saline Flush) 2.5 ml FLUSH ASDIRECTED PRN PRN Reason: Keep Vein Open Spironolactone (Aldactone) 25 mg PO DAILY [facility] Tamsulosin HCl (Flomax) 0.4 mg PO DAILY [facility] Labs: Laboratory Tests 08/26/19 08/26/19 08/26/19 Range/Units 11:37 11:37 11:37 WBC 10.41 (4.0-11.0) K/uL RBC 4.33 L (4.50-5.90) M/uL Hgb 13.9 (13.0-17.0) g/dL Hct 38.7 (38.0-50.0) % MCV 89.4 (80.0-98.0) fL MCH 32.1 H (27.0-32.0) pg MCHC 35.9 (31.0-37.0) g/dL RDW Std Deviation 45.7 (28.0-62.0) fl RDW Coeff of Mukesh 14 (11.0-15.0) % Plt Count 109 L (150-400) K/uL MPV 11.70 (7.40-12.00) fL Neut % (Auto) 52.3 (48.0-80.0) % Lymph % (Auto) 22.6 (16.0-40.0) % [place] % (Auto) 7.4 (0.0-15.0) % Eos % (Auto) 16.5 H (0.0-7.0) % Baso % (Auto) 1.2 (0.0-1.5) % Neut # (Auto) 5.5 (1.4-5.7) K/uL Lymph # (Auto) 2.4 (0.6-2.4) K/uL [place] # (Auto) 0.8 (0.0-0.8) K/uL Eos # (Auto) 1.7 H (0.0-0.7) K/uL Baso # (Auto) 0.1 (0.0-0.1) K/uL Nucleated RBC % 0.0 /100WBC Nucleated RBCs # 0 K/uL INR 1.05 D-Dimer, Quantitative (0.0-0.50) mg/L FEU Sodium 138 (136-148) mmol/L Potassium 4.4 (3.5-5.1) mmol/L Chloride 99 (98-107) mmol/L Carbon Dioxide 24.4 (21.0-32.0) mmol/L BUN 20 H (7.0-18.0) mg/dL Creatinine 1.1 (0.8-1.3) mg/dL Est Cr Clr Drug Dosing 88.55 mL/min Estimated GFR (MDRD) > 60.0 ml/min Glucose 288 H (74-106) mg/dL Calcium 10.1 (8.5-10.1) mg/dL Total Bilirubin 1.1 H (0.2-1.0) mg/dL AST 30 (15-37) IU/L ALT 39 (14-63) IU/L Alkaline Phosphatase 115 (46-116) U/L Troponin I < 0.050 (0.000-0.056) ng/mL Total Protein 8.1 (6.4-8.2) g/dL Albumin 4.1 (3.4-5.0) g/dL Globulin 4.0 (2.6-4.0) g/dL Albumin/Globulin Ratio 1.0 (0.9-1.6) 08/26/19 08/26/19 Range/Units 11:37 14:00 WBC (4.0-11.0) K/uL RBC (4.50-5.90) M/uL Hgb (13.0-17.0) g/dL Hct (38.0-50.0) % MCV (80.0-98.0) fL MCH (27.0-32.0) pg MCHC (31.0-37.0) g/dL RDW Std Deviation (28.0-62.0) fl RDW Coeff of Mukesh (11.0-15.0) % Plt Count (150-400) K/uL MPV (7.40-12.00) fL Neut % (Auto) (48.0-80.0) % Lymph % (Auto) (16.0-40.0) % [place] % (Auto) (0.0-15.0) % Eos % (Auto) (0.0-7.0) % Baso % (Auto) (0.0-1.5) % Neut # (Auto) (1.4-5.7) K/uL Lymph # (Auto) (0.6-2.4) K/uL [place] # (Auto) (0.0-0.8) K/uL Eos # (Auto) (0.0-0.7) K/uL Baso # (Auto) (0.0-0.1) K/uL Nucleated RBC % /100WBC Nucleated RBCs # K/uL INR D-Dimer, Quantitative 0.56 H (0.0-0.50) mg/L FEU Sodium (136-148) mmol/L Potassium (3.5-5.1) mmol/L Chloride (98-107) mmol/L Carbon Dioxide (21.0-32.0) mmol/L BUN (7.0-18.0) mg/dL Creatinine (0.8-1.3) mg/dL Est Cr Clr Drug Dosing mL/min Estimated GFR (MDRD) ml/min Glucose (74-106) mg/dL Calcium (8.5-10.1) mg/dL Total Bilirubin (0.2-1.0) mg/dL AST (15-37) IU/L ALT (14-63) IU/L Alkaline Phosphatase (46-116) U/L Troponin I < 0.050 (0.000-0.056) ng/mL Total Protein (6.4-8.2) g/dL Albumin (3.4-5.0) g/dL Globulin (2.6-4.0) g/dL Albumin/Globulin Ratio (0.9-1.6) Meds: Medications Generic Name Dose Route Start Last Admin Trade Name Freq PRN Reason Stop Dose Admin Acetaminophen 650 mg 08/26/19 15:43 Tylenol PO Q4H PRN Pain (Mild 1-3)/fever Atorvastatin Calcium 40 mg 08/26/19 21:00 Lipitor PO BEDTIME [facility] Carvedilol 6.25 mg 08/26/19 21:00 Coreg PO BID [facility] Clopidogrel Bisulfate 75 mg 08/27/19 09:00 Plavix PO DAILY [facility] Furosemide 40 mg 08/27/19 09:00 Lasix PO DAILY [facility] Lisinopril 10 mg 08/27/19 09:00 Prinivil PO DAILY [facility] Morphine Sulfate 2 mg 08/26/19 15:43 08/26/19 16:26 Morphine IVPUSH 08/27/19 15:44 2 mg Q2H PRN Administration Pain (severe 7-10) Nitroglycerin 0.2 mg 08/27/19 09:00 Nitro-Dur 0.2 Mg/Hr TRDERM DAILY [facility] Ondansetron HCl 4 mg 08/26/19 15:43 Zofran IVPUSH Q4H PRN Nausea Sodium Chloride 2.5 ml 08/26/19 15:43 Saline Flush FLUSH ASDIRECTED PRN Keep Vein Open Spironolactone 25 mg 08/27/19 09:00 Aldactone PO DAILY [facility] Tamsulosin HCl 0.4 mg 08/27/19 09:00 Flomax PO DAILY [facility] Discontinued Medications Generic Name Dose Route Start Last Admin Trade Name Freq PRN Reason Stop Dose Admin Aspirin 324 mg 08/26/19 11:40 08/26/19 11:48 Aspirin PO 08/26/19 11:41 324 mg ONETIME ONE Administration Aspirin Confirm 08/26/19 11:46 08/26/19 12:35 Aspirin Administered 08/26/19 11:47 Not Given Dose 324 mg .ROUTE .STK-MED ONE Al Hydroxide/Mg Hydroxide 15 0 ml 08/26/19 12:52 08/26/19 13:00 ml/ Lidocaine HCl 5 ml PO 08/26/19 12:53 1 each ONETIME ONE Administration Famotidine 20 mg 08/26/19 12:23 08/26/19 12:53 Pepcid IVPUSH 08/26/19 12:24 Not Given ONETIME ONE Morphine Sulfate 8 mg 08/26/19 13:31 08/26/19 13:43 Morphine IVPUSH 08/26/19 13:32 8 mg ONETIME ONE Administration Nitroglycerin 0.4 mg 08/26/19 13:37 08/26/19 13:44 Nitrostat SL 08/26/19 13:38 0.4 mg ONETIME ONE Administration Ondansetron HCl 4 mg 08/26/19 11:40 08/26/19 11:48 Zofran IVPUSH 08/26/19 11:41 4 mg ONETIME ONE Administration Ondansetron HCl 4 mg 08/26/19 12:24 08/26/19 12:51 Zofran IVPUSH 08/26/19 12:25 Not Given ONETIME ONE Departure - Departure Time of Disposition: 15:15 Disposition: Refer to Observation Clinical Impression: Chest pain Qualifiers: Chest pain type: unspecified Qualified Code(s): R07.9 - Chest pain, unspecified Sepsis Event Note - Evaluation Sepsis Screening Result: No Definite Risk - Focused Exam Vital Signs: Vital Signs Temp Pulse Resp BP BP Pulse Ox 08/26/19 14:13 97 16 146/84 H 99 08/26/19 13:58 94 17 169/97 H 99 08/26/19 13:44 190/124 H 08/26/19 13:43 101 H 172/95 H 97 08/26/19 13:28 112 H 190/124 H 97 08/26/19 13:13 97 18 131/81 98 08/26/19 12:58 97 18 199/120 H 98 08/26/19 12:13 95 18 164/109 H 08/26/19 11:57 94 17 171/90 H 08/26/19 11:43 88 157/103 H 97 08/26/19 11:30 36.3 C 90 18 178/113 H 96 Date Exam was Performed: 08/26/19 Time Exam was Performed: 16:42 - My Orders Last 24 Hours: My Active Orders 08/26/19 11:35 EKG 12 Lead [EKG Documentation Completion] [RC] STAT 08/26/19 13:43 EKG 12 Lead [EKG Documentation Completion] [RC] STAT 08/26/19 15:00 Admission Status [Patient Status] [ADT] Stat - Assessment/Plan Last 24 Hours: My Active Orders 08/26/19 11:35 EKG 12 Lead [EKG Documentation Completion] [RC] STAT 08/26/19 13:43 EKG 12 Lead [EKG Documentation Completion] [RC] STAT 08/26/19 15:00 Admission Status [Patient Status] [ADT] Stat
[2019-08-26 12:48] LABS: BLOOD UREA NITROGEN,BUN 20 mg/dL (7.0-18.0); CARBON DIOXIDE,CO2 24.4 mmol/L (21.0-32.0); CHLORIDE,CL 99 mmol/L (98-107); GLUCOSE RANDOM 288 mg/dL (74-106); POTASSIUM,K 4.4 mmol/L (3.5-5.1); SODIUM,NA 138 mmol/L (136-148)
[2019-08-26] MEDS ORDERED: Alum Hydrox/Mag Hydrox/Simeth 15 ML, Lidocaine 2% 5 ML PO ONE ×2 (12:52)
[2019-08-26] MEDS ORDERED: Morphine 10 MG/ML Syringe IVPUSH ONE (13:31)
[2019-08-26] MEDS ORDERED: Nitroglycerin 0.4 MG Tab.SL SL ONE (13:37)
[2019-08-26] MEDS ORDERED: Sodium Chloride 0.9% 2.5 ML Syringe FLUSH PRN (15:43)
[2019-08-26] MEDS ORDERED: Acetaminophen 325 MG Tab PO PRN (15:43)
[2019-08-26] MEDS ORDERED: Ondansetron 4 MG/2 ML SDV IVPUSH PRN (15:43)
[2019-08-26] MEDS: Morphine 2 MG/ML Syringe IVPUSH PRN ×4 (16:26→23:00)
--- NOTE | 2019-08-26 17:30 | PCM.HP.2 ---
<Minerva Lu - Last Filed: 08/26/19 20:29> H&P History of Present Illness - General Date of Service: 08/26/19 Admit Problem/Dx: Admission Diagnosis/Problem Admission Diagnosis/Problem Chest pain Source of Information: Patient History Limitations: Reports: No Limitations - History of Present Illness Initial Comments - Free Text/Narative: Patient is a 59-year-old male with a significant past medical history of hypertension, diabetes, coronary artery disease status post 3 stents placed 2 months prior: Presenting today to emergency department with acute onset of chest pain, shortness of breath nausea and nonbilious vomiting. Patient is complaining of nonradiating chest pain in the left side of the chest. ED course: Troponin x3 negative. X-ray negative. 1 dose of aspirin 325. Zofran. Morphine. GI cocktail. Abdominal CT/pelvis on August 24, 2018: Mild right hydro-utero nephrosis secondary to pair of obstructing stones 4 and 6 mm in size 2. Probable cirrhosis 3. Bilateral intrarenal stones noted within urinary bladder. Bedside; patient endorsing pain and discomfort/nausea and vomiting. Requesting Reglan. Chest Pain Score (Numeric/FACES): 7 - Related Data Allergies/Adverse Reactions: Allergies Allergy/AdvReac Type Severity Reaction Status Date / Time metoclopramide Allergy Arrhythmias Verified 08/27/19 05:13 Home Medications: Home Meds Furosemide [Lasix] 40 mg PO DAILY 05/02/19 [History] carvediloL [Carvedilol] 6.25 mg PO BID 05/02/19 [History] metFORMIN [Glucophage] 1,000 mg PO BIDMEALS 05/02/19 [History] atorvaSTATin Calcium [Atorvastatin Calcium] 40 mg PO BEDTIME 05/25/19 [History] Spironolactone [Aldactone] 25 mg PO DAILY 06/12/19 [History] Tamsulosin HCl [Flomax] 0.4 mg PO DAILY #14 cap.er.24h 06/22/19 [Rx] Nitroglycerin [Nitroglycerin Patch 0.2 MG/Hr] 0.2 mg TRDERM DAILY 07/25/19 [ History] Clopidogrel [Plavix] 75 mg PO DAILY 07/26/19 [History] lisinopriL [Lisinopril] 10 mg PO DAILY 07/26/19 [History] Ondansetron [Zofran ODT] 4 mg PO Q6H PRN #20 tab.dis 08/25/19 [Rx] Magnesium 250 mg PO DAILY 08/26/19 [History] Nitroglycerin [Nitrostat] 0.4 mg PO ASDIRECTED PRN 08/26/19 [History] Acetaminophen [Tylenol] 650 mg PO Q4H PRN tablet 08/27/19 [Rx] Ondansetron [Zofran] 4 mg PO Q6H 3 Days #12 tab 08/27/19 [Rx] oxyCODONE HCl [Oxycodone HCL] 10 mg PO Q6H PRN 5 Days #20 tablet 08/27/19 [Rx] Past Medical History HEENT History: Reports: Impaired Vision, Other (See Below) Other HEENT History: wears glasses Cardiovascular History: Reports: Hypertension, [place], Stents Other Cardiovascular History: pt reports mild heat attack 2018 Respiratory History: Reports: Pneumonia, Recurrent Gastrointestinal History: Reports: Other (See Below) Other Gastrointestinal History: Gallbladder Issues Genitourinary History: Reports: Renal Calculus Musculoskeletal History: Reports: Fracture Other Musculoskeletal History: "Broken nose in past from [age]years old " Neurological History: Reports: None Psychiatric History: Reports: None Endocrine/Metabolic History: Reports: Diabetes, Type II Insulin Pump Model and Enrollment Processor: None Hematologic History: Reports: None Immunologic History: Reports: None Oncologic (Cancer) History: Reports: None Dermatologic History: Reports: None - Infectious Disease History Infectious Disease History: Reports: None - Past Surgical History Head Surgeries/Procedures: Reports: None Respiratory Surgical History: Reports: None GI Surgical History: Reports: Colonoscopy Endocrine Surgical History: Reports: Thyroidectomy, Other (See Below) Other Endocrine Surgeries/Procedures: patrial thyroidectomy Social & Family History - Family History Family Medical History: Noncontributory HEENT: Reports: None Cardiac: Reports: None Respiratory: Reports: None GI: Reports: None : Reports: None Musculoskeletal: Reports: Arthritis Neurological: Reports: Alzheimers Disease Endocrine/Metabolic: Reports: Diabetes, type II Oncologic: Reports: Lung - Tobacco Use Smoking Status *Q: Never Smoker Years of Tobacco use: 24 Used Tobacco, but Quit: Yes Month/Year Tobacco Last Used: 20 years ago Second Hand Smoke Exposure: No - Caffeine Use Caffeine Use: Reports: None Caffeine Use Comment: Pot a day - Recreational Drug Use Recreational Drug Use: No H&P Review of Systems - Review of Systems: Review Of Systems: See Below General: Denies: Fever, Chills, Malaise, Fatigue HEENT: Reports: No Symptoms Pulmonary: Reports: No Symptoms. Denies: Shortness of Breath, Wheezing, Cough Cardiovascular: Denies: Chest Pain, Palpitations, Edema Gastrointestinal: Reports: Abdominal Pain, Nausea, Vomiting. Denies: Diarrhea, Decreased Appetite Genitourinary: Reports: No Symptoms Skin: Reports: No Symptoms Psychiatric: Reports: No Symptoms Neurological: Reports: No Symptoms Exam - Exam Exam: See Below - Vital Signs Vital Signs: Last Vital Signs Temp 98.3 F 08/26/19 15:43 Pulse 105 H 08/26/19 15:43 Resp 22 H 08/26/19 15:43 BP 180/108 H 08/26/19 15:53 Pulse Ox 94 L 08/26/19 15:43 Weight: 102.3 kg - Exam General: Alert, Oriented HEENT: EOMI, Mucosa Moist & [place] Neck: Supple, Trachea Midline Lungs: Clear to Auscultation, Normal Respiratory Effort Cardiovascular: Regular Rate, Regular Rhythm GI/Abdominal Exam: Soft, Non-Tender Skin: Warm, Dry Neuro Extensive - Mental Status: Alert, Oriented x3, Normal Mood/Affect Psychiatric: Alert - Patient Data Lab Results Last 24 hrs: Laboratory Results - last 24 hr 08/26/19 08/26/19 08/26/19 Range/Units 11:37 11:37 11:37 WBC 10.41 (4.0-11.0) K/uL RBC 4.33 L (4.50-5.90) M/uL Hgb 13.9 (13.0-17.0) g/dL Hct 38.7 (38.0-50.0) % MCV 89.4 (80.0-98.0) fL MCH 32.1 H (27.0-32.0) pg MCHC 35.9 (31.0-37.0) g/dL RDW Std Deviation 45.7 (28.0-62.0) fl RDW Coeff of Mukesh 14 (11.0-15.0) % Plt Count 109 L (150-400) K/uL MPV 11.70 (7.40-12.00) fL Neut % (Auto) 52.3 (48.0-80.0) % Lymph % (Auto) 22.6 (16.0-40.0) % [place] % (Auto) 7.4 (0.0-15.0) % Eos % (Auto) 16.5 H (0.0-7.0) % Baso % (Auto) 1.2 (0.0-1.5) % Neut # (Auto) 5.5 (1.4-5.7) K/uL Lymph # (Auto) 2.4 (0.6-2.4) K/uL [place] # (Auto) 0.8 (0.0-0.8) K/uL Eos # (Auto) 1.7 H (0.0-0.7) K/uL Baso # (Auto) 0.1 (0.0-0.1) K/uL Nucleated RBC % 0.0 /100WBC Nucleated RBCs # 0 K/uL INR 1.05 D-Dimer, Quantitative (0.0-0.50) mg/L FEU Sodium 138 (136-148) mmol/L Potassium 4.4 (3.5-5.1) mmol/L Chloride 99 (98-107) mmol/L Carbon Dioxide 24.4 (21.0-32.0) mmol/L BUN 20 H (7.0-18.0) mg/dL Creatinine 1.1 (0.8-1.3) mg/dL Est Cr Clr Drug Dosing 88.55 mL/min Estimated GFR (MDRD) > 60.0 ml/min Glucose 288 H (74-106) mg/dL Calcium 10.1 (8.5-10.1) mg/dL Total Bilirubin 1.1 H (0.2-1.0) mg/dL AST 30 (15-37) IU/L ALT 39 (14-63) IU/L Alkaline Phosphatase 115 (46-116) U/L Troponin I < 0.050 (0.000-0.056) ng/mL Total Protein 8.1 (6.4-8.2) g/dL Albumin 4.1 (3.4-5.0) g/dL Globulin 4.0 (2.6-4.0) g/dL Albumin/Globulin Ratio 1.0 (0.9-1.6) 08/26/19 08/26/19 Range/Units 11:37 14:00 WBC (4.0-11.0) K/uL RBC (4.50-5.90) M/uL Hgb (13.0-17.0) g/dL Hct (38.0-50.0) % MCV (80.0-98.0) fL MCH (27.0-32.0) pg MCHC (31.0-37.0) g/dL RDW Std Deviation (28.0-62.0) fl RDW Coeff of Mukesh (11.0-15.0) % Plt Count (150-400) K/uL MPV (7.40-12.00) fL Neut % (Auto) (48.0-80.0) % Lymph % (Auto) (16.0-40.0) % [place] % (Auto) (0.0-15.0) % Eos % (Auto) (0.0-7.0) % Baso % (Auto) (0.0-1.5) % Neut # (Auto) (1.4-5.7) K/uL Lymph # (Auto) (0.6-2.4) K/uL [place] # (Auto) (0.0-0.8) K/uL Eos # (Auto) (0.0-0.7) K/uL Baso # (Auto) (0.0-0.1) K/uL Nucleated RBC % /100WBC Nucleated RBCs # K/uL INR D-Dimer, Quantitative 0.56 H (0.0-0.50) mg/L FEU Sodium (136-148) mmol/L Potassium (3.5-5.1) mmol/L Chloride (98-107) mmol/L Carbon Dioxide (21.0-32.0) mmol/L BUN (7.0-18.0) mg/dL Creatinine (0.8-1.3) mg/dL Est Cr Clr Drug Dosing mL/min Estimated GFR (MDRD) ml/min Glucose (74-106) mg/dL Calcium (8.5-10.1) mg/dL Total Bilirubin (0.2-1.0) mg/dL AST (15-37) IU/L ALT (14-63) IU/L Alkaline Phosphatase (46-116) U/L Troponin I < 0.050 (0.000-0.056) ng/mL Total Protein (6.4-8.2) g/dL Albumin (3.4-5.0) g/dL Globulin (2.6-4.0) g/dL Albumin/Globulin Ratio (0.9-1.6) Result Diagrams: 08/26/19 11:37 08/26/19 11:37 Sepsis Event Note - Evaluation Sepsis Screening Result: No Definite Risk - Focused Exam Vital Signs: Vital Signs Temp Pulse Resp BP BP Pulse Ox 08/26/19 15:53 180/108 H 08/26/19 15:43 98.3 F 105 H 22 H 181/108 H 94 L 08/26/19 15:34 87 18 148/79 H 97 08/26/19 14:13 97 16 146/84 H 99 08/26/19 13:58 94 17 169/97 H 99 08/26/19 13:44 190/124 H 08/26/19 13:43 101 H 172/95 H 97 08/26/19 13:28 112 H 190/124 H 97 08/26/19 13:13 97 18 131/81 98 08/26/19 12:58 97 18 199/120 H 98 08/26/19 12:13 95 18 164/109 H 08/26/19 11:57 94 17 171/90 H 08/26/19 11:43 88 157/103 H 97 08/26/19 11:30 97.3 F 90 18 178/113 H 96 Date Exam was Performed: 08/26/19 Time Exam was Performed: 20:29 Problem List Initiated/Reviewed/Updated: Yes Orders Last 24hrs: Active Orders 24 hr Category Date Time Status Admission Status [Patient Status] [ADT] Stat ADT 08/26/19 15:00 Active EKG 12 Lead [EKG Documentation Completion] [RC] STAT Care 08/26/19 11:35 Active EKG 12 Lead [EKG Documentation Completion] [RC] STAT Care 08/26/19 13:43 Active EKG Documentation Completion [RC] STAT Care 08/26/19 11:14 Active Intake and Output [RC] QSHIFT Care 08/26/19 15:44 Active Oxygen Therapy [RC] PRN Care 08/26/19 15:43 Active Telemetry Monitoring [Cardiac Monitoring] [RC] . Care 08/26/19 15:43 Active DIRECTED Up ad Rosendo [RC] ASDIRECTED Care 08/26/19 15:43 Active VTE/DVT Education [RC] PER UNIT ROUTINE Care 08/26/19 15:43 Active Vital Signs [RC] Q4H Care 08/26/19 15:43 Active Heart Healthy Diet [DIET] Diet 08/26/19 Dinner Active TROPONIN I [CHEM] Q3H Lab 08/26/19 17:00 Ordered TROPONIN I [CHEM] Q3H Lab 08/26/19 20:00 Ordered Acetaminophen [Tylenol] Med 08/26/19 15:43 Active 650 mg PO Q4H PRN Clopidogrel [Plavix] Med 08/27/19 09:00 Active 75 mg PO DAILY Furosemide [Lasix] Med 08/27/19 09:00 Active 40 mg PO DAILY Morphine Med 08/26/19 15:43 Active 2 mg IVPUSH Q2H PRN Nitroglycerin [Nitro-Dur 0.2 MG/Hr] Med 08/27/19 09:00 Active 0.2 mg TRDERM DAILY Ondansetron [Zofran] Med 08/26/19 15:43 Active 4 mg IVPUSH Q4H PRN Sodium Chloride 0.9% [Saline Flush] Med 08/26/19 15:43 Active 2.5 ml FLUSH ASDIRECTED PRN Spironolactone [Aldactone] Med 08/27/19 09:00 Active 25 mg PO DAILY Tamsulosin [Flomax] Med 08/27/19 09:00 Active 0.4 mg PO DAILY atorvaSTATin [Lipitor] Med 08/26/19 21:00 Active 40 mg PO BEDTIME carvediloL [Coreg] Med 08/26/19 21:00 Active 6.25 mg PO BID lisinopriL [Prinivil] Med 08/27/19 09:00 Active 10 mg PO DAILY Saline Lock Insert [OM.PC] Routine Oth 08/26/19 15:43 Ordered Resuscitation Status Routine Resus Stat 08/26/19 15:43 Ordered Medication Orders Acetaminophen (Tylenol) 650 mg PO Q4H PRN PRN Reason: Pain (Mild 1-3)/fever Atorvastatin Calcium (Lipitor) 40 mg PO BEDTIME MIRZA Carvedilol (Coreg) 6.25 mg PO BID MIRZA Clopidogrel Bisulfate (Plavix) 75 mg PO DAILY [facility] Furosemide (Lasix) 40 mg PO DAILY [facility] Lisinopril (Prinivil) 10 mg PO DAILY [facility] Morphine Sulfate (Morphine) 2 mg IVPUSH Q2H PRN PRN Reason: Pain (severe 7-10) Stop: 08/27/19 15:44 Last Admin: 08/26/19 16:26 Dose: 2 mg Nitroglycerin (Nitro-Dur 0.2 Mg/Hr) 0.2 mg TRDERM DAILY [facility] Ondansetron HCl (Zofran) 4 mg IVPUSH Q4H PRN PRN Reason: Nausea Sodium Chloride (Saline Flush) 2.5 ml FLUSH ASDIRECTED PRN PRN Reason: Keep Vein Open Spironolactone (Aldactone) 25 mg PO DAILY [facility] Tamsulosin HCl (Flomax) 0.4 mg PO DAILY [facility] Assessment/Plan Comment:: Assessment: 1. Chest pain/ACS rule out in patient with significant cardiac history status post 3 stent placement. 2. Intractable nausea/vomiting in the setting of numerous urethral calculi. 3. Past medical history : Hypertension, coronary artery disease, marijuana abuse, Plan Admit to observation. Full code. Telemetry. Heart healthy diet. Up ad rosendo. SCD 1. Chest pain/ACS rule out; will trend troponin x3. Place patient on telemetry. Received aspirin. Continue home medications. Chest pain most likely secondary to chronic renal calculi; will need follow-up with outpatient urology. However since patient is a significant cardiac history: We will continue to monitor patient (secondary to recent stent placement). Pain control: Morphine every 2. Nausea: Phenergan and Zofran ordered. If not controlled will consider INFECTION CONTROL PREVENTIONIST pump. 2. Urethral Calculi: chronic issue; initially deferred by Urology on previous admission secondary to anticoagulant therapy secondary to significant past medical history; pt. seen by Dr. Chavez of urology on August 23, 2019; procedure scheduled for September 01, 2023 urethral stent placement. Continue pain control. Continue symptomatic management at this time. Will consider transfer if patient becomes septic, febrile/patient will need to follow -up for ureteral stent placement and stone removal for definitive management. <Janae Pena - Last Filed: 08/30/19 20:42> H&P History of Present Illness - General Admit Problem/Dx: Admission Diagnosis/Problem Admission Diagnosis/Problem Chest pain Exam - Vital Signs Vital Signs: Last Vital Signs Temp 36.4 C 08/27/19 12:00 Pulse 74 08/27/19 12:00 Resp 16 08/27/19 12:00 BP 92/58 L 08/27/19 12:00 Pulse Ox 95 08/27/19 15:00 - Patient Data Result Diagrams: 08/27/19 08:29 08/27/19 08:29 Assessment/Plan Comment:: I performed a history and physical exam of the patient and discussed management with resident. I have reviewed the residents note and agree with documented findings and plan unless otherwise specified in my note.
[2019-08-26] MEDS ORDERED: Aluminum Hydroxide/Magnesium Hydroxide/Simethicone Susp 30 ML Cup PO ONE (17:47)
[2019-08-26] MEDS ORDERED: Promethazine 25 MG Tab PO ONE (17:50)
[2019-08-26] MEDS ORDERED: Promethazine 25 MG/ML SDV IM PRN (19:56)
[2019-08-26] MEDS ORDERED: atorvaSTATin 40 MG Tab PO SCH (21:00)
[2019-08-26] MEDS: Carvedilol 6.25 MG Tab PO SCH (21:07)
[2019-08-26] MEDS: Sodium Chloride 0.9% 1,000 ML IV SCH (21:09)
[2019-08-27] MEDS: Morphine 2 MG/ML Syringe IVPUSH PRN ×4 (01:20→09:20)
[2019-08-27] MEDS: Sodium Chloride 0.9% 1,000 ML IV SCH (06:54)
[2019-08-27] MEDS: Insulin Aspart 100 Units/ML 3 ML Pen SUBCUT SCH ×2 (06:55→13:19)
[2019-08-27] MEDS ORDERED: Magnesium Sulfate/Water 2 GM in Premix Bag 1 BAG IV ONE (08:13)
[2019-08-27] MEDS: Carvedilol 6.25 MG Tab PO SCH (08:25)
[2019-08-27] MEDS ORDERED: Spironolactone 25 MG Tab PO SCH (09:00)
[2019-08-27] MEDS ORDERED: Furosemide 40 MG Tab PO SCH (09:00)
[2019-08-27] MEDS ORDERED: Lisinopril 10 MG Tab PO SCH (09:00)
[2019-08-27] MEDS ORDERED: Tamsulosin 0.4 MG Cap.ER PO SCH ×2 (09:00→21:00)
[2019-08-27] MEDS ORDERED: Nitroglycerin 0.2 MG/HR Transdermal Patch TRDERM SCH (09:00)
[2019-08-27] MEDS ORDERED: Clopidogrel 75 MG Tab PO SCH (09:00)
[2019-08-27 09:20] LABS: BLOOD UREA NITROGEN,BUN 22 mg/dL (7.0-18.0); CARBON DIOXIDE,CO2 26.3 mmol/L (21.0-32.0); CHLORIDE,CL 102 mmol/L (98-107); GLUCOSE RANDOM 303 mg/dL (74-106); POTASSIUM,K 3.9 mmol/L (3.5-5.1); SODIUM,NA 139 mmol/L (136-148)
[2019-08-27] MEDS: oxyCODONE 5 MG Tab PO PRN ×2 (10:58→15:18)
[2019-08-27 13:40] LABS: HEMOGLOBIN A1C 8.1 % (4.5-6.2)
--- NOTE | 2019-08-27 15:36 | PCM.DCSUM1 ---
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 Due to significant past medical history of cardiac condition patient was admitted for observation; troponin was trended ; ultimately negative. Pain was more or less subsequent to renal calculi; pain was managed with morphine 2 every 2 hours. Nausea and vomiting subsided with management of pain. Patient stable. Of note; patient was supposed to have a kidney stent placement day after last admission; however secondary to significant cardiac history patient was advised to follow-up with Dr. Almaguer with procedure delayed. Patient was evaluated on August [address] Almaguer of urology in [facility] with subsequent procedure date on September 01 2019. Discussed case with Dr. Almaguer of urology in [facility]; Dr. Chavez recommended continuing Plavix and prescribed medication for pain control and nausea until procedure. Discharge condition:Stable Disposition: Home Discharge medications: Advised to continue plavix ; given oxycodone 10 mg q6hrs x 5 days for pain control until planned procedure with Urology. Discharge instructions: Follow-up: - Discharge Data Discharge Date: 08/26/19 Discharge Disposition: Home, Self-Care 01 Condition: Stable - Referral to Home Health Primary Care Physician: PCP Unobtainable - Patient Instructions Diet: Diabetic Diet Driving: Do Not Drive Notify Provider of: Fever, Increased Pain, Nausea and/or Vomiting Other/Special Instructions: CONTINUE THE PLAVIX INSTRUCTED - Discharge Plan *PRESCRIPTION DRUG MONITORING PROGRAM REVIEWED*: Yes *COPY OF PRESCRIPTION DRUG MONITORING REPORT IN PATIENT JEN: Yes Prescriptions/Med Rec: Ondansetron [Zofran] 4 mg PO Q6H 3 Days #12 tab oxyCODONE HCl [Oxycodone HCL] 10 mg PO Q6H PRN 5 Days #20 tablet PRN Reason: Pain Home Medications: Home Meds Furosemide [Lasix] 40 mg PO DAILY 05/02/19 [History] carvediloL [Carvedilol] 6.25 mg PO BID 05/02/19 [History] metFORMIN [Glucophage] 1,000 mg PO BIDMEALS 05/02/19 [History] atorvaSTATin Calcium [Atorvastatin Calcium] 40 mg PO BEDTIME 05/25/19 [History] Spironolactone [Aldactone] 25 mg PO DAILY 06/12/19 [History] Tamsulosin HCl [Flomax] 0.4 mg PO DAILY #14 cap.er.24h 06/22/19 [Rx] Nitroglycerin [Nitroglycerin Patch 0.2 MG/Hr] 0.2 mg TRDERM DAILY 07/25/19 [ History] Clopidogrel [Plavix] 75 mg PO DAILY 07/26/19 [History] lisinopriL [Lisinopril] 10 mg PO DAILY 07/26/19 [History] Ondansetron [Zofran ODT] 4 mg PO Q6H PRN #20 tab.dis 08/25/19 [Rx] Magnesium 250 mg PO DAILY 08/26/19 [History] Nitroglycerin [Nitrostat] 0.4 mg PO ASDIRECTED PRN 08/26/19 [History] Acetaminophen [Tylenol] 650 mg PO Q4H PRN tablet 08/27/19 [Rx] Ondansetron [Zofran] 4 mg PO Q6H 3 Days #12 tab 08/27/19 [Rx] oxyCODONE HCl [Oxycodone HCL] 10 mg PO Q6H PRN 5 Days #20 tablet 08/27/19 [Rx] Patient Handouts: Ondansetron tablets, Oxycodone tablets or capsules, Kidney Stones, [id number], Nonspecific Chest Pain, [id number] Referrals: Blessing Chavez DO [Ordering Only Provider] - 09/01/19 Juliette Plascencia PA [Physician [employer]viculture Professor] - 09/02/19 1:30 pm - Discharge Summary/Plan Comment DC Time >30 min.: No - Patient Data Vitals - Most Recent: Last Vital Signs Temp 97.5 F 08/27/19 12:00 Pulse 74 08/27/19 12:00 Resp 16 08/27/19 12:00 BP 92/58 L 08/27/19 12:00 Pulse Ox 95 08/27/19 12:00 Weight - Most Recent: 102.3 kg I&O - Last 24 hours: Intake & Output 08/27/19 08/27/19 08/27/19 06:59 14:59 22:59 Intake Total 1243 Output Total 300 Balance 943 Lab Results - Last 24 hrs: Laboratory Results - last 24 hr 08/26/19 08/26/19 08/26/19 Range/Units 17:40 20:05 20:05 WBC (4.0-11.0) K/uL RBC (4.50-5.90) M/uL Hgb (13.0-17.0) g/dL Hct (38.0-50.0) % MCV (80.0-98.0) fL MCH (27.0-32.0) pg MCHC (31.0-37.0) g/dL RDW Std Deviation (28.0-62.0) fl RDW Coeff of Mukesh (11.0-15.0) % Plt Count (150-400) K/uL MPV (7.40-12.00) fL Neut % (Auto) (48.0-80.0) % Lymph % (Auto) (16.0-40.0) % Nash % (Auto) (0.0-15.0) % Eos % (Auto) (0.0-7.0) % Baso % (Auto) (0.0-1.5) % Neut # (Auto) (1.4-5.7) K/uL Lymph # (Auto) (0.6-2.4) K/uL Nash # (Auto) (0.0-0.8) K/uL Eos # (Auto) (0.0-0.7) K/uL Baso # (Auto) (0.0-0.1) K/uL Nucleated RBC % /100WBC Nucleated RBCs # K/uL Sodium (136-148) mmol/L Potassium (3.5-5.1) mmol/L Chloride (98-107) mmol/L Carbon Dioxide (21.0-32.0) mmol/L BUN (7.0-18.0) mg/dL Creatinine (0.8-1.3) mg/dL Est Cr Clr Drug Dosing mL/min Estimated GFR (MDRD) ml/min Glucose (74-106) mg/dL POC Glucose (60-110) mg/dL Hemoglobin A1c (4.5-6.2) % Calcium (8.5-10.1) mg/dL Magnesium 1.8 (1.8-2.4) mg/dL Total Bilirubin (0.2-1.0) mg/dL AST (15-37) IU/L ALT (14-63) IU/L Alkaline Phosphatase (46-116) U/L Troponin I < 0.050 < 0.050 (0.000-0.056) ng/mL Total Protein (6.4-8.2) g/dL Albumin (3.4-5.0) g/dL Globulin (2.6-4.0) g/dL Albumin/Globulin Ratio (0.9-1.6) Urine Opiates Screen (NEGATIVE) Ur Oxycodone Screen (NEGATIVE) Urine Methadone Screen (NEGATIVE) Ur Barbiturates Screen (NEGATIVE) Ur Phencyclidine Scrn (NEGATIVE) Ur Amphetamine Screen (NEGATIVE) U Methamphetamines Scrn (NEGATIVE) U Benzodiazepines Scrn (NEGATIVE) U Cocaine Metab Screen (NEGATIVE) U Marijuana (THC) Screen (NEGATIVE) 08/26/19 08/27/19 08/27/19 Range/Units 20:44 04:30 06:28 WBC (4.0-11.0) K/uL RBC (4.50-5.90) M/uL Hgb (13.0-17.0) g/dL Hct (38.0-50.0) % MCV (80.0-98.0) fL MCH (27.0-32.0) pg MCHC (31.0-37.0) g/dL RDW Std Deviation (28.0-62.0) fl RDW Coeff of Mukesh (11.0-15.0) % Plt Count (150-400) K/uL MPV (7.40-12.00) fL Neut % (Auto) (48.0-80.0) % Lymph % (Auto) (16.0-40.0) % Nash % (Auto) (0.0-15.0) % Eos % (Auto) (0.0-7.0) % Baso % (Auto) (0.0-1.5) % Neut # (Auto) (1.4-5.7) K/uL Lymph # (Auto) (0.6-2.4) K/uL Nash # (Auto) (0.0-0.8) K/uL Eos # (Auto) (0.0-0.7) K/uL Baso # (Auto) (0.0-0.1) K/uL Nucleated RBC % /100WBC Nucleated RBCs # K/uL Sodium (136-148) mmol/L Potassium (3.5-5.1) mmol/L Chloride (98-107) mmol/L Carbon Dioxide (21.0-32.0) mmol/L BUN (7.0-18.0) mg/dL Creatinine (0.8-1.3) mg/dL Est Cr Clr Drug Dosing mL/min Estimated GFR (MDRD) ml/min Glucose (74-106) mg/dL POC Glucose 281 H 196 H (60-110) mg/dL Hemoglobin A1c (4.5-6.2) % Calcium (8.5-10.1) mg/dL Magnesium (1.8-2.4) mg/dL Total Bilirubin (0.2-1.0) mg/dL AST (15-37) IU/L ALT (14-63) IU/L Alkaline Phosphatase (46-116) U/L Troponin I (0.000-0.056) ng/mL Total Protein (6.4-8.2) g/dL Albumin (3.4-5.0) g/dL Globulin (2.6-4.0) g/dL Albumin/Globulin Ratio (0.9-1.6) Urine Opiates Screen POSITIVE (NEGATIVE) Ur Oxycodone Screen NEGATIVE (NEGATIVE) Urine Methadone Screen NEGATIVE (NEGATIVE) Ur Barbiturates Screen NEGATIVE (NEGATIVE) Ur Phencyclidine Scrn NEGATIVE (NEGATIVE) Ur Amphetamine Screen NEGATIVE (NEGATIVE) U Methamphetamines Scrn NEGATIVE (NEGATIVE) U Benzodiazepines Scrn NEGATIVE (NEGATIVE) U Cocaine Metab Screen NEGATIVE (NEGATIVE) U Marijuana (THC) Screen POSITIVE (NEGATIVE) 08/27/19 08/27/19 08/27/19 Range/Units 08:29 08:29 08:29 WBC 8.71 (4.0-11.0) K/uL RBC 4.08 L (4.50-5.90) M/uL Hgb 12.8 L (13.0-17.0) g/dL Hct 37.2 L (38.0-50.0) % MCV 91.2 (80.0-98.0) fL MCH 31.4 (27.0-32.0) pg MCHC 34.4 (31.0-37.0) g/dL RDW Std Deviation 46.4 (28.0-62.0) fl RDW Coeff of Mukesh 14 (11.0-15.0) % Plt Count 104 L (150-400) K/uL MPV 11.70 (7.40-12.00) fL Neut % (Auto) 52.8 (48.0-80.0) % Lymph % (Auto) 27.9 (16.0-40.0) % Nash % (Auto) 10.8 (0.0-15.0) % Eos % (Auto) 7.5 H (0.0-7.0) % Baso % (Auto) 1.0 (0.0-1.5) % Neut # (Auto) 4.6 (1.4-5.7) K/uL Lymph # (Auto) 2.4 (0.6-2.4) K/uL Nash # (Auto) 0.9 H (0.0-0.8) K/uL Eos # (Auto) 0.7 (0.0-0.7) K/uL Baso # (Auto) 0.1 (0.0-0.1) K/uL Nucleated RBC % 0.0 /100WBC Nucleated RBCs # 0 K/uL Sodium 139 (136-148) mmol/L Potassium 3.9 (3.5-5.1) mmol/L Chloride 102 (98-107) mmol/L Carbon Dioxide 26.3 (21.0-32.0) mmol/L BUN 22 H (7.0-18.0) mg/dL Creatinine 1.2 (0.8-1.3) mg/dL Est Cr Clr Drug Dosing 81.17 mL/min Estimated GFR (MDRD) > 60.0 ml/min Glucose 303 H (74-106) mg/dL POC Glucose (60-110) mg/dL Hemoglobin A1c 8.1 H (4.5-6.2) % Calcium 8.5 (8.5-10.1) mg/dL Magnesium (1.8-2.4) mg/dL Total Bilirubin 1.0 (0.2-1.0) mg/dL AST 24 (15-37) IU/L ALT 31 (14-63) IU/L Alkaline Phosphatase 75 (46-116) U/L Troponin I (0.000-0.056) ng/mL Total Protein 6.8 (6.4-8.2) g/dL Albumin 3.3 L (3.4-5.0) g/dL Globulin 3.5 (2.6-4.0) g/dL Albumin/Globulin Ratio 0.9 (0.9-1.6) Urine Opiates Screen (NEGATIVE) Ur Oxycodone Screen (NEGATIVE) Urine Methadone Screen (NEGATIVE) Ur Barbiturates Screen (NEGATIVE) Ur Phencyclidine Scrn (NEGATIVE) Ur Amphetamine Screen (NEGATIVE) U Methamphetamines Scrn (NEGATIVE) U Benzodiazepines Scrn (NEGATIVE) U Cocaine Metab Screen (NEGATIVE) U Marijuana (THC) Screen (NEGATIVE) 08/27/19 Range/Units 12:53 WBC (4.0-11.0) K/uL RBC (4.50-5.90) M/uL Hgb (13.0-17.0) g/dL Hct (38.0-50.0) % MCV (80.0-98.0) fL MCH (27.0-32.0) pg MCHC (31.0-37.0) g/dL RDW Std Deviation (28.0-62.0) fl RDW Coeff of Mukesh (11.0-15.0) % Plt Count (150-400) K/uL MPV (7.40-12.00) fL Neut % (Auto) (48.0-80.0) % Lymph % (Auto) (16.0-40.0) % Nash % (Auto) (0.0-15.0) % Eos % (Auto) (0.0-7.0) % Baso % (Auto) (0.0-1.5) % Neut # (Auto) (1.4-5.7) K/uL Lymph # (Auto) (0.6-2.4) K/uL Nash # (Auto) (0.0-0.8) K/uL Eos # (Auto) (0.0-0.7) K/uL Baso # (Auto) (0.0-0.1) K/uL Nucleated RBC % /100WBC Nucleated RBCs # K/uL Sodium (136-148) mmol/L Potassium (3.5-5.1) mmol/L Chloride (98-107) mmol/L Carbon Dioxide (21.0-32.0) mmol/L BUN (7.0-18.0) mg/dL Creatinine (0.8-1.3) mg/dL Est Cr Clr Drug Dosing mL/min Estimated GFR (MDRD) ml/min Glucose (74-106) mg/dL POC Glucose 361 H (60-110) mg/dL Hemoglobin A1c (4.5-6.2) % Calcium (8.5-10.1) mg/dL Magnesium (1.8-2.4) mg/dL Total Bilirubin (0.2-1.0) mg/dL AST (15-37) IU/L ALT (14-63) IU/L Alkaline Phosphatase (46-116) U/L Troponin I (0.000-0.056) ng/mL Total Protein (6.4-8.2) g/dL Albumin (3.4-5.0) g/dL Globulin (2.6-4.0) g/dL Albumin/Globulin Ratio (0.9-1.6) Urine Opiates Screen (NEGATIVE) Ur Oxycodone Screen (NEGATIVE) Urine Methadone Screen (NEGATIVE) Ur Barbiturates Screen (NEGATIVE) Ur Phencyclidine Scrn (NEGATIVE) Ur Amphetamine Screen (NEGATIVE) U Methamphetamines Scrn (NEGATIVE) U Benzodiazepines Scrn (NEGATIVE) U Cocaine Metab Screen (NEGATIVE) U Marijuana (THC) Screen (NEGATIVE) Med Orders - Current: Current Medications Acetaminophen (Tylenol) 650 mg PO Q4H PRN PRN Reason: Pain (Mild 1-3)/fever Atorvastatin Calcium (Lipitor) 40 mg PO BEDTIME [facility] Last Admin: 08/26/19 21:07 Dose: 40 mg Carvedilol (Coreg) 6.25 mg PO BID [facility] Last Admin: 08/27/19 08:25 Dose: 6.25 mg Clopidogrel Bisulfate (Plavix) 75 mg PO DAILY [facility] Last Admin: 08/27/19 08:25 Dose: 75 mg Furosemide (Lasix) 40 mg PO DAILY [facility] Last Admin: 08/27/19 08:26 Dose: 40 mg Insulin Aspart (Novolog) 0 unit SUBCUT TIDAC [facility]; Protocol Last Admin: 08/27/19 13:19 Dose: 10 units Lisinopril (Prinivil) 10 mg PO DAILY [facility] Last Admin: 08/27/19 08:26 Dose: 10 mg Nitroglycerin (Nitro-Dur 0.2 Mg/Hr) 0.2 mg TRDERM DAILY [facility] Last Admin: 08/27/19 09:26 Dose: 0.2 mg Ondansetron HCl (Zofran) 4 mg IVPUSH Q4H PRN PRN Reason: Nausea Oxycodone HCl (Oxycodone) 5 mg PO Q4H PRN PRN Reason: Pain Last Admin: 08/27/19 15:18 Dose: 5 mg Promethazine HCl (Phenergan) 25 mg IM Q4H PRN PRN Reason: Nausea Sodium Chloride (Saline Flush) 2.5 ml FLUSH ASDIRECTED PRN PRN Reason: Keep Vein Open Spironolactone (Aldactone) 25 mg PO DAILY [facility] Last Admin: 08/27/19 08:25 Dose: 25 mg Tamsulosin HCl (Flomax) 0.4 mg PO BEDTIME [facility] Discontinued Medications Al Hydroxide/Mg Hydroxide (Mag-Al Plus) 30 ml PO ONETIME ONE Stop: 08/26/19 17:48 Last Admin: 08/26/19 19:08 Dose: 30 ml Aspirin (Aspirin) 324 mg PO ONETIME ONE Stop: 08/26/19 11:41 Last Admin: 08/26/19 11:48 Dose: 324 mg Aspirin (Aspirin) Confirm Administered Dose 324 mg .ROUTE .STK-MED ONE Stop: 08/26/19 11:47 Last Admin: 08/26/19 12:35 Dose: Not Given Al Hydroxide/Mg Hydroxide 15 (ml/ Lidocaine HCl 5 ml) 0 ml PO ONETIME ONE Stop: 08/26/19 12:53 Last Admin: 08/26/19 13:00 Dose: 1 each Famotidine (Pepcid) 20 mg IVPUSH ONETIME ONE Stop: 08/26/19 12:24 Last Admin: 08/26/19 12:53 Dose: Not Given Sodium Chloride (Normal Saline) 1,000 mls @ 100 mls/hr IV ASDIRECTED [facility] Last Admin: 08/27/19 06:54 Dose: 100 mls/hr Magnesium Sulfate 2 gm/ Premix 50 mls @ 25 mls/hr IV ONETIME ONE Stop: 08/27/19 10:12 Last Admin: 08/27/19 09:20 Dose: 25 mls/hr Morphine Sulfate (Morphine) 8 mg IVPUSH ONETIME ONE Stop: 08/26/19 13:32 Last Admin: 08/26/19 13:43 Dose: 8 mg Morphine Sulfate (Morphine) 2 mg IVPUSH Q2H PRN PRN Reason: Pain (severe 7-10) Stop: 08/27/19 15:44 Last Admin: 08/27/19 09:20 Dose: 2 mg Nitroglycerin (Nitrostat) 0.4 mg SL ONETIME ONE Stop: 08/26/19 13:38 Last Admin: 08/26/19 13:44 Dose: 0.4 mg Ondansetron HCl (Zofran) 4 mg IVPUSH ONETIME ONE Stop: 08/26/19 11:41 Last Admin: 08/26/19 11:48 Dose: 4 mg Ondansetron HCl (Zofran) 4 mg IVPUSH ONETIME ONE Stop: 08/26/19 12:25 Last Admin: 08/26/19 12:51 Dose: Not Given Promethazine HCl (Phenergan) 25 mg PO ONETIME ONE Stop: 08/26/19 17:51 Last Admin: 08/26/19 19:08 Dose: 25 mg Tamsulosin HCl (Flomax) 0.4 mg PO DAILY [facility] Last Admin: 08/27/19 10:08 Dose: Not Given <Janae Pena - Last Filed: 08/30/19 20:43> Discharge Summary - Hospital Course Free Text/Narrative:: I have seen and evaluated the patient and agree with the residents note unless specified in my note - Referral to Home Health Primary Care Physician: PCP Unobtainable - Patient Data Vitals - Most Recent: Last Vital Signs Temp 36.4 C 08/27/19 12:00 Pulse 74 08/27/19 12:00 Resp 16 08/27/19 12:00 BP 92/58 L 08/27/19 12:00 Pulse Ox 95 08/27/19 15:00 Med Orders - Current: Current Medications Discontinued Medications Acetaminophen (Tylenol) 650 mg PO Q4H PRN PRN Reason: Pain (Mild 1-3)/fever Al Hydroxide/Mg Hydroxide (Mag-Al Plus) 30 ml PO ONETIME ONE Stop: 08/26/19 17:48 Last Admin: 08/26/19 19:08 Dose: 30 ml Aspirin (Aspirin) 324 mg PO ONETIME ONE Stop: 08/26/19 11:41 Last Admin: 08/26/19 11:48 Dose: 324 mg Aspirin (Aspirin) Confirm Administered Dose 324 mg .ROUTE .STK-MED ONE Stop: 08/26/19 11:47 Last Admin: 08/26/19 12:35 Dose: Not Given Atorvastatin Calcium (Lipitor) 40 mg PO BEDTIME [facility] Last Admin: 08/26/19 21:07 Dose: 40 mg Carvedilol (Coreg) 6.25 mg PO BID [facility] Last Admin: 08/27/19 08:25 Dose: 6.25 mg Clopidogrel Bisulfate (Plavix) 75 mg PO DAILY [facility] Last Admin: 08/27/19 08:25 Dose: 75 mg Al Hydroxide/Mg Hydroxide 15 (ml/ Lidocaine HCl 5 ml) 0 ml PO ONETIME ONE Stop: 08/26/19 12:53 Last Admin: 08/26/19 13:00 Dose: 1 each Famotidine (Pepcid) 20 mg IVPUSH ONETIME ONE Stop: 08/26/19 12:24 Last Admin: 08/26/19 12:53 Dose: Not Given Furosemide (Lasix) 40 mg PO DAILY [facility] Last Admin: 08/27/19 08:26 Dose: 40 mg Sodium Chloride (Normal Saline) 1,000 mls @ 100 mls/hr IV ASDIRECTED [facility] Last Admin: 08/27/19 06:54 Dose: 100 mls/hr Magnesium Sulfate 2 gm/ Premix 50 mls @ 25 mls/hr IV ONETIME ONE Stop: 08/27/19 10:12 Last Admin: 08/27/19 09:20 Dose: 25 mls/hr Insulin Aspart (Novolog) 0 unit SUBCUT TIDAC [facility]; Protocol Last Admin: 08/27/19 13:19 Dose: 10 units Lisinopril (Prinivil) 10 mg PO DAILY [facility] Last Admin: 08/27/19 08:26 Dose: 10 mg Morphine Sulfate (Morphine) 8 mg IVPUSH ONETIME ONE Stop: 08/26/19 13:32 Last Admin: 08/26/19 13:43 Dose: 8 mg Morphine Sulfate (Morphine) 2 mg IVPUSH Q2H PRN PRN Reason: Pain (severe 7-10) Stop: 08/27/19 15:44 Last Admin: 08/27/19 09:20 Dose: 2 mg Nitroglycerin (Nitrostat) 0.4 mg SL ONETIME ONE Stop: 08/26/19 13:38 Last Admin: 08/26/19 13:44 Dose: 0.4 mg Nitroglycerin (Nitro-Dur 0.2 Mg/Hr) 0.2 mg TRDERM DAILY [facility] Last Admin: 08/27/19 09:26 Dose: 0.2 mg Ondansetron HCl (Zofran) 4 mg IVPUSH ONETIME ONE Stop: 08/26/19 11:41 Last Admin: 08/26/19 11:48 Dose: 4 mg Ondansetron HCl (Zofran) 4 mg IVPUSH ONETIME ONE Stop: 08/26/19 12:25 Last Admin: 08/26/19 12:51 Dose: Not Given Ondansetron HCl (Zofran) 4 mg IVPUSH Q4H PRN PRN Reason: Nausea Oxycodone HCl (Oxycodone) 5 mg PO Q4H PRN PRN Reason: Pain Last Admin: 08/27/19 15:18 Dose: 5 mg Promethazine HCl (Phenergan) 25 mg PO ONETIME ONE Stop: 08/26/19 17:51 Last Admin: 08/26/19 19:08 Dose: 25 mg Promethazine HCl (Phenergan) 25 mg IM Q4H PRN PRN Reason: Nausea Sodium Chloride (Saline Flush) 2.5 ml FLUSH ASDIRECTED PRN PRN Reason: Keep Vein Open Spironolactone (Aldactone) 25 mg PO DAILY [facility] Last Admin: 08/27/19 08:25 Dose: 25 mg Tamsulosin HCl (Flomax) 0.4 mg PO DAILY [facility] Last Admin: 08/27/19 10:08 Dose: Not Given Tamsulosin HCl (Flomax) 0.4 mg PO BEDTIME [facility]
== END 2019-08-27 16:15 | disposition home or self-care (01) ==
LOC: MW.ED 11:18 → MW.MS 15:14
PROVIDERS: ADMIT Student in an Organized Health Care Education/Training Program; ATTEND Student in an Organized Health Care Education/Training Program
DX: R07.9 Chest pain, unspecified (principal); I10 Essential (primary) hypertension; E11.9 Type 2 diabetes mellitus without complications; I25.10 Atherosclerotic heart disease of native coronary artery without angina pectoris; N21.0 Calculus in bladder; Z95.5 Presence of coronary angioplasty implant and graft; Z88.8 Allergy status to other drugs, medicaments and biological substances; Z79.899 Other long term (current) drug therapy; Z79.84 Long term (current) use of oral hypoglycemic drugs; Z79.02 Long term (current) use of antithrombotics/antiplatelets
CPT/HCPCS: 36415; 71045; 80053; 80305; 82962; 83036; 83735; 84484; 85025; 85379; 85610; 93005; A9270; J1815; J2270; J2405; J3475; J7030; 96361; 96374; 96375; 96376; 99285-25; G0378

== ENCOUNTER 2019-09-29 09:01 | Emergency (ER) | payer OTHER ==
--- NOTE | 2019-09-29 09:09 | EDM.PDOC ---
ED HPI GENERAL MEDICAL PROBLEM - General Stated Complaint: HEART PALPATATIONS/VOMITING/ABDOMINAL PAIN Time Seen by Provider: 09/29/19 09:09 Source of Information: Reports: Patient History Limitations: Reports: No Limitations - History of Present Illness INITIAL COMMENTS - FREE TEXT/NARRATIVE: Patient is a 59-year-old male who is complaining of having palpitations with anterior wall chest pain which he rates as 4 out of 10 intensity and shortness of breath which started about 5:00 this morning upon awakening. Patient does not have worsening of his symptoms with exertion. He has had similar symptoms in the past when he had several stents placed in May of last year. He denies any diaphoresis but has been nauseous and has vomiting. Patient denies any hematemesis or coffee-ground's. He denies any bloody or tarry stools. He denies any swelling to his calves or ankles. Patient did take all of his morning medicines and does have a nitroglycerin patch which he also took. Patient is on Plavix. Onset: Today Duration: Getting Worse Location: Reports: Chest Quality: Reports: Dull, Same as Previous Episode. Denies: Pressure Severity: Moderate Improves with: Reports: None Worsens with: Reports: None Associated Symptoms: Reports: Chest Pain, Shortness of Breath. Denies: Cough, Diaphoresis, Fever/Chills Chest Pain Score (Numeric/FACES): 8 - Related Data Allergies Allergy/AdvReac Type Severity Reaction Status Date / Time No Known Allergies Allergy Verified 09/29/19 09:21 Home Meds: Home Meds Furosemide [Lasix] 40 mg PO DAILY 05/02/19 [History] carvediloL [Carvedilol] 6.25 mg PO BID 05/02/19 [History] metFORMIN [Glucophage] 1,000 mg PO BIDMEALS 05/02/19 [History] atorvaSTATin Calcium [Atorvastatin Calcium] 40 mg PO BEDTIME 05/25/19 [History] Spironolactone [Aldactone] 25 mg PO DAILY 06/12/19 [History] Tamsulosin HCl [Flomax] 0.4 mg PO DAILY #14 cap.er.24h 06/22/19 [Rx] Nitroglycerin [Nitroglycerin Patch 0.2 MG/Hr] 0.2 mg TRDERM DAILY 07/25/19 [ History] Clopidogrel [Plavix] 75 mg PO DAILY 07/26/19 [History] lisinopriL [Lisinopril] 10 mg PO DAILY 07/26/19 [History] Ondansetron [Zofran ODT] 4 mg PO Q6H PRN #20 tab.dis 08/25/19 [Rx] Magnesium 250 mg PO DAILY 08/26/19 [History] Nitroglycerin [Nitrostat] 0.4 mg PO ASDIRECTED PRN 08/26/19 [History] Acetaminophen [Tylenol] 650 mg PO Q4H PRN tablet 08/27/19 [Rx] Ondansetron [Zofran] 4 mg PO Q6H 3 Days #12 tab 08/27/19 [Rx] oxyCODONE HCl [Oxycodone HCL] 10 mg PO Q6H PRN 5 Days #20 tablet 08/27/19 [Rx] Past Medical History HEENT History: Reports: Impaired Vision, Other (See Below) Other HEENT History: wears glasses Cardiovascular History: Reports: Hypertension, [place], Stents Other Cardiovascular History: pt reports mild heat attack 2018 Respiratory History: Reports: Pneumonia, Recurrent Gastrointestinal History: Reports: Other (See Below) Other Gastrointestinal History: Gallbladder Issues Genitourinary History: Reports: Renal Calculus Musculoskeletal History: Reports: Fracture Other Musculoskeletal History: "Broken nose in past from [age]years old " Neurological History: Reports: None Psychiatric History: Reports: None Endocrine/Metabolic History: Reports: Diabetes, Type II Insulin Pump Model and Temporary Administrative Assistant: None Hematologic History: Reports: None Immunologic History: Reports: None Oncologic (Cancer) History: Reports: None Dermatologic History: Reports: None - Infectious Disease History Infectious Disease History: Reports: None - Past Surgical History Head Surgeries/Procedures: Reports: None Respiratory Surgical History: Reports: None GI Surgical History: Reports: Colonoscopy Endocrine Surgical History: Reports: Thyroidectomy, Other (See Below) Other Endocrine Surgeries/Procedures: patrial thyroidectomy Social & Family History - Family History Family Medical History: Noncontributory HEENT: Reports: None Cardiac: Reports: None Respiratory: Reports: None GI: Reports: None : Reports: None Musculoskeletal: Reports: Arthritis Neurological: Reports: Alzheimers Disease Endocrine/Metabolic: Reports: Diabetes, type II Oncologic: Reports: Lung - Caffeine Use Caffeine Use: Reports: None Caffeine Use Comment: Pot a day ED ROS GENERAL - Review of Systems Review Of Systems: Comprehensive ROS is negative, except as noted in HPI. ED EXAM, GENERAL - Physical Exam Exam: See Below Exam Limited By: No Limitations General Appearance: Mild Distress Head: Atraumatic Neck: Normal Inspection, Supple Respiratory/Chest: No Respiratory Distress, Lungs Clear, Normal Breath Sounds Cardiovascular: No Edema, No JVD, No Murmur, Tachycardia Back Exam: Normal Inspection Extremities: Normal Inspection, Non-Tender, No Pedal Edema Neurological: Alert Psychiatric: Normal Affect Skin Exam: Warm, Dry, Normal Color EKG INTERPRETATION Rhythm: NSR QRS: Wide Comparison: Other: (Patient does have some widening of his QRS complex compared to previous one done in August of this year.) Course - Vital Signs Text/Narrative:: Patient's initial troponin returned at 0.145. His other lab work is unremarkable. Chest x-ray is unchanged from previous. His pain has slightly worsened from a 4 to a 5 out of 10. I am giving him a second dose of morphine 4 mg and due to his blood pressure remain elevated I am giving him Lopressor 5 mg IV. His most recent blood pressure shows a diastolic of 119. Last Recorded V/S: Last Vital Signs Temp 36.6 C 09/29/19 09:17 Pulse 108 H 09/29/19 11:43 Resp 18 09/29/19 10:54 BP 170/117 H 09/29/19 11:43 Pulse Ox 93 L 09/29/19 10:54 - Orders/Labs/Meds Labs: Laboratory Tests 09/29/19 09/29/19 Range/Units 09:10 09:10 WBC 6.45 (4.0-11.0) K/uL RBC 3.87 L (4.50-5.90) M/uL Hgb 12.5 L (13.0-17.0) g/dL Hct 36.0 L (38.0-50.0) % MCV 93.0 (80.0-98.0) fL MCH 32.3 H (27.0-32.0) pg MCHC 34.7 (31.0-37.0) g/dL RDW Std Deviation 49.7 (28.0-62.0) fl RDW Coeff of Mukesh 15 (11.0-15.0) % Plt Count 106 L (150-400) K/uL MPV 11.70 (7.40-12.00) fL Neut % (Auto) 63.3 (48.0-80.0) % Lymph % (Auto) 22.0 (16.0-40.0) % [place] % (Auto) 10.1 (0.0-15.0) % Eos % (Auto) 4.3 (0.0-7.0) % Baso % (Auto) 0.3 (0.0-1.5) % Neut # (Auto) 4.1 (1.4-5.7) K/uL Lymph # (Auto) 1.4 (0.6-2.4) K/uL [place] # (Auto) 0.7 (0.0-0.8) K/uL Eos # (Auto) 0.3 (0.0-0.7) K/uL Baso # (Auto) 0.0 (0.0-0.1) K/uL Nucleated RBC % 0.0 /100WBC Nucleated RBCs # 0 K/uL Sodium 139 (136-148) mmol/L Potassium 4.6 (3.5-5.1) mmol/L Chloride 103 (98-107) mmol/L Carbon Dioxide 25.3 (21.0-32.0) mmol/L BUN 31 H (7.0-18.0) mg/dL Creatinine 1.1 (0.8-1.3) mg/dL Est Cr Clr Drug Dosing 88.55 mL/min Estimated GFR (MDRD) > 60.0 ml/min Glucose 249 H (74-106) mg/dL Calcium 10.1 (8.5-10.1) mg/dL Total Bilirubin 0.9 (0.2-1.0) mg/dL AST 34 (15-37) IU/L ALT 38 (14-63) IU/L Alkaline Phosphatase 94 (46-116) U/L Troponin I 0.145 H* (0.000-0.056) ng/mL Total Protein 7.6 (6.4-8.2) g/dL Albumin 4.0 (3.4-5.0) g/dL Globulin 3.6 (2.6-4.0) g/dL Albumin/Globulin Ratio 1.1 (0.9-1.6) Lipase 110 (73-393) U/L Meds: Medications Discontinued Medications Generic Name Dose Route Start Last Admin Trade Name Angelq PRN Reason Stop Dose Admin Al Hydroxide/Mg Hydroxide 15 0 ml 09/29/19 09:48 09/29/19 10:12 ml/ Lidocaine HCl 5 ml PO 09/29/19 09:49 5 each ONETIME ONE Administration Sodium Chloride 1,000 mls @ 999 mls/hr 09/29/19 09:14 09/29/19 09:32 Normal Saline IV 09/29/19 10:14 999 mls/hr BOLUS ONE Administration Metoclopramide HCl Confirm 09/29/19 11:52 Reglan Administered 09/29/19 11:53 Dose 10 mg .ROUTE .STK-MED ONE Metoprolol Tartrate 5 mg 09/29/19 10:49 09/29/19 11:14 Lopressor IVPUSH 09/29/19 10:50 5 mg ONETIME ONE Administration Metoprolol Tartrate 5 mg 09/29/19 11:35 09/29/19 11:43 Lopressor IVPUSH 09/29/19 11:36 5 mg ONETIME ONE Administration Morphine Sulfate 2 mg 09/29/19 09:15 09/29/19 09:33 Morphine IVPUSH 09/29/19 09:16 2 mg ONETIME ONE Administration Morphine Sulfate 4 mg 09/29/19 10:49 09/29/19 10:59 Morphine IVPUSH 09/29/19 10:50 4 mg ONETIME ONE Administration Morphine Sulfate 4 mg 09/29/19 11:35 09/29/19 11:41 Morphine IVPUSH 09/29/19 11:36 4 mg ONETIME ONE Administration Nitroglycerin 1 gm 09/29/19 09:14 09/29/19 09:34 Nitro-Bid 2% TOP 09/29/19 09:15 1 gm ONETIME ONE Administration Ondansetron HCl 4 mg 09/29/19 09:10 09/29/19 09:12 Zofran IVPUSH 09/29/19 09:11 4 mg ONETIME ONE Administration Ondansetron HCl Confirm 09/29/19 09:11 09/29/19 09:35 Zofran Administered 09/29/19 09:12 Not Given Dose 4 mg .ROUTE .STK-MED ONE Ondansetron HCl 4 mg 09/29/19 09:48 09/29/19 10:12 Zofran IVPUSH 09/29/19 09:49 4 mg ONETIME ONE Administration Sodium Chloride 2.5 ml 09/29/19 09:14 09/29/19 09:33 Saline Flush FLUSH 2.5 ml ASDIRECTED PRN Administration Keep Vein Open Sodium Chloride 10 ml 09/29/19 09:14 09/29/19 09:33 Saline Flush FLUSH 10 ml ASDIRECTED PRN Administration Keep Vein Open Sodium Chloride 2.5 ml 09/29/19 09:14 Saline Flush FLUSH ASDIRECTED PRN Keep Vein Open Departure - Departure Time of Disposition: 12:00 Disposition: DC/Tfer to Acute Hospital 02 Reason for Transfer *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
[2019-09-29] MEDS ORDERED: Ondansetron 4 MG/2 ML SDV IVPUSH ONE ×2 (09:10→09:48)
[2019-09-29] MEDS ORDERED: Ondansetron 4 MG/2 ML SDV ONE (09:11)
[2019-09-29] MEDS ORDERED: Sodium Chloride 0.9% 1,000 ML IV ONE (09:14)
[2019-09-29] MEDS ORDERED: Sodium Chloride 0.9% 2.5 ML Syringe FLUSH PRN ×2 (09:14)
[2019-09-29] MEDS ORDERED: Nitroglycerin 2% Oint 1 GM UD Packet TOP ONE (09:14)
[2019-09-29] MEDS ORDERED: Sodium Chloride 0.9% 10 ML Syringe FLUSH PRN (09:14)
[2019-09-29] MEDS ORDERED: Morphine 2 MG/ML Syringe IVPUSH ONE (09:15)
[2019-09-29] MEDS ORDERED: Alum Hydrox/Mag Hydrox/Simeth 15 ML, Lidocaine 2% 5 ML PO ONE ×2 (09:48)
[2019-09-29 10:22] LABS: BLOOD UREA NITROGEN,BUN 31 mg/dL (7.0-18.0); CARBON DIOXIDE,CO2 25.3 mmol/L (21.0-32.0); CHLORIDE,CL 103 mmol/L (98-107); GLUCOSE RANDOM 249 mg/dL (74-106); LIPASE 110 U/L (73-393); POTASSIUM,K 4.6 mmol/L (3.5-5.1); SODIUM,NA 139 mmol/L (136-148)
--- NOTE | 2019-09-29 10:35 | CR ---
Chest: Portable view of the chest was obtained. Comparison: Prior chest x-ray of 08/26/19. Heart is enlarged. Slight upper lobe pulmonary vascular redistribution is seen. Findings are stable from previous exam. No acute parenchymal change is seen. Bony structures are grossly intact. Impression: 1. Cardiomegaly with chronic upper lobe pulmonary vascular redistribution. 2. Nothing acute is otherwise seen. Diagnostic code #2 This report was dictated in [place] Standard Time
[2019-09-29] MEDS ORDERED: Metoprolol Tartrate 5 MG/5 ML SDV IVPUSH ONE ×2 (10:49→11:35)
[2019-09-29] MEDS ORDERED: Morphine 4 MG/ML Syringe IVPUSH ONE ×2 (10:49→11:35)
[2019-09-29] MEDS ORDERED: Metoclopramide 10 MG/2 ML SDV ONE (11:52)
== END 2019-09-29 12:00 ==
LOC: MW.ED 09:01
DX: I24.9 Acute ischemic heart disease, unspecified (principal); I10 Essential (primary) hypertension; E11.9 Type 2 diabetes mellitus without complications; I25.2 Old myocardial infarction; Z79.899 Other long term (current) drug therapy; Z79.84 Long term (current) use of oral hypoglycemic drugs; Z79.02 Long term (current) use of antithrombotics/antiplatelets
CPT/HCPCS: 36415; 71045; 80053; 83690; 84484; 85025; 93005; 96361; 96374; 96375; 96376; 99285; A9270; J2270; J2405; J3490; J7030

== ENCOUNTER 2019-10-03 08:52 | Emergency (ER) | payer OTHER ==
[2019-10-03] MEDS ORDERED: Sodium Chloride 0.9% 10 ML Syringe FLUSH PRN (09:09)
[2019-10-03] MEDS ORDERED: Sodium Chloride 0.9% 2.5 ML Syringe FLUSH PRN (09:09)
[2019-10-03] MEDS ORDERED: Aspirin 81 MG Tab.Chew PO ONE (09:09)
[2019-10-03] MEDS ORDERED: Ondansetron 4 MG/2 ML SDV IVPUSH ONE (09:12)
[2019-10-03] MEDS ORDERED: Prochlorperazine 10 MG/2 ML SDV IVPUSH ONE (09:16)
[2019-10-03] MEDS ORDERED: Prochlorperazine 10 MG/2 ML SDV ONE (09:18)
--- NOTE | 2019-10-03 09:19 | EDM.PDOC ---
ED HPI GENERAL MEDICAL PROBLEM - General Chief Complaint: Cardiovascular Problem Stated Complaint: CHEST PAIN Time Seen by Provider: 10/03/19 09:04 Source of Information: Reports: Patient - History of Present Illness INITIAL COMMENTS - FREE TEXT/NARRATIVE: Patient complains of sharp chest pain in the left pectoral region which began at 11 PM last night. He tried taking a nitro patch then and says it did not help. He then took 3 nitroglycerin pills at midnight. They provided temporary relief, but the chest pain recurred at 3 AM and is been constant since then. The pain is still in the left pectoral region and it is not radiating to his jaw or shoulder. It is not worse with walking or exertion. He endorses a history of coronary artery disease, and says he had 4 stents placed at [place] on Friday of last week. Did not take any aspirin today; he says he is too nauseated. Chest Pain Score (Numeric/FACES): 8 - Related Data Allergies Allergy/AdvReac Type Severity Reaction Status Date / Time No Known Allergies Allergy Verified 10/03/19 09:02 Home Meds: Home Meds Furosemide [Lasix] 40 mg PO DAILY 05/02/19 [History] carvediloL [Carvedilol] 6.25 mg PO BID 05/02/19 [History] metFORMIN [Glucophage] 1,000 mg PO BIDMEALS 05/02/19 [History] atorvaSTATin Calcium [Atorvastatin Calcium] 40 mg PO BEDTIME 05/25/19 [History] Spironolactone [Aldactone] 25 mg PO DAILY 06/12/19 [History] Tamsulosin HCl [Flomax] 0.4 mg PO DAILY #14 cap.er.24h 06/22/19 [Rx] Nitroglycerin [Nitroglycerin Patch 0.2 MG/Hr] 0.2 mg TRDERM DAILY 07/25/19 [ History] Clopidogrel [Plavix] 75 mg PO DAILY 07/26/19 [History] lisinopriL [Lisinopril] 10 mg PO DAILY 07/26/19 [History] Magnesium 250 mg PO BID 08/26/19 [History] Nitroglycerin [Nitrostat] 0.4 mg PO ASDIRECTED PRN 08/26/19 [History] Acetaminophen [Tylenol] 650 mg PO Q4H PRN tablet 08/27/19 [Rx] Aspirin [Barbie Chewable Aspirin] 81 mg PO DAILY 10/03/19 [History] HYDROmorphone [Dilaudid] 2 mg PO ASDIRECTED PRN MDD QID 10/03/19 [History] Past Medical History HEENT History: Reports: Impaired Vision, Other (See Below) Other HEENT History: wears glasses Cardiovascular History: Reports: Hypertension, NM, Stents Other Cardiovascular History: pt reports mild heat attack 2018 Respiratory History: Reports: Pneumonia, Recurrent Gastrointestinal History: Reports: Other (See Below) Other Gastrointestinal History: Gallbladder Issues Genitourinary History: Reports: Renal Calculus Musculoskeletal History: Reports: Fracture Other Musculoskeletal History: "Broken nose in past from [age]years old " Neurological History: Reports: None Psychiatric History: Reports: None Endocrine/Metabolic History: Reports: Diabetes, Type II Insulin Pump Model and Res Counselor: None Hematologic History: Reports: None Immunologic History: Reports: None Oncologic (Cancer) History: Reports: None Dermatologic History: Reports: None - Infectious Disease History Infectious Disease History: Reports: None - Past Surgical History Head Surgeries/Procedures: Reports: None Respiratory Surgical History: Reports: None GI Surgical History: Reports: Colonoscopy Endocrine Surgical History: Reports: Thyroidectomy, Other (See Below) Other Endocrine Surgeries/Procedures: patrial thyroidectomy Social & Family History - Family History Family Medical History: Noncontributory HEENT: Reports: None Cardiac: Reports: None Respiratory: Reports: None GI: Reports: None : Reports: None Musculoskeletal: Reports: Arthritis Neurological: Reports: Alzheimers Disease Endocrine/Metabolic: Reports: Diabetes, type II Oncologic: Reports: Lung - Tobacco Use Smoking Status *Q: Former Smoker Used Tobacco, but Quit: Yes Month/Year Tobacco Last Used: 1999 - Caffeine Use Caffeine Use: Reports: None Caffeine Use Comment: Pot a day - Recreational Drug Use Recreational Drug Use: No ED ROS GENERAL - Review of Systems Review Of Systems: See Below Constitutional: Reports: Diaphoresis. Denies: Fever, Weakness, Fatigue Respiratory: Denies: Shortness of Breath, Cough Cardiovascular: Reports: Chest Pain, Claudication, Lightheadedness Musculoskeletal: Reports: No Symptoms Skin: Reports: No Symptoms Neurological: Reports: Dizziness Psychiatric: Reports: No Symptoms ED EXAM, GENERAL - Physical Exam Exam: See Below Free Text/Narrative:: General: alert, well appearing, diaphoretic, retching, looks uncomfortable HEENT: Atraumatic, normocephalic, pupils reactive, negative for conjunctival pallor or scleral icterus, mucous membranes moist, throat clear, handling oral secretions well. Neck: supple, nontender, trachea midline. Lungs: Clear to auscultation, breath sounds equal bilaterally, chest nontender. Heart: S1S2, regular, negative for clicks, rubs, or JVD. Abdomen: Soft, nondistended, nontender. Negative for masses or hepatosplenomegaly. Skin: warm, dry, good turgor. Musculoskeletal: soft compartments. NO LE edema. Extremities: Atraumatic, negative for cords or calf pain. Neurovascular unremarkable. Neuro: Awake, alert, oriented. Cranial nerves II through XII unremarkable. Cerebellum unremarkable. Motor and sensory unremarkable throughout. Exam nonfocal. EKG INTERPRETATION EKG Interpretation Comments: Ek bpm sinus tachycardia left axis deviation normal VA, prolonged QRS, normal QTC; there are ST depressions which are subtle in V1, V2, V4, and V5 Course - Vital Signs Text/Narrative:: Bnp: pending at time of decision to transfer Cbc: mild anemia Cmp: hypergly (clu 226) Coags: INR 1.04 (nl) Trop: 0.279 (elev) Cxr: no acute dz 9:49am Contacted [facility] transfer line. 9:[address] Reinaldo Posey, ED attending at [facility]. Accepts pt for transfer. Also spoke with Dr. French , cardiology.Advises ntg drip rate 20 mcg/min if still in pain. Also wants heparin drip. 10:15am Pt has grossly bloody urine; have held heparin drip. He says he has a little CP now. Will start ntg at 20 mcg/min. 10:18am Pt declines NTG drip. Says pain now only 2/10. He agrees to inform us if pain increases again. Pt informed of need for transfer. Consents. Last Recorded V/S: Last Vital Signs Temp 97.8 F 10/03/19 09:06 Pulse 113 H 10/03/19 10:01 Resp 20 10/03/19 10:01 BP 142/86 H 10/03/19 10:01 Pulse Ox 96 10/03/19 10:01 - Orders/Labs/Meds Orders: Active Orders 24 hr Category Date Time Status Cardiac Monitoring [RC] . DIRECTED Care 10/03/19 09:09 Active EKG Documentation Completion [RC] STAT Care 10/03/19 09:13 Active Oxygen Therapy [RC] ASDIRECTED Care 10/03/19 09:09 Active Pulse Oximetry [RC] ASDIRECTED Care 10/03/19 09:09 Active CULTURE URINE [] Stat Lab 10/03/19 09:37 Received Nitroglycerin/D5W [Nitroglycerin 25 MG/D5W 250 ML] Med 10/03/19 10:15 Active 25 mg in 250 ml IV TITRATE Sodium Chloride 0.9% [Saline Flush] Med 10/03/19 09:09 Active 10 ml FLUSH ASDIRECTED PRN Sodium Chloride 0.9% [Saline Flush] Med 10/03/19 09:09 Active 2.5 ml FLUSH ASDIRECTED PRN Saline Lock Insert [OM.PC] Stat Oth 10/03/19 09:09 Ordered Medication Orders Nitroglycerin/Dextrose (Nitroglycerin 25 Mg/D5w 250 Ml) 25 mg in 250 mls @ 12 mls/hr IV TITRATE MIRZA; Protocol Sodium Chloride (Saline Flush) 10 ml FLUSH ASDIRECTED PRN PRN Reason: Keep Vein Open Last Admin: 10/03/19 09:23 Dose: 10 ml Sodium Chloride (Saline Flush) 2.5 ml FLUSH ASDIRECTED PRN PRN Reason: Keep Vein Open Labs: Laboratory Tests 10/03/19 10/03/19 10/03/19 Range/Units 08:58 08:58 08:58 WBC 6.09 (4.0-11.0) K/uL RBC 3.72 L (4.50-5.90) M/uL Hgb 12.1 L (13.0-17.0) g/dL Hct 34.2 L (38.0-50.0) % MCV 91.9 (80.0-98.0) fL MCH 32.5 H (27.0-32.0) pg MCHC 35.4 (31.0-37.0) g/dL RDW Std Deviation 47.5 (28.0-62.0) fl RDW Coeff of Mukesh 14 (11.0-15.0) % Plt Count 113 L (150-400) K/uL MPV 11.20 (7.40-12.00) fL Neut % (Auto) 66.0 (48.0-80.0) % Lymph % (Auto) 25.5 (16.0-40.0) % Eaton % (Auto) 5.9 (0.0-15.0) % Eos % (Auto) 2.3 (0.0-7.0) % Baso % (Auto) 0.3 (0.0-1.5) % Neut # (Auto) 4.0 (1.4-5.7) K/uL Lymph # (Auto) 1.6 (0.6-2.4) K/uL Eaton # (Auto) 0.4 (0.0-0.8) K/uL Eos # (Auto) 0.1 (0.0-0.7) K/uL Baso # (Auto) 0.0 (0.0-0.1) K/uL Nucleated RBC % 0.0 /100WBC Nucleated RBCs # 0 K/uL INR 1.04 APTT (18.6-31.3) SEC Sodium 142 (136-148) mmol/L Potassium 4.5 (3.5-5.1) mmol/L Chloride 103 (98-107) mmol/L Carbon Dioxide 26.7 (21.0-32.0) mmol/L BUN 21 H (7.0-18.0) mg/dL Creatinine 1.0 (0.8-1.3) mg/dL Est Cr Clr Drug Dosing 97.41 mL/min Estimated GFR (MDRD) > 60.0 ml/min Glucose 226 H (74-106) mg/dL Calcium 9.9 (8.5-10.1) mg/dL Total Bilirubin 0.8 (0.2-1.0) mg/dL AST 34 (15-37) IU/L ALT 36 (14-63) IU/L Alkaline Phosphatase 92 (46-116) U/L Troponin I 0.279 H* (0.000-0.056) ng/mL B-Natriuretic Peptide (<100) PG/ML Total Protein 7.5 (6.4-8.2) g/dL Albumin 3.9 (3.4-5.0) g/dL Globulin 3.6 (2.6-4.0) g/dL Albumin/Globulin Ratio 1.1 (0.9-1.6) Urine Color Urine Appearance Urine pH (5.0-8.0) Ur Specific Myrtle (1.001-1.035) Urine Protein (NEGATIVE) mg/dL Urine Glucose (UA) (NEGATIVE) mg/dL Urine Ketones (NEGATIVE) mg/dL Urine Occult Blood (NEGATIVE) Urine Nitrite (NEGATIVE) Urine Bilirubin (NEGATIVE) Urine Ictotest Urine Urobilinogen (<2.0) EU/dL Ur Leukocyte Esterase (NEGATIVE) Urine RBC (0-2/HPF) Urine WBC (0-5/HPF) Ur Epithelial Cells (NONE-FEW) Urine Bacteria (NEGATIVE) Urine Mucus (NONE-MOD) 10/03/19 10/03/19 10/03/19 Range/Units 08:58 08:58 09:37 WBC (4.0-11.0) K/uL RBC (4.50-5.90) M/uL Hgb (13.0-17.0) g/dL Hct (38.0-50.0) % MCV (80.0-98.0) fL MCH (27.0-32.0) pg MCHC (31.0-37.0) g/dL RDW Std Deviation (28.0-62.0) fl RDW Coeff of Mukesh (11.0-15.0) % Plt Count (150-400) K/uL MPV (7.40-12.00) fL Neut % (Auto) (48.0-80.0) % Lymph % (Auto) (16.0-40.0) % Eaton % (Auto) (0.0-15.0) % Eos % (Auto) (0.0-7.0) % Baso % (Auto) (0.0-1.5) % Neut # (Auto) (1.4-5.7) K/uL Lymph # (Auto) (0.6-2.4) K/uL Eaton # (Auto) (0.0-0.8) K/uL Eos # (Auto) (0.0-0.7) K/uL Baso # (Auto) (0.0-0.1) K/uL Nucleated RBC % /100WBC Nucleated RBCs # K/uL INR APTT 23.8 (18.6-31.3) SEC Sodium (136-148) mmol/L Potassium (3.5-5.1) mmol/L Chloride (98-107) mmol/L Carbon Dioxide (21.0-32.0) mmol/L BUN (7.0-18.0) mg/dL Creatinine (0.8-1.3) mg/dL Est Cr Clr Drug Dosing mL/min Estimated GFR (MDRD) ml/min Glucose (74-106) mg/dL Calcium (8.5-10.1) mg/dL Total Bilirubin (0.2-1.0) mg/dL AST (15-37) IU/L ALT (14-63) IU/L Alkaline Phosphatase (46-116) U/L Troponin I (0.000-0.056) ng/mL B-Natriuretic Peptide 133 H (<100) PG/ML Total Protein (6.4-8.2) g/dL Albumin (3.4-5.0) g/dL Globulin (2.6-4.0) g/dL Albumin/Globulin Ratio (0.9-1.6) Urine Color BROWN Urine Appearance CLOUDY Urine pH 6.5 (5.0-8.0) Ur Specific Myrtle 1.025 (1.001-1.035) Urine Protein >=300 H (NEGATIVE) mg/dL Urine Glucose (UA) 500 H (NEGATIVE) mg/dL Urine Ketones 15 H (NEGATIVE) mg/dL Urine Occult Blood LARGE H (NEGATIVE) Urine Nitrite POSITIVE H (NEGATIVE) Urine Bilirubin MODERATE H (NEGATIVE) Urine Ictotest NEGATIVE Urine Urobilinogen 1.0 (<2.0) EU/dL Ur Leukocyte Esterase SMALL H (NEGATIVE) Urine RBC TOO NUMEROUS TO CT (0-2/HPF) Urine WBC 4-6 (0-5/HPF) Ur Epithelial Cells FEW (NONE-FEW) Urine Bacteria 1+ H (NEGATIVE) Urine Mucus LIGHT (NONE-MOD) Meds: Medications Generic Name Dose Route Start Last Admin Trade Name Freq PRN Reason Stop Dose Admin Nitroglycerin/Dextrose 25 mg in 250 mls @ 12 mls/hr 10/03/19 10:15 Nitroglycerin 25 Mg/D5w 250 Ml IV TITRATE MIRZA Protocol 20 MCG/MIN Sodium Chloride 10 ml 10/03/19 09:09 10/03/19 09:23 Saline Flush FLUSH 10 ml ASDIRECTED PRN Administration Keep Vein Open Sodium Chloride 2.5 ml 10/03/19 09:09 Saline Flush FLUSH ASDIRECTED PRN Keep Vein Open Discontinued Medications Generic Name Dose Route Start Last Admin Trade Name Freq PRN Reason Stop Dose Admin Aspirin 324 mg 10/03/19 09:09 10/03/19 09:22 Aspirin PO 10/03/19 09:10 324 mg ONETIME ONE Administration Heparin Sodium/Sodium Chloride 25,000 unit in 500 mls @ 25.038 mls/hr 10:15 Heparin-1/2ns 25,000 Units/500 IV ASDIRECTED MIRZA Protocol 12 UNITS/KG/HR Morphine Sulfate 4 mg 10/03/19 09:40 10/03/19 10:00 Morphine IVPUSH 10/03/19 09:41 4 mg ONETIME ONE Administration Nitroglycerin 0.4 mg 10/03/19 09:09 10/03/19 09:30 Nitrostat SL 0.4 mg Q5M PRN Administration Chest Pain Ondansetron HCl 4 mg 10/03/19 09:12 10/03/19 09:23 Zofran IVPUSH 10/03/19 09:13 Not Given ONETIME ONE Prochlorperazine Edisylate 10 mg 10/03/19 09:16 10/03/19 09:22 Compazine IVPUSH 10/03/19 09:17 10 mg ONETIME ONE Administration Prochlorperazine Edisylate Confirm 10/03/19 09:18 10/03/19 09:23 Compazine Administered 10/03/19 09:19 Not Given Dose 10 mg .ROUTE .STK-MED ONE Departure - Departure Time of Disposition: 09:45 Disposition: DC/Tfer to Acute Hospital 02 Reason for Transfer *Q: Primary PCI Indicated Condition: Good Clinical Impression: Acute myocardial infarction Qualifiers: Myocardial infarction type: non-ST elevation myocardial infarction Qualified Code(s): I21.4 - Non-ST elevation (NSTEMI) myocardial infarction Chest pain Qualifiers: Chest pain type: unspecified Qualified Code(s): R07.9 - Chest pain, unspecified Referrals: PCP,Unobtain [Primary Care Provider] - Forms: ED Department Discharge Sepsis Event Note - Evaluation Sepsis Screening Result: No Definite Risk - Focused Exam Vital Signs: Vital Signs Temp Pulse Resp BP BP Pulse Ox 10/03/19 10:01 113 H 20 142/86 H 96 10/03/19 09:30 144/87 H 10/03/19 09:28 122 H 20 140/87 99 10/03/19 09:26 149/89 H 10/03/19 09:21 165/104 H 10/03/19 09:06 97.8 F 125 H 13 174/102 H 98 Date Exam was Performed: 10/03/19 Time Exam was Performed: 10:32 - My Orders Last 24 Hours: My Active Orders 10/03/19 09:09 Cardiac Monitoring [RC] . DIRECTED Oxygen Therapy [RC] ASDIRECTED Pulse Oximetry [RC] ASDIRECTED Sodium Chloride 0.9% [Saline Flush] 10 ml FLUSH ASDIRECTED PRN Sodium Chloride 0.9% [Saline Flush] 2.5 ml FLUSH ASDIRECTED PRN Saline Lock Insert [OM.PC] Stat 10/03/19 09:13 EKG Documentation Completion [RC] STAT 10/03/19 09:37 CULTURE URINE [RM] Stat 10/03/19 10:15 Nitroglycerin/D5W [Nitroglycerin 25 MG/D5W 250 ML] 25 mg in 250 ml IV TITRATE - Assessment/Plan Last 24 Hours: My Active Orders 10/03/19 09:09 Cardiac Monitoring [RC] . DIRECTED Oxygen Therapy [RC] ASDIRECTED Pulse Oximetry [RC] ASDIRECTED Sodium Chloride 0.9% [Saline Flush] 10 ml FLUSH ASDIRECTED PRN Sodium Chloride 0.9% [Saline Flush] 2.5 ml FLUSH ASDIRECTED PRN Saline Lock Insert [OM.PC] Stat 10/03/19 09:13 EKG Documentation Completion [RC] STAT 10/03/19 09:37 CULTURE URINE [RM] Stat 10/03/19 10:15 Nitroglycerin/D5W [Nitroglycerin 25 MG/D5W 250 ML] 25 mg in 250 ml IV TITRATE
[2019-10-03] MEDS: Nitroglycerin 0.4 MG Tab.SL SL PRN ×3 (09:21→09:30)
[2019-10-03 09:31] LABS: BLOOD UREA NITROGEN,BUN 21 mg/dL (7.0-18.0); CARBON DIOXIDE,CO2 26.7 mmol/L (21.0-32.0); CHLORIDE,CL 103 mmol/L (98-107); GLUCOSE RANDOM 226 mg/dL (74-106); POTASSIUM,K 4.5 mmol/L (3.5-5.1); SODIUM,NA 142 mmol/L (136-148)
--- NOTE | 2019-10-03 09:36 | CR ---
INDICATION: Nausea and vomiting. Possible heart problem. TECHNIQUE: AP chest. COMPARISON: None. FINDINGS: Clear lungs. Overall heart size is at the upper limit of normal accentuated by the portable technique. No evidence for pneumothorax, congestive heart failure, or focal infiltrate The included skeleton is unremarkable. IMPRESSION: Negative single-view chest. Dictated by Ulises Raymond MD @ Oct 03 2019 9:33AM Signed by Dr. Ulises Raymond @ Oct 03 2019 9:33AM
[2019-10-03] MEDS ORDERED: Morphine 4 MG/ML Syringe IVPUSH ONE (09:40)
[2019-10-03] MEDS ORDERED: Nitroglycerin/D5W 25 MG/250 ML BOTTLE IV SCH (10:15)
[2019-10-03] MEDS ORDERED: Heparin Sod,Pork In 0.45% Nacl 25,000 UNIT/500 ML IV.SOLN IV SCH (10:15)
== END 2019-10-03 10:35 ==
LOC: MW.ED 08:52
DX: I21.4 Non-ST elevation (NSTEMI) myocardial infarction (principal); I25.10 Atherosclerotic heart disease of native coronary artery without angina pectoris; I10 Essential (primary) hypertension; E11.9 Type 2 diabetes mellitus without complications; Z95.5 Presence of coronary angioplasty implant and graft; Z87.891 Personal history of nicotine dependence; Z79.899 Other long term (current) drug therapy; Z79.84 Long term (current) use of oral hypoglycemic drugs; Z79.02 Long term (current) use of antithrombotics/antiplatelets; Z79.82 Long term (current) use of aspirin
CPT/HCPCS: 36415; 71045; 80053; 81001; 83880; 84484; 85025; 85610; 85730; 87086; 93005; 96374; 96375; 99285; A9270; J0780; J2270

== ENCOUNTER 2019-10-12 08:53 | Emergency (ER) | payer OTHER ==
[2019-10-12] MEDS ORDERED: Aspirin 81 MG Tab.Chew PO ONE (09:01)
[2019-10-12] MEDS ORDERED: Sodium Chloride 0.9% 10 ML Syringe FLUSH PRN (09:01)
[2019-10-12] MEDS ORDERED: Sodium Chloride 0.9% 2.5 ML Syringe FLUSH PRN (09:01)
--- NOTE | 2019-10-12 09:05 | EDM.PDOC ---
ED HPI GENERAL MEDICAL PROBLEM - General Chief Complaint: Chest Pain Stated Complaint: CHEST PAIN AND SOB Time Seen by Provider: 10/12/19 09:00 - History of Present Illness INITIAL COMMENTS - FREE TEXT/NARRATIVE: 59-year-old male with hypertension CAD multiple stents diabetes presented to ER for left-sided chest pain pain started around 3 AM this morning Nitropatch and 3 sublingual's at home pain did not subside. Patient has similar episodes of this pain in the past. Positive shortness of breath. Associated with anxiety as well. The time of arrival to ER the chest pain has subsided he has some epigastric discomfort. No leg swelling no cough no hemoptysis no weakness no numbness. - Related Data Allergies Allergy/AdvReac Type Severity Reaction Status Date / Time No Known Allergies Allergy Verified 10/12/19 09:03 Home Meds: Home Meds carvediloL [Carvedilol] 6.25 mg PO BID 05/02/19 [History] metFORMIN [Glucophage] 1,000 mg PO BIDMEALS 05/02/19 [History] atorvaSTATin Calcium [Atorvastatin Calcium] 40 mg PO BEDTIME 05/25/19 [History] Spironolactone [Aldactone] 25 mg PO DAILY 06/12/19 [History] Tamsulosin HCl [Flomax] 0.4 mg PO DAILY #14 cap.er.24h 06/22/19 [Rx] Nitroglycerin [Nitroglycerin Patch 0.2 MG/Hr] 0.2 mg TRDERM DAILY 07/25/19 [ History] Clopidogrel [Plavix] 75 mg PO DAILY 07/26/19 [History] lisinopriL [Lisinopril] 10 mg PO DAILY 07/26/19 [History] Magnesium 250 mg PO BID 08/26/19 [History] Nitroglycerin [Nitrostat] 0.4 mg PO ASDIRECTED PRN 08/26/19 [History] Aspirin [Barbie Chewable Aspirin] 81 mg PO DAILY 10/03/19 [History] Past Medical History HEENT History: Reports: Impaired Vision, Other (See Below) Other HEENT History: wears glasses Cardiovascular History: Reports: Hypertension, SC, Stents Other Cardiovascular History: pt reports mild heat attack 2018 Respiratory History: Reports: Pneumonia, Recurrent Gastrointestinal History: Reports: Other (See Below) Other Gastrointestinal History: Gallbladder Issues Genitourinary History: Reports: Renal Calculus Musculoskeletal History: Reports: Fracture Other Musculoskeletal History: "Broken nose in past from [age]years old " Neurological History: Reports: None Psychiatric History: Reports: None Endocrine/Metabolic History: Reports: Diabetes, Type II 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 Hematologic History: Reports: None Immunologic History: Reports: None Oncologic (Cancer) History: Reports: None Dermatologic History: Reports: None - Infectious Disease History Infectious Disease History: Reports: None - Past Surgical History Head Surgeries/Procedures: Reports: None Respiratory Surgical History: Reports: None GI Surgical History: Reports: Colonoscopy Endocrine Surgical History: Reports: Thyroidectomy, Other (See Below) Other Endocrine Surgeries/Procedures: patrial thyroidectomy Social & Family History - Family History Family Medical History: Noncontributory HEENT: Reports: None Cardiac: Reports: None Respiratory: Reports: None GI: Reports: None : Reports: None Musculoskeletal: Reports: Arthritis Neurological: Reports: Alzheimers Disease Endocrine/Metabolic: Reports: Diabetes, type II Oncologic: Reports: Lung - Caffeine Use Caffeine Use: Reports: None Caffeine Use Comment: Pot a day ED ROS GENERAL - Review of Systems Review Of Systems: See Below Constitutional: Reports: No Symptoms HEENT: Reports: No Symptoms Respiratory: Reports: Shortness of Breath Cardiovascular: Reports: Chest Pain Endocrine: Reports: No Symptoms GI/Abdominal: Reports: No Symptoms : Reports: No Symptoms Musculoskeletal: Reports: No Symptoms Skin: Reports: No Symptoms Neurological: Reports: No Symptoms Psychiatric: Reports: No Symptoms Hematologic/Lymphatic: Reports: No Symptoms Immunologic: Reports: No Symptoms ED EXAM, GENERAL - Physical Exam Exam: See Below General Appearance: Alert Ears: Normal External Exam Nose: Normal Inspection Throat/Mouth: Normal Inspection Head: Atraumatic, Normocephalic Neck: Normal Inspection, Supple Respiratory/Chest: No Respiratory Distress, Lungs Clear, Normal Breath Sounds, No Accessory Muscle Use Cardiovascular: Normal Peripheral Pulses, Regular Rate, Rhythm, No Edema, No Gallop, No JVD, No Murmur, No Rub Peripheral Pulses: 3+: Radial (L), Radial (R), Dorsalis Pedis (L), Dorsalis Pedis (R) GI/Abdominal: Soft, Non-Tender, No Distention (Male) Exam: Deferred Rectal (Males) Exam: Deferred Back Exam: Normal Inspection Extremities: Normal Inspection Neurological: Alert, Oriented, Normal Cognition, Normal Gait Psychiatric: Normal Affect Skin Exam: Warm, Dry Lymphatic: No Adenopathy EKG INTERPRETATION Rhythm: NSR QRS: Wide ST-T: Other (non specific flattening, v5 v6) Comparison: No Change (intraventricular delay? similar to prior) Course - Vital Signs Last Recorded V/S: Last Vital Signs Temp 97.3 F 10/12/19 09:04 Pulse 91 10/12/19 10:00 Resp 18 10/12/19 10:00 BP 168/96 H 10/12/19 10:00 Pulse Ox 97 10/12/19 10:00 - Orders/Labs/Meds Orders: Active Orders 24 hr Category Date Time Status Cardiac Monitoring [RC] . DIRECTED Care 10/12/19 09:01 Active EKG Documentation Completion [RC] STAT Care 10/12/19 09:01 Active EKG Documentation Completion [RC] STAT Care 10/12/19 09:25 Active Chest 1V Frontal [CR] Stat Exams 10/12/19 09:01 Taken CULTURE URINE [RM] Stat Lab 10/12/19 10:02 Received Sodium Chloride 0.9% [Saline Flush] Med 10/12/19 09:01 Active 10 ml FLUSH ASDIRECTED PRN Sodium Chloride 0.9% [Saline Flush] Med 10/12/19 09:01 Active 2.5 ml FLUSH ASDIRECTED PRN Saline Lock Insert [OM.PC] Stat Oth 10/12/19 09:01 Ordered Medication Orders Sodium Chloride (Saline Flush) 10 ml FLUSH ASDIRECTED PRN PRN Reason: Keep Vein Open Sodium Chloride (Saline Flush) 2.5 ml FLUSH ASDIRECTED PRN PRN Reason: Keep Vein Open Labs: Laboratory Tests 10/12/19 10/12/19 10/12/19 Range/Units 08:57 08:57 08:57 WBC 4.72 (4.0-11.0) K/uL RBC 3.46 L (4.50-5.90) M/uL Hgb 10.9 L (13.0-17.0) g/dL Hct 32.8 L (38.0-50.0) % MCV 94.8 (80.0-98.0) fL MCH 31.5 (27.0-32.0) pg MCHC 33.2 (31.0-37.0) g/dL RDW Std Deviation 48.1 (28.0-62.0) fl RDW Coeff of Mukesh 14 (11.0-15.0) % Plt Count 122 L (150-400) K/uL MPV 11.00 (7.40-12.00) fL Neut % (Auto) 67.0 (48.0-80.0) % Lymph % (Auto) 20.6 (16.0-40.0) % [place] % (Auto) 7.8 (0.0-15.0) % Eos % (Auto) 4.0 (0.0-7.0) % Baso % (Auto) 0.6 (0.0-1.5) % Neut # (Auto) 3.2 (1.4-5.7) K/uL Lymph # (Auto) 1.0 (0.6-2.4) K/uL [place] # (Auto) 0.4 (0.0-0.8) K/uL Eos # (Auto) 0.2 (0.0-0.7) K/uL Baso # (Auto) 0.0 (0.0-0.1) K/uL Nucleated RBC % 0.0 /100WBC Nucleated RBCs # 0 K/uL INR 1.05 Sodium 142 (136-148) mmol/L Potassium 3.8 (3.5-5.1) mmol/L Chloride 105 (98-107) mmol/L Carbon Dioxide 25.3 (21.0-32.0) mmol/L BUN 16 (7.0-18.0) mg/dL Creatinine 0.9 (0.8-1.3) mg/dL Est Cr Clr Drug Dosing 99.40 mL/min Estimated GFR (MDRD) > 60.0 ml/min Glucose 206 H (74-106) mg/dL Calcium 8.9 (8.5-10.1) mg/dL Total Bilirubin 0.7 (0.2-1.0) mg/dL AST 25 (15-37) IU/L ALT 25 (14-63) IU/L Alkaline Phosphatase 104 (46-116) U/L Troponin I < 0.050 (0.000-0.056) ng/mL Total Protein 7.0 (6.4-8.2) g/dL Albumin 3.5 (3.4-5.0) g/dL Globulin 3.5 (2.6-4.0) g/dL Albumin/Globulin Ratio 1.0 (0.9-1.6) Urine Color Urine Appearance Urine pH (5.0-8.0) Ur Specific [place] (1.001-1.035) Urine Protein (NEGATIVE) mg/dL Urine Glucose (UA) (NEGATIVE) mg/dL Urine Ketones (NEGATIVE) mg/dL Urine Occult Blood (NEGATIVE) Urine Nitrite (NEGATIVE) Urine Bilirubin (NEGATIVE) Urine Urobilinogen (<2.0) EU/dL Ur Leukocyte Esterase (NEGATIVE) Urine RBC (0-2/HPF) Urine WBC (0-5/HPF) Ur Epithelial Cells (NONE-FEW) Calcium Oxalate Crystal (NEGATIVE) Urine Bacteria (NEGATIVE) 10/12/19 Range/Units 10:02 WBC (4.0-11.0) K/uL RBC (4.50-5.90) M/uL Hgb (13.0-17.0) g/dL Hct (38.0-50.0) % MCV (80.0-98.0) fL MCH (27.0-32.0) pg MCHC (31.0-37.0) g/dL RDW Std Deviation (28.0-62.0) fl RDW Coeff of Mukesh (11.0-15.0) % Plt Count (150-400) K/uL MPV (7.40-12.00) fL Neut % (Auto) (48.0-80.0) % Lymph % (Auto) (16.0-40.0) % [place] % (Auto) (0.0-15.0) % Eos % (Auto) (0.0-7.0) % Baso % (Auto) (0.0-1.5) % Neut # (Auto) (1.4-5.7) K/uL Lymph # (Auto) (0.6-2.4) K/uL [place] # (Auto) (0.0-0.8) K/uL Eos # (Auto) (0.0-0.7) K/uL Baso # (Auto) (0.0-0.1) K/uL Nucleated RBC % /100WBC Nucleated RBCs # K/uL INR Sodium (136-148) mmol/L Potassium (3.5-5.1) mmol/L Chloride (98-107) mmol/L Carbon Dioxide (21.0-32.0) mmol/L BUN (7.0-18.0) mg/dL Creatinine (0.8-1.3) mg/dL Est Cr Clr Drug Dosing mL/min Estimated GFR (MDRD) ml/min Glucose (74-106) mg/dL Calcium (8.5-10.1) mg/dL Total Bilirubin (0.2-1.0) mg/dL AST (15-37) IU/L ALT (14-63) IU/L Alkaline Phosphatase (46-116) U/L Troponin I (0.000-0.056) ng/mL Total Protein (6.4-8.2) g/dL Albumin (3.4-5.0) g/dL Globulin (2.6-4.0) g/dL Albumin/Globulin Ratio (0.9-1.6) Urine Color YELLOW Urine Appearance CLEAR Urine pH 6.5 (5.0-8.0) Ur Specific [place] 1.015 (1.001-1.035) Urine Protein NEGATIVE (NEGATIVE) mg/dL Urine Glucose (UA) 100 H (NEGATIVE) mg/dL Urine Ketones NEGATIVE (NEGATIVE) mg/dL Urine Occult Blood SMALL H (NEGATIVE) Urine Nitrite NEGATIVE (NEGATIVE) Urine Bilirubin NEGATIVE (NEGATIVE) Urine Urobilinogen 0.2 (<2.0) EU/dL Ur Leukocyte Esterase SMALL H (NEGATIVE) Urine RBC 2-4 (0-2/HPF) Urine WBC 5-8 (0-5/HPF) Ur Epithelial Cells RARE (NONE-FEW) Calcium Oxalate Crystal FEW (NEGATIVE) Urine Bacteria FEW (NEGATIVE) Meds: Medications Generic Name Dose Route Start Last Admin Trade Name Freq PRN Reason Stop Dose Admin Sodium Chloride 10 ml 10/12/19 09:01 Saline Flush FLUSH ASDIRECTED PRN Keep Vein Open Sodium Chloride 2.5 ml 10/12/19 09:01 Saline Flush FLUSH ASDIRECTED PRN Keep Vein Open Discontinued Medications Generic Name Dose Route Start Last Admin Trade Name Freq PRN Reason Stop Dose Admin Aspirin 324 mg 10/12/19 09:01 10/12/19 09:08 Aspirin PO 10/12/19 09:02 324 mg ONETIME ONE Administration Morphine Sulfate 4 mg 10/12/19 10:22 Morphine IVPUSH 10/12/19 10:23 ONETIME ONE Ondansetron HCl 4 mg 10/12/19 09:07 10/12/19 09:09 Zofran IVPUSH 10/12/19 09:08 4 mg ONETIME ONE Administration - Re-Assessments/Exams Free Text/Narrative Re-Assessment/Exam: 10/12/19 10:29 Normal sinus rhythm on the radiation monitor. He is experiencing some chest discomfort ordered morphine IV. First troponin was negative. With Dr. yeung at [facility] patient will be transferred for elevated level of care (possible cardiac intervention). Patient consented to the transfer. Spoke with Dr. Coto who accepted. ASA given. Departure - Departure Time of Disposition: 10:32 Disposition: DC/Tfer to [facility] Reason for Transfer *Q: Other (possible pci) Clinical Impression: Chest pain Qualifiers: Chest pain type: unspecified Qualified Code(s): R07.9 - Chest pain, unspecified Referrals: PCP,None [Primary Care Provider] - Forms: ED Department Discharge Sepsis Event Note - Focused Exam Vital Signs: Vital Signs Temp Pulse Resp BP Pulse Ox 10/12/19 10:00 91 18 168/96 H 97 10/12/19 09:45 90 18 179/108 H 98 10/12/19 09:30 89 18 156/108 H 97 10/12/19 09:04 97.3 F 90 22 H 171/114 H 98 Date Exam was Performed: 10/12/19 Time Exam was Performed: 10:29 - My Orders Last 24 Hours: My Active Orders 10/12/19 09:01 Cardiac Monitoring [RC] . DIRECTED EKG Documentation Completion [RC] STAT Chest 1V Frontal [CR] Stat Sodium Chloride 0.9% [Saline Flush] 10 ml FLUSH ASDIRECTED PRN Sodium Chloride 0.9% [Saline Flush] 2.5 ml FLUSH ASDIRECTED PRN Saline Lock Insert [OM.PC] Stat 10/12/19 09:25 EKG Documentation Completion [RC] STAT 10/12/19 10:02 CULTURE URINE [RM] Stat - Assessment/Plan Last 24 Hours: My Active Orders 10/12/19 09:01 Cardiac Monitoring [RC] . DIRECTED EKG Documentation Completion [RC] STAT Chest 1V Frontal [CR] Stat Sodium Chloride 0.9% [Saline Flush] 10 ml FLUSH ASDIRECTED PRN Sodium Chloride 0.9% [Saline Flush] 2.5 ml FLUSH ASDIRECTED PRN Saline Lock Insert [OM.PC] Stat 10/12/19 09:25 EKG Documentation Completion [RC] STAT 10/12/19 10:02 CULTURE URINE [RM] Stat
[2019-10-12] MEDS ORDERED: Ondansetron 4 MG/2 ML SDV IVPUSH ONE (09:07)
[2019-10-12 09:36] LABS: BLOOD UREA NITROGEN,BUN 16 mg/dL (7.0-18.0); CARBON DIOXIDE,CO2 25.3 mmol/L (21.0-32.0); CHLORIDE,CL 105 mmol/L (98-107); GLUCOSE RANDOM 206 mg/dL (74-106); POTASSIUM,K 3.8 mmol/L (3.5-5.1); SODIUM,NA 142 mmol/L (136-148)
[2019-10-12] MEDS ORDERED: Morphine 4 MG/ML Syringe IVPUSH ONE (10:22)
--- NOTE | 2019-10-12 10:36 | CR ---
Chest: Portable view of the chest was obtained. Comparison: Prior chest x-ray of 10/03/19. Heart felt to be slightly enlarged. Tortuous thoracic aorta is seen. Lungs are clear with no acute parenchymal change. Bony structures are grossly intact. Impression: 1. Heart is slightly enlarged. 2. Nothing acute is appreciated on portable chest x-ray. Diagnostic code #2 This report was dictated in [place] Standard Time
[2019-10-12] MEDS ORDERED: Nitroglycerin 0.4 MG Tab.SL SL ONE (10:45)
== END 2019-10-12 11:32 | disposition critical access hospital (66) ==
LOC: MW.ED 08:53
DX: R07.9 Chest pain, unspecified (principal); I10 Essential (primary) hypertension; I25.10 Atherosclerotic heart disease of native coronary artery without angina pectoris; I25.2 Old myocardial infarction; E11.9 Type 2 diabetes mellitus without complications; Z79.84 Long term (current) use of oral hypoglycemic drugs; Z79.82 Long term (current) use of aspirin; Z79.899 Other long term (current) drug therapy
CPT/HCPCS: 36415; 71045; 80053; 81001; 84484; 85025; 85610; 87086; 93005; 96374; 96375; 99285; A9270; J2270; J2405

== ENCOUNTER 2019-10-16 09:22 | Observation (INO) | payer OTHER ==
--- NOTE | 2019-10-16 09:50 | EDM.PDOC ---
ED HPI GENERAL MEDICAL PROBLEM - General Chief Complaint: Abdominal Pain Stated Complaint: VOMMITING STOMACH PAIN Time Seen by Provider: 10/16/19 09:50 Source of Information: Reports: Patient History Limitations: Reports: No Limitations - History of Present Illness INITIAL COMMENTS - FREE TEXT/NARRATIVE: This 59 year old male states that he was awaken this morning with abdominal pain and vomiting at 3:00AM. He describes the pain as sharp to dull and grades it a 8-9/10 on the pain scale. He denies any diarrhea or any other GI symptoms. He states that he was recently seen by his PCP for unstable angina. He denies any chest pain at time of my evaluation nor SOB. Onset: Sudden (This AM) Duration: Constant Location: Reports: Abdomen Severity: Moderate abdominal Pain Score (Numeric/FACES): 8 - Related Data Allergies Allergy/AdvReac Type Severity Reaction Status Date / Time No Known Allergies Allergy Verified 10/16/19 09:29 Home Meds: Home Meds carvediloL [Carvedilol] 6.25 mg PO BID 05/02/19 [History] metFORMIN [Glucophage] 1,000 mg PO BIDMEALS 05/02/19 [History] atorvaSTATin Calcium [Atorvastatin Calcium] 40 mg PO BEDTIME 05/25/19 [History] Spironolactone [Aldactone] 25 mg PO DAILY 06/12/19 [History] Tamsulosin HCl [Flomax] 0.4 mg PO DAILY #14 cap.er.24h 06/22/19 [Rx] Nitroglycerin [Nitroglycerin Patch 0.2 MG/Hr] 0.2 mg TRDERM DAILY 07/25/19 [ History] Clopidogrel [Plavix] 75 mg PO DAILY 07/26/19 [History] lisinopriL [Lisinopril] 10 mg PO DAILY 07/26/19 [History] Magnesium 250 mg PO BID 08/26/19 [History] Nitroglycerin [Nitrostat] 0.4 mg PO ASDIRECTED PRN 08/26/19 [History] Aspirin [Barbie Chewable Aspirin] 81 mg PO DAILY 10/03/19 [History] Past Medical History HEENT History: Reports: Impaired Vision, Other (See Below) Other HEENT History: wears glasses Cardiovascular History: Reports: Angina, Hypertension, RI, Stents Other Cardiovascular History: pt reports mild heat attack 2018 Respiratory History: Reports: Pneumonia, Recurrent Gastrointestinal History: Reports: Other (See Below) Other Gastrointestinal History: Gallbladder Issues Genitourinary History: Reports: Renal Calculus Musculoskeletal History: Reports: Fracture Other Musculoskeletal History: "Broken nose in past from [age]years old " Neurological History: Reports: None Psychiatric History: Reports: None Endocrine/Metabolic History: Reports: Diabetes, Type II Insulin Pump Model 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 Hematologic History: Reports: None Immunologic History: Reports: None Oncologic (Cancer) History: Reports: None Dermatologic History: Reports: None - Infectious Disease History Infectious Disease History: Reports: None - Past Surgical History Head Surgeries/Procedures: Reports: None Cardiovascular Surgical History: Reports: Carotid Stents Respiratory Surgical History: Reports: None GI Surgical History: Reports: Colonoscopy Endocrine Surgical History: Reports: Thyroidectomy, Other (See Below) Other Endocrine Surgeries/Procedures: patrial thyroidectomy Social & Family History - Family History Family Medical History: Noncontributory HEENT: Reports: None Cardiac: Reports: None Respiratory: Reports: None GI: Reports: None : Reports: None Musculoskeletal: Reports: Arthritis Neurological: Reports: Alzheimers Disease Endocrine/Metabolic: Reports: Diabetes, type II Oncologic: Reports: Lung - Tobacco Use Smoking Status *Q: Never Smoker - Caffeine Use Caffeine Use: Reports: None Caffeine Use Comment: Pot a day - Recreational Drug Use Recreational Drug Use: No ED ROS GENERAL - Review of Systems Review Of Systems: See Below Constitutional: Reports: No Symptoms HEENT: Reports: No Symptoms Respiratory: Reports: No Symptoms Cardiovascular: Reports: No Symptoms Endocrine: Reports: No Symptoms GI/Abdominal: Reports: Abdominal Pain (as noted above). Denies: Black Stool, Bloody Stool, Constipation, Diarrhea : Reports: No Symptoms Musculoskeletal: Reports: No Symptoms Skin: Reports: No Symptoms Neurological: Reports: No Symptoms ED EXAM, GI/ABD - Physical Exam Exam: See Below Exam Limited By: No Limitations General Appearance: Alert, WD/WN, Mild Distress (to moderate distress) Eyes: Bilateral: Normal Appearance, EOMI Throat/Mouth: Normal Inspection, Normal Lips, Normal Teeth, Normal Gums, Normal Oropharynx, Normal Voice, No Airway Compromise Head: Atraumatic, Normocephalic Neck: Normal Inspection, Supple, Non-Tender, Full Range of Motion Respiratory/Chest: No Respiratory Distress, Lungs Clear, Normal Breath Sounds, Chest Non-Tender Cardiovascular: Normal Peripheral Pulses, No Edema, No Gallop, No Murmur, Tachycardia GI/Abdominal Exam: Normal Bowel Sounds, Soft (generalized tenderness), No Distention, No Abnormal Bruit, No Mass. No: Guarding, Rebound, Hernia (Male) Exam: Deferred Rectal (Males) Exam: Deferred Back Exam: Normal Inspection, Full Range of Motion, NT Extremities: Normal Inspection, Normal Range of Motion Neurological: Alert, Oriented, CN II-XII Intact, Normal Cognition, Normal Gait, Normal Reflexes, No Motor/Sensory Deficits Skin Exam: Warm, Dry, Intact, Normal Color, No Rash Lymphatic: No Adenopathy Course - Vital Signs Text/Narrative:: The patient was re-evaluated at 2:38PM. He states that he feels better. He denies chest pain or SOB. I questioned him about his elevated Troponin 1. He states that his normal Troponin 1 is 0.2 and it has been that way for sometime. The patient does have his own nitro patch. He will be given Aspirin 325mg. I talked with Dr. Howard at 2:56PM regarding this patient. He said to hold off on admission for now and that he will have one of the residents see him and get further details from his green hide inspector regarding his future care. We will hold admission for now. Last Recorded V/S: Last Vital Signs Temp 98.3 F 10/16/19 14:59 Pulse 99 10/16/19 14:59 Resp 16 10/16/19 14:59 BP 172/105 H 10/16/19 14:59 Pulse Ox 98 10/16/19 14:59 - Orders/Labs/Meds Orders: Active Orders 24 hr Category Date Time Status Admission Status [Patient Status] [ADT] Stat ADT 10/16/19 16:19 Active Patient Status [ADT] Routine ADT 10/16/19 15:39 Active Accu Check [Blood Glucose Check, Bedside] [] Care 10/16/19 15:52 Active WITHMEALSANDBED EKG 12 Lead [EKG Documentation Completion] [RC] STAT Care 10/16/19 14:58 Active Intake and Output [RC] QSHIFT Care 10/16/19 15:40 Active Oxygen Therapy [RC] PRN Care 10/16/19 15:39 Active RT Aerosol Therapy [RC] ASDIRECTED Care 10/16/19 15:42 Active Telemetry Monitoring [Cardiac Monitoring] [RC] . Care 10/16/19 15:50 Active DIRECTED Up ad Gemini [RC] ASDIRECTED Care 10/16/19 15:38 Active VTE/DVT Education [RC] PER UNIT ROUTINE Care 10/16/19 15:39 Active Vital Signs [RC] Q4H Care 10/16/19 15:39 Active Clear Liquid Diet [DIET] Diet 10/16/19 Dinner Active CBC WITH AUTO DIFF [HEME] AM Lab 10/17/19 05:11 Ordered CBC WITH AUTO DIFF [HEME] AM Lab 10/18/19 05:11 Ordered COMPREHENSIVE METABOLIC PN,CMP [CHEM] AM Lab 10/17/19 05:11 Ordered COMPREHENSIVE METABOLIC PN,CMP [CHEM] AM Lab 10/18/19 05:11 Ordered CULTURE URINE [RM] Stat Lab 10/16/19 10:35 Received TROPONIN I [CHEM] Q6H Lab 10/16/19 19:00 Ordered TROPONIN I [CHEM] Q6H Lab 10/17/19 01:00 Ordered Acetaminophen [Tylenol] Med 10/16/19 15:38 Active 650 mg PO Q4H PRN Albuterol [Proventil Neb Soln] Med 10/16/19 15:38 Active 2.5 mg NEB Q2H PRN Aspirin Med 10/17/19 09:00 Active 81 mg PO DAILY Clopidogrel [Plavix] Med 10/17/19 09:00 Active 75 mg PO DAILY Docusate Sodium [Colace] Med 10/16/19 15:38 Active 100 mg PO BID PRN HYDROmorphone [Dilaudid] Med 10/16/19 15:38 Active 0.5 mg IVPUSH Q4H PRN Insulin Aspart [NovoLOG] Med 10/16/19 17:00 Active See Protocol SUBCUT TIDAC Magnesium Sulfate/Water [Magnesium Sulfate in Water Med 10/16/19 15:49 Active Premix] 2 gm Premix Bag 1 bag IV ONETIME Nitroglycerin [Nitro-Dur 0.2 MG/Hr] Med 10/17/19 09:00 Active 0.2 mg TRDERM DAILY Nitroglycerin [Nitrostat] Med 10/16/19 15:45 Active 0.4 mg SL Q5M PRN Ondansetron [Zofran ODT] Med 10/16/19 15:38 Active 8 mg PO Q4H PRN Ondansetron [Zofran] Med 10/16/19 15:38 Active 8 mg IVPUSH Q8H PRN Pantoprazole [ProTONIX IV] 40 mg Med 10/17/19 09:00 Active Sodium Chloride 0.9% [Normal Saline] 10 ml IV DAILY Spironolactone [Aldactone] Med 10/17/19 09:00 Active 25 mg PO DAILY Sucralfate [Carafate] Med 10/16/19 17:00 Active 1 gm PO TIDAC Tamsulosin [Flomax] Med 10/17/19 09:00 Active 0.4 mg PO DAILY atorvaSTATin [Lipitor] Med 10/16/19 21:00 Active 40 mg PO BEDTIME carvediloL [Coreg] Med 10/16/19 21:00 Active 6.25 mg PO BID lisinopriL [Prinivil] Med 10/17/19 09:00 Active 10 mg PO DAILY oxyCODONE Med 10/16/19 15:38 Active 5 mg PO Q4H PRN polyethylene glycoL 3350 [MiraLAX] Med 10/16/19 15:38 Active 17 gm PO DAILY PRN Resuscitation Status Routine Resus Stat 10/16/19 15:38 Ordered Medication Orders Acetaminophen (Tylenol) 650 mg PO Q4H PRN PRN Reason: Pain (Mild 1-3)/fever Albuterol (Proventil Neb Soln) 2.5 mg NEB Q2H PRN PRN Reason: Shortness Of Breath/wheezing Aspirin (Aspirin) 81 mg PO DAILY [facility] Atorvastatin Calcium (Lipitor) 40 mg PO BEDTIME [facility] Carvedilol (Coreg) 6.25 mg PO BID [facility] Clopidogrel Bisulfate (Plavix) 75 mg PO DAILY [facility] Docusate Sodium (Colace) 100 mg PO BID PRN PRN Reason: Constipation Hydromorphone HCl (Dilaudid) 0.5 mg IVPUSH Q4H PRN PRN Reason: Pain (severe 7-10) Pantoprazole Sodium 40 mg/ (Sodium Chloride) 10 mls @ 300 mls/hr IV DAILY [facility] Magnesium Sulfate 2 gm/ Premix 50 mls @ 25 mls/hr IV ONETIME ONE Stop: 10/16/19 17:48 Insulin Aspart (Novolog) 0 unit SUBCUT TIDAC [facility]; Protocol Lisinopril (Prinivil) 10 mg PO DAILY [facility] Nitroglycerin (Nitro-Dur 0.2 Mg/Hr) 0.2 mg TRDERM DAILY [facility] Nitroglycerin (Nitrostat) 0.4 mg SL Q5M PRN PRN Reason: Chest Pain Ondansetron HCl (Zofran Odt) 8 mg PO Q4H PRN PRN Reason: nausea, able to take PO Ondansetron HCl (Zofran) 8 mg IVPUSH Q8H PRN PRN Reason: Nausea/Vomiting Oxycodone HCl (Oxycodone) 5 mg PO Q4H PRN PRN Reason: Pain (moderate 4-6) Polyethylene Glycol (Miralax) 17 gm PO DAILY PRN PRN Reason: Constipation Spironolactone (Aldactone) 25 mg PO DAILY [facility] Sucralfate (Carafate) 1 gm PO TIDAC [facility] Tamsulosin HCl (Flomax) 0.4 mg PO DAILY [facility] Labs: Laboratory Tests 10/16/19 10/16/19 10/16/19 Range/Units 09:30 09:30 09:30 WBC 5.49 (4.0-11.0) K/uL RBC 3.62 L (4.50-5.90) M/uL Hgb 11.5 L (13.0-17.0) g/dL Hct 33.7 L (38.0-50.0) % MCV 93.1 (80.0-98.0) fL MCH 31.8 (27.0-32.0) pg MCHC 34.1 (31.0-37.0) g/dL RDW Std Deviation 47.0 (28.0-62.0) fl RDW Coeff of Mukesh 14 (11.0-15.0) % Plt Count 122 L (150-400) K/uL MPV 11.10 (7.40-12.00) fL Neut % (Auto) 71.4 (48.0-80.0) % Lymph % (Auto) 20.8 (16.0-40.0) % [place] % (Auto) 6.7 (0.0-15.0) % Eos % (Auto) 0.7 (0.0-7.0) % Baso % (Auto) 0.4 (0.0-1.5) % Neut # (Auto) 3.9 (1.4-5.7) K/uL Lymph # (Auto) 1.1 (0.6-2.4) K/uL [place] # (Auto) 0.4 (0.0-0.8) K/uL Eos # (Auto) 0.0 (0.0-0.7) K/uL Baso # (Auto) 0.0 (0.0-0.1) K/uL Nucleated RBC % 0.0 /100WBC Nucleated RBCs # 0 K/uL Sodium 140 (136-148) mmol/L Potassium 3.9 (3.5-5.1) mmol/L Chloride 104 (98-107) mmol/L Carbon Dioxide 22.2 (21.0-32.0) mmol/L BUN 19 H (7.0-18.0) mg/dL Creatinine 1.0 (0.8-1.3) mg/dL Est Cr Clr Drug Dosing 97.41 mL/min Estimated GFR (MDRD) > 60.0 ml/min Glucose 270 H (74-106) mg/dL Calcium 9.2 (8.5-10.1) mg/dL Magnesium 1.7 L (1.8-2.4) mg/dL Total Bilirubin 0.9 (0.2-1.0) mg/dL AST 42 H (15-37) IU/L ALT 28 (14-63) IU/L Alkaline Phosphatase 83 (46-116) U/L Troponin I 0.056 (0.000-0.056) ng/mL Total Protein 7.1 (6.4-8.2) g/dL Albumin 3.9 (3.4-5.0) g/dL Globulin 3.2 (2.6-4.0) g/dL Albumin/Globulin Ratio 1.2 (0.9-1.6) Lipase 102 (73-393) U/L Urine Color Urine Appearance Urine pH (5.0-8.0) Ur Specific [place] (1.001-1.035) Urine Protein (NEGATIVE) mg/dL Urine Glucose (UA) (NEGATIVE) mg/dL Urine Ketones (NEGATIVE) mg/dL Urine Occult Blood (NEGATIVE) Urine Nitrite (NEGATIVE) Urine Bilirubin (NEGATIVE) Urine Urobilinogen (<2.0) EU/dL Ur Leukocyte Esterase (NEGATIVE) Urine RBC (0-2/HPF) Urine WBC (0-5/HPF) Ur Epithelial Cells (NONE-FEW) Urine Bacteria (NEGATIVE) 10/16/19 10/16/19 Range/Units 10:35 13:29 WBC (4.0-11.0) K/uL RBC (4.50-5.90) M/uL Hgb (13.0-17.0) g/dL Hct (38.0-50.0) % MCV (80.0-98.0) fL MCH (27.0-32.0) pg MCHC (31.0-37.0) g/dL RDW Std Deviation (28.0-62.0) fl RDW Coeff of Mukesh (11.0-15.0) % Plt Count (150-400) K/uL MPV (7.40-12.00) fL Neut % (Auto) (48.0-80.0) % Lymph % (Auto) (16.0-40.0) % [place] % (Auto) (0.0-15.0) % Eos % (Auto) (0.0-7.0) % Baso % (Auto) (0.0-1.5) % Neut # (Auto) (1.4-5.7) K/uL Lymph # (Auto) (0.6-2.4) K/uL [place] # (Auto) (0.0-0.8) K/uL Eos # (Auto) (0.0-0.7) K/uL Baso # (Auto) (0.0-0.1) K/uL Nucleated RBC % /100WBC Nucleated RBCs # K/uL Sodium (136-148) mmol/L Potassium (3.5-5.1) mmol/L Chloride (98-107) mmol/L Carbon Dioxide (21.0-32.0) mmol/L BUN (7.0-18.0) mg/dL Creatinine (0.8-1.3) mg/dL Est Cr Clr Drug Dosing mL/min Estimated GFR (MDRD) ml/min Glucose (74-106) mg/dL Calcium (8.5-10.1) mg/dL Magnesium (1.8-2.4) mg/dL Total Bilirubin (0.2-1.0) mg/dL AST (15-37) IU/L ALT (14-63) IU/L Alkaline Phosphatase (46-116) U/L Troponin I 0.071 H* (0.000-0.056) ng/mL Total Protein (6.4-8.2) g/dL Albumin (3.4-5.0) g/dL Globulin (2.6-4.0) g/dL Albumin/Globulin Ratio (0.9-1.6) Lipase (73-393) U/L Urine Color YELLOW Urine Appearance SLT CLOUDY Urine pH 6.0 (5.0-8.0) Ur Specific [place] 1.020 (1.001-1.035) Urine Protein NEGATIVE (NEGATIVE) mg/dL Urine Glucose (UA) >=1000 (NEGATIVE) mg/dL Urine Ketones NEGATIVE (NEGATIVE) mg/dL Urine Occult Blood MODERATE H (NEGATIVE) Urine Nitrite NEGATIVE (NEGATIVE) Urine Bilirubin NEGATIVE (NEGATIVE) Urine Urobilinogen 0.2 (<2.0) EU/dL Ur Leukocyte Esterase TRACE H (NEGATIVE) Urine RBC 20-30 (0-2/HPF) Urine WBC 1-4 (0-5/HPF) Ur Epithelial Cells RARE (NONE-FEW) Urine Bacteria RARE (NEGATIVE) Meds: Medications Generic Name Dose Route Start Last Admin Trade Name Freq PRN Reason Stop Dose Admin Acetaminophen 650 mg 10/16/19 15:38 Tylenol PO Q4H PRN Pain (Mild 1-3)/fever Albuterol 2.5 mg 10/16/19 15:38 Proventil Neb Soln NEB Q2H PRN Shortness Of Breath/wheezing Aspirin 81 mg 10/17/19 09:00 Aspirin PO DAILY [facility] Atorvastatin Calcium 40 mg 10/16/19 21:00 Lipitor PO BEDTIME [facility] Carvedilol 6.25 mg 10/16/19 21:00 Coreg PO BID [facility] Clopidogrel Bisulfate 75 mg 10/17/19 09:00 Plavix PO DAILY [facility] Docusate Sodium 100 mg 10/16/19 15:38 Colace PO BID PRN Constipation Hydromorphone HCl 0.5 mg 10/16/19 15:38 Dilaudid IVPUSH Q4H PRN Pain (severe 7-10) Pantoprazole Sodium 40 mg/ 10 mls @ 300 mls/hr 10/17/19 09:00 Sodium Chloride IV DAILY [facility] Magnesium Sulfate 2 gm/ Premix 50 mls @ 25 mls/hr 10/16/19 15:49 IV 10/16/19 17:48 ONETIME ONE Insulin Aspart 0 unit 10/16/19 17:00 Novolog SUBCUT TIDAC [facility] Protocol Lisinopril 10 mg 10/17/19 09:00 Prinivil PO DAILY [facility] Nitroglycerin 0.2 mg 10/17/19 09:00 Nitro-Dur 0.2 Mg/Hr TRDERM DAILY [facility] Nitroglycerin 0.4 mg 10/16/19 15:45 Nitrostat SL Q5M PRN Chest Pain Ondansetron HCl 8 mg 10/16/19 15:38 Zofran Odt PO Q4H PRN nausea, able to take PO Ondansetron HCl 8 mg 10/16/19 15:38 Zofran IVPUSH Q8H PRN Nausea/Vomiting Oxycodone HCl 5 mg 10/16/19 15:38 Oxycodone PO Q4H PRN Pain (moderate 4-6) Polyethylene Glycol 17 gm 10/16/19 15:38 Miralax PO DAILY PRN Constipation Spironolactone 25 mg 10/17/19 09:00 Aldactone PO DAILY [facility] Sucralfate 1 gm 10/16/19 17:00 Carafate PO TIDAC [facility] Tamsulosin HCl 0.4 mg 10/17/19 09:00 Flomax PO DAILY [facility] Discontinued Medications Generic Name Dose Route Start Last Admin Trade Name Freq PRN Reason Stop Dose Admin Aspirin 324 mg 10/16/19 14:40 10/16/19 14:51 Aspirin PO 10/16/19 14:41 324 mg ONETIME ONE Administration Hydromorphone HCl 0.5 mg 10/16/19 14:39 10/16/19 14:52 Dilaudid IVPUSH 10/16/19 14:40 0.5 mg ONETIME ONE Administration Sodium Chloride 1,000 mls @ 1,000 mls/hr 10/16/19 10:35 10/16/19 10:49 Normal Saline IV 10/16/19 11:34 1,000 mls/hr .Bolus ONE Administration Pantoprazole Sodium 40 mg/ 10 mls @ 300 mls/hr 10/16/19 15:43 Sodium Chloride IV 10/16/19 15:44 NOW ONE Iopamidol 100 ml 10/16/19 15:24 10/16/19 15:25 Isovue-370 (76%) IVPUSH 10/16/19 15:25 100 ml ONETIME ONE Administration Morphine Sulfate 4 mg 10/16/19 10:30 10/16/19 10:50 Morphine IVPUSH 10/16/19 10:31 4 mg ONETIME ONE Administration Promethazine HCl 25 mg 10/16/19 10:30 10/16/19 10:45 Phenergan IM 10/16/19 10:31 25 mg ONETIME ONE Administration Promethazine HCl 25 mg 10/16/19 14:40 10/16/19 14:52 Phenergan IM 10/16/19 14:41 25 mg ONETIME ONE Administration Sucralfate 1 gm 10/16/19 15:43 Carafate PO 10/16/19 15:44 ONETIME ONE Departure - Departure Time of Disposition: 16:24 Disposition: Refer to Observation Condition: Fair Clinical Impression: Abdominal pain of unknown etiology, Elevated troponin I level, Coronary arteriosclerosis - Discharge Information *PRESCRIPTION DRUG MONITORING PROGRAM REVIEWED*: Yes *COPY OF PRESCRIPTION DRUG MONITORING REPORT IN PATIENT JEN: Yes Referrals: PCP,None [Primary Care Provider] - Forms: ED Department Discharge Sepsis Event Note - Evaluation Sepsis Screening Result: No Definite Risk - Focused Exam Vital Signs: Vital Signs Temp Pulse Resp BP Pulse Ox 10/16/19 14:59 98.3 F 99 16 172/105 H 98 10/16/19 14:19 98.0 F 93 20 136/91 H 97 10/16/19 12:15 98 16 186/110 H 97 10/16/19 10:52 98.3 F 95 18 201/112 H 95 10/16/19 09:26 96.7 F L 110 H 24 H 196/126 H 100 Date Exam was Performed: 10/16/19 Time Exam was Performed: 16:23 - My Orders Last 24 Hours: My Active Orders 10/16/19 10:35 CULTURE URINE [RM] Stat 10/16/19 14:58 EKG 12 Lead [EKG Documentation Completion] [RC] STAT 10/16/19 16:19 Admission Status [Patient Status] [ADT] Stat - Assessment/Plan Last 24 Hours: My Active Orders 10/16/19 10:35 CULTURE URINE [RM] Stat 10/16/19 14:58 EKG 12 Lead [EKG Documentation Completion] [RC] STAT 10/16/19 16:19 Admission Status [Patient Status] [ADT] Stat
[2019-10-16 10:21] LABS: BLOOD UREA NITROGEN,BUN 19 mg/dL (7.0-18.0); CARBON DIOXIDE,CO2 22.2 mmol/L (21.0-32.0); CHLORIDE,CL 104 mmol/L (98-107); GLUCOSE RANDOM 270 mg/dL (74-106); LIPASE 102 U/L (73-393); POTASSIUM,K 3.9 mmol/L (3.5-5.1); SODIUM,NA 140 mmol/L (136-148)
[2019-10-16] MEDS ORDERED: Promethazine 25 MG/ML SDV IM ONE ×2 (10:30→14:40)
[2019-10-16] MEDS ORDERED: Morphine 4 MG/ML Syringe IVPUSH ONE (10:30)
[2019-10-16] MEDS ORDERED: Sodium Chloride 0.9% 1,000 ML IV ONE (10:35)
--- NOTE | 2019-10-16 14:14 | CT ---
CT abdomen and pelvis Technique: Multiple axial sections were obtained from above the dome of the diaphragm inferiorly to the pubic symphysis. Intravenous contrast was utilized. No oral contrast has been given. Comparison: Prior CT abdomen and pelvis exam of 06/22/19. Findings: Visualized lung bases show nothing acute. Small hiatal hernia is noted. Liver contains no focal parenchymal abnormality. Spleen is enlarged with length of slightly greater than 15 cm which is stable from previous study. Adrenal glands show no nodule. Pancreas is within normal limits. Gallbladder contains no calcified gallstones. Kidneys show symmetric contrast enhancement. Cyst is noted within the right kidney measuring 1.7 cm. Smaller low density finding measuring 3 mm which is most likely an additional small cyst within the right kidney. Aorta shows atherosclerotic calcification which continues into the iliac vessels. No aneurysm is seen. No retroperitoneal adenopathy is noted. Appendix is seen and is normal in size. Inflammatory change is seen posterior to the appendix which appears fairly stable from prior exam and presumably is chronic. No pelvic mass or adenopathy is seen. No free fluid is seen. Prostate calcifications are noted. No free fluid is seen. Small fat-containing umbilical hernia is noted. Bone window settings were reviewed. No acute osseous finding is appreciated. Minimal degenerative change is seen within the spine. Impression: 1. Inflammatory change posterior to the appendix. This is similar to prior CT exam and is therefore is most likely chronic and therefore of no acute significance. 2. Spleen is enlarged at slightly greater than 15 cm in length which appears stable from prior exam. 3. Other findings as noted above. Nothing acute is appreciated on CT study of the abdomen and pelvis. Diagnostic code #3 This report was dictated in [place] Standard Time
[2019-10-16] MEDS ORDERED: HYDROmorphone 1 MG/ML Syringe IVPUSH ONE (14:39)
[2019-10-16] MEDS ORDERED: Aspirin 81 MG Tab.Chew PO ONE (14:40)
[2019-10-16] MEDS ORDERED: Iopamidol 755 Mg/ML 100 ML Bottle IVPUSH ONE (15:24)
[2019-10-16] MEDS ORDERED: Polyethylene Glycol 3350 Powder 17 GM Packet PO PRN (15:38)
[2019-10-16] MEDS ORDERED: Ondansetron 8 MG Tab.DIS PO PRN (15:38)
[2019-10-16] MEDS ORDERED: Ondansetron 4 MG/2 ML SDV IVPUSH PRN (15:38)
[2019-10-16] MEDS ORDERED: Acetaminophen 325 MG Tab PO PRN (15:38)
[2019-10-16] MEDS ORDERED: Albuterol 0.083% 2.5 MG/3 ML Neb Soln NEB PRN (15:38)
[2019-10-16] MEDS ORDERED: Docusate Sodium 100 MG Cap PO PRN (15:38)
[2019-10-16] MEDS ORDERED: Pantoprazole 40 MG in Sodium Chloride 0.9% 10 ML IV ONE (15:43)
[2019-10-16] MEDS ORDERED: Sucralfate 1 GM Tab PO ONE (15:43)
[2019-10-16] MEDS ORDERED: Nitroglycerin 0.4 MG Tab.SL SL PRN (15:45)
[2019-10-16] MEDS ORDERED: Magnesium Sulfate/Water 2 GM in Premix Bag 1 BAG IV ONE (15:49)
--- NOTE | 2019-10-16 15:55 | PCM.HP.2 ---
H&P History of Present Illness - General Date of Service: 10/16/19 Admit Problem/Dx: Admission Diagnosis/Problem Admission Diagnosis/Problem Epigastric pain - History of Present Illness Initial Comments - Free Text/Narative: 59 y/o male with significant PMH for CAD s/p stent placements, HFrEF 30%, DM2, Hypertension and kidney stones. Patient states that he woke up this morning around 3 am with epigastric pain which then over time radiated to left subcostal chest area. Denies any radiation to neck or left arms. He states he was diaphoretic in pain. He tried taking tylenol, advil with minimal relief. In addition, he took nitroglycerin with no relief. He states he does have a history of acid reflux and takes omeprazole. Pain remained the same until he presented to the ER, where he was given dilaudid which he says helps with his pain. In addition, states he has been having some nausea, vomiting. Poor PO intake due to nausea. Now a little better but still there. Initially, he was hypertensive in the ER with SBP 190's. Now down to SBP 150's after pain control. Troponin in the ER was 0.07. EKG did not show any ST elevation. abdominal Pain Score (Numeric/FACES): 8 - Related Data Allergies/Adverse Reactions: Allergies Allergy/AdvReac Type Severity Reaction Status Date / Time No Known Allergies Allergy Verified 10/16/19 09:29 Home Medications: Home Meds carvediloL [Carvedilol] 6.25 mg PO BID 05/02/19 [History] metFORMIN [Glucophage] 1,000 mg PO BIDMEALS 05/02/19 [History] atorvaSTATin Calcium [Atorvastatin Calcium] 40 mg PO BEDTIME 05/25/19 [History] Spironolactone [Aldactone] 25 mg PO DAILY 06/12/19 [History] Tamsulosin HCl [Flomax] 0.4 mg PO DAILY #14 cap.er.24h 06/22/19 [Rx] Nitroglycerin [Nitroglycerin Patch 0.2 MG/Hr] 0.2 mg TRDERM DAILY 07/25/19 [ History] Clopidogrel [Plavix] 75 mg PO DAILY 07/26/19 [History] lisinopriL [Lisinopril] 10 mg PO DAILY 07/26/19 [History] Magnesium 250 mg PO BID 08/26/19 [History] Nitroglycerin [Nitrostat] 0.4 mg PO ASDIRECTED PRN 08/26/19 [History] Aspirin [Barbie Chewable Aspirin] 81 mg PO DAILY 10/03/19 [History] Past Medical History HEENT History: Reports: Impaired Vision, Other (See Below) Other HEENT History: wears glasses Cardiovascular History: Reports: Angina, Hypertension, [place], Stents Other Cardiovascular History: pt reports mild heat attack 2018 Respiratory History: Reports: Pneumonia, Recurrent Gastrointestinal History: Reports: Other (See Below) Other Gastrointestinal History: Gallbladder Issues Genitourinary History: Reports: Renal Calculus Musculoskeletal History: Reports: Fracture Other Musculoskeletal History: "Broken nose in past from [age]years old " Neurological History: Reports: None Psychiatric History: Reports: None Endocrine/Metabolic History: Reports: Diabetes, Type II Insulin Pump Model and Gas Welder: None Hematologic History: Reports: None Immunologic History: Reports: None Oncologic (Cancer) History: Reports: None Dermatologic History: Reports: None - Infectious Disease History Infectious Disease History: Reports: None - Past Surgical History Head Surgeries/Procedures: Reports: None Cardiovascular Surgical History: Reports: Carotid Stents Respiratory Surgical History: Reports: None GI Surgical History: Reports: Colonoscopy Endocrine Surgical History: Reports: Thyroidectomy, Other (See Below) Other Endocrine Surgeries/Procedures: patrial thyroidectomy Social & Family History - Family History Family Medical History: Noncontributory HEENT: Reports: None Cardiac: Reports: None Respiratory: Reports: None GI: Reports: None : Reports: None Musculoskeletal: Reports: Arthritis Neurological: Reports: Alzheimers Disease Endocrine/Metabolic: Reports: Diabetes, type II Oncologic: Reports: Lung - Tobacco Use Smoking Status *Q: Never Smoker - Caffeine Use Caffeine Use: Reports: None Caffeine Use Comment: Pot a day - Recreational Drug Use Recreational Drug Use: No H&P Review of Systems - Review of Systems: Review Of Systems: Comprehensive ROS is negative, except as noted in HPI. Exam - Exam Exam: See Below - Vital Signs Vital Signs: Last Vital Signs Temp 36.8 C 10/16/19 14:59 Pulse 99 10/16/19 14:59 Resp 16 10/16/19 14:59 BP 172/105 H 10/16/19 14:59 Pulse Ox 98 10/16/19 14:59 Weight: 104.326 kg - Exam General: Alert, Oriented, Cooperative HEENT: Other (dry oral mucosa) Lungs: Clear to Auscultation, Normal Respiratory Effort. No: Crackles, Wheezing Cardiovascular: Regular Rate, Regular Rhythm GI/Abdominal Exam: Normal Bowel Sounds, Soft, No Distention, Other (tender in epigastric region) Extremities: Normal Inspection, No Pedal Edema Skin: Warm, Dry - Patient Data Lab Results Last 24 hrs: Laboratory Results - last 24 hr 10/16/19 10/16/19 10/16/19 Range/Units 09:30 09:30 09:30 WBC 5.49 (4.0-11.0) K/uL RBC 3.62 L (4.50-5.90) M/uL Hgb 11.5 L (13.0-17.0) g/dL Hct 33.7 L (38.0-50.0) % MCV 93.1 (80.0-98.0) fL MCH 31.8 (27.0-32.0) pg MCHC 34.1 (31.0-37.0) g/dL RDW Std Deviation 47.0 (28.0-62.0) fl RDW Coeff of Mukesh 14 (11.0-15.0) % Plt Count 122 L (150-400) K/uL MPV 11.10 (7.40-12.00) fL Neut % (Auto) 71.4 (48.0-80.0) % Lymph % (Auto) 20.8 (16.0-40.0) % [place] % (Auto) 6.7 (0.0-15.0) % Eos % (Auto) 0.7 (0.0-7.0) % Baso % (Auto) 0.4 (0.0-1.5) % Neut # (Auto) 3.9 (1.4-5.7) K/uL Lymph # (Auto) 1.1 (0.6-2.4) K/uL [place] # (Auto) 0.4 (0.0-0.8) K/uL Eos # (Auto) 0.0 (0.0-0.7) K/uL Baso # (Auto) 0.0 (0.0-0.1) K/uL Nucleated RBC % 0.0 /100WBC Nucleated RBCs # 0 K/uL Sodium 140 (136-148) mmol/L Potassium 3.9 (3.5-5.1) mmol/L Chloride 104 (98-107) mmol/L Carbon Dioxide 22.2 (21.0-32.0) mmol/L BUN 19 H (7.0-18.0) mg/dL Creatinine 1.0 (0.8-1.3) mg/dL Est Cr Clr Drug Dosing 97.41 mL/min Estimated GFR (MDRD) > 60.0 ml/min Glucose 270 H (74-106) mg/dL Calcium 9.2 (8.5-10.1) mg/dL Magnesium 1.7 L (1.8-2.4) mg/dL Total Bilirubin 0.9 (0.2-1.0) mg/dL AST 42 H (15-37) IU/L ALT 28 (14-63) IU/L Alkaline Phosphatase 83 (46-116) U/L Troponin I 0.056 (0.000-0.056) ng/mL Total Protein 7.1 (6.4-8.2) g/dL Albumin 3.9 (3.4-5.0) g/dL Globulin 3.2 (2.6-4.0) g/dL Albumin/Globulin Ratio 1.2 (0.9-1.6) Lipase 102 (73-393) U/L Urine Color Urine Appearance Urine pH (5.0-8.0) Ur Specific [place] (1.001-1.035) Urine Protein (NEGATIVE) mg/dL Urine Glucose (UA) (NEGATIVE) mg/dL Urine Ketones (NEGATIVE) mg/dL Urine Occult Blood (NEGATIVE) Urine Nitrite (NEGATIVE) Urine Bilirubin (NEGATIVE) Urine Urobilinogen (<2.0) EU/dL Ur Leukocyte Esterase (NEGATIVE) Urine RBC (0-2/HPF) Urine WBC (0-5/HPF) Ur Epithelial Cells (NONE-FEW) Urine Bacteria (NEGATIVE) 10/16/19 10/16/19 Range/Units 10:35 13:29 WBC (4.0-11.0) K/uL RBC (4.50-5.90) M/uL Hgb (13.0-17.0) g/dL Hct (38.0-50.0) % MCV (80.0-98.0) fL MCH (27.0-32.0) pg MCHC (31.0-37.0) g/dL RDW Std Deviation (28.0-62.0) fl RDW Coeff of Mukesh (11.0-15.0) % Plt Count (150-400) K/uL MPV (7.40-12.00) fL Neut % (Auto) (48.0-80.0) % Lymph % (Auto) (16.0-40.0) % [place] % (Auto) (0.0-15.0) % Eos % (Auto) (0.0-7.0) % Baso % (Auto) (0.0-1.5) % Neut # (Auto) (1.4-5.7) K/uL Lymph # (Auto) (0.6-2.4) K/uL [place] # (Auto) (0.0-0.8) K/uL Eos # (Auto) (0.0-0.7) K/uL Baso # (Auto) (0.0-0.1) K/uL Nucleated RBC % /100WBC Nucleated RBCs # K/uL Sodium (136-148) mmol/L Potassium (3.5-5.1) mmol/L Chloride (98-107) mmol/L Carbon Dioxide (21.0-32.0) mmol/L BUN (7.0-18.0) mg/dL Creatinine (0.8-1.3) mg/dL Est Cr Clr Drug Dosing mL/min Estimated GFR (MDRD) ml/min Glucose (74-106) mg/dL Calcium (8.5-10.1) mg/dL Magnesium (1.8-2.4) mg/dL Total Bilirubin (0.2-1.0) mg/dL AST (15-37) IU/L ALT (14-63) IU/L Alkaline Phosphatase (46-116) U/L Troponin I 0.071 H* (0.000-0.056) ng/mL Total Protein (6.4-8.2) g/dL Albumin (3.4-5.0) g/dL Globulin (2.6-4.0) g/dL Albumin/Globulin Ratio (0.9-1.6) Lipase (73-393) U/L Urine Color YELLOW Urine Appearance SLT CLOUDY Urine pH 6.0 (5.0-8.0) Ur Specific [place] 1.020 (1.001-1.035) Urine Protein NEGATIVE (NEGATIVE) mg/dL Urine Glucose (UA) >=1000 (NEGATIVE) mg/dL Urine Ketones NEGATIVE (NEGATIVE) mg/dL Urine Occult Blood MODERATE H (NEGATIVE) Urine Nitrite NEGATIVE (NEGATIVE) Urine Bilirubin NEGATIVE (NEGATIVE) Urine Urobilinogen 0.2 (<2.0) EU/dL Ur Leukocyte Esterase TRACE H (NEGATIVE) Urine RBC 20-30 (0-2/HPF) Urine WBC 1-4 (0-5/HPF) Ur Epithelial Cells RARE (NONE-FEW) Urine Bacteria RARE (NEGATIVE) Result Diagrams: 10/16/19 09:30 10/16/19 09:30 Sepsis Event Note - Evaluation Sepsis Screening Result: No Definite Risk - Focused Exam Vital Signs: Vital Signs Temp Pulse Resp BP Pulse Ox 10/16/19 14:59 36.8 C 99 16 172/105 H 98 10/16/19 14:19 36.7 C 93 20 136/91 H 97 10/16/19 12:15 98 16 186/110 H 97 10/16/19 10:52 36.8 C 95 18 201/112 H 95 10/16/19 09:26 35.9 C L 110 H 24 H 196/126 H 100 Date Exam was Performed: 10/16/19 Time Exam was Performed: 16:35 Problem List Initiated/Reviewed/Updated: Yes Orders Last 24hrs: Active Orders 24 hr Category Date Time Status Patient Status [ADT] Routine ADT 10/16/19 15:39 Active Accu Check [Blood Glucose Check, Bedside] [] Care 10/16/19 15:52 Active WITHMEALSANDBED EKG 12 Lead [EKG Documentation Completion] [RC] STAT Care 10/16/19 14:58 Active Intake and Output [RC] QSHIFT Care 10/16/19 15:40 Active Oxygen Therapy [RC] PRN Care 10/16/19 15:39 Active RT Aerosol Therapy [RC] ASDIRECTED Care 10/16/19 15:42 Active Telemetry Monitoring [Cardiac Monitoring] [RC] . Care 10/16/19 15:50 Active DIRECTED Up ad Gemini [RC] ASDIRECTED Care 10/16/19 15:38 Active VTE/DVT Education [RC] PER UNIT ROUTINE Care 10/16/19 15:39 Active Vital Signs [RC] Q4H Care 10/16/19 15:39 Active Clear Liquid Diet [DIET] Diet 10/16/19 Dinner Active CBC WITH AUTO DIFF [HEME] AM Lab 10/17/19 05:11 Ordered CBC WITH AUTO DIFF [HEME] AM Lab 10/18/19 05:11 Ordered COMPREHENSIVE METABOLIC PN,CMP [CHEM] AM Lab 10/17/19 05:11 Ordered COMPREHENSIVE METABOLIC PN,CMP [CHEM] AM Lab 10/18/19 05:11 Ordered CULTURE URINE [RM] Stat Lab 10/16/19 10:35 Received TROPONIN I [CHEM] Q6H Lab 10/16/19 19:00 Ordered TROPONIN I [CHEM] Q6H Lab 10/17/19 01:00 Ordered Acetaminophen [Tylenol] Med 10/16/19 15:38 Active 650 mg PO Q4H PRN Albuterol [Proventil Neb Soln] Med 10/16/19 15:38 Active 2.5 mg NEB Q2H PRN Aspirin Med 10/17/19 09:00 Active 81 mg PO DAILY Clopidogrel [Plavix] Med 10/17/19 09:00 Active 75 mg PO DAILY Docusate Sodium [Colace] Med 10/16/19 15:38 Active 100 mg PO BID PRN HYDROmorphone [Dilaudid] Med 10/16/19 15:38 Active 0.5 mg IVPUSH Q4H PRN Insulin Aspart [NovoLOG] Med 10/16/19 17:00 Active See Protocol SUBCUT TIDAC Magnesium Sulfate/Water [Magnesium Sulfate in Water Med 10/16/19 15:49 Active Premix] 2 gm Premix Bag 1 bag IV ONETIME Nitroglycerin [Nitro-Dur 0.2 MG/Hr] Med 10/17/19 09:00 Active 0.2 mg TRDERM DAILY Nitroglycerin [Nitrostat] Med 10/16/19 15:45 Active 0.4 mg SL Q5M PRN Ondansetron [Zofran ODT] Med 10/16/19 15:38 Active 8 mg PO Q4H PRN Ondansetron [Zofran] Med 10/16/19 15:38 Active 8 mg IVPUSH Q8H PRN Pantoprazole [ProTONIX IV] 40 mg Med 10/17/19 09:00 Active Sodium Chloride 0.9% [Normal Saline] 10 ml IV DAILY Spironolactone [Aldactone] Med 10/17/19 09:00 Active 25 mg PO DAILY Sucralfate [Carafate] Med 10/16/19 17:00 Active 1 gm PO TIDAC Tamsulosin [Flomax] Med 10/17/19 09:00 Active 0.4 mg PO DAILY atorvaSTATin [Lipitor] Med 10/16/19 21:00 Active 40 mg PO BEDTIME carvediloL [Coreg] Med 10/16/19 21:00 Active 6.25 mg PO BID lisinopriL [Prinivil] Med 10/17/19 09:00 Active 10 mg PO DAILY oxyCODONE Med 10/16/19 15:38 Active 5 mg PO Q4H PRN polyethylene glycoL 3350 [MiraLAX] Med 10/16/19 15:38 Active 17 gm PO DAILY PRN Resuscitation Status Routine Resus Stat 10/16/19 15:38 Ordered Medication Orders Acetaminophen (Tylenol) 650 mg PO Q4H PRN PRN Reason: Pain (Mild 1-3)/fever Albuterol (Proventil Neb Soln) 2.5 mg NEB Q2H PRN PRN Reason: Shortness Of Breath/wheezing Aspirin (Aspirin) 81 mg PO DAILY [facility] Atorvastatin Calcium (Lipitor) 40 mg PO BEDTIME [facility] Carvedilol (Coreg) 6.25 mg PO BID [facility] Clopidogrel Bisulfate (Plavix) 75 mg PO DAILY [facility] Docusate Sodium (Colace) 100 mg PO BID PRN PRN Reason: Constipation Hydromorphone HCl (Dilaudid) 0.5 mg IVPUSH Q4H PRN PRN Reason: Pain (severe 7-10) Pantoprazole Sodium 40 mg/ (Sodium Chloride) 10 mls @ 300 mls/hr IV DAILY [facility] Magnesium Sulfate 2 gm/ Premix 50 mls @ 25 mls/hr IV ONETIME ONE Stop: 10/16/19 17:48 Insulin Aspart (Novolog) 0 unit SUBCUT TIDAC [facility]; Protocol Lisinopril (Prinivil) 10 mg PO DAILY [facility] Nitroglycerin (Nitro-Dur 0.2 Mg/Hr) 0.2 mg TRDERM DAILY [facility] Nitroglycerin (Nitrostat) 0.4 mg SL Q5M PRN PRN Reason: Chest Pain Ondansetron HCl (Zofran Odt) 8 mg PO Q4H PRN PRN Reason: nausea, able to take PO Ondansetron HCl (Zofran) 8 mg IVPUSH Q8H PRN PRN Reason: Nausea/Vomiting Oxycodone HCl (Oxycodone) 5 mg PO Q4H PRN PRN Reason: Pain (moderate 4-6) Polyethylene Glycol (Miralax) 17 gm PO DAILY PRN PRN Reason: Constipation Spironolactone (Aldactone) 25 mg PO DAILY [facility] Sucralfate (Carafate) 1 gm PO TIDAC [facility] Tamsulosin HCl (Flomax) 0.4 mg PO DAILY [facility] Assessment/Plan Comment:: A: 1. Epigastric pain 2. Nausea, vomiting 3. Hypomagnesemia 4. Hematuria 5. PMH CAD s/p stent placement, HFrEF 30%, DM2 P: 1. Suspect his symptoms are related to peptic ulcer disease since pain localized to epigastric region. However, due to his significant PMH for CAD s/ p stents and HFrEF 30% and mildly elevated troponin, we will trend troponin and place on telemetry. Addid Zofran PRN for nausea. In addition, started pantoprazole 40 mg IV daily and carafate and see if that helps with his symptoms. Dilaudid PRN for pain. Will monitor blood sugars and start ISS. No maintenance fluids due to his history of heart failure. Will monitor troponins and kidney function. Will restart home meds for his CAD, Heart failure.
[2019-10-16] MEDS ORDERED: Pantoprazole 40 MG Vial ONE (18:05)
[2019-10-16] MEDS: oxyCODONE 5 MG Tab PO PRN ×2 (18:07→22:55)
[2019-10-16] MEDS: Sucralfate 1 GM Tab PO SCH (18:08)
[2019-10-16] MEDS: HYDROmorphone 2 MG/ML Syringe IVPUSH PRN ×2 (18:28→23:22)
[2019-10-16] MEDS: Insulin Aspart 100 Units/ML 3 ML Pen SUBCUT SCH (18:29)
[2019-10-16] MEDS ORDERED: Lisinopril 10 MG Tab PO ONE (19:00)
[2019-10-16] MEDS: Carvedilol 3.125 MG Tab PO SCH (20:22)
[2019-10-16] MEDS ORDERED: atorvaSTATin 10 MG Tab PO SCH (21:00)
[2019-10-17 07:03] LABS: BLOOD UREA NITROGEN,BUN 14 mg/dL (7.0-18.0); CARBON DIOXIDE,CO2 26.9 mmol/L (21.0-32.0); CHLORIDE,CL 108 mmol/L (98-107); GLUCOSE RANDOM 179 mg/dL (74-106); POTASSIUM,K 3.6 mmol/L (3.5-5.1); SODIUM,NA 144 mmol/L (136-148)
[2019-10-17] MEDS: Sucralfate 1 GM Tab PO SCH (07:44)
[2019-10-17] MEDS: HYDROmorphone 2 MG/ML Syringe IVPUSH PRN (07:57)
[2019-10-17] MEDS: Carvedilol 3.125 MG Tab PO SCH (08:02)
[2019-10-17] MEDS: Insulin Aspart 100 Units/ML 3 ML Pen SUBCUT SCH ×2 (08:43→08:56)
[2019-10-17] MEDS ORDERED: Nitroglycerin 0.2 MG/HR Transdermal Patch TRDERM SCH (09:00)
[2019-10-17] MEDS ORDERED: Clopidogrel 75 MG Tab PO SCH (09:00)
[2019-10-17] MEDS ORDERED: Pantoprazole 40 MG in Sodium Chloride 0.9% 10 ML IV SCH (09:00)
[2019-10-17] MEDS ORDERED: Tamsulosin 0.4 MG Cap.ER PO SCH (09:00)
[2019-10-17] MEDS ORDERED: Spironolactone 25 MG Tab PO SCH (09:00)
[2019-10-17] MEDS ORDERED: Lisinopril 10 MG Tab PO SCH (09:00)
[2019-10-17] MEDS ORDERED: Aspirin 81 MG Tab.Chew PO SCH (09:00)
--- NOTE | 2019-10-17 09:31 | PCM.DCSUM1 ---
Discharge Summary - Discharge Data Discharge Date: 10/17/19 Discharge Disposition: Home, Self-Care 01 Condition: Stable - Referral to Home Health Primary Care Physician: PCP None - Patient Summary/Data Hospital Course: 59 y/o male with significant PMH for CAD s/p multiple stent placements, HFrEF 30 %, DM2, Hypertension and recent kidney stones. Patient was admitted to rule out acute coronary syndrome when he presented with epigastric pain. EKG showed no signs of acute ischemia. During his hospitalization he did have serial Troponins drawn which were stable at 0.060. CT scan of the abdomen reveiled no acute findings. There was signs of chronic inflammation behind the appendix. His abdominal exam was benign. His epigastric pain occurred mainly at night and appeared to be GI in origin. Patient states he has been taking more NSAIDs once he stopped taking oxycodon. This morning patient reports epigastric pain has resolved. He was advised to avoid NSAIDs and to double his dose of Prilosec. 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 - Discharge Plan *PRESCRIPTION DRUG MONITORING PROGRAM REVIEWED*: Yes *COPY OF PRESCRIPTION DRUG MONITORING REPORT IN PATIENT JEN: Yes Prescriptions/Med Rec: Omeprazole Magnesium [Prilosec Otc] 20 mg PO BID #14 tablet.dr Norris Medications: Home Meds carvediloL [Carvedilol] 6.25 mg PO BID 05/02/19 [History] metFORMIN [Glucophage] 1,000 mg PO BIDMEALS 05/02/19 [History] atorvaSTATin Calcium [Atorvastatin Calcium] 40 mg PO BEDTIME 05/25/19 [History] Spironolactone [Aldactone] 25 mg PO DAILY 06/12/19 [History] Tamsulosin HCl [Flomax] 0.4 mg PO DAILY #14 cap.er.24h 06/22/19 [Rx] Nitroglycerin [Nitroglycerin Patch 0.2 MG/Hr] 0.2 mg TRDERM DAILY 07/25/19 [ History] Clopidogrel [Plavix] 75 mg PO DAILY 07/26/19 [History] lisinopriL [Lisinopril] 10 mg PO DAILY 07/26/19 [History] Magnesium 250 mg PO BID 08/26/19 [History] Nitroglycerin [Nitrostat] 0.4 mg PO ASDIRECTED PRN 08/26/19 [History] Aspirin [Barbie Chewable Aspirin] 81 mg PO DAILY 10/03/19 [History] Omeprazole Magnesium [Prilosec Otc] 20 mg PO BID #14 tablet. 10/17/19 [Rx] Forms: ED Department Discharge Referrals: Juliette Plascencia PA [Physician Group Director] - - Discharge Summary/Plan Comment DC Time >30 min.: No - Patient Data Vitals - Most Recent: Last Vital Signs Temp 36.4 C 10/17/19 08:00 Pulse 68 10/17/19 08:02 Resp 14 10/17/19 08:00 BP 151/93 H 10/17/19 08:02 Pulse Ox 98 10/17/19 08:00 Weight - Most Recent: 28.7 kg I&O - Last 24 hours: Intake & Output 10/16/19 10/17/19 10/17/19 22:59 06:59 14:59 Intake Total 50 900 Output Total 300 Balance 50 600 Lab Results - Last 24 hrs: Laboratory Results - last 24 hr 10/16/19 10/16/19 10/16/19 Range/Units 09:30 09:30 09:30 WBC 5.49 (4.0-11.0) K/uL RBC 3.62 L (4.50-5.90) M/uL Hgb 11.5 L (13.0-17.0) g/dL Hct 33.7 L (38.0-50.0) % MCV 93.1 (80.0-98.0) fL MCH 31.8 (27.0-32.0) pg MCHC 34.1 (31.0-37.0) g/dL RDW Std Deviation 47.0 (28.0-62.0) fl RDW Coeff of Mukesh 14 (11.0-15.0) % Plt Count 122 L (150-400) K/uL MPV 11.10 (7.40-12.00) fL Neut % (Auto) 71.4 (48.0-80.0) % Lymph % (Auto) 20.8 (16.0-40.0) % [place] % (Auto) 6.7 (0.0-15.0) % Eos % (Auto) 0.7 (0.0-7.0) % Baso % (Auto) 0.4 (0.0-1.5) % Neut # (Auto) 3.9 (1.4-5.7) K/uL Lymph # (Auto) 1.1 (0.6-2.4) K/uL [place] # (Auto) 0.4 (0.0-0.8) K/uL Eos # (Auto) 0.0 (0.0-0.7) K/uL Baso # (Auto) 0.0 (0.0-0.1) K/uL Nucleated RBC % 0.0 /100WBC Nucleated RBCs # 0 K/uL Sodium 140 (136-148) mmol/L Potassium 3.9 (3.5-5.1) mmol/L Chloride 104 (98-107) mmol/L Carbon Dioxide 22.2 (21.0-32.0) mmol/L BUN 19 H (7.0-18.0) mg/dL Creatinine 1.0 (0.8-1.3) mg/dL Est Cr Clr Drug Dosing 97.41 mL/min Estimated GFR (MDRD) > 60.0 ml/min Glucose 270 H (74-106) mg/dL POC Glucose (60-110) mg/dL Calcium 9.2 (8.5-10.1) mg/dL Magnesium 1.7 L (1.8-2.4) mg/dL Total Bilirubin 0.9 (0.2-1.0) mg/dL AST 42 H (15-37) IU/L ALT 28 (14-63) IU/L Alkaline Phosphatase 83 (46-116) U/L Troponin I 0.056 (0.000-0.056) ng/mL Total Protein 7.1 (6.4-8.2) g/dL Albumin 3.9 (3.4-5.0) g/dL Globulin 3.2 (2.6-4.0) g/dL Albumin/Globulin Ratio 1.2 (0.9-1.6) Lipase 102 (73-393) U/L Urine Color Urine Appearance Urine pH (5.0-8.0) Ur Specific Art[place] (1.001-1.035) Urine Protein (NEGATIVE) mg/dL Urine Glucose (UA) (NEGATIVE) mg/dL Urine Ketones (NEGATIVE) mg/dL Urine Occult Blood (NEGATIVE) Urine Nitrite (NEGATIVE) Urine Bilirubin (NEGATIVE) Urine Urobilinogen (<2.0) EU/dL Ur Leukocyte Esterase (NEGATIVE) Urine RBC (0-2/HPF) Urine WBC (0-5/HPF) Ur Epithelial Cells (NONE-FEW) Urine Bacteria (NEGATIVE) 10/16/19 10/16/19 10/16/19 Range/Units 10:35 13:29 18:20 WBC (4.0-11.0) K/uL RBC (4.50-5.90) M/uL Hgb (13.0-17.0) g/dL Hct (38.0-50.0) % MCV (80.0-98.0) fL MCH (27.0-32.0) pg MCHC (31.0-37.0) g/dL RDW Std Deviation (28.0-62.0) fl RDW Coeff of Mukesh (11.0-15.0) % Plt Count (150-400) K/uL MPV (7.40-12.00) fL Neut % (Auto) (48.0-80.0) % Lymph % (Auto) (16.0-40.0) % [place] % (Auto) (0.0-15.0) % Eos % (Auto) (0.0-7.0) % Baso % (Auto) (0.0-1.5) % Neut # (Auto) (1.4-5.7) K/uL Lymph # (Auto) (0.6-2.4) K/uL [place] # (Auto) (0.0-0.8) K/uL Eos # (Auto) (0.0-0.7) K/uL Baso # (Auto) (0.0-0.1) K/uL Nucleated RBC % /100WBC Nucleated RBCs # K/uL Sodium (136-148) mmol/L Potassium (3.5-5.1) mmol/L Chloride (98-107) mmol/L Carbon Dioxide (21.0-32.0) mmol/L BUN (7.0-18.0) mg/dL Creatinine (0.8-1.3) mg/dL Est Cr Clr Drug Dosing mL/min Estimated GFR (MDRD) ml/min Glucose (74-106) mg/dL POC Glucose 215 H (60-110) mg/dL Calcium (8.5-10.1) mg/dL Magnesium (1.8-2.4) mg/dL Total Bilirubin (0.2-1.0) mg/dL AST (15-37) IU/L ALT (14-63) IU/L Alkaline Phosphatase (46-116) U/L Troponin I 0.071 H* (0.000-0.056) ng/mL Total Protein (6.4-8.2) g/dL Albumin (3.4-5.0) g/dL Globulin (2.6-4.0) g/dL Albumin/Globulin Ratio (0.9-1.6) Lipase (73-393) U/L Urine Color YELLOW Urine Appearance SLT CLOUDY Urine pH 6.0 (5.0-8.0) Ur Specific [place] 1.020 (1.001-1.035) Urine Protein NEGATIVE (NEGATIVE) mg/dL Urine Glucose (UA) >=1000 (NEGATIVE) mg/dL Urine Ketones NEGATIVE (NEGATIVE) mg/dL Urine Occult Blood MODERATE H (NEGATIVE) Urine Nitrite NEGATIVE (NEGATIVE) Urine Bilirubin NEGATIVE (NEGATIVE) Urine Urobilinogen 0.2 (<2.0) EU/dL Ur Leukocyte Esterase TRACE H (NEGATIVE) Urine RBC 20-30 (0-2/HPF) Urine WBC 1-4 (0-5/HPF) Ur Epithelial Cells RARE (NONE-FEW) Urine Bacteria RARE (NEGATIVE) 10/16/19 10/16/19 10/17/19 Range/Units 19:04 23:23 01:08 WBC (4.0-11.0) K/uL RBC (4.50-5.90) M/uL Hgb (13.0-17.0) g/dL Hct (38.0-50.0) % MCV (80.0-98.0) fL MCH (27.0-32.0) pg MCHC (31.0-37.0) g/dL RDW Std Deviation (28.0-62.0) fl RDW Coeff of Mukesh (11.0-15.0) % Plt Count (150-400) K/uL MPV (7.40-12.00) fL Neut % (Auto) (48.0-80.0) % Lymph % (Auto) (16.0-40.0) % [place] % (Auto) (0.0-15.0) % Eos % (Auto) (0.0-7.0) % Baso % (Auto) (0.0-1.5) % Neut # (Auto) (1.4-5.7) K/uL Lymph # (Auto) (0.6-2.4) K/uL [place] # (Auto) (0.0-0.8) K/uL Eos # (Auto) (0.0-0.7) K/uL Baso # (Auto) (0.0-0.1) K/uL Nucleated RBC % /100WBC Nucleated RBCs # K/uL Sodium (136-148) mmol/L Potassium (3.5-5.1) mmol/L Chloride (98-107) mmol/L Carbon Dioxide (21.0-32.0) mmol/L BUN (7.0-18.0) mg/dL Creatinine (0.8-1.3) mg/dL Est Cr Clr Drug Dosing mL/min Estimated GFR (MDRD) ml/min Glucose (74-106) mg/dL POC Glucose 260 H (60-110) mg/dL Calcium (8.5-10.1) mg/dL Magnesium (1.8-2.4) mg/dL Total Bilirubin (0.2-1.0) mg/dL AST (15-37) IU/L ALT (14-63) IU/L Alkaline Phosphatase (46-116) U/L Troponin I 0.067 H* 0.060 H* (0.000-0.056) ng/mL Total Protein (6.4-8.2) g/dL Albumin (3.4-5.0) g/dL Globulin (2.6-4.0) g/dL Albumin/Globulin Ratio (0.9-1.6) Lipase (73-393) U/L Urine Color Urine Appearance Urine pH (5.0-8.0) Ur Specific Artesian (1.001-1.035) Urine Protein (NEGATIVE) mg/dL Urine Glucose (UA) (NEGATIVE) mg/dL Urine Ketones (NEGATIVE) mg/dL Urine Occult Blood (NEGATIVE) Urine Nitrite (NEGATIVE) Urine Bilirubin (NEGATIVE) Urine Urobilinogen (<2.0) EU/dL Ur Leukocyte Esterase (NEGATIVE) Urine RBC (0-2/HPF) Urine WBC (0-5/HPF) Ur Epithelial Cells (NONE-FEW) Urine Bacteria (NEGATIVE) 10/17/19 10/17/19 10/17/19 Range/Units 06:30 06:30 06:30 WBC 4.45 (4.0-11.0) K/uL RBC 3.38 L (4.50-5.90) M/uL Hgb 10.8 L (13.0-17.0) g/dL Hct 31.5 L (38.0-50.0) % MCV 93.2 (80.0-98.0) fL MCH 32.0 (27.0-32.0) pg MCHC 34.3 (31.0-37.0) g/dL RDW Std Deviation 46.9 (28.0-62.0) fl RDW Coeff of Mukesh 14 (11.0-15.0) % Plt Count 113 L (150-400) K/uL MPV 10.90 (7.40-12.00) fL Neut % (Auto) 55.9 (48.0-80.0) % Lymph % (Auto) 29.7 (16.0-40.0) % [place] % (Auto) 11.2 (0.0-15.0) % Eos % (Auto) 2.5 (0.0-7.0) % Baso % (Auto) 0.7 (0.0-1.5) % Neut # (Auto) 2.5 (1.4-5.7) K/uL Lymph # (Auto) 1.3 (0.6-2.4) K/uL [place] # (Auto) 0.5 (0.0-0.8) K/uL Eos # (Auto) 0.1 (0.0-0.7) K/uL Baso # (Auto) 0.0 (0.0-0.1) K/uL Nucleated RBC % 0.0 /100WBC Nucleated RBCs # 0 K/uL Sodium 144 (136-148) mmol/L Potassium 3.6 (3.5-5.1) mmol/L Chloride 108 H (98-107) mmol/L Carbon Dioxide 26.9 (21.0-32.0) mmol/L BUN 14 (7.0-18.0) mg/dL Creatinine 0.8 (0.8-1.3) mg/dL Est Cr Clr Drug Dosing 41.36 mL/min Estimated GFR (MDRD) > 60.0 ml/min Glucose 179 H (74-106) mg/dL POC Glucose (60-110) mg/dL Calcium 8.2 L (8.5-10.1) mg/dL Magnesium 2.0 (1.8-2.4) mg/dL Total Bilirubin 0.9 (0.2-1.0) mg/dL AST 32 (15-37) IU/L ALT 26 (14-63) IU/L Alkaline Phosphatase 62 (46-116) U/L Troponin I (0.000-0.056) ng/mL Total Protein 6.0 L (6.4-8.2) g/dL Albumin 3.1 L (3.4-5.0) g/dL Globulin 2.9 (2.6-4.0) g/dL Albumin/Globulin Ratio 1.1 (0.9-1.6) Lipase (73-393) U/L Urine Color Urine Appearance Urine pH (5.0-8.0) Ur Specific Artesian (1.001-1.035) Urine Protein (NEGATIVE) mg/dL Urine Glucose (UA) (NEGATIVE) mg/dL Urine Ketones (NEGATIVE) mg/dL Urine Occult Blood (NEGATIVE) Urine Nitrite (NEGATIVE) Urine Bilirubin (NEGATIVE) Urine Urobilinogen (<2.0) EU/dL Ur Leukocyte Esterase (NEGATIVE) Urine RBC (0-2/HPF) Urine WBC (0-5/HPF) Ur Epithelial Cells (NONE-FEW) Urine Bacteria (NEGATIVE) 10/17/19 10/17/19 Range/Units 06:39 08:53 WBC (4.0-11.0) K/uL RBC (4.50-5.90) M/uL Hgb (13.0-17.0) g/dL Hct (38.0-50.0) % MCV (80.0-98.0) fL MCH (27.0-32.0) pg MCHC (31.0-37.0) g/dL RDW Std Deviation (28.0-62.0) fl RDW Coeff of Mukesh (11.0-15.0) % Plt Count (150-400) K/uL MPV (7.40-12.00) fL Neut % (Auto) (48.0-80.0) % Lymph % (Auto) (16.0-40.0) % [place] % (Auto) (0.0-15.0) % Eos % (Auto) (0.0-7.0) % Baso % (Auto) (0.0-1.5) % Neut # (Auto) (1.4-5.7) K/uL Lymph # (Auto) (0.6-2.4) K/uL [place] # (Auto) (0.0-0.8) K/uL Eos # (Auto) (0.0-0.7) K/uL Baso # (Auto) (0.0-0.1) K/uL Nucleated RBC % /100WBC Nucleated RBCs # K/uL Sodium (136-148) mmol/L Potassium (3.5-5.1) mmol/L Chloride (98-107) mmol/L Carbon Dioxide (21.0-32.0) mmol/L BUN (7.0-18.0) mg/dL Creatinine (0.8-1.3) mg/dL Est Cr Clr Drug Dosing mL/min Estimated GFR (MDRD) ml/min Glucose (74-106) mg/dL POC Glucose 172 H 214 H (60-110) mg/dL Calcium (8.5-10.1) mg/dL Magnesium (1.8-2.4) mg/dL Total Bilirubin (0.2-1.0) mg/dL AST (15-37) IU/L ALT (14-63) IU/L Alkaline Phosphatase (46-116) U/L Troponin I (0.000-0.056) ng/mL Total Protein (6.4-8.2) g/dL Albumin (3.4-5.0) g/dL Globulin (2.6-4.0) g/dL Albumin/Globulin Ratio (0.9-1.6) Lipase (73-393) U/L Urine Color Urine Appearance Urine pH (5.0-8.0) Ur Specific Artesian (1.001-1.035) Urine Protein (NEGATIVE) mg/dL Urine Glucose (UA) (NEGATIVE) mg/dL Urine Ketones (NEGATIVE) mg/dL Urine Occult Blood (NEGATIVE) Urine Nitrite (NEGATIVE) Urine Bilirubin (NEGATIVE) Urine Urobilinogen (<2.0) EU/dL Ur Leukocyte Esterase (NEGATIVE) Urine RBC (0-2/HPF) Urine WBC (0-5/HPF) Ur Epithelial Cells (NONE-FEW) Urine Bacteria (NEGATIVE) Med Orders - Current: Current Medications Acetaminophen (Tylenol) 650 mg PO Q4H PRN PRN Reason: Pain (Mild 1-3)/fever Albuterol (Proventil Neb Soln) 2.5 mg NEB Q2H PRN PRN Reason: Shortness Of Breath/wheezing Aspirin (Aspirin) 81 mg PO DAILY [facility] Last Admin: 10/17/19 08:01 Dose: 81 mg Atorvastatin Calcium (Lipitor) 40 mg PO BEDTIME [facility] Last Admin: 10/16/19 20:23 Dose: 40 mg Carvedilol (Coreg) 6.25 mg PO BID [facility] Last Admin: 10/17/19 08:02 Dose: 6.25 mg Clopidogrel Bisulfate (Plavix) 75 mg PO DAILY [facility] Last Admin: 10/17/19 08:03 Dose: 75 mg Docusate Sodium (Colace) 100 mg PO BID PRN PRN Reason: Constipation Hydromorphone HCl (Dilaudid) 0.5 mg IVPUSH Q4H PRN PRN Reason: Pain (severe 7-10) Last Admin: 10/17/19 07:57 Dose: 0.5 mg Pantoprazole Sodium 40 mg/ (Sodium Chloride) 10 mls @ 300 mls/hr IV DAILY [facility] Last Admin: 10/17/19 08:04 Dose: 300 mls/hr Insulin Aspart (Novolog) 0 unit SUBCUT TIDAC [facility]; Protocol Last Admin: 10/17/19 08:56 Dose: 4 units Lisinopril (Prinivil) 10 mg PO DAILY [facility] Last Admin: 10/17/19 08:02 Dose: 10 mg Miscellaneous Information (Remove Patch) 1 ea TRDERM DAILY@2100 [facility] Last Admin: 10/16/19 20:26 Dose: 1 ea Nitroglycerin (Nitro-Dur 0.2 Mg/Hr) 0.2 mg TRDERM DAILY [facility] Nitroglycerin (Nitrostat) 0.4 mg SL Q5M PRN PRN Reason: Chest Pain Ondansetron HCl (Zofran Odt) 8 mg PO Q4H PRN PRN Reason: nausea, able to take PO Ondansetron HCl (Zofran) 8 mg IVPUSH Q8H PRN PRN Reason: Nausea/Vomiting Oxycodone HCl (Oxycodone) 5 mg PO Q4H PRN PRN Reason: Pain (moderate 4-6) Last Admin: 10/16/19 22:55 Dose: 5 mg Polyethylene Glycol (Miralax) 17 gm PO DAILY PRN PRN Reason: Constipation Spironolactone (Aldactone) 25 mg PO DAILY [facility] Last Admin: 10/17/19 08:04 Dose: 25 mg Sucralfate (Carafate) 1 gm PO TIDAC [facility] Last Admin: 10/17/19 07:44 Dose: 1 gm Tamsulosin HCl (Flomax) 0.4 mg PO DAILY [facility] Last Admin: 10/17/19 08:03 Dose: 0.4 mg Discontinued Medications Aspirin (Aspirin) 324 mg PO ONETIME ONE Stop: 10/16/19 14:41 Last Admin: 10/16/19 14:51 Dose: 324 mg Hydromorphone HCl (Dilaudid) 0.5 mg IVPUSH ONETIME ONE Stop: 10/16/19 14:40 Last Admin: 10/16/19 14:52 Dose: 0.5 mg Sodium Chloride (Normal Saline) 1,000 mls @ 1,000 mls/hr IV .Bolus ONE Stop: 10/16/19 11:34 Last Admin: 10/16/19 10:49 Dose: 1,000 mls/hr Pantoprazole Sodium 40 mg/ (Sodium Chloride) 10 mls @ 300 mls/hr IV NOW ONE Stop: 10/16/19 15:44 Last Admin: 10/16/19 18:07 Dose: 300 mls/hr Magnesium Sulfate 2 gm/ Premix 50 mls @ 25 mls/hr IV ONETIME ONE Stop: 10/16/19 17:48 Last Admin: 10/16/19 18:06 Dose: 25 mls/hr Iopamidol (Isovue-370 (76%)) 100 ml IVPUSH ONETIME ONE Stop: 10/16/19 15:25 Last Admin: 10/16/19 15:25 Dose: 100 ml Lisinopril (Prinivil) 20 mg PO ONETIME ONE Stop: 10/16/19 19:01 Last Admin: 10/16/19 20:22 Dose: 20 mg Morphine Sulfate (Morphine) 4 mg IVPUSH ONETIME ONE Stop: 10/16/19 10:31 Last Admin: 10/16/19 10:50 Dose: 4 mg Pantoprazole Sodium (Protonix Iv) Confirm Administered Dose 40 mg .ROUTE .STK -MED ONE Stop: 10/16/19 18:06 Last Admin: 10/16/19 20:25 Dose: Not Given Promethazine HCl (Phenergan) 25 mg IM ONETIME ONE Stop: 10/16/19 10:31 Last Admin: 10/16/19 10:45 Dose: 25 mg Promethazine HCl (Phenergan) 25 mg IM ONETIME ONE Stop: 10/16/19 14:41 Last Admin: 10/16/19 14:52 Dose: 25 mg Sucralfate (Carafate) 1 gm PO ONETIME ONE Stop: 10/16/19 15:44 Last Admin: 10/16/19 18:07 Dose: 1 gm
== END 2019-10-17 11:00 | disposition home or self-care (01) ==
LOC: MW.ED 09:22 → MW.MS 16:19
PROVIDERS: ADMIT Internal Medicine; ATTEND Internal Medicine
DX: R10.13 Epigastric pain (principal); E83.42 Hypomagnesemia; R11.2 Nausea with vomiting, unspecified; R31.9 Hematuria, unspecified; I11.0 Hypertensive heart disease with heart failure; I50.20 Unspecified systolic (congestive) heart failure; E11.9 Type 2 diabetes mellitus without complications; I25.10 Atherosclerotic heart disease of native coronary artery without angina pectoris; Z87.442 Personal history of urinary calculi; Z79.899 Other long term (current) drug therapy; Z79.84 Long term (current) use of oral hypoglycemic drugs; Z79.82 Long term (current) use of aspirin; Z79.02 Long term (current) use of antithrombotics/antiplatelets; Z95.5 Presence of coronary angioplasty implant and graft
CPT/HCPCS: 36415; 74177; 80053; 81001; 82962; 83690; 83735; 84484; 85025; 87086; 93005; A9270; C9113; J1170; J1815; J2270; J2550; J3475; J7030; J7050; Q9967; 99284

== ENCOUNTER 2019-10-19 09:04 | Emergency (ER) | payer OTHER ==
[2019-10-19] MEDS ORDERED: Sodium Chloride 0.9% 1,000 ML IV ONE (09:29)
[2019-10-19] MEDS ORDERED: Haloperidol Lactate 5 MG/ML SDV IM ONE (09:30)
[2019-10-19 10:04] LABS: BLOOD UREA NITROGEN,BUN 12 mg/dL (7.0-18.0); CARBON DIOXIDE,CO2 22.2 mmol/L (21.0-32.0); CHLORIDE,CL 104 mmol/L (98-107); GLUCOSE RANDOM 245 mg/dL (74-106); LIPASE 244 U/L (73-393); POTASSIUM,K 3.6 mmol/L (3.5-5.1); SODIUM,NA 140 mmol/L (136-148)
--- NOTE | 2019-10-19 10:27 | CR ---
Abdomen: Supine view of the abdomen was obtained. Comparison: Prior abdominal x-ray of 06/28/19. Bowel gas pattern appears within normal limits. Mild vascular calcification is seen. Minimal degenerative change is scattered within the spine. Calcifications are seen within the pelvis most likely representing phleboliths. Impression: 1. Nothing acute is appreciated on supine abdominal x-ray. Diagnostic code #2 This report was dictated in [place] Standard Time
--- NOTE | 2019-10-19 10:27 | CR ---
Chest: PA view of the chest was obtained. Comparison: Prior chest x-ray of 10/12/19. Heart size is within normal limits. Upper mediastinum is normal. Lungs are clear with no acute parenchymal change. Bony structures are grossly intact. Impression: 1. Nothing acute is seen on frontal chest x-ray. Diagnostic code #1 This report was dictated in [place] Standard Time
[2019-10-19] MEDS ORDERED: HYDROmorphone 1 MG/ML Syringe IVPUSH ONE (10:30)
[2019-10-19] MEDS ORDERED: Promethazine 25 MG/ML SDV IM ONE (10:31)
[2019-10-19] MEDS ORDERED: HYDROmorphone 1 MG/ML Syringe IVPUSH PRN (11:32)
[2019-10-19] MEDS ORDERED: Iopamidol 755 MG/ML 500 ML Multipack Bottle IVPUSH STA (12:46)
--- NOTE | 2019-10-19 13:10 | CT ---
CT abdomen and pelvis Technique: Multiple axial sections were obtained from above the dome of the diaphragm inferiorly through the pubic symphysis. Intravenous contrast was utilized. No oral contrast has been given. Comparison: Prior CT abdomen and pelvis exam of 10/16/19. Findings: Heart is somewhat enlarged. Visualized lung bases show nothing acute. Liver contains no focal parenchymal abnormality. Spleen is enlarged slightly greater than 15 cm which is stable from previous exam. Adrenal glands show no nodule. Pancreas is within normal limits. Gallbladder contains no calcified gallstones. Cyst noted within the right kidney measuring 1.7 cm. No additional abnormalities are appreciated within the kidneys. Aorta shows atherosclerotic change which continues into the iliac vessels. No aneurysm is seen. No retroperitoneal adenopathy or mesenteric abnormalities are noted. No pelvic mass or adenopathy is seen. Calcifications are noted within the prostate gland. Appendix is seen which is normal in size. No free fluid or inflammatory change is seen. Bone window settings were reviewed which shows mild scattered degenerative change within the spine. Small fat-containing umbilical hernia is noted. Impression: 1. Findings believed to be incidental and stable as noted above. 2. Nothing acute is appreciated on CT study of the abdomen and pelvis. Diagnostic code #2 Study was dictated in [place] Standard Time
--- NOTE | 2019-10-19 13:40 | EDM.PDOC ---
ED [facility] GENERAL MEDICAL PROBLEM - General Chief Complaint: Cardiovascular Problem Stated Complaint: VOMITING AND STOMACH PAIN Time Seen by Provider: 10/19/19 09:23 - History of Present Illness INITIAL COMMENTS - FREE TEXT/NARRATIVE: HPI 59-year-old male with history current N/V presents for evaluation of recurrent nausea and vomiting since this morning, symptoms have been refractory to hot showers 4, denies chest pain or shortness breath. Notes that he last used marijuana several months ago. No fevers, chills, shortness breath, or chest pain. No history of obstruction or prior abdominal surgery. M/S/F/SocHx notable for: chest pain, ACS, ureterolithiasis, CHF, gastroparesis, DM; remainder reviewed with patient and in chart. ROS: Negative constitutional, eye, cardiovascular, pulmonary, GI, , MSK, skin , neurologic, psychiatric, endocrine unless noted in the HPI. Exam HR 96, RR 24, BP 203/124, T 35.6C, SaO2 100% on room air. Gen: pleasant, not in extremis appearing, frequently retching with minimal emesis. HEENT: NC, AT, PEERL, EOMI. Resp: Clear to auscultation bilaterally, normal work of breathing, no accessory muscle usage. Card: Regular rate and rhythm with no murmurs, rubs, or gallops, extremities warm and well perfused. GI: Non-tender to palpation throughout all quadrants, no focal tenderness at McBurney's point, negative Velazco's sign, non-distended, no rebound or guarding. : No suprapubic tenderness to palpation. MSK: No visible deformities, strength and tone without visually appreciable deficit. Skin: Normal color with no visible lesions. Neuro: alert and oriented 3, no facial asymmetry, vision and hearing WNL. Psych: Mood and affect appropriate. Labs / Imaging: EKG: SR 80 bpm, no ST segment elevations or depressions, no LBBB, QTC 467 ms. WBC 7.70, HB 12.3, sodium 140, potassium 3.6, magnesium 1.6, creatinine 0.9, AST 28, ALT 27, alkaline phosphatase 99, total bilirubin 1.0, lipase 244. Troponin <0.050 KUB: nothing acute is appreciated on supine abdominal x-ray. CXR: nothing acute is seen on frontal chest x-ray. CT abdomen/pelvis: Heart is somewhat enlarged. Visualized lung bases show nothing acute. Liver contains no focal parenchymal abnormality. Spleen is enlarged slightly greater than 15 cm which is stable from previous exam. Adrenal glands show no nodule. Pancreas is within normal limits Gallbladder contains no calcified gallstones. Cyst noted within the right kidney measuring 1.7 cm. No additional abnormalities are appreciated within the kidneys. Aorta shows atherosclerotic change which continues into the iliac vessels. No aneurysm is seen. No retroperitoneal adenopathy or mesenteric abnormalities are noted. No pelvic mass or adenopathy is seen Calcifications are noted within the prostate gland. Appendix is seen which is normal in size. No free fluid or inflammatory change is seen. Bone window settings were reviewed which shows mild scattered degenerative change within the spine. Small fat-containing umbilical hernia is noted. Impression: 1. Findings believed to be incidental and stabilize noted above. 2. Nothing acute is appreciated on CT study of the abdomen pelvis. MDM Previous chart, nursing note, labs, imaging, and vitals reviewed. A: 59-year-old male with history current N/V presents for evaluation of recurrent nausea and vomiting since this morning, symptoms have been refractory to hot showers 4, denies chest pain or shortness breath. DDx: gastroparesis, obstruction, partial obstruction, electrolyte abnormalities , dehydration, cannabinoid hyperemesis syndrome, gastritis, ACS. Evaluation: suspect gastroparesis given the patients diabetes, recurrent episodes, and negative THC on UDS. Imaging without evidence of obstruction, partial obstruction, ileus, no significant electrolyte abnormalities or clinically apparent features suggestive of dehydration noted. ECG nonischemic, troponin negative. As such, doubt ACS. ED Course: 1. 09:33 - 1 L NS and 5 mg haloperidol IM ordered for initial symptomatic treatment. 2. 10:31 - patient with ongoing nausea and discomfort, 12.5 mg promethazine, 0.5 mg hydromorphone ordered for additional symptomatic treatment. 3. 11:32 - ongoing discomfort, not taking PO well, repeat abdominal exam with ongoing mild, diffuse tenderness to palpation. CT ordered, additional hydromorphone ordered for pain control. 4. Imaging without evidence of acute pathology. Disposition: discharge with RX for Compazine. Recommend PCP follow-up tomorrow and scheduled GI follow-up. Impression: nausea and vomiting (suspected gastroparesis). Abdominal Pain Score (Numeric/FACES): 9 - Related Data Allergies Allergy/AdvReac Type Severity Reaction Status Date / Time No Known Allergies Allergy Verified 10/19/19 09:05 Home Meds: Home Meds carvediloL [Carvedilol] 6.25 mg PO BID 05/02/19 [History] metFORMIN [Glucophage] 1,000 mg PO BIDMEALS 05/02/19 [History] atorvaSTATin Calcium [Atorvastatin Calcium] 40 mg PO BEDTIME 05/25/19 [History] Spironolactone [Aldactone] 25 mg PO DAILY 06/12/19 [History] Tamsulosin HCl [Flomax] 0.4 mg PO DAILY #14 cap.er.24h 06/22/19 [Rx] Nitroglycerin [Nitroglycerin Patch 0.2 MG/Hr] 0.2 mg TRDERM DAILY 07/25/19 [ History] Clopidogrel [Plavix] 75 mg PO DAILY 07/26/19 [History] lisinopriL [Lisinopril] 10 mg PO DAILY 07/26/19 [History] Magnesium 250 mg PO BID 08/26/19 [History] Nitroglycerin [Nitrostat] 0.4 mg PO ASDIRECTED PRN 08/26/19 [History] Aspirin [Barbie Chewable Aspirin] 81 mg PO DAILY 10/03/19 [History] Omeprazole Magnesium [Prilosec Otc] 20 mg PO BID #14 tablet.dr 10/17/19 [Rx] Furosemide [Lasix] 40 mg PO DAILY 10/19/19 [History] Prochlorperazine [Compazine] 25 mg RC BID PRN #10 supp.rect 10/19/19 [Rx] Past Medical History HEENT History: Reports: Impaired Vision, Other (See Below) Other HEENT History: wears glasses Cardiovascular History: Reports: Angina, Hypertension, CO, Stents Other Cardiovascular History: pt reports mild heat attack 2018 Respiratory History: Reports: Pneumonia, Recurrent Gastrointestinal History: Reports: Other (See Below) Other Gastrointestinal History: Gallbladder Issues Genitourinary History: Reports: Renal Calculus Musculoskeletal History: Reports: Fracture Other Musculoskeletal History: "Broken nose in past from [age]years old " Neurological History: Reports: None Psychiatric History: Reports: None Endocrine/Metabolic History: Reports: Diabetes, Type II Insulin Pump Model and Lead Electrician: None Hematologic History: Reports: None Immunologic History: Reports: None Oncologic (Cancer) History: Reports: None Dermatologic History: Reports: None - Infectious Disease History Infectious Disease History: Reports: None - Past Surgical History Head Surgeries/Procedures: Reports: None Cardiovascular Surgical History: Reports: Carotid Stents Respiratory Surgical History: Reports: None GI Surgical History: Reports: Colonoscopy Endocrine Surgical History: Reports: Thyroidectomy, Other (See Below) Other Endocrine Surgeries/Procedures: patrial thyroidectomy Social & Family History - Family History Family Medical History: Noncontributory HEENT: Reports: None Cardiac: Reports: None Respiratory: Reports: None GI: Reports: None : Reports: None Musculoskeletal: Reports: Arthritis Neurological: Reports: Alzheimers Disease Endocrine/Metabolic: Reports: Diabetes, type II Oncologic: Reports: Lung - Tobacco Use Smoking Status *Q: Never Smoker - Caffeine Use Caffeine Use: Reports: None Caffeine Use Comment: Pot a day - Recreational Drug Use Recreational Drug Use: No ED ROS GENERAL - Review of Systems Review Of Systems: See Below ED EXAM, GENERAL - Physical Exam Exam: See Below Course - Vital Signs Last Recorded V/S: Last Vital Signs Temp 35.6 C L 10/19/19 09:07 Pulse 80 10/19/19 13:03 Resp 14 10/19/19 13:03 BP 124/73 10/19/19 13:03 Pulse Ox 96 10/19/19 13:03 - Orders/Labs/Meds Orders: Active Orders 24 hr Category Date Time Status EKG 12 Lead [EKG Documentation Completion] [RC] STAT Care 10/19/19 09:18 Active HYDROmorphone [Dilaudid] Med 10/19/19 11:32 Active 0.5 - 1 mg IVPUSH Q1H PRN Medication Orders Hydromorphone HCl (Dilaudid) 0.5 - 1 mg IVPUSH Q1H PRN PRN Reason: Pain Last Admin: 10/19/19 12:25 Dose: 1 mg Labs: Laboratory Tests 10/19/19 10/19/19 10/19/19 Range/Units 09:25 09:25 09:25 WBC 7.70 (4.0-11.0) K/uL RBC 3.93 L (4.50-5.90) M/uL Hgb 12.3 L (13.0-17.0) g/dL Hct 36.2 L (38.0-50.0) % MCV 92.1 (80.0-98.0) fL MCH 31.3 (27.0-32.0) pg MCHC 34.0 (31.0-37.0) g/dL RDW Std Deviation 45.0 (28.0-62.0) fl RDW Coeff of Mukesh 13 (11.0-15.0) % Plt Count 130 L (150-400) K/uL MPV 10.90 (7.40-12.00) fL Neut % (Auto) 70.3 (48.0-80.0) % Lymph % (Auto) 20.5 (16.0-40.0) % Avery % (Auto) 7.5 (0.0-15.0) % Eos % (Auto) 1.4 (0.0-7.0) % Baso % (Auto) 0.3 (0.0-1.5) % Neut # (Auto) 5.4 (1.4-5.7) K/uL Lymph # (Auto) 1.6 (0.6-2.4) K/uL Avery # (Auto) 0.6 (0.0-0.8) K/uL Eos # (Auto) 0.1 (0.0-0.7) K/uL Baso # (Auto) 0.0 (0.0-0.1) K/uL Nucleated RBC % 0.0 /100WBC Nucleated RBCs # 0 K/uL Sodium 140 (136-148) mmol/L Potassium 3.6 (3.5-5.1) mmol/L Chloride 104 (98-107) mmol/L Carbon Dioxide 22.2 (21.0-32.0) mmol/L BUN 12 (7.0-18.0) mg/dL Creatinine 0.9 (0.8-1.3) mg/dL Est Cr Clr Drug Dosing 108.23 mL/min Estimated GFR (MDRD) > 60.0 ml/min Glucose 245 H (74-106) mg/dL Calcium 9.4 (8.5-10.1) mg/dL Magnesium 1.6 L (1.8-2.4) mg/dL Total Bilirubin 1.0 (0.2-1.0) mg/dL AST 28 (15-37) IU/L ALT 27 (14-63) IU/L Alkaline Phosphatase 99 (46-116) U/L Troponin I < 0.050 (0.000-0.056) ng/mL Total Protein 7.5 (6.4-8.2) g/dL Albumin 4.0 (3.4-5.0) g/dL Globulin 3.5 (2.6-4.0) g/dL Albumin/Globulin Ratio 1.1 (0.9-1.6) Lipase 244 (73-393) U/L Urine Opiates Screen (NEGATIVE) Ur Oxycodone Screen (NEGATIVE) Urine Methadone Screen (NEGATIVE) Ur Barbiturates Screen (NEGATIVE) Ur Phencyclidine Scrn (NEGATIVE) Ur Amphetamine Screen (NEGATIVE) U Methamphetamines Scrn (NEGATIVE) U Benzodiazepines Scrn (NEGATIVE) U Cocaine Metab Screen (NEGATIVE) U Marijuana (THC) Screen (NEGATIVE) 10/19/19 Range/Units 10:14 WBC (4.0-11.0) K/uL RBC (4.50-5.90) M/uL Hgb (13.0-17.0) g/dL Hct (38.0-50.0) % MCV (80.0-98.0) fL MCH (27.0-32.0) pg MCHC (31.0-37.0) g/dL RDW Std Deviation (28.0-62.0) fl RDW Coeff of Mukesh (11.0-15.0) % Plt Count (150-400) K/uL MPV (7.40-12.00) fL Neut % (Auto) (48.0-80.0) % Lymph % (Auto) (16.0-40.0) % Avery % (Auto) (0.0-15.0) % Eos % (Auto) (0.0-7.0) % Baso % (Auto) (0.0-1.5) % Neut # (Auto) (1.4-5.7) K/uL Lymph # (Auto) (0.6-2.4) K/uL Avery # (Auto) (0.0-0.8) K/uL Eos # (Auto) (0.0-0.7) K/uL Baso # (Auto) (0.0-0.1) K/uL Nucleated RBC % /100WBC Nucleated RBCs # K/uL Sodium (136-148) mmol/L Potassium (3.5-5.1) mmol/L Chloride (98-107) mmol/L Carbon Dioxide (21.0-32.0) mmol/L BUN (7.0-18.0) mg/dL Creatinine (0.8-1.3) mg/dL Est Cr Clr Drug Dosing mL/min Estimated GFR (MDRD) ml/min Glucose (74-106) mg/dL Calcium (8.5-10.1) mg/dL Magnesium (1.8-2.4) mg/dL Total Bilirubin (0.2-1.0) mg/dL AST (15-37) IU/L ALT (14-63) IU/L Alkaline Phosphatase (46-116) U/L Troponin I (0.000-0.056) ng/mL Total Protein (6.4-8.2) g/dL Albumin (3.4-5.0) g/dL Globulin (2.6-4.0) g/dL Albumin/Globulin Ratio (0.9-1.6) Lipase (73-393) U/L Urine Opiates Screen NEGATIVE (NEGATIVE) Ur Oxycodone Screen NEGATIVE (NEGATIVE) Urine Methadone Screen NEGATIVE (NEGATIVE) Ur Barbiturates Screen NEGATIVE (NEGATIVE) Ur Phencyclidine Scrn NEGATIVE (NEGATIVE) Ur Amphetamine Screen NEGATIVE (NEGATIVE) U Methamphetamines Scrn NEGATIVE (NEGATIVE) U Benzodiazepines Scrn NEGATIVE (NEGATIVE) U Cocaine Metab Screen NEGATIVE (NEGATIVE) U Marijuana (THC) Screen NEGATIVE (NEGATIVE) Meds: Medications Generic Name Dose Route Start Last Admin Trade Name Freq PRN Reason Stop Dose Admin Hydromorphone HCl 0.5 - 1 mg 10/19/19 11:32 10/19/19 12:25 Dilaudid IVPUSH 1 mg Q1H PRN Administration Pain Discontinued Medications Generic Name Dose Route Start Last Admin Trade Name Freq PRN Reason Stop Dose Admin Haloperidol Lactate 5 mg 10/19/19 09:30 10/19/19 09:45 Haldol IM 10/19/19 09:31 5 mg ONETIME ONE Administration Hydromorphone HCl 0.5 mg 10/19/19 10:30 10/19/19 10:39 Dilaudid IVPUSH 10/19/19 10:31 0.5 mg ONETIME ONE Administration Sodium Chloride 1,000 mls @ 1,000 mls/hr 10/19/19 09:29 10/19/19 09:45 Normal Saline IV 10/19/19 10:28 1,000 mls/hr .Bolus ONE Administration Iopamidol 100 ml 10/19/19 12:46 10/19/19 12:47 Isovue Multipack-370 (76%) IVPUSH 10/19/19 12:47 100 ml ONETIME STA Administration Promethazine HCl 12.5 mg 10/19/19 10:31 10/19/19 10:39 Phenergan IM 10/19/19 10:32 12.5 mg ONETIME ONE Administration Departure - Departure Time of Disposition: 13:24 Disposition: Home, Self-Care 01 Clinical Impression: Nausea and vomiting Prescriptions: Prochlorperazine [Compazine] 25 mg RC BID PRN #10 supp.rect PRN Reason: Nausea Referrals: PCP,None [Primary Care Provider] - Additional Instructions: You were in seen in the [facility] Emergency Department for evaluation of nausea and vomiting. At time of your evaluation your symptoms are tentatively believed to be due to gastroparesis. You have been prescribed Compazine and should follow up your primary care physician tomorrow for repeat evaluation. Please read and follow all of the instructions below. When calling for follow-up care, please make the office aware that this follow- up is from your recent emergency room visit. If for any reason you are refused follow-up, please contact the [facility] Emergency Department at and asked to speak to the emergency department charge nurse. Your care today was limited to identifying and treating emergent medical problems only. Many people have subtle differences in their test results that require follow up with their outpatient physician(s) to correctly determine if this represents a normal variation or concerning abnormality with respect to your specific health. The care given to you today was limited to identifying and treating emergent medical problems - you need to request a copy of all of your medical records from today's visit and follow up with your outpatient physician(s) to review both today's visit and your overall health. If you have any new symptoms or if you are at all concerned about your health please return immediately to the emergency department. Prescriptions: If you are uninsured or have financial difficulties with filling your prescription(s), you may consider using a free pharmacy discount service such as [employer] ([employer]) or [employer] ([employer]). These services allow you to search for a medication on your phone (or computer) and obtain a coupon that usually has a significant discount from the list hunt at a pharmacy. Your physician as well as [facility] does not have a financial relationship with either of these services. You may also wish to speak with your physician to determine if lower cost prescriptions are possible. Obtaining primary care: 1. [facility] provides pediatrics (children), family medicine (children, adults, and some obstetrical care), and internal medicine (adults). Further specialty care is also available. Same day appointments are available. They may be contacted at [phone] and are open Friday through Friday 8 AM to [address] [facility] are located at [facility], [address] [place] [address]. 2. [facility] offers family medicine, internal medicine, [facility], and further specialty care. [facility] may be contacted at [phone]. [facility] is located at [facility]. [place] [id number]. 3. If you have health insurance, please also contact your insurer for a list of accepting providers under your policy, you may contact these providers for further health care. Occupational health: Work related injuries may consider following up with [facility], . Occupational health services are located at [address] [place] [id number] and are open Friday through Friday from 7: 30 am to 5:00 pm. Obstetrical and Gynecological Care: [facility], , Friday through Friday 8 AM to 5 PM. [address] [place] [id number]. Eyecare: If you have an eye injury you should follow up with your customer support assistant or with [facility], at [phone] or [phone] , they are located at [address] [place] [address]. Dental Care Og Kaplan DDS. [address] [facility] [place], [place]. Ph. [phone] Edi Kaplan DDS MS. [address] [facility] [address], [place], [place]. Ph. Christian Seay DDS. 10 08/[address] [place] [address], [place], [place]. Ph. [phone] Kirk Ca DDS. [address] [facility] [address] [place], [place]. Ph. [phone] Jay Trimble DDS PC. [address] [facility] [address] [place], [place]. Ph. [phone] Alicia De Jesus DDS. [address] [facility]. Ph. [phone] [facility]. [address] [place], [place]. Ph. [phone] [facility]. [address] [place] [address], [place], [place]. Ph. [phone] [facility] [address] [place] [address]. Ph. [phone] [facility]. [address] [place] [address] [address] [place], [place]. Ph. [facility]. [address] [place], [place]. Ph. Sepsis Event Note - Evaluation Sepsis Screening Result: No Definite Risk - Focused Exam Vital Signs: Vital Signs Temp Pulse Resp BP Pulse Ox 10/19/19 13:03 80 14 124/73 96 10/19/19 10:42 95 20 188/112 H 100 10/19/19 09:50 82 22 H 190/105 H 100 10/19/19 09:07 35.6 C L 96 24 H 203/124 H 100 Date Exam was Performed: 10/19/19 Time Exam was Performed: 13:24 - My Orders Last 24 Hours: My Active Orders 10/19/19 09:18 EKG 12 Lead [EKG Documentation Completion] [RC] STAT 10/19/19 11:32 HYDROmorphone [Dilaudid] 0.5 - 1 mg IVPUSH Q1H PRN - Assessment/Plan Last 24 Hours: My Active Orders 10/19/19 09:18 EKG 12 Lead [EKG Documentation Completion] [RC] STAT 10/19/19 11:32 HYDROmorphone [Dilaudid] 0.5 - 1 mg IVPUSH Q1H PRN
== END 2019-10-19 13:55 | disposition home or self-care (01) ==
LOC: MW.ED 09:04
DX: R11.2 Nausea with vomiting, unspecified (principal); I25.2 Old myocardial infarction; I10 Essential (primary) hypertension; E11.9 Type 2 diabetes mellitus without complications; Z79.899 Other long term (current) drug therapy; Z79.84 Long term (current) use of oral hypoglycemic drugs; Z79.02 Long term (current) use of antithrombotics/antiplatelets; Z79.82 Long term (current) use of aspirin
CPT/HCPCS: 36415; 71045; 74018; 74177; 80053; 80305; 83690; 83735; 84484; 85025; 93005; 96361; 96372; 96374; 96376; 99285; J1170; J1630; J2550; J7030; Q9967; 99283

== ENCOUNTER 2019-10-30 11:11 | Inpatient (IN) | payer OTHER ==
--- NOTE | 2019-10-30 11:36 | EDM.PDOC ---
ED HPI GENERAL MEDICAL PROBLEM - General Chief Complaint: Chest Pain Stated Complaint: NAUSEA/VOMITING Time Seen by Provider: 10/30/19 11:17 Source of Information: Reports: Patient History Limitations: Reports: No Limitations - History of Present Illness INITIAL COMMENTS - FREE TEXT/NARRATIVE: HISTORY OF PRESENT ILLNESS: Patient is a 59-year-old male with history of DM, HTN, HLP, coronary artery disease status post stents x 7 presents to the ER with chest pain. He states that this morning he had nausea and approximately 6 episodes of nonbloody nonbilious emesis with associated crampy diffuse abdominal pain. Shortly after began to develop intermittent left parasternal chest pain which he rates as 3 out of 10 in severity occurring q 15 min along with palpitations. Chest pain is nonradiating. Denies any dyspnea or diaphoresis. States that he frequently has these associated symptoms of vomiting and abdominal pain which progresses to chest pain. He took a 324 mg aspirin this morning. He applied his nitroglycerin patch and took a nitroglycerin tablet x3. Also reports mild dysuria since yesterday. Denies any back pain. REVIEW OF SYSTEMS: Other than the symptoms associated with the present events, the following is reported with regard to recent health: General: (-) fever. HENT: (-) congestion. Respiratory: (-) cough. Cardiovascular: (+) chest pain. GI: (+)cramping abdominal pain. : (-) urinary complaints. Musculoskeletal: (-) other aches or pains. Endocrine: (-) generalized weakness. Neurological: (-) localized weakness. Skin: (-) rash PAST MEDICAL HISTORY: reviewed as per nursing notes SOCIAL HISTORY: reviewed as per nursing notes, MEDICATIONS: Per nurse's note ALLERGIES: Per nurse's note, reviewed by me PHYSICAL EXAMINATION: GENERALIZED APPEARANCE: well developed, well nourished in no distress VITAL SIGNS: Per nurse's note, reviewed by me SKIN: Warm, dry; (-) cyanosis; (-) rash. HEAD: (-) scalp swelling, (-) tenderness. EYES: (-) conjunctival pallor, (-) scleral icterus. ENMT: (-) stridor; mucous membranes moist. NECK: (-) tenderness, (-) stiffness, CHEST AND RESPIRATORY: (-) rales, (-) rhonchi, (-) wheezes; breath sounds equal bilaterally. HEART AND CARDIOVASCULAR: (-) irregularity; (-) murmur, (-) gallop. ABDOMEN AND GI: Soft; (+)very mild diffuse tenderness, no peritoneal signs.(- ) guarding, (-) rebound, (-) palpable masses, (-) CVAT EXTREMITIES: (-) deformity, (-) edema. NEURO AND PSYCH: Alert. Cranial nerves grossly intact; strength symmetric. gait steady DIAGNOSTICS: EKG: st at 100 bpm. pvc. IVCD. no acute st changes. essentially unchanged as compared with prior EKG 10/03/19 CXR: as read by radiologist, report reviewed by myself Labs ordered and reviewed EMERGENCY DEPARTMENT COURSE AND TREATMENT: Patient's condition remained stable during Emergency Department evaluation. Already took aspirin prior to arrival. He already took nitroglycerin x3 prior to arrival. Pt attempting to vomit in ED, became mildly anxious, given Ativan. Still with abdominal pain pain but no peritoneal signs. Given Morphine 4 mg IV. UA noted, no fever or CVAT. Given Cipro IV. First Troponin negative, EKG unchanged. Pt with moderate risk HEART score. Will require admission for observation. CAse d/w Dr. Howard who kindly agrees to admit. PLAN AND FOLLOW-UP: admit chest Pain Score (Numeric/FACES): 3 abdomen Pain Score (Numeric/FACES): 8 - Related Data Allergies Allergy/AdvReac Type Severity Reaction Status Date / Time No Known Allergies Allergy Verified 10/30/19 11:18 Home Meds: Home Meds carvediloL [Carvedilol] 6.25 mg PO BID 05/02/19 [History] metFORMIN [Glucophage] 1,000 mg PO BIDMEALS 05/02/19 [History] atorvaSTATin Calcium [Atorvastatin Calcium] 40 mg PO BEDTIME 05/25/19 [History] Spironolactone [Aldactone] 25 mg PO DAILY 06/12/19 [History] Nitroglycerin [Nitroglycerin Patch 0.2 MG/Hr] 0.2 mg TRDERM DAILY 07/25/19 [ History] Clopidogrel [Plavix] 75 mg PO DAILY 07/26/19 [History] lisinopriL [Lisinopril] 10 mg PO DAILY 07/26/19 [History] Magnesium 250 mg PO BID 08/26/19 [History] Nitroglycerin [Nitrostat] 0.4 mg PO ASDIRECTED PRN 08/26/19 [History] Aspirin [Barbie Chewable Aspirin] 81 mg PO DAILY 10/03/19 [History] Furosemide [Lasix] 40 mg PO DAILY 10/19/19 [History] Tamsulosin HCl [Flomax] 0.4 mg PO BEDTIME 10/30/19 [History] Past Medical History HEENT History: Reports: Impaired Vision, Other (See Below) Other HEENT History: wears glasses Cardiovascular History: Reports: Angina, Hypertension, [place], Stents Other Cardiovascular History: pt reports mild heat attack 2018 Respiratory History: Reports: Pneumonia, Recurrent Gastrointestinal History: Reports: Other (See Below) Other Gastrointestinal History: Gallbladder Issues Genitourinary History: Reports: Renal Calculus Musculoskeletal History: Reports: Fracture Other Musculoskeletal History: "Broken nose in past from [age]years old " Neurological History: Reports: None Psychiatric History: Reports: None Endocrine/Metabolic History: Reports: Diabetes, Type II Insulin Pump Model and Vulcanizing 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: None Hematologic History: Reports: None Immunologic History: Reports: None Oncologic (Cancer) History: Reports: None Dermatologic History: Reports: None - Infectious Disease History Infectious Disease History: Reports: None - Past Surgical History Head Surgeries/Procedures: Reports: None Cardiovascular Surgical History: Reports: Carotid Stents Respiratory Surgical History: Reports: None GI Surgical History: Reports: Colonoscopy Endocrine Surgical History: Reports: Thyroidectomy, Other (See Below) Other Endocrine Surgeries/Procedures: patrial thyroidectomy Social & Family History - Family History Family Medical History: Noncontributory HEENT: Reports: None Cardiac: Reports: None Respiratory: Reports: None GI: Reports: None : Reports: None Musculoskeletal: Reports: Arthritis Neurological: Reports: Alzheimers Disease Endocrine/Metabolic: Reports: Diabetes, type II Oncologic: Reports: Lung - Tobacco Use Smoking Status *Q: Never Smoker - Caffeine Use Caffeine Use: Reports: Tea Caffeine Use Comment: Pot a day - Recreational Drug Use Recreational Drug Use: No ED ROS GENERAL - Review of Systems Review Of Systems: See Below (see dictation) ED EXAM, GENERAL - Physical Exam Exam: See Below (see dictation) Course - Vital Signs Last Recorded V/S: Last Vital Signs Temp 96.1 F L 10/30/19 11:15 Pulse 98 10/30/19 12:05 Resp 24 H 10/30/19 12:05 BP 226/129 H 10/30/19 12:05 Pulse Ox 100 10/30/19 12:05 - Orders/Labs/Meds Orders: Active Orders 24 hr Category Date Time Status Admission Status [Patient Status] [ADT] Stat ADT 10/30/19 12:41 Active EKG Documentation Completion [RC] STAT Care 10/30/19 11:24 Active CULTURE URINE [RM] Stat Lab 10/30/19 12:05 Received Ciprofloxacin in D5W [Cipro in D5W 400 MG/200 ML] 400 Med 10/30/19 12:45 Active mg Premix Bag 1 bag IV STAT Medication Orders Ciprofloxacin/Dextrose 400 mg/ (Premix) 200 mls @ 200 mls/hr IV STAT ONE Stop: 10/30/19 13:44 Labs: Laboratory Tests 10/30/19 10/30/19 10/30/19 Range/Units 11:40 11:40 12:05 WBC 8.83 (4.0-11.0) K/uL RBC 4.08 L (4.50-5.90) M/uL Hgb 12.5 L (13.0-17.0) g/dL Hct 37.6 L (38.0-50.0) % MCV 92.2 (80.0-98.0) fL MCH 30.6 (27.0-32.0) pg MCHC 33.2 (31.0-37.0) g/dL RDW Std Deviation 44.2 (28.0-62.0) fl RDW Coeff of Mukesh 13 (11.0-15.0) % Plt Count 124 L (150-400) K/uL MPV 11.70 (7.40-12.00) fL Neut % (Auto) 70.9 (48.0-80.0) % Lymph % (Auto) 18.9 (16.0-40.0) % [place] % (Auto) 8.2 (0.0-15.0) % Eos % (Auto) 1.7 (0.0-7.0) % Baso % (Auto) 0.3 (0.0-1.5) % Neut # (Auto) 6.3 H (1.4-5.7) K/uL Lymph # (Auto) 1.7 (0.6-2.4) K/uL [place] # (Auto) 0.7 (0.0-0.8) K/uL Eos # (Auto) 0.2 (0.0-0.7) K/uL Baso # (Auto) 0.0 (0.0-0.1) K/uL Nucleated RBC % 0.0 /100WBC Nucleated RBCs # 0 K/uL Sodium 139 (136-148) mmol/L Potassium 4.2 (3.5-5.1) mmol/L Chloride 101 (98-107) mmol/L Carbon Dioxide 25.9 (21.0-32.0) mmol/L BUN 14 (7.0-18.0) mg/dL Creatinine 1.0 (0.8-1.3) mg/dL Est Cr Clr Drug Dosing 97.41 mL/min Estimated GFR (MDRD) > 60.0 ml/min Glucose 274 H (74-106) mg/dL Calcium 9.5 (8.5-10.1) mg/dL Total Bilirubin 1.0 (0.2-1.0) mg/dL AST 29 (15-37) IU/L ALT 29 (14-63) IU/L Alkaline Phosphatase 100 (46-116) U/L Troponin I < 0.050 (0.000-0.056) ng/mL Total Protein 7.6 (6.4-8.2) g/dL Albumin 4.0 (3.4-5.0) g/dL Globulin 3.6 (2.6-4.0) g/dL Albumin/Globulin Ratio 1.1 (0.9-1.6) Lipase 182 (73-393) U/L Urine Color YELLOW Urine Appearance HAZY Urine pH 6.5 (5.0-8.0) Ur Specific [place] 1.025 (1.001-1.035) Urine Protein NEGATIVE (NEGATIVE) mg/dL Urine Glucose (UA) >=1000 (NEGATIVE) mg/dL Urine Ketones NEGATIVE (NEGATIVE) mg/dL Urine Occult Blood NEGATIVE (NEGATIVE) Urine Nitrite NEGATIVE (NEGATIVE) Urine Bilirubin NEGATIVE (NEGATIVE) Urine Urobilinogen 1.0 (<2.0) EU/dL Ur Leukocyte Esterase TRACE H (NEGATIVE) Urine RBC 0-2 (0-2/HPF) Urine WBC 10-15 (0-5/HPF) Ur Epithelial Cells FEW (NONE-FEW) Urine Bacteria 1+ H (NEGATIVE) Urine Mucus LIGHT (NONE-MOD) Meds: Medications Generic Name Dose Route Start Last Admin Trade Name Freq PRN Reason Stop Dose Admin Ciprofloxacin/Dextrose 400 mg/ 200 mls @ 200 mls/hr 10/30/19 12:45 Premix IV 10/30/19 13:44 STAT ONE Discontinued Medications Generic Name Dose Route Start Last Admin Trade Name Freq PRN Reason Stop Dose Admin Lorazepam 1 mg 10/30/19 12:07 10/30/19 12:30 Ativan IVPUSH 10/30/19 12:08 1 mg ONETIME ONE Administration Morphine Sulfate 4 mg 10/30/19 12:36 Morphine IVPUSH 10/30/19 12:37 ONETIME ONE Departure - Departure Time of Disposition: 12:41 Disposition: Refer to Observation Condition: Good Clinical Impression: UTI (urinary tract infection) Chest pain Qualifiers: Chest pain type: unspecified Qualified Code(s): R07.9 - Chest pain, unspecified Abdominal pain Qualifiers: Abdominal location: generalized Qualified Code(s): R10.84 - Generalized abdominal pain Diabetes Qualifiers: Diabetes mellitus type: type 2 Diabetes mellitus manager terminal insulin use: without fci use Hypertension Qualifiers: Hypertension type: essential hypertension Qualified Code(s): I10 - Essential ( primary) hypertension Vomiting Qualifiers: Vomiting type: unspecified Vomiting Intractability: non-intractable Nausea presence: with nausea Qualified Code(s): R11.2 - Nausea with vomiting, unspecified - Discharge Information Referrals: PCP,None [Primary Care Provider] - Forms: ED Department Discharge Sepsis Event Note - Evaluation Sepsis Screening Result: No Definite Risk - Focused Exam Vital Signs: Vital Signs Temp Pulse Resp BP Pulse Ox 10/30/19 12:05 98 24 H 226/129 H 100 10/30/19 11:15 96.1 F L 96 20 225/138 H 100 Date Exam was Performed: 10/30/19 Time Exam was Performed: 12:45 - My Orders Last 24 Hours: My Active Orders 10/30/19 11:24 EKG Documentation Completion [RC] STAT 10/30/19 12:05 CULTURE URINE [RM] Stat 10/30/19 12:41 Admission Status [Patient Status] [ADT] Stat 10/30/19 12:45 Ciprofloxacin in D5W [Cipro in D5W 400 MG/200 ML] 400 mg Premix Bag 1 bag IV STAT - Assessment/Plan Last 24 Hours: My Active Orders 10/30/19 11:24 EKG Documentation Completion [RC] STAT 10/30/19 12:05 CULTURE URINE [RM] Stat 10/30/19 12:41 Admission Status [Patient Status] [ADT] Stat 10/30/19 12:45 Ciprofloxacin in D5W [Cipro in D5W 400 MG/200 ML] 400 mg Premix Bag 1 bag IV STAT
--- NOTE | 2019-10-30 11:53 | CR ---
Chest: Portable view of the chest was obtained. Comparison: Prior chest x-ray of 10/19/19. Heart size is within normal limits for portable technique. Mild tortuosity of the thoracic aorta is seen. Lungs are clear with no acute parenchymal change. Bony structures are grossly intact. Impression: 1. Nothing acute is identified on portable chest x-ray. Diagnostic code #1 This report was dictated in MDT
[2019-10-30] MEDS ORDERED: LORazepam 2 MG/ML SDV IVPUSH ONE (12:07)
[2019-10-30 12:12] LABS: BLOOD UREA NITROGEN,BUN 14 mg/dL (7.0-18.0); CARBON DIOXIDE,CO2 25.9 mmol/L (21.0-32.0); CHLORIDE,CL 101 mmol/L (98-107); GLUCOSE RANDOM 274 mg/dL (74-106); LIPASE 182 U/L (73-393); POTASSIUM,K 4.2 mmol/L (3.5-5.1); SODIUM,NA 139 mmol/L (136-148)
[2019-10-30] MEDS ORDERED: Morphine 4 MG/ML Syringe IVPUSH ONE (12:36)
[2019-10-30] MEDS ORDERED: Ciprofloxacin in D5W 400 MG in Premix Bag 1 BAG IV ONE ×2 (12:45)
[2019-10-30] MEDS ORDERED: Enoxaparin 40 MG/0.4 ML Syringe SUBCUT SCH (13:30)
[2019-10-30] MEDS ORDERED: Ondansetron 4 MG Tab.DIS PO PRN (13:30)
[2019-10-30] MEDS ORDERED: Ondansetron 4 MG/2 ML SDV IVPUSH PRN (13:30)
--- NOTE | 2019-10-30 13:44 | PCM.HP.2 ---
Addendum entered and electronically signed by Ranjeet Olivares MD 10/30/19 17: 39: PMH: CHF Original Note: H&P History of Present Illness - General Date of Service: 10/30/19 Admit Problem/Dx: Admission Diagnosis/Problem Admission Diagnosis/Problem Chest pain Source of Information: Patient History Limitations: Reports: No Limitations - History of Present Illness Initial Comments - Free Text/Narative: 59-year-old male presents today complaining of upper abdominal pain that moved into his chest. He has a PMH of CAD s/p 7 stents, DM type 2, HTN, hyperlipidemia and liver cirrhosis. The abdominal pain started at around 5 AM this morning while he was sleeping and then slowly moved into the left side of his chest. He rates the pain as 8/10, constant, dull and pressure-like in nature. He also vomited approximately 6 times this morning. He reports that his vomit this morning was non-bloody. He reports having similar pain the past. He took his medications before coming to the ER including aspirin 325 mg and tried 3 nitro patches which helped his chest pain. He reports being in his normal state of health last night. His abdominal pain is unrelated to eating and he denies history of acid reflux. Last drank alcohol 2 months ago, denies tobacco use or any illicit drug use. Denies use of NSAID's. He reports having a bloody nose since being in the ER. He also reports mild pain on urination. Denies any fevers, blurry vision, sore throat cough, SOB, diarrhea, blood in stool, blood in urine, numbness or tingling in extremities. In the ER, labwork unremarkable including initial troponin which was negative. EKG showed no acute ischemic changes. Lipase was normal. UA showed 1+ bacteria and trace leukocyte esterase. CXR was negative. Patient given dose of IV ciprofloxacin, morphine and ativan. Admitted for further evaluation and treatment. chest Pain Score (Numeric/FACES): 3 abdomen Pain Score (Numeric/FACES): 8 - Related Data Allergies/Adverse Reactions: Allergies Allergy/AdvReac Type Severity Reaction Status Date / Time No Known Allergies Allergy Verified 10/30/19 13:56 Home Medications: Home Meds carvediloL [Carvedilol] 6.25 mg PO BID 05/02/19 [History] metFORMIN [Glucophage] 1,000 mg PO BIDMEALS 05/02/19 [History] atorvaSTATin Calcium [Atorvastatin Calcium] 40 mg PO BEDTIME 05/25/19 [History] Spironolactone [Aldactone] 25 mg PO DAILY 06/12/19 [History] Nitroglycerin [Nitroglycerin Patch 0.2 MG/Hr] 0.2 mg TRDERM DAILY 07/25/19 [ History] Clopidogrel [Plavix] 75 mg PO DAILY 07/26/19 [History] lisinopriL [Lisinopril] 10 mg PO DAILY 07/26/19 [History] Magnesium 250 mg PO BID 08/26/19 [History] Nitroglycerin [Nitrostat] 0.4 mg PO ASDIRECTED PRN 08/26/19 [History] Aspirin [Barbie Chewable Aspirin] 81 mg PO DAILY 10/03/19 [History] Furosemide [Lasix] 40 mg PO DAILY 10/19/19 [History] Tamsulosin HCl [Flomax] 0.4 mg PO BEDTIME 10/30/19 [History] Past Medical History HEENT History: Reports: Impaired Vision, Other (See Below) Other HEENT History: wears glasses Cardiovascular History: Reports: Angina, Hypertension, [place], Stents Other Cardiovascular History: pt reports mild heat attack 2018 Respiratory History: Reports: Pneumonia, Recurrent Gastrointestinal History: Reports: Other (See Below) Other Gastrointestinal History: Gallbladder Issues Genitourinary History: Reports: Renal Calculus Musculoskeletal History: Reports: Fracture Other Musculoskeletal History: "Broken nose in past from [age]years old " Neurological History: Reports: None Psychiatric History: Reports: None Endocrine/Metabolic History: Reports: Diabetes, Type II Insulin Pump Model and Clay Pigeon Loader: None Hematologic History: Reports: None Immunologic History: Reports: None Oncologic (Cancer) History: Reports: None Dermatologic History: Reports: None - Infectious Disease History Infectious Disease History: Reports: None - Past Surgical History Head Surgeries/Procedures: Reports: None Cardiovascular Surgical History: Reports: Carotid Stents Respiratory Surgical History: Reports: None GI Surgical History: Reports: Colonoscopy Endocrine Surgical History: Reports: Thyroidectomy, Other (See Below) Other Endocrine Surgeries/Procedures: patrial thyroidectomy Social & Family History - Family History Family Medical History: Noncontributory HEENT: Reports: None Cardiac: Reports: None Respiratory: Reports: None GI: Reports: None : Reports: None Musculoskeletal: Reports: Arthritis Neurological: Reports: Alzheimers Disease Endocrine/Metabolic: Reports: Diabetes, type II Oncologic: Reports: Lung - Tobacco Use Smoking Status *Q: Never Smoker - Caffeine Use Caffeine Use: Reports: Tea Caffeine Use Comment: Pot a day - Recreational Drug Use Recreational Drug Use: No H&P Review of Systems - Review of Systems: Review Of Systems: Comprehensive ROS is negative, except as noted in HPI. Exam - Exam Exam: See Below - Vital Signs Vital Signs: Last Vital Signs Temp 96.4 F L 10/30/19 13:38 Pulse 82 10/30/19 13:38 Resp 18 10/30/19 13:38 BP 205/113 H 10/30/19 13:38 Pulse Ox 100 10/30/19 13:40 Weight: 235 lb 14.314 oz - Exam General: Alert, Oriented, Cooperative, Mild Distress HEENT: Conjunctiva Clear, EOMI, Hearing Intact, Posterior Pharynx Clear, Pupils Equal, Pupils Reactive Neck: Supple, Trachea Midline Lungs: Clear to Auscultation, Normal Respiratory Effort Cardiovascular: Regular Rate, Regular Rhythm GI/Abdominal Exam: Normal Bowel Sounds, Soft, No Distention, Other (epigastric ttp, durbin's sign negative) Back Exam: Normal Inspection, Other (no CVA ttp) Extremities: Normal Inspection, No Pedal Edema Peripheral Pulses: 2+: Radial (L), Radial (R) Skin: Warm, Dry, Intact Neurological: Cranial Nerves Intact, Strength Equal Bilateral, Normal Speech, Normal Tone Neuro Extensive - Mental Status: Alert, Oriented x3, Normal Mood/Affect Psychiatric: Alert, Normal Affect, Normal Mood - Patient Data Lab Results Last 24 hrs: Laboratory Results - last 24 hr 10/30/19 10/30/19 10/30/19 Range/Units 11:40 11:40 12:05 WBC 8.83 (4.0-11.0) K/uL RBC 4.08 L (4.50-5.90) M/uL Hgb 12.5 L (13.0-17.0) g/dL Hct 37.6 L (38.0-50.0) % MCV 92.2 (80.0-98.0) fL MCH 30.6 (27.0-32.0) pg MCHC 33.2 (31.0-37.0) g/dL RDW Std Deviation 44.2 (28.0-62.0) fl RDW Coeff of Mukesh 13 (11.0-15.0) % Plt Count 124 L (150-400) K/uL MPV 11.70 (7.40-12.00) fL Neut % (Auto) 70.9 (48.0-80.0) % Lymph % (Auto) 18.9 (16.0-40.0) % [place] % (Auto) 8.2 (0.0-15.0) % Eos % (Auto) 1.7 (0.0-7.0) % Baso % (Auto) 0.3 (0.0-1.5) % Neut # (Auto) 6.3 H (1.4-5.7) K/uL Lymph # (Auto) 1.7 (0.6-2.4) K/uL [place] # (Auto) 0.7 (0.0-0.8) K/uL Eos # (Auto) 0.2 (0.0-0.7) K/uL Baso # (Auto) 0.0 (0.0-0.1) K/uL Nucleated RBC % 0.0 /100WBC Nucleated RBCs # 0 K/uL Sodium 139 (136-148) mmol/L Potassium 4.2 (3.5-5.1) mmol/L Chloride 101 (98-107) mmol/L Carbon Dioxide 25.9 (21.0-32.0) mmol/L BUN 14 (7.0-18.0) mg/dL Creatinine 1.0 (0.8-1.3) mg/dL Est Cr Clr Drug Dosing 97.41 mL/min Estimated GFR (MDRD) > 60.0 ml/min Glucose 274 H (74-106) mg/dL Calcium 9.5 (8.5-10.1) mg/dL Total Bilirubin 1.0 (0.2-1.0) mg/dL AST 29 (15-37) IU/L ALT 29 (14-63) IU/L Alkaline Phosphatase 100 (46-116) U/L Troponin I < 0.050 (0.000-0.056) ng/mL Total Protein 7.6 (6.4-8.2) g/dL Albumin 4.0 (3.4-5.0) g/dL Globulin 3.6 (2.6-4.0) g/dL Albumin/Globulin Ratio 1.1 (0.9-1.6) Lipase 182 (73-393) U/L Urine Color YELLOW Urine Appearance HAZY Urine pH 6.5 (5.0-8.0) Ur Specific [place] 1.025 (1.001-1.035) Urine Protein NEGATIVE (NEGATIVE) mg/dL Urine Glucose (UA) >=1000 (NEGATIVE) mg/dL Urine Ketones NEGATIVE (NEGATIVE) mg/dL Urine Occult Blood NEGATIVE (NEGATIVE) Urine Nitrite NEGATIVE (NEGATIVE) Urine Bilirubin NEGATIVE (NEGATIVE) Urine Urobilinogen 1.0 (<2.0) EU/dL Ur Leukocyte Esterase TRACE H (NEGATIVE) Urine RBC 0-2 (0-2/HPF) Urine WBC 10-15 (0-5/HPF) Ur Epithelial Cells FEW (NONE-FEW) Urine Bacteria 1+ H (NEGATIVE) Urine Mucus LIGHT (NONE-MOD) Result Diagrams: 10/30/19 11:40 10/30/19 11:40 Sepsis Event Note - Evaluation Sepsis Screening Result: No Definite Risk - Focused Exam Vital Signs: Vital Signs Temp Pulse Resp BP Pulse Ox Pulse Ox 10/30/19 13:40 100 10/30/19 13:38 96.4 F L 82 18 205/113 H 100 10/30/19 13:02 97.0 F 83 22 H 177/108 H 98 10/30/19 12:05 98 24 H 226/129 H 100 10/30/19 11:15 96.1 F L 96 20 225/138 H 100 Date Exam was Performed: 10/30/19 Time Exam was Performed: 14:38 Problem List Initiated/Reviewed/Updated: Yes Orders Last 24hrs: Active Orders 24 hr Category Date Time Status Admission Status [Patient Status] [ADT] Stat ADT 10/30/19 12:53 Active Blood Glucose Check, Bedside [RC] TIDAC Care 10/30/19 13:36 Active Cardiac Monitoring [RC] . DIRECTED Care 10/30/19 12:53 Active EKG Documentation Completion [RC] STAT Care 10/30/19 11:24 Active Oxygen Therapy [RC] PRN Care 10/30/19 13:30 Active Up ad Gemini [RC] ASDIRECTED Care 10/30/19 13:30 Active VTE/DVT Education [RC] PER UNIT ROUTINE Care 10/30/19 13:30 Active Vital Signs [RC] Q4H Care 10/30/19 13:30 Active [place] Diet [DIET] Diet 10/30/19 Lunch Active Abdomen Pelvis w Cont [CT] Urgent Exams 10/30/19 13:34 Ordered CBC WITH AUTO DIFF [HEME] AM Lab 10/31/19 05:11 Ordered COMPREHENSIVE METABOLIC PN,CMP [CHEM] AM Lab 10/31/19 05:11 Ordered CULTURE URINE [RM] Stat Lab 10/30/19 12:05 Received TROPONIN I [CHEM] Q6H Lab 10/30/19 17:30 Ordered TROPONIN I [CHEM] Q6H Lab 10/30/19 23:30 Ordered Acetaminophen [Tylenol] Med 10/30/19 13:30 Active 650 mg PO Q4H PRN Aspirin Med 10/31/19 09:00 Active 81 mg PO DAILY Ciprofloxacin in D5W [Cipro in D5W 400 MG/200 ML] 400 Med 10/30/19 12:45 Active mg Premix Bag 1 bag IV STAT Clopidogrel [Plavix] Med 10/31/19 09:00 Active 75 mg PO DAILY Furosemide [Lasix] Med 10/31/19 09:00 Active 40 mg PO DAILY Heparin Sodium Med 10/30/19 13:45 Ordered 5,000 units SUBCUT Q8H Insulin Aspart [NovoLOG] Med 10/30/19 17:00 Active See Protocol SUBCUT TIDAC Magnesium [Magnesium] Med 10/30/19 21:00 Active 250 mg PO BID Ondansetron [Zofran ODT] Med 10/30/19 13:30 Active 4 mg PO Q4H PRN Ondansetron [Zofran] Med 10/30/19 13:30 Active 4 mg IVPUSH Q4H PRN Spironolactone [Aldactone] Med 10/31/19 09:00 Active 25 mg PO DAILY Tamsulosin [Flomax] Med 10/30/19 21:00 Active 0.4 mg PO BEDTIME atorvaSTATin [Lipitor] Med 10/30/19 21:00 Active 40 mg PO BEDTIME carvediloL [Coreg] Med 10/30/19 21:00 Active 6.25 mg PO BID lisinopriL [Prinivil] Med 10/31/19 09:00 Active 10 mg PO DAILY Resuscitation Status Routine Resus Stat 10/30/19 13:30 Ordered Medication Orders Acetaminophen (Tylenol) 650 mg PO Q4H PRN PRN Reason: Pain (Mild 1-3)/fever Aspirin (Aspirin) 81 mg PO DAILY [facility] Atorvastatin Calcium (Lipitor) 40 mg PO BEDTIME [facility] Carvedilol (Coreg) 6.25 mg PO BID [facility] Clopidogrel Bisulfate (Plavix) 75 mg PO DAILY [facility] Furosemide (Lasix) 40 mg PO DAILY [facility] Ciprofloxacin/Dextrose 400 mg/ (Premix) 200 mls @ 200 mls/hr IV STAT ONE Stop: 10/30/19 13:44 Last Admin: 10/30/19 12:58 Dose: 200 mls/hr Insulin Aspart (Novolog) 0 unit SUBCUT TIDAC [facility]; Protocol Lisinopril (Prinivil) 10 mg PO DAILY [facility] Non-Formulary Medication (Magnesium [Magnesium]) 250 mg PO BID [facility] Ondansetron HCl (Zofran Odt) 4 mg PO Q4H PRN PRN Reason: nausea, able to take PO Ondansetron HCl (Zofran) 4 mg IVPUSH Q4H PRN PRN Reason: Nausea Spironolactone (Aldactone) 25 mg PO DAILY [facility] Tamsulosin HCl (Flomax) 0.4 mg PO BEDTIME [facility] Assessment/Plan Comment:: Assessment and Plan: 1. Chest pain, ACS rule out: - Admit to med/surg. Patient on telemetry and will trend troponins q6h. Initial troponin was negative. EKG showed no acute ischemic changes. Patient took aspiring 325 mg this morning. CXR negative. 2. Epigastric abdominal pain: - CT abd/pelvis from 10/19/19 showed no acute pathology. CBC and CMP unremarkable. Lipase level normal. Start IV pantoprazole 40 mg qd, carafate PO, metoclopramide and GI cocktail. Will order H. pylori stool test. 3. UTI: - Continue IV ciprofloxacin 400 mg BID. 4. Diabetes mellitus type 2: - SSI. ADA diet. 5. Past medical history HTN, hyperlipidemia and liver cirrhosis. 6. DVT prophylaxis: SCD's.
[2019-10-30] MEDS ORDERED: Heparin Sodium 5,000 Units/ML Vial SUBCUT SCH (13:45)
[2019-10-30] MEDS ORDERED: Sodium Chloride 0.9% 1,000 ML IV ONE (13:58)
[2019-10-30] MEDS: Morphine 2 MG/ML Syringe IVPUSH PRN ×3 (14:27→20:25)
[2019-10-30] MEDS ORDERED: HYDROmorphone 2 MG/ML Syringe IVPUSH ONE (14:31)
[2019-10-30] MEDS ORDERED: Alum Hydrox/Mag Hydrox/Simeth 15 ML, Lidocaine 2% 5 ML PO ONE ×2 (14:33)
[2019-10-30] MEDS ORDERED: Metoclopramide 5 MG Tab PO PRN (14:35)
[2019-10-30] MEDS: Ciprofloxacin in D5W 400 MG in Premix Bag 1 BAG IV SCH ×2 (15:04)
[2019-10-30] MEDS: Sucralfate Suspension 1 GM/10 ML Cup PO SCH ×2 (15:13→20:55)
[2019-10-30] MEDS: Insulin Aspart 100 Units/ML 3 ML Pen SUBCUT SCH (16:55)
[2019-10-30] MEDS ORDERED: Nitroglycerin 0.2 MG/HR Transdermal Patch TRDERM ONE (18:26)
[2019-10-30] MEDS ORDERED: Heparin Sodium 5,000 Units/ML Vial IVPUSH ONE (18:34)
[2019-10-30] MEDS ORDERED: Heparin Sodium 5,000 Units/ML Vial IVPUSH PRN (18:54)
[2019-10-30] MEDS: Heparin Sod,Pork In 0.45% Nacl 25,000 UNIT/500 ML IV.SOLN IV SCH (20:35)
[2019-10-30] MEDS: atorvaSTATin 10 MG Tab PO SCH (20:55)
[2019-10-30] MEDS: Carvedilol 3.125 MG Tab PO SCH (20:57)
[2019-10-30] MEDS: Tamsulosin 0.4 MG Cap.ER PO SCH (20:58)
[2019-10-30] MEDS: Non-Formulary Medication 1 Each (Magnesium [Magnesium] 250 MG) PO SCH (22:14)
[2019-10-31] MEDS: Morphine 2 MG/ML Syringe IVPUSH PRN (00:57)
[2019-10-31] MEDS: Metoclopramide 5 MG Tab PO SCH ×5 (01:09→20:19)
[2019-10-31] MEDS: Sucralfate Suspension 1 GM/10 ML Cup PO SCH ×4 (02:22→20:18)
[2019-10-31] MEDS: Ciprofloxacin in D5W 400 MG in Premix Bag 1 BAG IV SCH ×4 (02:28→13:58)
[2019-10-31] MEDS: Acetaminophen 325 MG Tab PO PRN ×4 (06:56→20:19)
[2019-10-31] MEDS: Insulin Aspart 100 Units/ML 3 ML Pen SUBCUT SCH ×3 (06:58→18:23)
[2019-10-31 07:45] LABS: BLOOD UREA NITROGEN,BUN 14 mg/dL (7.0-18.0); CARBON DIOXIDE,CO2 29.1 mmol/L (21.0-32.0); CHLORIDE,CL 104 mmol/L (98-107); GLUCOSE RANDOM 181 mg/dL (74-106); POTASSIUM,K 3.8 mmol/L (3.5-5.1); SODIUM,NA 141 mmol/L (136-148)
[2019-10-31] MEDS: Furosemide 40 MG Tab PO SCH (08:48)
[2019-10-31] MEDS: Spironolactone 25 MG Tab PO SCH (08:48)
[2019-10-31] MEDS: Lisinopril 10 MG Tab PO SCH (08:48)
[2019-10-31] MEDS: Carvedilol 3.125 MG Tab PO SCH ×2 (08:49→20:19)
[2019-10-31] MEDS: Pantoprazole 40 MG in Sodium Chloride 0.9% 10 ML IV SCH (09:00)
[2019-10-31] MEDS: Non-Formulary Medication 1 Each (Magnesium [Magnesium] 250 MG) PO SCH ×2 (09:39→21:10)
[2019-10-31] MEDS: Aspirin 81 MG Tab.Chew PO SCH ×2 (10:07→11:35)
[2019-10-31] MEDS: Clopidogrel 75 MG Tab PO SCH ×2 (10:07→11:36)
--- NOTE | 2019-10-31 13:15 | PCM.PN ---
- General Info Date of Service: 10/31/19 - Review of Systems Systems Review Comment:: abdominal pain resolving - Patient Data Vitals - Most Recent: Last Vital Signs Temp 36.2 C 10/31/19 04:00 Pulse 80 10/31/19 08:49 Resp 17 10/31/19 04:00 BP 118/65 10/31/19 08:49 Pulse Ox 97 10/31/19 04:00 Weight - Most Recent: 107 kg I&O - Last 24 Hours: Intake & Output 10/30/19 10/31/19 10/31/19 22:59 06:59 14:59 Intake Total 100 1211 Output Total 0 400 Balance 100 811 Lab Results Last 24 Hours: Laboratory Results - last 24 hr 10/30/19 10/30/19 10/30/19 Range/Units 11:40 16:42 17:28 WBC (4.0-11.0) K/uL RBC (4.50-5.90) M/uL Hgb (13.0-17.0) g/dL Hct (38.0-50.0) % MCV (80.0-98.0) fL MCH (27.0-32.0) pg MCHC (31.0-37.0) g/dL RDW Std Deviation (28.0-62.0) fl RDW Coeff of Mukesh (11.0-15.0) % Plt Count (150-400) K/uL MPV (7.40-12.00) fL Neut % (Auto) (48.0-80.0) % Lymph % (Auto) (16.0-40.0) % [place] % (Auto) (0.0-15.0) % Eos % (Auto) (0.0-7.0) % Baso % (Auto) (0.0-1.5) % Neut # (Auto) (1.4-5.7) K/uL Lymph # (Auto) (0.6-2.4) K/uL [place] # (Auto) (0.0-0.8) K/uL Eos # (Auto) (0.0-0.7) K/uL Baso # (Auto) (0.0-0.1) K/uL Nucleated RBC % /100WBC Nucleated RBCs # K/uL INR 1.02 APTT (18.6-31.3) SEC Sodium (136-148) mmol/L Potassium (3.5-5.1) mmol/L Chloride (98-107) mmol/L Carbon Dioxide (21.0-32.0) mmol/L BUN (7.0-18.0) mg/dL Creatinine (0.8-1.3) mg/dL Est Cr Clr Drug Dosing mL/min Estimated GFR (MDRD) ml/min Glucose (74-106) mg/dL POC Glucose 271 H (60-110) mg/dL Calcium (8.5-10.1) mg/dL Total Bilirubin (0.2-1.0) mg/dL AST (15-37) IU/L ALT (14-63) IU/L Alkaline Phosphatase (46-116) U/L Troponin I 0.057 H (0.000-0.056) ng/mL Total Protein (6.4-8.2) g/dL Albumin (3.4-5.0) g/dL Globulin (2.6-4.0) g/dL Albumin/Globulin Ratio (0.9-1.6) 10/30/19 10/31/19 10/31/19 Range/Units 19:26 01:23 01:23 WBC (4.0-11.0) K/uL RBC (4.50-5.90) M/uL Hgb (13.0-17.0) g/dL Hct (38.0-50.0) % MCV (80.0-98.0) fL MCH (27.0-32.0) pg MCHC (31.0-37.0) g/dL RDW Std Deviation (28.0-62.0) fl RDW Coeff of Mukesh (11.0-15.0) % Plt Count (150-400) K/uL MPV (7.40-12.00) fL Neut % (Auto) (48.0-80.0) % Lymph % (Auto) (16.0-40.0) % [place] % (Auto) (0.0-15.0) % Eos % (Auto) (0.0-7.0) % Baso % (Auto) (0.0-1.5) % Neut # (Auto) (1.4-5.7) K/uL Lymph # (Auto) (0.6-2.4) K/uL [place] # (Auto) (0.0-0.8) K/uL Eos # (Auto) (0.0-0.7) K/uL Baso # (Auto) (0.0-0.1) K/uL Nucleated RBC % /100WBC Nucleated RBCs # K/uL INR APTT 24.3 41.3 H (18.6-31.3) SEC Sodium (136-148) mmol/L Potassium (3.5-5.1) mmol/L Chloride (98-107) mmol/L Carbon Dioxide (21.0-32.0) mmol/L BUN (7.0-18.0) mg/dL Creatinine (0.8-1.3) mg/dL Est Cr Clr Drug Dosing mL/min Estimated GFR (MDRD) ml/min Glucose (74-106) mg/dL POC Glucose (60-110) mg/dL Calcium (8.5-10.1) mg/dL Total Bilirubin (0.2-1.0) mg/dL AST (15-37) IU/L ALT (14-63) IU/L Alkaline Phosphatase (46-116) U/L Troponin I 0.050 (0.000-0.056) ng/mL Total Protein (6.4-8.2) g/dL Albumin (3.4-5.0) g/dL Globulin (2.6-4.0) g/dL Albumin/Globulin Ratio (0.9-1.6) 10/31/19 10/31/19 10/31/19 Range/Units 06:14 07:15 07:15 WBC 4.26 (4.0-11.0) K/uL RBC 3.61 L (4.50-5.90) M/uL Hgb 11.0 L (13.0-17.0) g/dL Hct 32.9 L (38.0-50.0) % MCV 91.1 (80.0-98.0) fL MCH 30.5 (27.0-32.0) pg MCHC 33.4 (31.0-37.0) g/dL RDW Std Deviation 43.6 (28.0-62.0) fl RDW Coeff of Mukesh 13 (11.0-15.0) % Plt Count 99 L (150-400) K/uL MPV 11.30 (7.40-12.00) fL Neut % (Auto) 54.0 (48.0-80.0) % Lymph % (Auto) 31.5 (16.0-40.0) % [place] % (Auto) 12.4 (0.0-15.0) % Eos % (Auto) 1.9 (0.0-7.0) % Baso % (Auto) 0.2 (0.0-1.5) % Neut # (Auto) 2.3 (1.4-5.7) K/uL Lymph # (Auto) 1.3 (0.6-2.4) K/uL [place] # (Auto) 0.5 (0.0-0.8) K/uL Eos # (Auto) 0.1 (0.0-0.7) K/uL Baso # (Auto) 0.0 (0.0-0.1) K/uL Nucleated RBC % 0.0 /100WBC Nucleated RBCs # 0 K/uL INR APTT (18.6-31.3) SEC Sodium 141 (136-148) mmol/L Potassium 3.8 (3.5-5.1) mmol/L Chloride 104 (98-107) mmol/L Carbon Dioxide 29.1 (21.0-32.0) mmol/L BUN 14 (7.0-18.0) mg/dL Creatinine 0.9 (0.8-1.3) mg/dL Est Cr Clr Drug Dosing 108.23 mL/min Estimated GFR (MDRD) > 60.0 ml/min Glucose 181 H (74-106) mg/dL POC Glucose 186 H (60-110) mg/dL Calcium 8.4 L (8.5-10.1) mg/dL Total Bilirubin 0.7 (0.2-1.0) mg/dL AST 20 (15-37) IU/L ALT 21 (14-63) IU/L Alkaline Phosphatase 66 (46-116) U/L Troponin I (0.000-0.056) ng/mL Total Protein 6.2 L (6.4-8.2) g/dL Albumin 3.1 L (3.4-5.0) g/dL Globulin 3.1 (2.6-4.0) g/dL Albumin/Globulin Ratio 1.0 (0.9-1.6) 10/31/19 10/31/19 10/31/19 Range/Units 07:15 09:39 11:06 WBC (4.0-11.0) K/uL RBC (4.50-5.90) M/uL Hgb (13.0-17.0) g/dL Hct (38.0-50.0) % MCV (80.0-98.0) fL MCH (27.0-32.0) pg MCHC (31.0-37.0) g/dL RDW Std Deviation (28.0-62.0) fl RDW Coeff of Mukesh (11.0-15.0) % Plt Count (150-400) K/uL MPV (7.40-12.00) fL Neut % (Auto) (48.0-80.0) % Lymph % (Auto) (16.0-40.0) % [place] % (Auto) (0.0-15.0) % Eos % (Auto) (0.0-7.0) % Baso % (Auto) (0.0-1.5) % Neut # (Auto) (1.4-5.7) K/uL Lymph # (Auto) (0.6-2.4) K/uL [place] # (Auto) (0.0-0.8) K/uL Eos # (Auto) (0.0-0.7) K/uL Baso # (Auto) (0.0-0.1) K/uL Nucleated RBC % /100WBC Nucleated RBCs # K/uL INR APTT 57.2 H (18.6-31.3) SEC Sodium (136-148) mmol/L Potassium (3.5-5.1) mmol/L Chloride (98-107) mmol/L Carbon Dioxide (21.0-32.0) mmol/L BUN (7.0-18.0) mg/dL Creatinine (0.8-1.3) mg/dL Est Cr Clr Drug Dosing mL/min Estimated GFR (MDRD) ml/min Glucose (74-106) mg/dL POC Glucose 226 H (60-110) mg/dL Calcium (8.5-10.1) mg/dL Total Bilirubin (0.2-1.0) mg/dL AST (15-37) IU/L ALT (14-63) IU/L Alkaline Phosphatase (46-116) U/L Troponin I < 0.050 (0.000-0.056) ng/mL Total Protein (6.4-8.2) g/dL Albumin (3.4-5.0) g/dL Globulin (2.6-4.0) g/dL Albumin/Globulin Ratio (0.9-1.6) Med Orders - Current: Current Medications Acetaminophen (Tylenol) 650 mg PO Q4H PRN PRN Reason: Pain (Mild 1-3)/fever Last Admin: 10/31/19 10:08 Dose: 650 mg Aspirin (Aspirin) 81 mg PO DAILY [facility] Last Admin: 10/31/19 11:35 Dose: 81 mg Atorvastatin Calcium (Lipitor) 40 mg PO BEDTIME [facility] Last Admin: 10/30/19 20:55 Dose: 40 mg Carvedilol (Coreg) 6.25 mg PO BID [facility] Last Admin: 10/31/19 08:49 Dose: 6.25 mg Clopidogrel Bisulfate (Plavix) 75 mg PO DAILY [facility] Last Admin: 10/31/19 11:36 Dose: 75 mg Furosemide (Lasix) 40 mg PO DAILY [facility] Last Admin: 10/31/19 08:48 Dose: 40 mg Heparin Sodium (Porcine) (Heparin Sodium) 1,000 - 2,000 units IVPUSH ASDIRECTED PRN PRN Reason: FOR PRN BOLUSES BASED ON PTT Last Admin: 10/31/19 03:32 Dose: 1,000 units Pantoprazole Sodium 40 mg/ (Sodium Chloride) 10 mls @ 300 mls/hr IV DAILY [facility] Last Admin: 10/31/19 09:00 Dose: 300 mls/hr Ciprofloxacin/Dextrose 400 mg/ (Premix) 200 mls @ 200 mls/hr IV Q12H [facility] Last Admin: 10/31/19 02:28 Dose: 200 mls/hr Heparin Sodium/Sodium Chloride (Heparin-1/2ns 25,000 Units/500) 25,000 unit in 500 mls @ 20 mls/hr IV TITRATE MIRZA; Protocol Stop: 10/31/19 19:00 Last Titration: 10/31/19 07:00 Dose: 14 unit/kg/hr, 29.96 mls/hr Insulin Aspart (Novolog) 0 unit SUBCUT TIDAC [facility]; Protocol Last Admin: 10/31/19 12:02 Dose: 2 units Lisinopril (Prinivil) 10 mg PO DAILY [facility] Last Admin: 10/31/19 08:48 Dose: 10 mg Metoclopramide HCl (Reglan) 5 mg PO Q6H [facility] Last Admin: 10/31/19 08:48 Dose: 5 mg Morphine Sulfate (Morphine) 1 mg IVPUSH Q4H PRN PRN Reason: Pain Last Admin: 10/31/19 00:57 Dose: 1 mg Non-Formulary Medication (Magnesium [Magnesium]) 250 mg PO BID [facility] Last Admin: 10/31/19 09:39 Dose: Not Given Ondansetron HCl (Zofran Odt) 4 mg PO Q4H PRN PRN Reason: nausea, able to take PO Ondansetron HCl (Zofran) 4 mg IVPUSH Q4H PRN PRN Reason: Nausea Last Admin: 10/30/19 20:48 Dose: 4 mg Spironolactone (Aldactone) 25 mg PO DAILY [facility] Last Admin: 10/31/19 08:48 Dose: 25 mg Sucralfate (Carafate) 1 gm PO Q6H [facility] Last Admin: 10/31/19 08:47 Dose: 1 gm Tamsulosin HCl (Flomax) 0.4 mg PO BEDTIME [facility] Last Admin: 10/30/19 20:58 Dose: 0.4 mg Discontinued Medications Al Hydroxide/Mg Hydroxide 15 (ml/ Lidocaine HCl 5 ml) 0 ml PO ONETIME ONE Stop: 10/30/19 14:34 Last Admin: 10/30/19 15:14 Dose: 20 each Enoxaparin Sodium (Lovenox) 40 mg SUBCUT Q24H [facility] Last Admin: 10/30/19 16:39 Dose: Not Given Heparin Sodium (Porcine) (Heparin Sodium) 5,000 units SUBCUT Q8H [facility] Heparin Sodium (Porcine) (Heparin Sodium) 4,000 units IVPUSH .BOLUS ONE Stop: 10/30/19 18:35 Last Admin: 10/30/19 19:56 Dose: 4,000 units Hydromorphone HCl (Dilaudid) 0.5 mg IVPUSH ONETIME ONE Stop: 10/30/19 14:32 Last Admin: 10/30/19 16:34 Dose: 0.5 mg Ciprofloxacin/Dextrose 400 mg/ (Premix) 200 mls @ 200 mls/hr IV STAT ONE Stop: 10/30/19 13:44 Last Admin: 10/30/19 12:58 Dose: 200 mls/hr Sodium Chloride (Normal Saline) 1,000 mls @ 120 mls/hr IV STAT ONE Stop: 10/30/19 22:17 Last Admin: 10/30/19 16:39 Dose: Not Given Lorazepam (Ativan) 1 mg IVPUSH ONETIME ONE Stop: 10/30/19 12:08 Last Admin: 10/30/19 12:30 Dose: 1 mg Metoclopramide HCl (Reglan) 5 mg PO Q6H PRN PRN Reason: Nausea/Vomiting Morphine Sulfate (Morphine) 4 mg IVPUSH ONETIME ONE Stop: 10/30/19 12:37 Last Admin: 10/30/19 12:52 Dose: 4 mg Morphine Sulfate (Morphine) 2 mg IVPUSH Q2H PRN PRN Reason: Pain Last Admin: 10/30/19 20:25 Dose: 2 mg Nitroglycerin (Nitro-Dur 0.2 Mg/Hr) 0.2 mg TRDERM ONETIME ONE Stop: 10/30/19 18:27 Last Admin: 10/30/19 18:57 Dose: Not Given - Exam General: Alert, Oriented Lungs: Clear to Auscultation, Normal Respiratory Effort Cardiovascular: Regular Rate, Regular Rhythm Extremities: Non-Tender, No Pedal Edema Skin: Warm, Dry, Intact Neurological: No New Focal Deficit Sepsis Event Note - Evaluation Sepsis Screening Result: No Definite Risk - Focused Exam Vital Signs: Vital Signs Temp Pulse Pulse Resp BP BP Pulse Ox 10/31/19 08:49 80 118/65 10/31/19 08:48 118/65 10/31/19 04:00 36.2 C 72 17 124/78 97 Date Exam was Performed: 10/31/19 Time Exam was Performed: 13:12 - Problem List Review Problem List Initiated/Reviewed/Updated: Yes - My Orders Last 24 Hours: My Active Orders 10/30/19 13:11 Telemetry Monitoring [Cardiac Monitoring] [RC] Q8H 10/30/19 18:54 Heparin Sodium 1,000 - 2,000 units IVPUSH ASDIRECTED PRN 11/01/19 05:11 BASIC METABOLIC PANEL,BMP [CHEM] AM CBC WITH AUTO DIFF [HEME] AM - Plan Plan:: Assessment and Plan: 1. Chest pain, ACS rule out: - troponin has normalized. Will d/c heparin drip later tonight, continue ASA lavix 2. Epigastric abdominal pain: - H. pylori stool test pending, will get gastric emptying study tomorrow. 3. UTI: - Continue IV ciprofloxacin 400 mg BID. 4. Diabetes mellitus type 2: - SSI. ADA diet. 5. Past medical history HTN, hyperlipidemia and liver cirrhosis. 6. DVT prophylaxis: SCD's.
[2019-10-31] MEDS: Heparin Sod,Pork In 0.45% Nacl 25,000 UNIT/500 ML IV.SOLN IV SCH (14:49)
[2019-10-31] MEDS: Tamsulosin 0.4 MG Cap.ER PO SCH (20:18)
[2019-10-31] MEDS: atorvaSTATin 10 MG Tab PO SCH (20:19)
[2019-11-01] MEDS: Acetaminophen 325 MG Tab PO PRN ×2 (01:03→08:06)
[2019-11-01] MEDS: Ciprofloxacin in D5W 400 MG in Premix Bag 1 BAG IV SCH ×4 (01:59→17:26)
[2019-11-01] MEDS: Metoclopramide 5 MG Tab PO SCH ×2 (01:59→09:00)
[2019-11-01] MEDS: Sucralfate Suspension 1 GM/10 ML Cup PO SCH ×3 (01:59→17:26)
[2019-11-01] MEDS: Insulin Aspart 100 Units/ML 3 ML Pen SUBCUT SCH ×2 (07:36→13:25)
[2019-11-01] MEDS ORDERED: Nitroglycerin 0.2 MG/HR Transdermal Patch TRDERM ONE (08:45)
[2019-11-01] MEDS ORDERED: Aspirin 81 MG Tab.Chew PO STA (08:48)
[2019-11-01] MEDS: Clopidogrel 75 MG Tab PO SCH (09:33)
[2019-11-01] MEDS: Spironolactone 25 MG Tab PO SCH (09:34)
[2019-11-01] MEDS: Furosemide 40 MG Tab PO SCH (09:34)
[2019-11-01] MEDS: Lisinopril 10 MG Tab PO SCH (09:35)
[2019-11-01] MEDS: Carvedilol 3.125 MG Tab PO SCH (09:37)
[2019-11-01] MEDS: Pantoprazole 40 MG in Sodium Chloride 0.9% 10 ML IV SCH (09:39)
--- NOTE | 2019-11-01 11:20 | PCM.DCSUM1 ---
<Ranjeet Olivares - Last Filed: 11/01/19 12:41> Discharge Summary - Hospital Course Free Text/Narrative:: 59-year-old male admitted for chest pain and epigastric pain. He has a PMH of CAD s/p 7 stents, DM type 2, liver cirrhosis and HTN. He recently had a cardiac cath done approximately 3-4 weeks in [place], [place] by his glass scullion Dr. Bergman. On admission, his EKG showed no acute ischemic changes. His initial troponin was negative, but second troponin was mildly elevated at 0.057. Coal Screener at [facility] in [place], [place] Dr. Bolivar was contacted for recommendations on 10/30/19 who recommended continuing aspirin, plavix, statin, starting patient on heparin drip and continue to monitor and trend troponins. Patient troponins were downtrending and chest pain had improved. His heparin drip was discontinued on 10/31/19. On the morning of 11/01/19, patient complained of on and off chest pain again. EKG was then obtained which showed new T-wave inversion. Troponin level was normal. Coal Screener Dr. Gale at [facility] in [place], [place] was contacted. Dr. Gale recommended transfer to [facility] for further evaluation. He also recommended discontinuing Plavix and starting patient on Brilinta 180 mg loading dose and then 90 mg BID thereafter. However, pharmacy here at [facility] does not carry Brilinta, so this will need to be started once patient is admitted at [facility] in [place], [place]. Furthermore, patient has had intermittent abdominal pain and had gastric emptying study done today which is currently pending. CT abd/pelvis fro 10/19/19 showed no acute pathology. He has had improvement in abdominal pain with Reglan. Patient also being treated for UTI with IV ciprofloxacin 500 mg BID. Furthermore, Dr. Gale recommended admission to hospitalist service. Hospitalist Dr. Salguero was contacted and would like patient to be transferred directly to the ER. ER provider Dr. Hamm was contacted who agreed to accept patient for transfer. - Discharge Data Discharge Date: 11/01/19 Discharge Disposition: DC/Tfer to Acute Hospital 02 Condition: Good - Referral to Home Health Primary Care Physician: PCP None - Patient Instructions Diet: Heart Healthy Diet, Diabetic Diet Activity: As Tolerated Notify Provider of: Fever, Increased Pain, Swelling and Redness, Drainage, Nausea and/or Vomiting - Discharge Plan *PRESCRIPTION DRUG MONITORING PROGRAM REVIEWED*: Not Applicable *COPY OF PRESCRIPTION DRUG MONITORING REPORT IN PATIENT JEN: Not Applicable Home Medications: Home Meds carvediloL [Carvedilol] 6.25 mg PO BID 05/02/19 [History] metFORMIN [Glucophage] 1,000 mg PO BIDMEALS 05/02/19 [History] atorvaSTATin Calcium [Atorvastatin Calcium] 40 mg PO BEDTIME 05/25/19 [History] Spironolactone [Aldactone] 25 mg PO DAILY 06/12/19 [History] Nitroglycerin [Nitroglycerin Patch 0.2 MG/Hr] 0.2 mg TRDERM DAILY 07/25/19 [ History] Clopidogrel [Plavix] 75 mg PO DAILY 07/26/19 [History] lisinopriL [Lisinopril] 10 mg PO DAILY 07/26/19 [History] Magnesium 250 mg PO BID 08/26/19 [History] Nitroglycerin [Nitrostat] 0.4 mg PO ASDIRECTED PRN 08/26/19 [History] Aspirin [Barbie Chewable Aspirin] 81 mg PO DAILY 10/03/19 [History] Furosemide [Lasix] 40 mg PO DAILY 10/19/19 [History] Tamsulosin HCl [Flomax] 0.4 mg PO BEDTIME 10/30/19 [History] Oxygen Therapy Mode: Room Air Patient Handouts: Nonspecific Chest Pain, Adult, [id number] Referrals: Juliette Plascencia PA [Physician Director Of Quality Control] - 11/09/19 2:45 pm - Discharge Summary/Plan Comment DC Time >30 min.: No - Patient Data Vitals - Most Recent: Last Vital Signs Temp 97.9 F 11/01/19 08:00 Pulse 77 11/01/19 09:37 Resp 16 11/01/19 08:00 BP 134/85 11/01/19 09:37 Pulse Ox 99 11/01/19 08:00 Weight - Most Recent: 107 kg I&O - Last 24 hours: Intake & Output 10/31/19 11/01/19 11/01/19 22:59 06:59 14:59 Intake Total 1451 778 Output Total 1100 850 Balance 351 -72 Lab Results - Last 24 hrs: Laboratory Results - last 24 hr 10/31/19 10/31/19 10/31/19 Range/Units 13:14 18:20 19:15 WBC (4.0-11.0) K/uL RBC (4.50-5.90) M/uL Hgb (13.0-17.0) g/dL Hct (38.0-50.0) % MCV (80.0-98.0) fL MCH (27.0-32.0) pg MCHC (31.0-37.0) g/dL RDW Std Deviation (28.0-62.0) fl RDW Coeff of Mukesh (11.0-15.0) % Plt Count (150-400) K/uL MPV (7.40-12.00) fL Neut % (Auto) (48.0-80.0) % Lymph % (Auto) (16.0-40.0) % Lucas % (Auto) (0.0-15.0) % Eos % (Auto) (0.0-7.0) % Baso % (Auto) (0.0-1.5) % Neut # (Auto) (1.4-5.7) K/uL Lymph # (Auto) (0.6-2.4) K/uL Lucas # (Auto) (0.0-0.8) K/uL Eos # (Auto) (0.0-0.7) K/uL Baso # (Auto) (0.0-0.1) K/uL Nucleated RBC % /100WBC Nucleated RBCs # K/uL APTT 48.5 H 47.7 H (18.6-31.3) SEC POC Glucose 180 H (60-110) mg/dL Troponin I (0.000-0.056) ng/mL 11/01/19 11/01/19 11/01/19 Range/Units 01:05 05:50 06:08 WBC 3.58 L (4.0-11.0) K/uL RBC 3.62 L (4.50-5.90) M/uL Hgb 11.0 L (13.0-17.0) g/dL Hct 33.1 L (38.0-50.0) % MCV 91.4 (80.0-98.0) fL MCH 30.4 (27.0-32.0) pg MCHC 33.2 (31.0-37.0) g/dL RDW Std Deviation 43.6 (28.0-62.0) fl RDW Coeff of Mukesh 13 (11.0-15.0) % Plt Count 104 L (150-400) K/uL MPV 11.40 (7.40-12.00) fL Neut % (Auto) 48.2 (48.0-80.0) % Lymph % (Auto) 37.2 (16.0-40.0) % Lucas % (Auto) 10.6 (0.0-15.0) % Eos % (Auto) 3.4 (0.0-7.0) % Baso % (Auto) 0.6 (0.0-1.5) % Neut # (Auto) 1.7 (1.4-5.7) K/uL Lymph # (Auto) 1.3 (0.6-2.4) K/uL Lucas # (Auto) 0.4 (0.0-0.8) K/uL Eos # (Auto) 0.1 (0.0-0.7) K/uL Baso # (Auto) 0.0 (0.0-0.1) K/uL Nucleated RBC % 0.0 /100WBC Nucleated RBCs # 0 K/uL APTT 23.7 (18.6-31.3) SEC POC Glucose 176 H (60-110) mg/dL Troponin I (0.000-0.056) ng/mL 11/01/19 Range/Units 09:02 WBC (4.0-11.0) K/uL RBC (4.50-5.90) M/uL Hgb (13.0-17.0) g/dL Hct (38.0-50.0) % MCV (80.0-98.0) fL MCH (27.0-32.0) pg MCHC (31.0-37.0) g/dL RDW Std Deviation (28.0-62.0) fl RDW Coeff of Mukesh (11.0-15.0) % Plt Count (150-400) K/uL MPV (7.40-12.00) fL Neut % (Auto) (48.0-80.0) % Lymph % (Auto) (16.0-40.0) % Lucas % (Auto) (0.0-15.0) % Eos % (Auto) (0.0-7.0) % Baso % (Auto) (0.0-1.5) % Neut # (Auto) (1.4-5.7) K/uL Lymph # (Auto) (0.6-2.4) K/uL Lucas # (Auto) (0.0-0.8) K/uL Eos # (Auto) (0.0-0.7) K/uL Baso # (Auto) (0.0-0.1) K/uL Nucleated RBC % /100WBC Nucleated RBCs # K/uL APTT (18.6-31.3) SEC POC Glucose (60-110) mg/dL Troponin I < 0.050 (0.000-0.056) ng/mL MADELYN Results - Last 24 hrs: Microbiology 10/30/19 12:05 Urine Culture - Final Urine, Clean Catch MIXED JOO 10,000-100,000 CFU/ML Med Orders - Current: Current Medications Acetaminophen (Tylenol) 650 mg PO Q4H PRN PRN Reason: Pain (Mild 1-3)/fever Last Admin: 11/01/19 08:06 Dose: 650 mg Aspirin (Aspirin) 81 mg PO DAILY [facility] Atorvastatin Calcium (Lipitor) 40 mg PO BEDTIME [facility] Last Admin: 10/31/19 20:19 Dose: 40 mg Carvedilol (Coreg) 6.25 mg PO BID [facility] Last Admin: 11/01/19 09:37 Dose: 6.25 mg Clopidogrel Bisulfate (Plavix) 75 mg PO DAILY [facility] Furosemide (Lasix) 40 mg PO DAILY [facility] Last Admin: 11/01/19 09:34 Dose: 40 mg Heparin Sodium (Porcine) (Heparin Sodium) 1,000 - 2,000 units IVPUSH ASDIRECTED PRN PRN Reason: FOR PRN BOLUSES BASED ON PTT Last Admin: 10/31/19 03:32 Dose: 1,000 units Pantoprazole Sodium 40 mg/ (Sodium Chloride) 10 mls @ 300 mls/hr IV DAILY [facility] Last Admin: 11/01/19 09:39 Dose: 300 mls/hr Ciprofloxacin/Dextrose 400 mg/ (Premix) 200 mls @ 200 mls/hr IV Q12H [facility] Last Admin: 11/01/19 01:59 Dose: 200 mls/hr Insulin Aspart (Novolog) 0 unit SUBCUT TIDAC [facility]; Protocol Last Admin: 11/01/19 07:36 Dose: Not Given Lisinopril (Prinivil) 10 mg PO DAILY [facility] Last Admin: 11/01/19 09:35 Dose: 10 mg Morphine Sulfate (Morphine) 1 mg IVPUSH Q4H PRN PRN Reason: Pain Last Admin: 10/31/19 00:57 Dose: 1 mg Non-Formulary Medication (Magnesium [Magnesium]) 250 mg PO BID [facility] Last Admin: 10/31/19 21:10 Dose: Not Given Ondansetron HCl (Zofran Odt) 4 mg PO Q4H PRN PRN Reason: nausea, able to take PO Ondansetron HCl (Zofran) 4 mg IVPUSH Q4H PRN PRN Reason: Nausea Last Admin: 10/30/19 20:48 Dose: 4 mg Spironolactone (Aldactone) 25 mg PO DAILY [facility] Last Admin: 11/01/19 09:34 Dose: 25 mg Sucralfate (Carafate) 1 gm PO Q6H [facility] Last Admin: 11/01/19 08:09 Dose: 1 gm Tamsulosin HCl (Flomax) 0.4 mg PO BEDTIME [facility] Last Admin: 10/31/19 20:18 Dose: 0.4 mg Discontinued Medications Aspirin (Aspirin) 81 mg PO DAILY [facility] Last Admin: 10/31/19 11:35 Dose: 81 mg Aspirin (Aspirin) 324 mg PO ONETIME STA Stop: 11/01/19 08:49 Last Admin: 11/01/19 09:59 Dose: 324 mg Clopidogrel Bisulfate (Plavix) 75 mg PO DAILY [facility] Last Admin: 11/01/19 09:33 Dose: 75 mg Al Hydroxide/Mg Hydroxide 15 (ml/ Lidocaine HCl 5 ml) 0 ml PO ONETIME ONE Stop: 10/30/19 14:34 Last Admin: 10/30/19 15:14 Dose: 20 each Enoxaparin Sodium (Lovenox) 40 mg SUBCUT Q24H [facility] Last Admin: 10/30/19 16:39 Dose: Not Given Heparin Sodium (Porcine) (Heparin Sodium) 5,000 units SUBCUT Q8H [facility] Heparin Sodium (Porcine) (Heparin Sodium) 4,000 units IVPUSH .BOLUS ONE Stop: 10/30/19 18:35 Last Admin: 10/30/19 19:56 Dose: 4,000 units Hydromorphone HCl (Dilaudid) 0.5 mg IVPUSH ONETIME ONE Stop: 10/30/19 14:32 Last Admin: 10/30/19 16:34 Dose: 0.5 mg Ciprofloxacin/Dextrose 400 mg/ (Premix) 200 mls @ 200 mls/hr IV STAT ONE Stop: 10/30/19 13:44 Last Admin: 10/30/19 12:58 Dose: 200 mls/hr Sodium Chloride (Normal Saline) 1,000 mls @ 120 mls/hr IV STAT ONE Stop: 10/30/19 22:17 Last Admin: 10/30/19 16:39 Dose: Not Given Heparin Sodium/Sodium Chloride (Heparin-1/2ns 25,000 Units/500) 25,000 unit in 500 mls @ 20 mls/hr IV TITRATE [facility]; Protocol Stop: 10/31/19 19:00 Last Admin: 10/31/19 14:49 Dose: 14 unit/kg/hr, 29.96 mls/hr Lorazepam (Ativan) 1 mg IVPUSH ONETIME ONE Stop: 10/30/19 12:08 Last Admin: 10/30/19 12:30 Dose: 1 mg Metoclopramide HCl (Reglan) 5 mg PO Q6H PRN PRN Reason: Nausea/Vomiting Metoclopramide HCl (Reglan) 5 mg PO Q6H [facility] Last Admin: 11/01/19 01:59 Dose: 5 mg Morphine Sulfate (Morphine) 4 mg IVPUSH ONETIME ONE Stop: 10/30/19 12:37 Last Admin: 10/30/19 12:52 Dose: 4 mg Morphine Sulfate (Morphine) 2 mg IVPUSH Q2H PRN PRN Reason: Pain Last Admin: 10/30/19 20:25 Dose: 2 mg Nitroglycerin (Nitro-Dur 0.2 Mg/Hr) 0.2 mg TRDERM ONETIME ONE Stop: 10/30/19 18:27 Last Admin: 10/30/19 18:57 Dose: Not Given Nitroglycerin (Nitro-Dur 0.2 Mg/Hr) 0.2 mg TRDERM ONETIME ONE Stop: 11/01/19 08:46 <Bolivar Howard J - Last Filed: 11/02/19 15:16> Discharge Summary - Referral to Home Health Primary Care Physician: PCP None - Patient Data Vitals - Most Recent: Last Vital Signs Temp 36.8 C 11/01/19 12:54 Pulse 79 11/01/19 12:54 Resp 15 11/01/19 12:54 BP 135/85 11/01/19 12:54 Pulse Ox 99 11/01/19 12:54 Med Orders - Current: Current Medications Discontinued Medications Acetaminophen (Tylenol) 650 mg PO Q4H PRN PRN Reason: Pain (Mild 1-3)/fever Last Admin: 11/01/19 08:06 Dose: 650 mg Aspirin (Aspirin) 81 mg PO DAILY [facility] Last Admin: 10/31/19 11:35 Dose: 81 mg Aspirin (Aspirin) 324 mg PO ONETIME STA Stop: 11/01/19 08:49 Last Admin: 11/01/19 09:59 Dose: 324 mg Aspirin (Aspirin) 81 mg PO DAILY [facility] Atorvastatin Calcium (Lipitor) 40 mg PO BEDTIME [facility] Last Admin: 10/31/19 20:19 Dose: 40 mg Carvedilol (Coreg) 6.25 mg PO BID [facility] Last Admin: 11/01/19 09:37 Dose: 6.25 mg Clopidogrel Bisulfate (Plavix) 75 mg PO DAILY [facility] Last Admin: 11/01/19 09:33 Dose: 75 mg Clopidogrel Bisulfate (Plavix) 75 mg PO DAILY [facility] Al Hydroxide/Mg Hydroxide 15 (ml/ Lidocaine HCl 5 ml) 0 ml PO ONETIME ONE Stop: 10/30/19 14:34 Last Admin: 10/30/19 15:14 Dose: 20 each Enoxaparin Sodium (Lovenox) 40 mg SUBCUT Q24H [facility] Last Admin: 10/30/19 16:39 Dose: Not Given Furosemide (Lasix) 40 mg PO DAILY [facility] Last Admin: 11/01/19 09:34 Dose: 40 mg Heparin Sodium (Porcine) (Heparin Sodium) 5,000 units SUBCUT Q8H [facility] Heparin Sodium (Porcine) (Heparin Sodium) 4,000 units IVPUSH .BOLUS ONE Stop: 10/30/19 18:35 Last Admin: 10/30/19 19:56 Dose: 4,000 units Heparin Sodium (Porcine) (Heparin Sodium) 1,000 - 2,000 units IVPUSH ASDIRECTED PRN PRN Reason: FOR PRN BOLUSES BASED ON PTT Last Admin: 10/31/19 03:32 Dose: 1,000 units Hydromorphone HCl (Dilaudid) 0.5 mg IVPUSH ONETIME ONE Stop: 10/30/19 14:32 Last Admin: 10/30/19 16:34 Dose: 0.5 mg Ciprofloxacin/Dextrose 400 mg/ (Premix) 200 mls @ 200 mls/hr IV STAT ONE Stop: 10/30/19 13:44 Last Admin: 10/30/19 12:58 Dose: 200 mls/hr Sodium Chloride (Normal Saline) 1,000 mls @ 120 mls/hr IV STAT ONE Stop: 10/30/19 22:17 Last Admin: 10/30/19 16:39 Dose: Not Given Pantoprazole Sodium 40 mg/ (Sodium Chloride) 10 mls @ 300 mls/hr IV DAILY [facility] Last Admin: 11/01/19 09:39 Dose: 300 mls/hr Ciprofloxacin/Dextrose 400 mg/ (Premix) 200 mls @ 200 mls/hr IV Q12H [facility] Last Admin: 11/01/19 17:26 Dose: Not Given Heparin Sodium/Sodium Chloride (Heparin-1/2ns 25,000 Units/500) 25,000 unit in 500 mls @ 20 mls/hr IV TITRATE [facility]; Protocol Stop: 10/31/19 19:00 Last Admin: 10/31/19 14:49 Dose: 14 unit/kg/hr, 29.96 mls/hr Insulin Aspart (Novolog) 0 unit SUBCUT TIDAC [facility]; Protocol Last Admin: 11/01/19 13:25 Dose: 1 units Lisinopril (Prinivil) 10 mg PO DAILY [facility] Last Admin: 11/01/19 09:35 Dose: 10 mg Lorazepam (Ativan) 1 mg IVPUSH ONETIME ONE Stop: 10/30/19 12:08 Last Admin: 10/30/19 12:30 Dose: 1 mg Magnesium Oxide (Magnesium Oxide) 250 mg PO BID [facility] Magnesium Oxide (Magnesium Oxide) 400 mg PO BID [facility] Magnesium Oxide (Magnesium Oxide) 400 mg PO BID [facility] Last Admin: 11/01/19 13:24 Dose: 400 mg Metoclopramide HCl (Reglan) 5 mg PO Q6H PRN PRN Reason: Nausea/Vomiting Metoclopramide HCl (Reglan) 5 mg PO Q6H [facility] Last Admin: 11/01/19 09:00 Dose: Not Given Morphine Sulfate (Morphine) 4 mg IVPUSH ONETIME ONE Stop: 10/30/19 12:37 Last Admin: 10/30/19 12:52 Dose: 4 mg Morphine Sulfate (Morphine) 2 mg IVPUSH Q2H PRN PRN Reason: Pain Last Admin: 10/30/19 20:25 Dose: 2 mg Morphine Sulfate (Morphine) 1 mg IVPUSH Q4H PRN PRN Reason: Pain Last Admin: 11/01/19 12:49 Dose: 1 mg Nitroglycerin (Nitro-Dur 0.2 Mg/Hr) 0.2 mg TRDERM ONETIME ONE Stop: 10/30/19 18:27 Last Admin: 10/30/19 18:57 Dose: Not Given Nitroglycerin (Nitro-Dur 0.2 Mg/Hr) 0.2 mg TRDERM ONETIME ONE Stop: 11/01/19 08:46 Last Admin: 11/01/19 13:00 Dose: Not Given Non-Formulary Medication (Magnesium [Magnesium]) 250 mg PO BID [facility] Last Admin: 11/01/19 13:15 Dose: Not Given Ondansetron HCl (Zofran Odt) 4 mg PO Q4H PRN PRN Reason: nausea, able to take PO Ondansetron HCl (Zofran) 4 mg IVPUSH Q4H PRN PRN Reason: Nausea Last Admin: 10/30/19 20:48 Dose: 4 mg Spironolactone (Aldactone) 25 mg PO DAILY [facility] Last Admin: 11/01/19 09:34 Dose: 25 mg Sucralfate (Carafate) 1 gm PO Q6H [facility] Last Admin: 11/01/19 17:26 Dose: Not Given Tamsulosin HCl (Flomax) 0.4 mg PO BEDTIME [facility] Last Admin: 10/31/19 20:18 Dose: 0.4 mg - Free Text/Narrative Note: I have seen and examined the patient with the resident. I have discussed the findings and treatment plan with the resident. I agree with the assessment and plan as outlined in the following note.
[2019-11-01 11:43] LABS: BLOOD UREA NITROGEN,BUN 16 mg/dL (7.0-18.0); CARBON DIOXIDE,CO2 26.1 mmol/L (21.0-32.0); CHLORIDE,CL 105 mmol/L (98-107); GLUCOSE RANDOM 220 mg/dL (74-106); POTASSIUM,K 4.2 mmol/L (3.5-5.1); SODIUM,NA 140 mmol/L (136-148)
[2019-11-01] MEDS: Morphine 2 MG/ML Syringe IVPUSH PRN (12:49)
[2019-11-01] MEDS ORDERED: Magnesium Oxide 400 MG Tab PO SCH ×3 (13:15→21:00)
[2019-11-01] MEDS: Non-Formulary Medication 1 Each (Magnesium [Magnesium] 250 MG) PO SCH (13:15)
--- NOTE | 2019-11-01 15:57 | NM ---
Gastric emptying study Technique: 1.0 mCi of technetium 99 mm sulfur colloid was mixed with 2 eggs and 2 ounces of water. Scintigraphic imaging then obtained over the stomach. Findings: T1 half between 43 minutes and 60 minutes which is within normal limits. Impression: 1. Normal gastric emptying. Diagnostic code #1 This report was dictated in MDT
[2019-11-02] MEDS ORDERED: Clopidogrel 75 MG Tab PO SCH (09:00)
[2019-11-02] MEDS ORDERED: Aspirin 81 MG Tab.Chew PO SCH (09:00)
== END 2019-11-01 13:20 | DRG 690 ==
LOC: MW.ED 11:11 → MW.MS 12:41 → OBSVTOIN 18:50
PROVIDERS: ADMIT Internal Medicine; ATTEND Internal Medicine
DX: N39.0 Urinary tract infection, site not specified (principal); I25.110 Atherosclerotic heart disease of native coronary artery with unstable angina pectoris; R07.9 Chest pain, unspecified; R10.13 Epigastric pain; E11.9 Type 2 diabetes mellitus without complications; H54.7 Unspecified visual loss; I11.0 Hypertensive heart disease with heart failure; I50.9 Heart failure, unspecified; R79.89 Other specified abnormal findings of blood chemistry; I95.9 Hypotension, unspecified; E78.5 Hyperlipidemia, unspecified; Z79.84 Long term (current) use of oral hypoglycemic drugs; Z79.02 Long term (current) use of antithrombotics/antiplatelets; Z79.82 Long term (current) use of aspirin; Z79.899 Other long term (current) drug therapy; I25.2 Old myocardial infarction; Z95.818 Presence of other cardiac implants and grafts; Z90.89 Acquired absence of other organs; Z95.5 Presence of coronary angioplasty implant and graft
CPT/HCPCS: 36415; 71045; 71045-26; 78264; 78264-26; 80048; 80053; 81001; 82962; 83690; 84484; 85025; 85610; 85730; 87086; 93005; 96365; 96375; 99283; 99285-25; A9270-GY; A9541; C9113; J0744; J1170; J1644; J1815-GY; J2060; J2270; J2405; J7050